=== PATIENT | female | born 1965 | race Caucasian/White ===

== ENCOUNTER → 2017-01-18 | Outpatient (CLI) | payer MEDICARE, OTHER ==
[~2017-01-18] MED LIST: BNZT2T PO; BUPR150T6; CALCIUM; CLON0.5T3 PO; D50KC PO; DIVA500T PO; DIVA500T15; DULO60CA6 PO; EFFEXOR; EST.625T PO; LITH300C PO; LORA0.5T; LORA0.5T PO; LRT10T PO; MMT17NA NS; MNTL10T PO; MTC5T; NEBI5TAB8 PO; OMEP-10 PO; PRM25T PO; TEMA30CA; VIT D; ZLP10T PO
--- NOTE | 2017-01-18 10:59 | Diagnostic Imaging Report ---
PROCEDURE: CT abdomen and pelvis without contrast. TECHNIQUE: Multiple contiguous axial images were obtained through the abdomen and pelvis without the use of intravenous contrast. INDICATION: Pain, hematuria, bladder pressure. Exam compared with study 08/20/2009. FINDINGS: Image 77 reveals an elongated calculus likely passing through the ureterovesical junction. The majority of the stone within the lumen of the urinary bladder measuring 3.3 mm in length x 1.6 mm transverse. This does not result in any substantial upstream hydroureteronephrosis; however, right renal parenchymal densities suggest mild cortical edema. No urinoma or fluid collection. No additional opaque urinary tract stone burden. The urinary bladder was nondistended. Right pelvic phleboliths stable from prior. The appendix nondilated and normal. The gallbladder surgically absent. No pathological biliary ductal dilatation. The pancreas normal. There is no adrenal mass. Chronic benign calcifications, the right adrenal, medial limb, unchanged. Aorta is nonaneurysmal. There is no bowel obstruction. No ascites, abscess, hematoma, or other fluid collection. IMPRESSION: Small elongated stone in the right hemipelvis likely passing through the UVJ nearly entirely within the lumen of the urinary bladder. Dimensions above. No resultant hydroureteronephrosis, however, likely mild right renal cortical edema present. No fluid collection. No additional stone burden. Negative appendix. No other potential acute or subacute pathology. Dictated by: Dictated on workstation # [id number]
== END ==
LOC: RAD 10:30
DX: N20.1 Calculus of ureter (principal)
CPT/HCPCS: 74176

== ENCOUNTER → 2017-07-28 | Outpatient (CLI) | payer MEDICARE, OTHER ==
--- NOTE | 2017-07-29 13:46 | Diagnostic Imaging Report ---
Bilateral screening mammogram 2D views with tomosynthesis. The current study was also evaluated with a Computer Aided Detection (CAD) system. INDICATION: Screening. No current complaints stated on the questionnaire. COMPARISON: 03/03/2015. FINDINGS: The breasts are composed of heterogeneously dense parenchyma which may decrease mammographic sensitivity. No mass, architectural distortion, or suspicious cluster of calcifications seen. Allowing for technique and positional differences, no suspicious change is seen. IMPRESSION: No significant change. ACR BI-RADS Category 2: Benign findings. Result letter will be mailed to the patient. Note: At least 10% of breast cancer is not imaged by mammography. Dictated on workstation # [id number]
== END ==
LOC: RAD 10:32
DX: Z12.31 Encounter for screening mammogram for malignant neoplasm of breast (principal)
CPT/HCPCS: 77067

== ENCOUNTER 2017-11-28 05:36 | Outpatient (CLI) | payer MEDICARE, OTHER ==
[~2017-11-28] VITALS: Ht 167.6 cm; Wt 90.7 kg
[2017-11-28] MEDS ORDERED: VENL150C98 PO (15:03)
[2017-11-28] MEDS ORDERED: TOPI100T PO (15:03)
[2017-11-28] MEDS ORDERED: LEVO50TA6 PO (15:03)
[2017-11-28] MEDS ORDERED: METO-461 PO (15:03)
[2017-11-28] MEDS ORDERED: OXCA600T3 PO ×2 (15:03)
[2017-11-28] MEDS ORDERED: ATOR20TA66 PO (15:03)
[2017-11-28] MEDS ORDERED: MONT10TA24 PO (15:03)
[2017-11-28] MEDS ORDERED: MULT-974 PO (15:03)
[2017-11-28] MEDS ORDERED: LORA10TA7 PO (15:03)
[2017-11-28] MEDS ORDERED: GABA300C PO (15:03)
[2017-11-28] MEDS ORDERED: HYDR12.56 PO (15:03)
[2017-11-28] MEDS ORDERED: ARIP5TAB12 PO (15:03)
[2017-11-28] MEDS ORDERED: OMEP40CA36 PO (15:03)
== END 2017-11-28 15:07 ==
LOC: PREOP 05:36
PROVIDERS: ATTEND Surgery
DX: Z01.818 Encounter for other preprocedural examination (principal); Z12.11 Encounter for screening for malignant neoplasm of colon

== ENCOUNTER 2017-12-05 08:49 | Day surgery (SDC) | payer MEDICARE, OTHER ==
[~2017-12-05] VITALS: Ht 167.6 cm; Wt 90.7 kg
[~2017-12-05 08:49] MED LIST changes: +ARIP5TAB12 PO; +ATOR20TA66 PO; +GABA300C PO; +HYDR12.56 PO; +LEVO50TA6 PO; +LORA10TA7 PO; +METO-461 PO; +MONT10TA24 PO; +MULT-974 PO; +OMEP40CA36 PO; +OXCA600T3 PO; +TOPI100T PO; +VENL150C98 PO
--- OUTSIDE RECORDS SUMMARY | 2017-12-05 08:53 | XMS REPORT ---
Author Author ARIANNA MOSQUEDA Organization [facility] [place] Address [address] [place] [address] Care Team Providers Care Director Marketing Name Role Phone ARIANNA MOSQUEDA Unavailable PROBLEMS Type Condition ICD9-CM Code [id number] Code Onset Dates Condition Status SNOMED Code Problem Moderate mixed bipolar I disorder F31.62 Active 54122070 Problem Anxiety state F41.1 Active 346552485 Problem Bipolar 1 disorder, depressed, moderate F31.32 Active 99154717 Assessment Moderate mixed bipolar I disorder F31.62 Sep, Active 44181847 ALLERGIES Unknown Allergies SOCIAL HISTORY No smoking Hx information available PLAN OF CARE VITAL SIGNS MEDICATIONS Unknown Medications RESULTS No Results PROCEDURES Procedure Date Ordered Related Diagnosis Body Site [facility] VISIT MENTAL HEALTH ESTAB PT Sep 20, 2016 Psychotherapy, patient &/family, 45 minutes, established patient Sep 20, 2016 IMMUNIZATIONS No Known Immunizations
--- OUTSIDE RECORDS SUMMARY | 2017-12-05 08:53 | XMS REPORT ---
Author Author ARIANNA MOSQUEDA [facility] Address [address] [place] [address] Care Team Providers Care Ssrs Developer Name Role Phone ARIANNA MOSQUEDA Unavailable PROBLEMS Type Condition ICD9-CM Code [id number] Code Onset Dates Condition Status SNOMED Code Problem Moderate mixed bipolar I disorder F31.62 Active 42728404 Problem Anxiety state F41.1 Active 089757298 ALLERGIES No Information SOCIAL HISTORY Never Assessed PLAN OF CARE Activity Details Follow Up 4 Weeks Reason:BH Follow-up VITAL SIGNS MEDICATIONS Unknown Medications RESULTS No Results PROCEDURES Procedure Date Ordered Result Body Site [facility] M[facility] HEALTH ESTAB PT February 28, 2017 Psychotherapy, patient &/family, 45 minutes, established patient February 28, 2017 IMMUNIZATIONS No Known Immunizations
--- OUTSIDE RECORDS SUMMARY | 2017-12-05 08:53 | XMS REPORT ---
Author Author ERIKA MOSQUEDA [facility] e[employer] Address Unknown Phone Unavailable Care Team Providers Care Branch Mechanic Name Role Phone ERIKA MOSQUEDA Unavailable Allergies No Known Allergies Problems Problem Type Condition Code Onset Dates Condition Status Problem Anxiety state F41.1 Active Problem Bipolar 1 disorder, depressed, moderate F31.32 Active Problem Moderate mixed bipolar I disorder F31.62 Active Assessment Moderate mixed bipolar I disorder F31.62 Active Assessment Anxiety state F41.1 Active Medications No Known Medications Procedures Procedure Coding System Code Date Psychotherapy, patient &/family, 45 minutes, established patient CPT-4 87655 Aug 18, 2016 [facility] VISIT MENTAL HEALTH ESTAB PT CPT-4 G0470 Aug 18, 2016 Results No Known Results Summary Purpose eClinicalWorks Submission
--- OUTSIDE RECORDS SUMMARY | 2017-12-05 08:53 | XMS REPORT ---
Author ARIANNA Judd Organization [employer] Address Unknown Phone Unavailable Care Team Providers Care Organ Tuner Electronic Name Role Phone ARIANNA MOSQUEDA Unavailable Allergies No Known Allergies Problems Problem Type Condition Code Onset Dates Condition Status Assessment Bipolar I disorder, mild, current or most recent episode depressed , with anxious distress F31.31 Active Problem Bipolar I disorder, mild, current or most recent episode depressed, with anxious distress F31.31 Active Medications No Known Medications Procedures Procedure Coding System Code Date Psychotherapy, patient &/family, 45 minutes, established patient CPT-4 60143 Sep 25, 2015 [facility] VISIT MENTAL HEALTH ESTAB PT CPT-4 G0470 Sep 25, 2015 Results No Known Results Summary Purpose eClinicalWorks Submission
--- OUTSIDE RECORDS SUMMARY | 2017-12-05 08:53 | XMS REPORT ---
Author Author ARIANNA MOSQUEDA [employer] Address Unknown Phone Unavailable Care Team Providers Care Phys Ther Name Role Phone ARIANNA MOSQUEDA CP Unavailable Allergies No Known Allergies Problems Problem Type Condition ICD-9 Code Onset Dates Condition Status Assessment Bipolar I disorder, most recent episode depressed 296.50 Active Problem Bipolar I disorder, most recent episode mixed, moderate 296.62 Active Problem Bipolar disorder, current episode depressed, moderate 296.52 Active Problem Bipolar I disorder, most recent episode depressed 296.50 Active Problem Bipolar I disorder, most recent episode (or current) mixed, severe, without mention of psychotic behavior 296.63 Active Problem Bipolar I disorder, most recent episode (or current) manic, mild 296.41 Active Problem Other and unspecified bipolar disorders 296.89 Active Problem Bipolar I disorder, most recent episode (or current) depressed, severe , without mention of psychotic behavior 296.53 Active Medications No Known Medications Procedures Procedure Coding System Code Date Psychotherapy, patient &/family, 30 minutes, established patient CPT-4 99723 Jul 03, 2015 [facility] VISIT MENTAL HEALTH ESTAB PT CPT-4 G0470 Jul 03, 2015 Results No Known Results Summary Purpose eClinicalWorks Submission
--- OUTSIDE RECORDS SUMMARY | 2017-12-05 08:53 | XMS REPORT ---
Author ARIANNA Judd Organization [employer] Address Unknown Phone Unavailable Care Team Providers Care Finger Buffs Assembler Name Role Phone ARIANNA MOSQUEDA CP Unavailable Allergies No Known Allergies Problems Problem Type Condition Code Onset Dates Condition Status Problem Bipolar I disorder, mild, current or most recent episode depressed, with anxious distress F31.31 Active Assessment Bipolar I disorder, mild, current or most recent episode depressed , with anxious distress F31.31 Active Problem Bipolar 1 disorder, depressed, moderate F31.32 Active Medications No Known Medications Procedures Procedure Coding System Code Date Psychotherapy, patient &/family, 30 minutes, established patient CPT-4 11893 January 28, 2016 [facility] VISIT MENTAL HEALTH ESTAB PT CPT-4 G0470 January 28, 2016 Results No Known Results Summary Purpose eClinicalWorks Submission
--- OUTSIDE RECORDS SUMMARY | 2017-12-05 08:53 | XMS REPORT ---
Author ARIANNA Judd Organization [employer] Address Unknown Phone Unavailable Care Team Providers Care Rail Grinder Name Role Phone ARIANNA MOSQUEDA Unavailable Allergies [...] patient &/family, 45 minutes, established patient CPT-4 55101 Jul 31, 2015 [facility] VISIT MENTAL HEALTH ESTAB PT CPT-4 G0470 Jul 31, 2015 Results No Known Results Summary Purpose eClinicalWorks Submission
--- OUTSIDE RECORDS SUMMARY | 2017-12-05 08:53 | XMS REPORT ---
Author Author ERIKA MOSQUEDA [facility] e[employer] Address Unknown Phone Unavailable Care Team Providers Care Display Artist Name Role Phone ERIKA MOSQUEDA Unavailable Allergies [...] patient &/family, 45 minutes, established patient CPT-4 88938 May 24, 2016 [facility] HEALTH ESTAB PT CPT-4 G0470 May 24, 2016 Results No Known Results Summary Purpose eClinicalWorks Submission
--- OUTSIDE RECORDS SUMMARY | 2017-12-05 08:53 | XMS REPORT ---
Author ARIANNA Judd Organization [employer] Address Unknown Phone Unavailable Care Team Providers Care Business Line Controller Name Role Phone ARIANNA MOSQUEDA Unavailable Allergies [...] patient &/family, 45 minutes, established patient CPT-4 75872 Oct 23, 2015 [facility] VISIT MENTAL HEALTH ESTAB PT CPT-4 G0470 Oct 23, 2015 Results No Known Results Summary Purpose eClinicalWorks Submission
--- OUTSIDE RECORDS SUMMARY | 2017-12-05 08:53 | XMS REPORT ---
Author Author ARIANNA MOSQUEDA Organization [employer] Address Unknown Phone Unavailable Care Team Providers Care Certified Hand Therapist Name Role Phone ARIANNA MOSQUEDA CP Unavailable [...] patient &/family, 45 minutes, established patient CPT-4 37563 Jul 23, 2015 [facility] VISIT MENTAL HEALTH ESTAB PT CPT-4 G0470 Jul 23, 2015 Results No Known Results Summary Purpose eClinicalWorks Submission
--- OUTSIDE RECORDS SUMMARY | 2017-12-05 08:53 | XMS REPORT ---
Author Author ERIKA MOSQUEDA [facility] eClinicalWorks Address Unknown Phone Unavailable Care Team Providers Care Brine Purifier Name Role Phone ERIKA MOSQUEDA Unavailable Allergies [...] patient &/family, 30 minutes, established patient CPT-4 18987 Sep 02, 2016 [facility] VISIT MENTAL HEALTH ESTAB PT CPT-4 G0470 Sep 02, 2016 Results No Known Results Summary Purpose eClinicalWorks Submission
--- OUTSIDE RECORDS SUMMARY | 2017-12-05 08:53 | XMS REPORT ---
Author Author ERIKA MOSQUEDA Organization [facility] Address [address] [place] [address] Care Team Providers Care Radio Television Technical Director Name Role Phone ERIKA MOSQUEDA Unavailable PROBLEMS Type Condition ICD9-CM Code [id number] Code Onset Dates Condition Status SNOMED Code Problem Moderate mixed bipolar I disorder F31.62 Active 68986433 Problem Anxiety state F41.1 Active 230995668 ALLERGIES No Information SOCIAL HISTORY Never Assessed PLAN OF CARE Activity Details Follow Up 2 Weeks Reason:BH Follow-up VITAL SIGNS MEDICATIONS Medication Instructions Dosage Frequency Start Date End Date Duration Status Aripiprazole 5 MG Orally Once a day 1 tablet 24h Active Topiramate 100 MG Orally Twice a day 1 tablet 12h Active Effexor Active Metoprolol Succinate ER 100 MG Orally Once a day 1 tablet 24h Active Levoxyl 50 MCG Orally Once a day 1 tablet on an empty stomach in the morning 24h Active Atorvastatin Calcium 20 MG Orally Once a day 1 tablet 24h Active Oxcarbazepine 600 MG Active Prilosec 20 MG Orally Once a day 1 capsule 24h Active Loratadine 10 MG Orally Once a day 1 tablet 24h Active Singulair 10 mg 1 Tablet by Oral route 1 time per day Dec, Active Acamprosate Calcium 333 MG Orally Three times a day 1 tablet 8h Active Hydrochlorothiazide 12.5 MG Orally Once a day 1 tablet in the morning 24h Active Diazepam 2 MG Orally Once a day 1 tablet as needed 24h Active RESULTS No Results PROCEDURES Procedure Date Ordered Result Body Site [facility] VISIT MENTAL HEALTH ESTAB PT December 28, 2016 Psychotherapy, patient &/family, 30 minutes, established patient December 28, 2016 IMMUNIZATIONS No Known Immunizations
--- OUTSIDE RECORDS SUMMARY | 2017-12-05 08:53 | XMS REPORT ---
Author Author ARIANNA MOSQUEDA [facility] Address [address] [place] [address] Care Team Providers Care Regulatory Compliance Coordinator Name Role Phone ARIANNA MOSQUEDA Unavailable PROBLEMS Type Condition ICD9-CM Code [id number] Code Onset Dates Condition Status SNOMED Code Problem Moderate mixed bipolar I disorder F31.62 Active 43062924 Problem Anxiety state F41.1 Active 325397099 ALLERGIES No Information SOCIAL HISTORY Never Assessed PLAN OF CARE Activity Details Follow Up 2 Weeks Reason:BH Follow-up VITAL SIGNS MEDICATIONS Unknown Medications RESULTS No Results PROCEDURES Procedure Date Ordered Result Body Site [facility] VISIT MENTAL HEALTH ESTAB PT Nov 30, 2016 Psychotherapy, patient &/family, 30 minutes, established patient Nov 30, 2016 IMMUNIZATIONS No Known Immunizations
--- OUTSIDE RECORDS SUMMARY | 2017-12-05 08:53 | XMS REPORT ---
Author ARIANNA Judd Organization [employer] Address Unknown Phone Unavailable Care Team Providers Care Drafter Electronic Name Role Phone ARIANNA MOSQUEDA CP Unavailable [...] patient &/family, 45 minutes, established patient CPT-4 19792 February 03, 2016 [facility] VISIT MENTAL HEALTH ESTAB PT CPT-4 G0470 February 03, 2016 Results No Known Results Summary Purpose eClinicalWorks Submission
--- OUTSIDE RECORDS SUMMARY | 2017-12-05 08:54 | XMS REPORT ---
Author Author ARIANNA MOSQUEDA [facility] Address [address] [place] [address] Care Team Providers Care Site Supervisor Name Role Phone ARIANNA MOSQUEDA Unavailable PROBLEMS Type Condition ICD9-CM Code [id number] Code Onset Dates Condition Status SNOMED Code Problem Moderate mixed bipolar I disorder F31.62 Active 22848480 Problem Anxiety state F41.1 Active 519578884 ALLERGIES No Information SOCIAL HISTORY Never Assessed PLAN OF CARE Activity Details Follow Up Next available Reason:BH Follow-up VITAL SIGNS MEDICATIONS Unknown Medications RESULTS No Results PROCEDURES Procedure Date Ordered Result Body Site [facility] VISIT MENTAL HEALTH ESTAB PT March 08, 2017 Psychotherapy, patient &/family, 45 minutes, established patient March 08, 2017 IMMUNIZATIONS No Known Immunizations
--- OUTSIDE RECORDS SUMMARY | 2017-12-05 08:54 | XMS REPORT ---
Author Author ARIANNA MOSQUEDA [facility] Address [address] [place] [address] Care Team Providers Care Snow Blower Name Role Phone ARIANNA MOSQUEDA Unavailable PROBLEMS Type Condition ICD9-CM Code [id number] Code Onset Dates Condition Status SNOMED Code Problem Moderate mixed bipolar I disorder F31.62 Active 29627874 Problem Anxiety state F41.1 Active 897359404 ALLERGIES No Information SOCIAL HISTORY Never Assessed PLAN OF CARE Activity Details Follow Up Next available Reason:BH Follow-up VITAL SIGNS MEDICATIONS Unknown Medications RESULTS No Results PROCEDURES Procedure Date Ordered Result Body Site [facility] ESTAB PT Dec 13, 2016 Psychotherapy, patient &/family, 30 minutes, established patient Dec 13, 2016 IMMUNIZATIONS No Known Immunizations
--- OUTSIDE RECORDS SUMMARY | 2017-12-05 08:54 | XMS REPORT ---
Author ARIANNA Judd Organization [employer] Address Unknown Phone Unavailable Care Team Providers Care Jar Capper Name Role Phone ARIANNA MOSQUEDA Unavailable Allergies [...] patient &/family, 45 minutes, established patient CPT-4 29125 Nov 27, 2015 [facility] VISIT MENTAL HEALTH ESTAB PT CPT-4 G0470 Nov 27, 2015 Results No Known Results Summary Purpose eClinicalWorks Submission
--- OUTSIDE RECORDS SUMMARY | 2017-12-05 08:54 | XMS REPORT ---
Author ARIANNA Judd Organization [employer] Address Unknown Phone Unavailable Care Team Providers Care Store Custodian Name Role Phone ARIANNA MOSQUEDA Unavailable Allergies [...] patient &/family, 45 minutes, established patient CPT-4 85217 Sep 01, 2015 [facility] EST[facility] PT CPT-4 G0470 Sep 01, 2015 Results No Known Results Summary Purpose eClinicalWorks Submission
--- OUTSIDE RECORDS SUMMARY | 2017-12-05 08:54 | XMS REPORT ---
Author Author ARIANNA MOSQUEDA [facility] Address [address] [place] [address] Care Team Providers Care Food Adviser Name Role Phone ARIANNA MOSQUEDA Unavailable PROBLEMS Type Condition ICD9-CM Code [id number] Code Onset Dates Condition Status SNOMED Code Problem Moderate mixed bipolar I disorder F31.62 Active 73841885 Problem Anxiety state F41.1 Active 960375489 ALLERGIES Unknown Allergies SOCIAL HISTORY No smoking Hx information available PLAN OF CARE Activity Details Follow Up 4 Weeks Reason: Follow-up VITAL SIGNS MEDICATIONS Unknown Medications RESULTS No Results PROCEDURES Procedure Date Ordered Related Diagnosis Body Site [facility] VISIT MENTAL HEALTH ESTAB PT Nov 01, 2016 Psychotherapy, patient &/family, 30 minutes, established patient Nov 01, 2016 IMMUNIZATIONS No Known Immunizations
--- OUTSIDE RECORDS SUMMARY | 2017-12-05 08:54 | XMS REPORT ---
Author ERIKA Judd Organization [employer] Address Unknown Phone Unavailable Care Team Providers Care Consulting Analyst Name Role Phone ERIKA MOSQUEDA CP Unavailable Allergies No Known Allergies Problems Problem Type Condition Code Onset Dates Condition Status Problem Bipolar 1 disorder, depressed, moderate F31.32 Active Assessment Bipolar 1 disorder, depressed, moderate F31.32 Active Problem Anxiety state F41.1 Active Assessment Anxiety state F41.1 Active Medications No Known Medications Procedures Procedure Coding System Code Date Psychotherapy, patient &/family, 45 minutes, established patient CPT-4 12915 May 03, 2016 [facility] VISIT MENTAL HEALTH ESTAB PT CPT-4 G0470 May 03, 2016 Results No Known Results Summary Purpose eClinicalWorks Submission
--- OUTSIDE RECORDS SUMMARY | 2017-12-05 08:54 | XMS REPORT ---
Author ARIANNA Judd Organization [employer] Address Unknown Phone Unavailable Care Team Providers Care Dean Of Graduate Studies Name Role Phone ARIANNA MOSQUEDA Unavailable Allergies [...] patient &/family, 45 minutes, established patient CPT-4 03281 Nov 06, 2015 [facility] VISIT MENTAL HEALTH ESTAB PT CPT-4 G0470 Nov 06, 2015 Results No Known Results Summary Purpose eClinicalWorks Submission
--- OUTSIDE RECORDS SUMMARY | 2017-12-05 08:54 | XMS REPORT ---
Author Author ERIKA MOSQUEDA [facility] eClinicalWorks Address Unknown Phone Unavailable Care Team Providers Care Botanical Technical Officer Name Role Phone ERIKA MOSQUEDA Unavailable Allergies [...] patient &/family, 30 minutes, established patient CPT-4 65752 Aug 04, 2016 [facility] VISIT MENTAL HEALTH ESTAB PT CPT-4 G0470 Aug 04, 2016 Results No Known Results Summary Purpose eClinicalWorks Submission
--- OUTSIDE RECORDS SUMMARY | 2017-12-05 08:56 | XMS REPORT | Continuity of Care Document ---
Author Author [facility] Address Unknown Phone Unavailable Allergies Active Description Code Type Severity Reaction Onset Reported/Identified Relationship to Patient Clinical Status Yes ciprofloxacin [id number] Drug Allergy Unknown N/A 08/18/2010 Yes Cipro Drug Allergy 04/06/2011 Yes Cipro Drug Allergy N/A N/A 04/06/2011 Medications There is no data. Problems Date Dx Coded Attending Type Code Diagnosis Diagnosed By 09/05/2009 296.80 MO BIPOLAR NOS 09/05/2009 300.00 MN MEN DIS NOS 09/05/2009 307.47 SI DYSSOMNIA NOS 09/05/2009 296.80 MO BIPOLAR NOS 09/05/2009 300.00 MN MEN DIS NOS 09/05/2009 307.47 SI DYSSOMNIA NOS 09/05/2009 [facility] 296.80 MO BIPOLAR NOS 09/05/2009 [facility] 300.00 MN MEN DIS NOS 09/05/2009 J[facility]LIN [facility] STRONG 307.47 SI DYSSOMNIA NOS 09/05/2009 296.80 MO BIPOLAR NOS 09/05/2009 300.00 MN MEN DIS NOS 09/05/2009 307.47 SI DYSSOMNIA NOS 09/05/2009 296.80 MO BIPOLAR NOS 09/05/2009 300.00 MN MEN DIS NOS 09/05/2009 307.47 SI DYSSOMNIA NOS 09/05/2009 296.80 MO BIPOLAR NOS 09/05/2009 300.00 MN MEN DIS NOS 09/05/2009 307.47 SI DYSSOMNIA NOS 09/05/2009 296.80 MO BIPOLAR NOS 09/05/2009 300.00 MN MEN DIS NOS 09/05/2009 307.47 SI DYSSOMNIA NOS 09/05/2009 296.80 MO BIPOLAR NOS 09/05/2009 300.00 MN MEN DIS NOS 09/05/2009 307.47 SI DYSSOMNIA NOS 09/05/2009 [facility] 296.80 MO BIPOLAR NOS 09/05/2009 [facility], ARIANNA R 300.00 MN MEN DIS NOS 09/05/2009 [facility], ARIANNA R 307.47 SI DYSSOMNIA NOS 09/05/2009 [facility], ARIANNA R 296.80 MO BIPOLAR NOS 09/05/2009 [facility], ARIANNA R 300.00 MN MEN DIS NOS 09/05/2009 [facility], ARIANNA R 307.47 SI DYSSOMNIA NOS 09/05/2009 [facility], ARIANNA R 296.80 MO BIPOLAR NOS 09/05/2009 [facility], ARIANNA R 300.00 MN MEN DIS NOS 09/05/2009 [facility], ARIANNA R 307.47 SI DYSSOMNIA NOS 09/05/2009 [facility], ARIANNA R 296.80 MO BIPOLAR NOS 09/05/2009 [facility], ARIANNA R 300.00 MN MEN DIS NOS 09/05/2009 [facility], ARIANNA R 307.47 SI DYSSOMNIA NOS 09/05/2009 [facility], ARIANNA R 296.80 MO BIPOLAR NOS 09/05/2009 [facility], ARIANNA R 300.00 MN MEN DIS NOS 09/05/2009 [facility], ARIANNA R 307.47 SI DYSSOMNIA NOS 09/05/2009 [facility], ARIANNA R 296.80 MO BIPOLAR NOS 09/05/2009 [facility], ARIANNA R 300.00 MN MEN DIS NOS 09/05/2009 [facility], ARIANNA R 307.47 SI DYSSOMNIA NOS 09/05/2009 [facility], ARIANNA R 296.80 MO BIPOLAR NOS 09/05/2009 [facility], ARIANNA R 300.00 MN MEN DIS NOS 09/05/2009 [facility], ARIANNA R 307.47 SI DYSSOMNIA NOS 09/05/2009 [facility], ARIANNA R 296.80 MO BIPOLAR NOS 09/05/2009 [facility], ARIANNA R 300.00 MN MEN DIS NOS 09/05/2009 [facility], ARIANNA R 307.47 SI DYSSOMNIA NOS 09/05/2009 [facility], ARIANNA R 296.80 MO BIPOLAR NOS 09/05/2009 [facility], ARIANNA R 300.00 MN MEN DIS NOS 09/05/2009 [facility], ARIANNA R 307.47 SI DYSSOMNIA NOS 09/05/2009 [facility], ARIANNA R 296.80 MO BIPOLAR NOS 09/05/2009 [facility], ARIANNA R 300.00 MN MEN DIS NOS 09/05/2009 [facility], ARIANNA R 307.47 SI DYSSOMNIA NOS 09/05/2009 [facility], ARIANNA R 296.80 MO BIPOLAR NOS 09/05/2009 [facility], ARIANNA R 300.00 MN MEN DIS NOS 09/05/2009 [facility], ARIANNA R 307.47 SI DYSSOMNIA NOS 09/05/2009 [facility], ARIANNA R 296.80 MO BIPOLAR NOS 09/05/2009 [facility], ARIANNA R 300.00 MN MEN DIS NOS 09/05/2009 [facility], ARIANNA R 307.47 SI DYSSOMNIA NOS 09/05/2009 [facility], ARIANNA R 296.80 MO BIPOLAR NOS 09/05/2009 [facility], ARIANNA R 300.00 MN MEN DIS NOS 09/05/2009 [facility] 307.47 SI DYSSOMNIA NOS 09/05/2009 [facility], ARIANNA R 296.80 MO BIPOLAR NOS 09/05/2009 [facility], ARIANNA R 300.00 MN MEN DIS NOS 09/05/2009 [facility], ARIANNA R 307.47 SI DYSSOMNIA NOS 09/05/2009 [facility], ARIANNA R 296.80 MO BIPOLAR NOS 09/05/2009 [facility], ARIANNA R 300.00 MN MEN DIS NOS 09/05/2009 [facility], ARIANNA R 307.47 SI DYSSOMNIA NOS 09/05/2009 [facility], ARIANNA R 296.80 MO BIPOLAR NOS 09/05/2009 [facility], ARIANNA R 300.00 MN MEN DIS NOS 09/05/2009 [facility], ARIANNA R 307.47 SI DYSSOMNIA NOS 09/05/2009 [facility], ARIANNA R 296.80 MO BIPOLAR NOS 09/05/2009 [facility], ARIANNA R 300.00 MN MEN DIS NOS 09/05/2009 [facility], ARIANNA R 307.47 SI DYSSOMNIA NOS 09/05/2009 [facility], ARIANNA R 296.80 MO BIPOLAR NOS 09/05/2009 [facility], ARIANNA R 300.00 MN MEN DIS NOS 09/05/2009 [facility], [place] R 307.47 SI DYSSOMNIA NOS 09/05/2009 [facility], [facility] R 296.80 MO BIPOLAR NOS 09/05/2009 [facility], [place] R 300.00 MN MEN DIS NOS 09/05/2009 [facility], [place] R 307.47 SI DYSSOMNIA NOS 09/05/2009 [facility], [facility] R 296.80 MO BIPOLAR NOS 09/05/2009 [facility], [place] R 300.00 MN MEN DIS NOS 09/05/2009 [facility], [place] R 307.47 SI DYSSOMNIA NOS 09/05/2009 [facility], [facility] R 296.80 MO BIPOLAR NOS 09/05/2009 [facility], [place] R 300.00 MN MEN DIS NOS 09/05/2009 [facility], [place] R 307.47 SI DYSSOMNIA NOS 09/05/2009 [facility], [facility] R 296.80 MO BIPOLAR NOS 09/05/2009 [facility], [place] R 300.00 MN MEN DIS NOS 09/05/2009 [facility], [place] R 307.47 SI DYSSOMNIA NOS 09/05/2009 [facility], [place]NA R 296.80 MO BIPOLAR NOS 09/05/2009 [facility], [place] R 300.00 MN MEN DIS NOS 09/05/2009 [facility], [place] R 307.47 SI DYSSOMNIA NOS 11/04/2009 296.40 MO BIPOLAR MANIC UNSPECIFIED 11/04/2009 296.40 MO BIPOLAR MANIC UNSPECIFIED 11/04/2009 [facility], [place] R 296.40 MO BIPOLAR MANIC UNSPECIFIED 11/04/2009 296.40 MO BIPOLAR MANIC UNSPECIFIED 11/04/2009 296.40 MO BIPOLAR MANIC UNSPECIFIED 11/04/2009 296.40 MO BIPOLAR MANIC UNSPECIFIED 11/04/2009 296.40 MO BIPOLAR MANIC UNSPECIFIED 11/04/2009 296.40 MO BIPOLAR MANIC UNSPECIFIED 11/04/2009 [facility], [place] R 296.40 MO BIPOLAR MANIC UNSPECIFIED 11/04/2009 [facility], [place] R 296.40 MO BIPOLAR MANIC UNSPECIFIED 11/04/2009 [facility], [place] R 296.40 MO BIPOLAR MANIC UNSPECIFIED 11/04/2009 [facility], [place] R 296.40 MO BIPOLAR MANIC UNSPECIFIED 11/04/2009 [facility], [place] R 296.40 MO BIPOLAR MANIC UNSPECIFIED 11/04/2009 [facility], [place] R 296.40 MO BIPOLAR MANIC UNSPECIFIED 11/04/2009 [facility] R 296.40 MO BIPOLAR MANIC UNSPECIFIED 11/04/2009 [facility] R 296.40 MO BIPOLAR MANIC UNSPECIFIED 11/04/2009 [facility] R 296.40 MO BIPOLAR MANIC UNSPECIFIED 11/04/2009 [facility], [place] R 296.40 MO BIPOLAR MANIC UNSPECIFIED 11/04/2009 [facility], [place] R 296.40 MO BIPOLAR MANIC UNSPECIFIED 11/04/2009 [facility], [place] R 296.40 MO BIPOLAR MANIC UNSPECIFIED 11/04/2009 [facility], [place] R 296.40 MO BIPOLAR MANIC UNSPECIFIED 11/04/2009 [facility], [place] R 296.40 MO BIPOLAR MANIC UNSPECIFIED 11/04/2009 [facility], [place] R 296.40 MO BIPOLAR MANIC UNSPECIFIED 11/04/2009 [facility], [place] R 296.40 MO BIPOLAR MANIC UNSPECIFIED 11/04/2009 [facility], [place] R 296.40 MO BIPOLAR MANIC UNSPECIFIED 11/04/2009 [facility], [place] R 296.40 MO BIPOLAR MANIC UNSPECIFIED 11/04/2009 [facility], [place] R 296.40 MO BIPOLAR MANIC UNSPECIFIED 11/04/2009 [facility], [place]NA R 296.40 MO BIPOLAR MANIC UNSPECIFIED 11/04/2009 [facility], [place] R 296.40 MO BIPOLAR MANIC UNSPECIFIED 11/04/2009 [facility], [place] R 296.40 MO BIPOLAR MANIC UNSPECIFIED 11/04/2009 [facility], [place] R 296.40 MO BIPOLAR MANIC UNSPECIFIED 11/19/2009 296.60 MO BIPOLAR I MIXED UNSPECIFIED 11/19/2009 296.60 MO BIPOLAR I MIXED UNSPECIFIED 11/19/2009 [facility], [place] R 296.60 MO BIPOLAR I MIXED UNSPECIFIED 11/19/2009 296.60 MO BIPOLAR I MIXED UNSPECIFIED 11/19/2009 296.60 MO BIPOLAR I MIXED UNSPECIFIED 11/19/2009 296.60 MO BIPOLAR I MIXED UNSPECIFIED 11/19/2009 296.60 MO BIPOLAR I MIXED UNSPECIFIED 11/19/2009 296.60 MO BIPOLAR I MIXED UNSPECIFIED 11/19/2009 [facility], [place] R 296.60 MO BIPOLAR I MIXED UNSPECIFIED 11/19/2009 [facility], [place] R 296.60 MO BIPOLAR I MIXED UNSPECIFIED 11/19/2009 [facility], [place] R 296.60 MO BIPOLAR I MIXED UNSPECIFIED 11/19/2009 [facility], [place] R 296.60 MO BIPOLAR I MIXED UNSPECIFIED 11/19/2009 [facility], [place] R 296.60 MO BIPOLAR I MIXED UNSPECIFIED 11/19/2009 [facility], [place] R 296.60 MO BIPOLAR I MIXED UNSPECIFIED 11/19/2009 [facility], [place] R 296.60 MO BIPOLAR I MIXED UNSPECIFIED 11/19/2009 [facility], [place] R 296.60 MO BIPOLAR I MIXED UNSPECIFIED 11/19/2009 [facility], [place] R 296.60 MO BIPOLAR I MIXED UNSPECIFIED 11/19/2009 [facility], [place] R 296.60 MO BIPOLAR I MIXED UNSPECIFIED 11/19/2009 [facility], [place] R 296.60 MO BIPOLAR I MIXED UNSPECIFIED 11/19/2009 [facility], [place] R 296.60 MO BIPOLAR I MIXED UNSPECIFIED 11/19/2009 [facility], [place] R 296.60 MO BIPOLAR I MIXED UNSPECIFIED 11/19/2009 [facility], [place] R 296.60 MO BIPOLAR I MIXED UNSPECIFIED 11/19/2009 [facility], [place] R 296.60 MO BIPOLAR I MIXED UNSPECIFIED 11/19/2009 [facility], [place] R 296.60 MO BIPOLAR I MIXED UNSPECIFIED 11/19/2009 [facility], [place] R 296.60 MO BIPOLAR I MIXED UNSPECIFIED 11/19/2009 [facility], [place] R 296.60 MO BIPOLAR I MIXED UNSPECIFIED 11/19/2009 [facility], [place] R 296.60 MO BIPOLAR I MIXED UNSPECIFIED 11/19/2009 [facility], [place] R 296.60 MO BIPOLAR I MIXED UNSPECIFIED 11/19/2009 [facility], [place] R 296.60 MO BIPOLAR I MIXED UNSPECIFIED 11/19/2009 [facility], [place] R 296.60 MO BIPOLAR I MIXED UNSPECIFIED 11/19/2009 [facility], ARIANNA R 296.60 MO BIPOLAR I MIXED UNSPECIFIED 12/04/2009 296.62 MO BIPOLAR I MIXED MODERATE 12/04/2009 296.62 MO BIPOLAR I MIXED MODERATE 12/04/2009 [facility], ARIANNA R 296.62 MO BIPOLAR I MIXED MODERATE 12/04/2009 296.62 MO BIPOLAR I MIXED MODERATE 12/04/2009 296.62 MO BIPOLAR I MIXED MODERATE 12/04/2009 296.62 MO BIPOLAR I MIXED MODERATE 12/04/2009 296.62 MO BIPOLAR I MIXED MODERATE 12/04/2009 296.62 MO BIPOLAR I MIXED MODERATE 12/04/2009 [facility], ARIANNA R 296.62 MO BIPOLAR I MIXED MODERATE 12/04/2009 [facility], ARIANNA R 296.62 MO BIPOLAR I MIXED MODERATE 12/04/2009 [facility], ARIANNA R 296.62 MO BIPOLAR I MIXED MODERATE 12/04/2009 [facility], ARIANNA R 296.62 MO BIPOLAR I MIXED MODERATE 12/04/2009 [facility], ARIANNA R 296.62 MO BIPOLAR I MIXED MODERATE 12/04/2009 [facility], ARIANNA R 296.62 MO BIPOLAR I MIXED MODERATE 12/04/2009 [facility], ARIANNA R 296.62 MO BIPOLAR I MIXED MODERATE 12/04/2009 [facility], ARIANNA R 296.62 MO BIPOLAR I MIXED MODERATE 12/04/2009 [facility], ARIANNA R 296.62 MO BIPOLAR I MIXED MODERATE 12/04/2009 [facility], ARIANNA R 296.62 MO BIPOLAR I MIXED MODERATE 12/04/2009 [facility], ARIANNA R 296.62 MO BIPOLAR I MIXED MODERATE 12/04/2009 [facility], ARIANNA R 296.62 MO BIPOLAR I MIXED MODERATE 12/04/2009 [facility], ARIANNA R 296.62 MO BIPOLAR I MIXED MODERATE 12/04/2009 [facility], ARIANNA R 296.62 MO BIPOLAR I MIXED MODERATE 12/04/2009 [facility], ARIANNA R 296.62 MO BIPOLAR I MIXED MODERATE 12/04/2009 [facility], ARIANNA R 296.62 MO BIPOLAR I MIXED MODERATE 12/04/2009 [facility], ARIANNA R 296.62 MO BIPOLAR I MIXED MODERATE 12/04/2009 [facility], ARIANNA R 296.62 MO BIPOLAR I MIXED MODERATE 12/04/2009 [facility], ARIANNA R 296.62 MO BIPOLAR I MIXED MODERATE 12/04/2009 [facility], ARIANNA R 296.62 MO BIPOLAR I MIXED MODERATE 12/04/2009 [facility], ARIANNA R 296.62 MO BIPOLAR I MIXED MODERATE 12/04/2009 [facility], ARIANNA R 296.62 MO BIPOLAR I MIXED MODERATE 12/04/2009 [facility], ARIANNA R 296.62 MO BIPOLAR I MIXED MODERATE 12/11/2009 309.81 AN PTSD 12/11/2009 309.81 AN PTSD 12/11/2009 [facility], ARIANNA R 309.81 AN PTSD 12/11/2009 309.81 AN PTSD 12/11/2009 309.81 AN PTSD 12/11/2009 309.81 AN PTSD 12/11/2009 309.81 AN PTSD 12/11/2009 309.81 AN PTSD 12/11/2009 [facility], ARIANNA R 309.81 AN PTSD 12/11/2009 [facility], ARIANNA R 309.81 AN PTSD 12/11/2009 [facility], ARIANNA R 309.81 AN PTSD 12/11/2009 [facility], ARIANNA R 309.81 AN PTSD 12/11/2009 [facility], ARIANNA R 309.81 AN PTSD 12/11/2009 [facility], ARIANNA R 309.81 AN PTSD 12/11/2009 [facility], [place]NA R 309.81 AN PTSD 12/11/2009 [facility], [place]NA R 309.81 AN PTSD 12/11/2009 [facility], [place]NA R 309.81 AN PTSD 12/11/2009 [facility], [place]NA R 309.81 AN PTSD 12/11/2009 [facility], ARIANNA R 309.81 AN PTSD 12/11/2009 [facility], ARIANNA R 309.81 AN PTSD 12/11/2009 [facility], ARIANNA R 309.81 AN PTSD 12/11/2009 [facility], AIR[facility]NA R 309.81 AN PTSD 12/11/2009 [facility], ARIANNA R 309.81 AN PTSD 12/11/2009 [facility], ARIANNA R 309.81 AN PTSD 12/11/2009 [facility], ARIANNA R 309.81 AN PTSD 12/11/2009 [facility], ARIANNA R 309.81 AN PTSD 12/11/2009 [facility], ARIANNA R 309.81 AN PTSD 12/11/2009 [facility], ARIANNA R 309.81 AN PTSD 12/11/2009 [facility], ARIANNA R 309.81 AN PTSD 12/11/2009 [facility], ARIANNA R 309.81 AN PTSD 12/11/2009 [facility], ARIANNA R 309.81 AN PTSD 03/04/2010 296.61 MO BIPOLAR I MIXED MILD 03/04/2010 296.61 MO BIPOLAR I MIXED MILD 03/04/2010 [facility], ARIANNA R 296.61 MO BIPOLAR I MIXED MILD 03/04/2010 296.61 MO BIPOLAR I MIXED MILD 03/04/2010 296.61 MO BIPOLAR I MIXED MILD 03/04/2010 296.61 MO BIPOLAR I MIXED MILD 03/04/2010 296.61 MO BIPOLAR I MIXED MILD 03/04/2010 296.61 MO BIPOLAR I MIXED MILD 03/04/2010 [facility], ARIANNA R 296.61 MO BIPOLAR I MIXED MILD 03/04/2010 [facility], ARIANNA R 296.61 MO BIPOLAR I MIXED MILD 03/04/2010 [facility] 296.61 MO BIPOLAR I MIXED MILD 03/04/2010 [facility] R 296.61 MO BIPOLAR I MIXED MILD 03/04/2010 [facility], ARIANNA R 296.61 MO BIPOLAR I MIXED MILD 03/04/2010 [facility], ARIANNA R 296.61 MO BIPOLAR I MIXED MILD 03/04/2010 [facility], ARIANNA R 296.61 MO BIPOLAR I MIXED MILD 03/04/2010 [facility], ARIANNA R 296.61 MO BIPOLAR I MIXED MILD 03/04/2010 [facility], ARIANNA R 296.61 MO BIPOLAR I MIXED MILD 03/04/2010 [facility], ARIANNA R 296.61 MO BIPOLAR I MIXED MILD 03/04/2010 [facility], ARIANNA R 296.61 MO BIPOLAR I MIXED MILD 03/04/2010 [facility], ARIANNA R 296.61 MO BIPOLAR I MIXED MILD 03/04/2010 [facility], ARIANNA R 296.61 MO BIPOLAR I MIXED MILD 03/04/2010 [facility], ARIANNA R 296.61 MO BIPOLAR I MIXED MILD 03/04/2010 [facility], ARIANNA R 296.61 MO BIPOLAR I MIXED MILD 03/04/2010 [facility] R 296.61 MO BIPOLAR I MIXED MILD 03/04/2010 [facility], [place]NA R 296.61 MO BIPOLAR I MIXED MILD 03/04/2010 [facility] R 296.61 MO BIPOLAR I MIXED MILD 03/04/2010 [facility], ARIANNA R 296.61 MO BIPOLAR I MIXED MILD 03/04/2010 [facility] R 296.61 MO BIPOLAR I MIXED MILD 03/04/2010 [facility] R 296.61 MO BIPOLAR I MIXED MILD 03/04/2010 [facility] R 296.61 MO BIPOLAR I MIXED MILD 03/04/2010 [facility] R 296.61 MO BIPOLAR I MIXED MILD 04/06/2011 V58.69 MEDICATION HIGH RISK 04/06/2011 V58.69 MEDICATION HIGH RISK 04/06/2011 [facility], [place] R V58.69 MEDICATION HIGH RISK 04/06/2011 V58.69 MEDICATION HIGH RISK 04/06/2011 V58.69 MEDICATION HIGH RISK 04/06/2011 V58.69 MEDICATION HIGH RISK 04/06/2011 V58.69 MEDICATION HIGH RISK 04/06/2011 V58.69 MEDICATION HIGH RISK 04/06/2011 [facility], [place]NA R V58.69 MEDICATION HIGH RISK 04/06/2011 [facility], [place] R V58.69 MEDICATION HIGH RISK 04/06/2011 [facility], [place] R V58.69 MEDICATION HIGH RISK 04/06/2011 [facility], [place] R V58.69 MEDICATION HIGH RISK 04/06/2011 [facility], [place] R V58.69 MEDICATION HIGH RISK 04/06/2011 [facility], [place] R V58.69 MEDICATION HIGH RISK 04/06/2011 [facility], [place] R V58.69 MEDICATION HIGH RISK 04/06/2011 [facility], [place] R V58.69 MEDICATION HIGH RISK 04/06/2011 [facility], [place] R V58.69 MEDICATION HIGH RISK 04/06/2011 [facility], [place] R V58.69 MEDICATION HIGH RISK 04/06/2011 [facility], [place]NA R V58.69 MEDICATION HIGH RISK 04/06/2011 [facility], ARI[place]NA R V58.69 MEDICATION HIGH RISK 04/06/2011 [facility], ARIANNA R V58.69 MEDICATION HIGH RISK 04/06/2011 [facility], ARI[place]NA R V58.69 MEDICATION HIGH RISK 04/06/2011 [facility], [place]NA R V58.69 MEDICATION HIGH RISK 04/06/2011 [facility], ARI[place]NA R V58.69 MEDICATION HIGH RISK 04/06/2011 [facility], [place] R V58.69 MEDICATION HIGH RISK 04/06/2011 [facility], ARIANNA R V58.69 MEDICATION HIGH RISK 04/06/2011 [facility], [place] R V58.69 MEDICATION HIGH RISK 04/06/2011 [facility], [place] R V58.69 MEDICATION HIGH RISK 04/06/2011 [facility], [facility] R V58.69 MEDICATION HIGH RISK 04/06/2011 [facility], [facility] R V58.69 MEDICATION HIGH RISK 04/06/2011 [facility], [facility] R V58.69 MEDICATION HIGH RISK 05/06/2011 296.65 MO BIPOLAR I MIXED PART OR UNSPECIFIED REMISSION 05/06/2011 296.65 MO BIPOLAR I MIXED PART OR UNSPECIFIED REMISSION 05/06/2011 [facility], [place] R 296.65 MO BIPOLAR I MIXED PART OR UNSPECIFIED REMISSION 05/06/2011 296.65 MO BIPOLAR I MIXED PART OR UNSPECIFIED REMISSION 05/06/2011 296.65 MO BIPOLAR I MIXED PART OR UNSPECIFIED REMISSION 05/06/2011 296.65 MO BIPOLAR I MIXED PART OR UNSPECIFIED REMISSION 05/06/2011 296.65 MO BIPOLAR I MIXED PART OR UNSPECIFIED REMISSION 05/06/2011 296.65 MO BIPOLAR I MIXED PART OR UNSPECIFIED REMISSION 05/06/2011 [facility], [place] R 296.65 MO BIPOLAR I MIXED PART OR UNSPECIFIED REMISSION 05/06/2011 [facility], [place] R 296.65 MO BIPOLAR I MIXED PART OR UNSPECIFIED REMISSION 05/06/2011 [facility], [place] R 296.65 MO BIPOLAR I MIXED PART OR UNSPECIFIED REMISSION 05/06/2011 [facility], [place] R 296.65 MO BIPOLAR I MIXED PART OR UNSPECIFIED REMISSION 05/06/2011 [facility], [place] R 296.65 MO BIPOLAR I MIXED PART OR UNSPECIFIED REMISSION 05/06/2011 [facility], [place] R 296.65 MO BIPOLAR I MIXED PART OR UNSPECIFIED REMISSION 05/06/2011 [facility], [place] R 296.65 MO BIPOLAR I MIXED PART OR UNSPECIFIED REMISSION 05/06/2011 [facility], [place] R 296.65 MO BIPOLAR I MIXED PART OR UNSPECIFIED REMISSION 05/06/2011 [facility], [place] R 296.65 MO BIPOLAR I MIXED PART OR UNSPECIFIED REMISSION 05/06/2011 [facility], [place] R 296.65 MO BIPOLAR I MIXED PART OR UNSPECIFIED REMISSION 05/06/2011 [facility], [place] R 296.65 MO BIPOLAR I MIXED PART OR UNSPECIFIED REMISSION 05/06/2011 [facility], [place] R 296.65 MO BIPOLAR I MIXED PART OR UNSPECIFIED REMISSION 05/06/2011 [facility], [place] R 296.65 MO BIPOLAR I MIXED PART OR UNSPECIFIED REMISSION 05/06/2011 [facility], [place] R 296.65 MO BIPOLAR I MIXED PART OR UNSPECIFIED REMISSION 05/06/2011 [facility], [place] R 296.65 MO BIPOLAR I MIXED PART OR UNSPECIFIED REMISSION 05/06/2011 [facility], [place] R 296.65 MO BIPOLAR I MIXED PART OR UNSPECIFIED REMISSION 05/06/2011 [facility], [place] R 296.65 MO BIPOLAR I MIXED PART OR UNSPECIFIED REMISSION 05/06/2011 [facility], [place] R 296.65 MO BIPOLAR I MIXED PART OR UNSPECIFIED REMISSION 05/06/2011 [facility], [place] R 296.65 MO BIPOLAR I MIXED PART OR UNSPECIFIED REMISSION 05/06/2011 [facility], [place] R 296.65 MO BIPOLAR I MIXED PART OR UNSPECIFIED REMISSION 05/06/2011 [facility], [place] R 296.65 MO BIPOLAR I MIXED PART OR UNSPECIFIED REMISSION 05/06/2011 [facility], [place] R 296.65 MO BIPOLAR I MIXED PART OR UNSPECIFIED REMISSION 05/06/2011 [facility], [place] R 296.65 MO BIPOLAR I MIXED PART OR UNSPECIFIED REMISSION 05/24/2011 296.64 MO BIPOLAR I MIXED W PSYCHOTIC BEHAVIOR 05/24/2011 296.64 MO BIPOLAR I MIXED W PSYCHOTIC BEHAVIOR 05/24/2011 [facility], [place] R 296.64 MO BIPOLAR I MIXED W PSYCHOTIC BEHAVIOR 05/24/2011 296.64 MO BIPOLAR I MIXED W PSYCHOTIC BEHAVIOR 05/24/2011 296.64 MO BIPOLAR I MIXED W PSYCHOTIC BEHAVIOR 05/24/2011 296.64 MO BIPOLAR I MIXED W PSYCHOTIC BEHAVIOR 05/24/2011 296.64 MO BIPOLAR I MIXED W PSYCHOTIC BEHAVIOR 05/24/2011 296.64 MO BIPOLAR I MIXED W PSYCHOTIC BEHAVIOR 05/24/2011 [facility], [place] R 296.64 MO BIPOLAR I MIXED W PSYCHOTIC BEHAVIOR 05/24/2011 [facility], [place] R 296.64 MO BIPOLAR I MIXED W PSYCHOTIC BEHAVIOR 05/24/2011 [facility], [place] R 296.64 MO BIPOLAR I MIXED W PSYCHOTIC BEHAVIOR 05/24/2011 [facility], [place] R 296.64 MO BIPOLAR I MIXED W PSYCHOTIC BEHAVIOR 05/24/2011 [facility], [place] R 296.64 MO BIPOLAR I MIXED W PSYCHOTIC BEHAVIOR 05/24/2011 [facility] [facility] 296.64 MO BIPOLAR I MIXED W PSYCHOTIC BEHAVIOR 05/24/2011 [facility], [place] R 296.64 MO BIPOLAR I MIXED W PSYCHOTIC BEHAVIOR 05/24/2011 [facility] [place] R 296.64 MO BIPOLAR I MIXED W PSYCHOTIC BEHAVIOR 05/24/2011 [facility] [place] R 296.64 MO BIPOLAR I MIXED W PSYCHOTIC BEHAVIOR 05/24/2011 [facility] [place] R 296.64 MO BIPOLAR I MIXED W PSYCHOTIC BEHAVIOR 05/24/2011 [facility] [place] R 296.64 MO BIPOLAR I MIXED W PSYCHOTIC BEHAVIOR 05/24/2011 [facility] [place] R 296.64 MO BIPOLAR I MIXED W PSYCHOTIC BEHAVIOR 05/24/2011 [facility] [place] R 296.64 MO BIPOLAR I MIXED W PSYCHOTIC BEHAVIOR 05/24/2011 [facility], [place] R 296.64 MO BIPOLAR I MIXED W PSYCHOTIC BEHAVIOR 05/24/2011 [facility] [place] R 296.64 MO BIPOLAR I MIXED W PSYCHOTIC BEHAVIOR 05/24/2011 [facility] [place] R 296.64 MO BIPOLAR I MIXED W PSYCHOTIC BEHAVIOR 05/24/2011 [facility] [place] R 296.64 MO BIPOLAR I MIXED W PSYCHOTIC BEHAVIOR 05/24/2011 [facility] [place] R 296.64 MO BIPOLAR I MIXED W PSYCHOTIC BEHAVIOR 05/24/2011 [facility] [place] R 296.64 MO BIPOLAR I MIXED W PSYCHOTIC BEHAVIOR 05/24/2011 [facility] [place] R 296.64 MO BIPOLAR I MIXED W PSYCHOTIC BEHAVIOR 05/24/2011 [facility] [place] R 296.64 MO BIPOLAR I MIXED W PSYCHOTIC BEHAVIOR 05/24/2011 [facility] [place] R 296.64 MO BIPOLAR I MIXED W PSYCHOTIC BEHAVIOR 05/24/2011 [facility] [place] [facility] 296.64 MO BIPOLAR I MIXED W PSYCHOTIC BEHAVIOR 09/22/2011 300.02 AN GEN ANXIETY 09/22/2011 300.02 AN GEN ANXIETY 09/22/2011 JAYLIN LSCS, ARIANNA R 300.02 AN GEN ANXIETY 09/22/2011 300.02 AN GEN ANXIETY 09/22/2011 300.02 AN GEN ANXIETY 09/22/2011 300.02 AN GEN ANXIETY 09/22/2011 300.02 AN GEN ANXIETY 09/22/2011 300.02 AN GEN ANXIETY 09/22/2011 JAYLIN LSCS, ARIANNA R 300.02 AN GEN ANXIETY 09/22/2011 JAYLIN LSCS, ARIANNA R 300.02 AN GEN ANXIETY 09/22/2011 JAYLIN LSCS, ARIANNA R 300.02 AN GEN ANXIETY 09/22/2011 JAYLIN LSCS, ARIANNA R 300.02 AN GEN ANXIETY 09/22/2011 JAYLIN LSCS, ARIANNA R 300.02 AN GEN ANXIETY 09/22/2011 JAYLIN LSCS, ARIANNA R 300.02 AN GEN ANXIETY 09/22/2011 JAYLIN LSCS, ARIANNA R 300.02 AN GEN ANXIETY 09/22/2011 JAYLIN LSCS, ARIANNA R 300.02 AN GEN ANXIETY 09/22/2011 JAYLNI LSCS, ARIANNA R 300.02 AN GEN ANXIETY 09/22/2011 JAYLIN LSCS, ARIANNA R 300.02 AN GEN ANXIETY 09/22/2011 JAYLIN LSCS, ARIANNA R 300.02 AN GEN ANXIETY 09/22/2011 JAYLIN LSCS, ARIANNA R 300.02 AN GEN ANXIETY 09/22/2011 JAYLIN LSCS, ARIANNA R 300.02 AN GEN ANXIETY 09/22/2011 JAYLIN LSCS, ARIANNA R 300.02 AN GEN ANXIETY 09/22/2011 JAYLIN LSCS, ARIANNA R 300.02 AN GEN ANXIETY 09/22/2011 JAYLIN LSCS, ARIANNA R 300.02 AN GEN ANXIETY 09/22/2011 JAYLIN LSCS, ARIANNA R 300.02 AN GEN ANXIETY 09/22/2011 JAYLIN LSCS, ARIANNA R 300.02 AN GEN ANXIETY 09/22/2011 JAYLIN LSCS, ARIANNA R 300.02 AN GEN ANXIETY 09/22/2011 JAYLIN LSCS, ARIANNA R 300.02 AN GEN ANXIETY 09/22/2011 JAYLIN LSCS, ARIANNA R 300.02 AN GEN ANXIETY 09/22/2011 JAYLIN LSCS, ARIANNA R 300.02 AN GEN ANXIETY 09/22/2011 JAYLIN LSCS, ARIANNA R 300.02 AN GEN ANXIETY 10/27/2011 296.89 MO BIPOLAR II 10/27/2011 296.89 MO BIPOLAR II 10/27/2011 JAYLIN LSCS, ARIANNA R 296.89 MO BIPOLAR II 10/27/2011 296.89 MO BIPOLAR II 10/27/2011 296.89 MO BIPOLAR II 10/27/2011 296.89 MO BIPOLAR II 10/27/2011 296.89 MO BIPOLAR II 10/27/2011 296.89 MO BIPOLAR II 10/27/2011 JAYLIN LSCS, ARIANNA R 296.89 MO BIPOLAR II 10/27/2011 JAYLIN LSCS, ARIANNA R 296.89 MO BIPOLAR II 10/27/2011 JAYLIN LSCS, ARIANNA R 296.89 MO BIPOLAR II 10/27/2011 JAYLIN LSCS, ARIANNA R 296.89 MO BIPOLAR II 10/27/2011 JAYLIN LSCS, ARIANNA R 296.89 MO BIPOLAR II 10/27/2011 JAYLIN LSCS, ARIANNA R 296.89 MO BIPOLAR II 10/27/2011 JAYLIN LSCS, ARIANNA R 296.89 MO BIPOLAR II 10/27/2011 JAYLIN LSCS, ARIANNA R 296.89 MO BIPOLAR II 10/27/2011 AJYLIN LSCS, ARIANNA R 296.89 MO BIPOLAR II 10/27/2011 JAYLIN LSCS, ARIANNA R 296.89 MO BIPOLAR II 10/27/2011 JAYLIN LSCS, ARIANNA R 296.89 MO BIPOLAR II 10/27/2011 JAYLIN LSCS, ARIANNA R 296.89 MO BIPOLAR II 10/27/2011 JAYLIN LSCS, ARIANNA R 296.89 MO BIPOLAR II 10/27/2011 JAYLIN LSCS, ARIANNA R 296.89 MO BIPOLAR II 10/27/2011 JAYLIN LSCS, ARIANNA R 296.89 MO BIPOLAR II 10/27/2011 [facility]NA R 296.89 MO BIPOLAR II 10/27/2011 JAYLIN LSCS, ARIANNA R 296.89 MO BIPOLAR II 10/27/2011 JAYLIN LSCS, ARIANNA R 296.89 MO BIPOLAR II 10/27/2011 JAYLIN LSCS, ARIANNA R 296.89 MO BIPOLAR II 10/27/2011 JAYLIN LSCS, ARIANNA R 296.89 MO BIPOLAR II 10/27/2011 JAYLIN LSCS, ARIANNA R 296.89 MO BIPOLAR II 10/27/2011 JAYLIN LSCS, ARIANNA R 296.89 MO BIPOLAR II 10/27/2011 [facility], ARIANNA R 296.89 MO BIPOLAR II 01/19/2012 Ot 574.20 CHOLELITHIASIS NOS 04/03/2012 296.63 MO BIPOLAR I MIXED SEVERE W/O PSYCHOTIC BEHAVIOR 04/03/2012 296.63 MO BIPOLAR I MIXED SEVERE W/O PSYCHOTIC BEHAVIOR 04/03/2012 [facility], ARAINNA R 296.63 MO BIPOLAR I MIXED SEVERE W/O PSYCHOTIC BEHAVIOR 04/03/2012 296.63 MO BIPOLAR I MIXED SEVERE W/O PSYCHOTIC BEHAVIOR 04/03/2012 296.63 MO BIPOLAR I MIXED SEVERE W/O PSYCHOTIC BEHAVIOR 04/03/2012 296.63 MO BIPOLAR I MIXED SEVERE W/O PSYCHOTIC BEHAVIOR 04/03/2012 296.63 MO BIPOLAR I MIXED SEVERE W/O PSYCHOTIC BEHAVIOR 04/03/2012 296.63 MO BIPOLAR I MIXED SEVERE W/O PSYCHOTIC BEHAVIOR 04/03/2012 [facility], ARIANNA R 296.63 MO BIPOLAR I MIXED SEVERE W/O PSYCHOTIC BEHAVIOR 04/03/2012 [facility], ARIANNA R 296.63 MO BIPOLAR I MIXED SEVERE W/O PSYCHOTIC BEHAVIOR 04/03/2012 [facility], ARIANNA R 296.63 MO BIPOLAR I MIXED SEVERE W/O PSYCHOTIC BEHAVIOR 04/03/2012 [facility], ARIANNA R 296.63 MO BIPOLAR I MIXED SEVERE W/O PSYCHOTIC BEHAVIOR 04/03/2012 [facility], ARIANNA R 296.63 MO BIPOLAR I MIXED SEVERE W/O PSYCHOTIC BEHAVIOR 04/03/2012 [facility], ARIANNA R 296.63 MO BIPOLAR I MIXED SEVERE W/O PSYCHOTIC BEHAVIOR 04/03/2012 [facility], ARIANNA R 296.63 MO BIPOLAR I MIXED SEVERE W/O PSYCHOTIC BEHAVIOR 04/03/2012 [facility], ARIANNA R 296.63 MO BIPOLAR I MIXED SEVERE W/O PSYCHOTIC BEHAVIOR 04/03/2012 [facility], ARIANNA R 296.63 MO BIPOLAR I MIXED SEVERE W/O PSYCHOTIC BEHAVIOR 04/03/2012 [facility], ARIANNA R 296.63 MO BIPOLAR I MIXED SEVERE W/O PSYCHOTIC BEHAVIOR 04/03/2012 [facility], ARIANNA R 296.63 MO BIPOLAR I MIXED SEVERE W/O PSYCHOTIC BEHAVIOR 04/03/2012 [facility], ARIANNA R 296.63 MO BIPOLAR I MIXED SEVERE W/O PSYCHOTIC BEHAVIOR 04/03/2012 [facility], ARIANNA R 296.63 MO BIPOLAR I MIXED SEVERE W/O PSYCHOTIC BEHAVIOR 04/03/2012 [facility], ARIANNA R 296.63 MO BIPOLAR I MIXED SEVERE W/O PSYCHOTIC BEHAVIOR 04/03/2012 [facility], ARIANNA R 296.63 MO BIPOLAR I MIXED SEVERE W/O PSYCHOTIC BEHAVIOR 04/03/2012 [facility], ARIANNA R 296.63 MO BIPOLAR I MIXED SEVERE W/O PSYCHOTIC BEHAVIOR 04/03/2012 [facility], ARIANNA R 296.63 MO BIPOLAR I MIXED SEVERE W/O PSYCHOTIC BEHAVIOR 04/03/2012 [facility], ARIANNA R 296.63 MO BIPOLAR I MIXED SEVERE W/O PSYCHOTIC BEHAVIOR 04/03/2012 [facility], ARIANNA R 296.63 MO BIPOLAR I MIXED SEVERE W/O PSYCHOTIC BEHAVIOR 04/03/2012 [facility], ARIANNA R 296.63 MO BIPOLAR I MIXED SEVERE W/O PSYCHOTIC BEHAVIOR 04/03/2012 [facility], ARIANNA R 296.63 MO BIPOLAR I MIXED SEVERE W/O PSYCHOTIC BEHAVIOR 04/03/2012 [facility], ARIANNA R 296.63 MO BIPOLAR I MIXED SEVERE W/O PSYCHOTIC BEHAVIOR 04/03/2012 [facility], ARIANNA R 296.63 MO BIPOLAR I MIXED SEVERE W/O PSYCHOTIC BEHAVIOR 05/03/2012 296.53 MO BIPOLAR I SEVERE W/O PSYCHOTIC BEHAVIOR 05/03/2012 296.53 MO BIPOLAR I SEVERE W/O PSYCHOTIC BEHAVIOR 05/03/2012 [facility], ARIANNA R 296.53 MO BIPOLAR I SEVERE W/O PSYCHOTIC BEHAVIOR 05/03/2012 296.53 MO BIPOLAR I SEVERE W/O PSYCHOTIC BEHAVIOR 05/03/2012 296.53 MO BIPOLAR I SEVERE W/O PSYCHOTIC BEHAVIOR 05/03/2012 296.53 MO BIPOLAR I SEVERE W/O PSYCHOTIC BEHAVIOR 05/03/2012 296.53 MO BIPOLAR I SEVERE W/O PSYCHOTIC BEHAVIOR 05/03/2012 296.53 MO BIPOLAR I SEVERE W/O PSYCHOTIC BEHAVIOR 05/03/2012 [facility], ARIANNA R 296.53 MO BIPOLAR I SEVERE W/O PSYCHOTIC BEHAVIOR 05/03/2012 [facility], ARIANNA R 296.53 MO BIPOLAR I SEVERE W/O PSYCHOTIC BEHAVIOR 05/03/2012 [facility], ARIANNA R 296.53 MO BIPOLAR I SEVERE W/O PSYCHOTIC BEHAVIOR 05/03/2012 [facility], ARIANNA R 296.53 MO BIPOLAR I SEVERE W/O PSYCHOTIC BEHAVIOR 05/03/2012 [facility], ARIANNA R 296.53 MO BIPOLAR I SEVERE W/O PSYCHOTIC BEHAVIOR 05/03/2012 [facility], ARIANNA R 296.53 MO BIPOLAR I SEVERE W/O PSYCHOTIC BEHAVIOR 05/03/2012 [facility], ARIANNA R 296.53 MO BIPOLAR I SEVERE W/O PSYCHOTIC BEHAVIOR 05/03/2012 [facility], ARIANNA R 296.53 MO BIPOLAR I SEVERE W/O PSYCHOTIC BEHAVIOR 05/03/2012 [facility], ARIANNA R 296.53 MO BIPOLAR I SEVERE W/O PSYCHOTIC BEHAVIOR 05/03/2012 [facility], ARIANNA R 296.53 MO BIPOLAR I SEVERE W/O PSYCHOTIC BEHAVIOR 05/03/2012 [facility], ARIANNA R 296.53 MO BIPOLAR I SEVERE W/O PSYCHOTIC BEHAVIOR 05/03/2012 [facility], ARIANNA R 296.53 MO BIPOLAR I SEVERE W/O PSYCHOTIC BEHAVIOR 05/03/2012 [facility], ARIANNA R 296.53 MO BIPOLAR I SEVERE W/O PSYCHOTIC BEHAVIOR 05/03/2012 [facility], ARIANNA R 296.53 MO BIPOLAR I SEVERE W/O PSYCHOTIC BEHAVIOR 05/03/2012 [facility], ARIANNA R 296.53 MO BIPOLAR I SEVERE W/O PSYCHOTIC BEHAVIOR 05/03/2012 [facility], ARIANNA R 296.53 MO BIPOLAR I SEVERE W/O PSYCHOTIC BEHAVIOR 05/03/2012 [facility], ARIANNA R 296.53 MO BIPOLAR I SEVERE W/O PSYCHOTIC BEHAVIOR 05/03/2012 [facility], ARIANNA R 296.53 MO BIPOLAR I SEVERE W/O PSYCHOTIC BEHAVIOR 05/03/2012 [facility], ARIANNA R 296.53 MO BIPOLAR I SEVERE W/O PSYCHOTIC BEHAVIOR 05/03/2012 [facility], ARIANNA R 296.53 MO BIPOLAR I SEVERE W/O PSYCHOTIC BEHAVIOR 05/03/2012 [facility], ARIANNA R 296.53 MO BIPOLAR I SEVERE W/O PSYCHOTIC BEHAVIOR 05/03/2012 [facility], ARIANNA R 296.53 MO BIPOLAR I SEVERE W/O PSYCHOTIC BEHAVIOR 05/03/2012 [facility], ARIANNA R 296.53 MO BIPOLAR I SEVERE W/O PSYCHOTIC BEHAVIOR 07/05/2013 [facility], ARIANNA R 296.41 MO BIPOLAR I MANIC MILD 07/05/2013 [facility], ARIANNA R 296.41 MO BIPOLAR I MANIC MILD 07/05/2013 [facility], ARIANNA R 296.41 MO BIPOLAR I MANIC MILD 07/05/2013 [facility], ARIANNA R 296.41 MO BIPOLAR I MANIC MILD 07/05/2013 [facility], ARIANNA R 296.41 MO BIPOLAR I MANIC MILD 07/05/2013 [facility], ARIANNA R 296.41 MO BIPOLAR I MANIC MILD 07/05/2013 [facility], ARIANNA R 296.41 MO BIPOLAR I MANIC MILD 07/05/2013 [facility], ARIANNA R 296.41 MO BIPOLAR I MANIC MILD 07/05/2013 [facility], ARIANNA R 296.41 MO BIPOLAR I MANIC MILD 07/05/2013 [facility], ARIANNA R 296.41 MO BIPOLAR I MANIC MILD 07/05/2013 [facility], ARIANNA R 296.41 MO BIPOLAR I MANIC MILD 07/05/2013 [facility], ARIANNA R 296.41 MO BIPOLAR I MANIC MILD 07/05/2013 [facility], ARIANNA R 296.41 MO BIPOLAR I MANIC MILD 07/05/2013 [facility], ARI[facility]NA R 296.41 MO BIPOLAR I MANIC MILD 07/05/2013 [facility], ARIANNA R 296.41 MO BIPOLAR I MANIC MILD 07/05/2013 [facility], ARIANNA R 296.41 MO BIPOLAR I MANIC MILD 07/05/2013 [facility], ARIANNA R 296.41 MO BIPOLAR I MANIC MILD 07/05/2013 [facility], ARIANNA R 296.41 MO BIPOLAR I MANIC MILD 07/05/2013 [facility], ARIANNA R 296.41 MO BIPOLAR I MANIC MILD 07/05/2013 [facility], ARIANNA R 296.41 MO BIPOLAR I MANIC MILD 07/05/2013 [facility], ARIANNA R 296.41 MO BIPOLAR I MANIC MILD 07/05/2013 [facility], ARIANNA R 296.41 MO BIPOLAR I MANIC MILD 03/13/2015 ANGELINA PICKARD MD Ot 793.80 04/08/2015 ANGELINA PICKARD MD Ot 793.80 04/11/2015 Ot V76.12 04/11/2015 Ot 574.20 04/11/2015 Ot 790.6 04/11/2015 Ot 574.20 04/11/2015 Ot V72.63 04/11/2015 Ot V74.8 04/11/2015 Ot V76.12 04/11/2015 Ot V82.81 04/11/2015 Ot 786.50 04/11/2015 MELLY GOODMAN, ANGELINA D Ot V76.12 04/11/2015 MELLY GOODMAN, ANGELINA D Ot 611.89 04/11/2015 MELLY GOODMAN, ANGELINA D Ot 793.80 04/11/2015 MELLY GOODMAN, AGNELINA D Ot 793.80 04/11/2015 MELLY GOODMAN, ANGELINA D Ot 793.80 05/27/2015 Ot V76.12 05/27/2015 Ot 574.20 05/27/2015 Ot 790.6 05/27/2015 Ot 574.20 05/27/2015 Ot V72.63 05/27/2015 Ot V74.8 05/27/2015 Ot V76.12 05/27/2015 Ot V82.81 05/27/2015 Ot 786.50 05/27/2015 MELLY GOODMAN, ANGELINA D Ot V76.12 05/27/2015 MELLY GOODMAN, ANGELINA D Ot 611.89 05/27/2015 MELLY GOODMAN, ANGELINA D Ot 793.80 05/27/2015 MELLY GOODMAN, ANGELINA D Ot 793.80 06/09/2015 MELLY GOODMAN, ANGELINA D Ot 786.2 06/18/2015 MELLY GOODMAN, ANGELINA D Ot 786.2 07/07/2015 MELLY GOODMAN, ANGELINA D Ot 786.2 12/10/2015 Ot M72.2 01/12/2016 Ot M72.2 01/18/2017 Ot 574.20 CHOLELITHIASIS NOS 01/18/2017 Ot 790.6 ABN BLOOD CHEMISTRY NEC 01/18/2017 Ot 574.20 CHOLELITHIASIS NOS 01/18/2017 Ot V72.63 PRE- PROCEDURAL LABORATORY EXAMINATION 01/18/2017 Ot V74.8 SCREEN- BACTERIAL DIS NEC 01/18/2017 Ot V76.12 OTH SCREEN MAMMO-MALIGN NEOPLASM OF ALONZO 01/18/2017 Ot V82.81 SCREENING FOR OSTEOPOROSIS 01/18/2017 Ot 786.50 CHEST PAIN NOS 01/18/2017 MELLY GOOMDAN, ANGELINA D Ot V76.12 OTH SCREEN MAMMO-MALIGN NEOPLASM OF ALONZO 01/18/2017 ANGELINA PICKARD MD Ot 611.89 OTHER SPECIFIED DISORDERS OF BREAST 01/18/2017 ANGELINA PICKARD MD Ot 793.80 UNSPEC ABNORMAL MAMMOGRAM 01/18/2017 ANGELINA PICKARD MD Ot 793.80 UNSPEC ABNORMAL MAMMOGRAM 01/18/2017 ANGELINA PICKARD MD Ot 786.2 COUGH 01/18/2017 Ot M72.2 PLANTAR FASCIAL FIBROMATOSIS 01/18/2017 Ot 574.20 CHOLELITHIASIS NOS 01/18/2017 Ot 790.6 ABN BLOOD CHEMISTRY NEC 01/18/2017 Ot 574.20 CHOLELITHIASIS NOS 01/18/2017 Ot V72.63 PRE- PROCEDURAL LABORATORY EXAMINATION 01/18/2017 Ot V74.8 SCREEN- BACTERIAL DIS NEC 01/18/2017 Ot V76.12 OTH SCREEN MAMMO-MALIGN NEOPLASM OF ALONZO 01/18/2017 Ot V82.81 SCREENING FOR OSTEOPOROSIS 01/18/2017 Ot 786.50 CHEST PAIN NOS 01/18/2017 ANGELINA PICKARD MD Ot V76.12 OTH SCREEN MAMMO-MALIGN NEOPLASM OF ALONZO 01/18/2017 ANGELINA PICKARD MD Ot 611.89 OTHER SPECIFIED DISORDERS OF BREAST 01/18/2017 ANGELINA PICKARD MD Ot 793.80 UNSPEC ABNORMAL MAMMOGRAM 01/18/2017 ANGELINA PICKARD MD Ot 793.80 UNSPEC ABNORMAL MAMMOGRAM 01/18/2017 ANGELINA PICKARD MD Ot 786.2 COUGH 01/18/2017 Ot M72.2 PLANTAR FASCIAL FIBROMATOSIS 01/19/2017 ANGELINA PICKARD MD Ot N20.1 CALCULUS OF URETER 01/24/2017 ANGELINA PICKARD MD Ot N20.1 CALCULUS OF URETER 02/28/2017 ANGELINA PICKARD MD Ot N20.1 CALCULUS OF URETER 03/10/2017 ANGELINA PICKARD MD Ot N20.1 CALCULUS OF URETER 07/25/2017 ANGELINA PICKARD MD Ot Z12.31 ENCNTR SCREEN MAMMOGRAM FOR MALIGNANT NE 08/03/2017 ANGELINA PICKARD MD Ot Z12.31 ENCNTR SCREEN MAMMOGRAM FOR MALIGNANT NE 08/18/2017 ANGELINA PICKARD MD Ot Z12.31 ENCNTR SCREEN MAMMOGRAM FOR MALIGNANT NE Procedures Code [place] [address] INDIV PSYTX 45/50 MIN 08/24/2012 52330 INDIV PSYTX 45/50 MIN 09/14/2012 62103 PSYTX PT&/FAMILY 45 MINUTES 11/15/2012 72899 PSYTX PT&/FAMILY 45 MINUTES 12/06/2012 17871 PSYTX PT&/FAMILY 45 MINUTES 12/19/2012 94697 PSYTX PT&/FAMILY 45 MINUTES 02/09/2013 48933 PSYTX PT&/FAMILY 45 MINUTES 04/04/2013 06705 PSYTX PT&/FAMILY 60 MINUTES 04/12/2013 69911 PSYTX PT&/FAMILY 45 MINUTES 06/06/2013 85341 PSYTX PT&/FAMILY 45 MINUTES 06/21/2013 25616 PSYTX PT&/FAMILY 45 MINUTES 07/05/2013 16041 PSYTX PT&/FAMILY 45 MINUTES 07/25/2013 70536 PSYTX PT&/FAMILY 45 MINUTES 08/08/2013 82714 PSYTX PT&/FAMILY 45 MINUTES 08/22/2013 66143 PSYTX PT&/FAMILY 45 MINUTES 09/05/2013 08022 PSYTX PT&/FAMILY 45 MINUTES 09/26/2013 32091 PSYTX PT&/FAMILY 45 MINUTES 11/09/2013 43560 PSYTX PT&/FAMILY 45 MINUTES 11/29/2013 19271 PSYTX PT&/FAMILY 45 MINUTES 12/21/2013 36920 PSYTX PT&/FAMILY 45 MINUTES 01/16/2014 12951 PSYTX PT&/FAMILY 45 MINUTES 01/29/2014 08305 PSYTX PT&/FAMILY 45 MINUTES 02/15/2014 92770 PSYTX PT&/FAMILY 45 MINUTES 02/26/2014 75266 PSYTX PT&/FAMILY 45 MINUTES 04/16/2014 40824 PSYTX PT&/FAMILY 45 MINUTES 05/28/2014 92758 PSYTX PT&/FAMILY 45 MINUTES 07/11/2014 13103 PSYTX PT&/FAMILY 45 MINUTES 08/29/2014 62664 PSYTX PT&/FAMILY 45 MINUTES 10/29/2014 15191 PSYTX PT&/FAMILY 45 MINUTES 01/08/2015 12263 PSYTX PT&/FAMILY 45 MINUTES 01/13/2015 17040 PSYTX PT&/FAMILY 45 MINUTES 01/29/2015 Results There is no data. Encounters ACCT No. Visit Date/Time Discharge Status Pt. Type Provider Facility Loc./Unit Complaint [id number] 01/29/2015 10:59:00 01/29/2015 23:59:59 CLS Outpatient JAYLIN LSCS, ARIANNA R [id number] 01/13/2015 11:49:00 01/13/2015 23:59:59 CLS Outpatient JAYLIN LSCS, ARIANNA R [id number] 01/08/2015 09:56:00 01/08/2015 23:59:59 CLS Outpatient JAYLIN LSCS, ARIANNA Franks [id number] 11/12/2014 16:59:00 11/12/2014 23:59:59 CLS Outpatient JAYLIN LSCS, ARIANNA R [id number] 10/29/2014 12:50:00 10/29/2014 23:59:59 CLS Outpatient JAYLIN [facility], ARIANNA Franks [id number] 08/29/2014 12:59:00 08/29/2014 23:59:59 CLS Outpatient J[facility], ARIANNA Franks [id number] 07/11/2014 13:57:00 07/11/2014 23:59:59 CLS Outpatient [facility], ARIANNA R [id number] 05/28/2014 10:56:00 05/28/2014 23:59:59 CLS Outpatient [facility], ARIANNA R [id number] 04/16/2014 09:53:00 04/16/2014 23:59:59 CLS Outpatient J[facility]LIN [facility], ARIANNA Franks [id number] 02/26/2014 15:56:00 02/26/2014 23:59:59 CLS Outpatient JYALIN LSCS, ARIANNA Franks [id number] 02/14/2014 13:49:00 02/14/2014 23:59:59 CLS Outpatient JAYLIN [facility]SC[facility], ARIANNA Franks [id number] 01/29/2014 15:37:00 01/29/2014 23:59:59 CLS Outpatient JAYLIN [facility]SC[facility], ARIANNA Franks [id number] 01/15/2014 16:03:00 01/15/2014 23:59:59 CLS Outpatient JAYLIN [facility], ARIANNA Franks [id number] 12/21/2013 07:55:00 12/21/2013 23:59:59 CLS Outpatient JAYLIN LSCS, ARIANNA Tiny [id number] 11/29/2013 15:51:00 11/29/2013 23:59:59 CLS Outpatient JAYLIN LSCS, ARIANNA Tiny [id number] 11/09/2013 15:42:00 11/09/2013 23:59:59 CLS Outpatient JAYLIN [facility]SC[facility], ARIANNA Tiny [id number] 09/25/2013 16:00:00 09/25/2013 23:59:59 CLS Outpatient JAYLIN [facility]SC[facility], ARIANNA Tiny [id number] 09/04/2013 17:56:00 09/04/2013 23:59:59 CLS Outpatient JAYLIN [facility]SC[facility], ARIANNA Tiny [id number] 08/21/2013 13:47:00 08/21/2013 23:59:59 CLS Outpatient JAYLIN LSCS, ARIANNA Tiny [id number] 08/07/2013 15:54:00 08/07/2013 23:59:59 CLS Outpatient JAYLIN LSCS, ARIANNA Tiny [id number] 07/25/2013 09:26:00 07/25/2013 23:59:59 CLS Outpatient JAYLIN LSCS, ARIANNA Tiny [id number] 07/05/2013 10:51:00 07/05/2013 23:59:59 CLS Outpatient JAYLIN LSCS, ARIANNA Tiny [id number] 12/19/2012 09:56:00 12/19/2012 23:59:59 CLS Outpatient JAYLIN LSCS, ARIANNA Tiny [id number] 12/06/2012 07:58:00 12/06/2012 23:59:59 CLS Outpatient [id number] 11/09/2012 10:53:00 11/09/2012 23:59:59 CLS Outpatient [id number] 07/27/2012 10:00:00 07/27/2012 23:59:59 CLS Outpatient JAYLIN LSCS, ARIANNA R [id number] 06/21/2013 07:58:00 Document Registration [id number] 06/05/2013 16:51:00 Document Registration [id number] 04/10/2013 09:57:00 Document Registration [id number] 03/29/2013 07:58:00 Document Registration [id number] 02/09/2013 09:49:00 Document Registration [id number] 07/28/2017 10:32:00 07/28/2017 23:59:59 CLS Outpatient MELLY GOODMAN, ANGELINA Bear [facility] RAD SCREENING [id number] 01/18/2017 10:30:00 01/18/2017 23:59:59 CLS Outpatient ANGELINA PICKARD MD [facility] RAD ABD PAIN [id number] 05/27/2015 11:57:00 05/27/2015 23:59:59 CLS Outpatient ANGELINA PICKARD MD [facility] RAD CHRONIC COUGH [id number] 03/03/2015 09:14:00 03/03/2015 23:59:59 CLS Outpatient ANGELINA PICKARD MD [facility] RAD FOLLOW UP [id number] 01/23/2014 08:00:00 01/23/2014 23:59:59 CLS Outpatient ANGELINA PICKARD MD [facility] RAD ABNORMAL MAMMO [id number] 01/09/2014 09:50:00 01/09/2014 23:59:59 CLS Outpatient ANGELINA PICKARD MD [facility] RAD SCREENING [id number] 12/05/2017 10:15:00 NAYANA PreadFREYA Miles MD [facility] ENDO SCREENING [id number] 11/06/2015 10:06:00 Document Registration [id number] 02/05/2013 11:19:00 Document Registration [id number] 01/12/2013 10:13:00 Document Registration [id number] 01/19/2012 05:34:00 Document Registration [id number] 01/13/2012 13:06:00 Document Registration [id number] 01/05/2012 07:57:00 Document Registration [id number] 06/18/2010 08:33:00 Document Registration
[2017-12-05] MEDS ORDERED: NS IV 500 ML 500 ML IV ONE (09:00)
[2017-12-05 09:20] VITALS: BP 119/78
--- NOTE | 2017-12-05 10:09 | History & Physicial ---
History of Present Illness History of Present Illness Reason for visit/HPI to undergo screening colonoscopy. No family history of colon cancer Date of Admission 12/05/17 Date Seen by Provider: Dec 05, 2017 Time Seen by Provider: 10:08 I consulted on this patient on 12/05/17 10:07 Attending Physician Freya Rogers MD Admitting Physician Ad Ibrahim MD Consult Allergies and Home Medications Allergies Coded Allergies: Ciprofloxacin (Unverified Allergy, Unknown, 08/18/10) Home Medications Aripiprazole 5 Mg Tablet, 5 MG PO HS, (Reported) Atorvastatin Calcium 20 Mg Tablet, 20 MG PO HS, (Reported) Gabapentin 300 Mg Capsule, 300 MG PO BID, (Reported) Hydrochlorothiazide 12.5 Mg Tablet, 12.5 MG PO DAILY, (Reported) Levothyroxine Sodium 50 Mcg Tablet, 50 MCG PO DAILY, (Reported) Loratadine 10 Mg Tablet, 10 MG PO DAILY, (Reported) Metoprolol Tartrate 100 Mg Tablet, 100 MG PO HS, (Reported) Montelukast Sodium 10 Mg Tablet, 10 MG PO HS, (Reported) Multivitamin 1 Each Tablet, 1 EACH PO DAILY, (Reported) Omeprazole 40 Mg Capsule.dr, 40 MG PO DAILY, (Reported) Oxcarbazepine 600 Mg Tablet, 600 MG PO BID, (Reported) Oxcarbazepine 600 Mg Tablet, 300 MG PO DAILY@1400, (Reported) take 1/2 of 600mg tab Topiramate 100 Mg Tablet, 100 MG PO DAILY, (Reported) Venlafaxine HCl 150 Mg Cap.er.24h, 150 MG PO BID, (Reported) Past Kksbakf-Zrqjno-Vpaput Hx Patient Social History Marrital Status: Employed/Student: unemployed Alcohol Use: Denies Use Recreational Drug Use: No Smoking Status: Never a Smoker Recent Foreign Travel: No Contact w/other who traveled: No Recent Hopitalizations: No Recent Infectious Disease Expo: No Immunizations Up To Date Date of Influenza Vaccine: Aug 13, 2017 Seasonal Allergies Seasonal Allergies: No Surgeries Yes Section, Gallbladder, Hysterectomy Respiratory No Cardiovascular Yes Hypertension Reproductive System Hx Reproductive Disorders: No Sexually Transmitted Disease: No Musculoskeletal Yes Arthritis Psychosocial Behavioral Health Disorders: Bipolar Constitutional: no symptoms reported EENTM: no symptoms reported Respiratory: no symptoms reported Cardiovascular: no symptoms reported Gastrointestinal: no symptoms reported Genitourinary: no symptoms reported Musculoskeletal: joint pain Skin: no symptoms reported Psychiatric/Neurological: Anxiety Physical Exam Vital Signs Vital Signs - First Documented 12/05/17 09:20 Temp 97.9 Pulse 74 Resp 18 B/P (MAP) 119/78 (92) Pulse Ox 97 O2 Delivery Room Air Capillary Refill : General Appearance: No Apparent Distress HEENT: Normal ENT Inspection Neck: Normal Inspection Respiratory: Lungs Clear Cardiovascular: Regular Rate, Rhythm Gastrointestinal: Non Tender, Soft Rectal: Deferred Back: Normal Inspection Extremity: Normal Inspection 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: Alert, Oriented x3 Skin: Warm/Dry Assessment/Plan Assessment and Plan lady here to undergo screening colonoscopy. Discussed thoroughly. Problems: FREYA ROGERS MD Dec 05, 2017 10:09 am
--- NOTE | 2017-12-05 10:10 | Conscious Sedation/ASA ---
Conscious Sedation Pre-Proced Time Reviewed: 10:09 ASA Class: 2 Airway Mallampati Classification: ([place] appropriate class) I. II. III, IV Lungs Heart ASA score ASA 1: a normal healthy patient ASA 2: a patient with a mild systemic disease (mid diabetes, controlled hypertension, obesity ASA 3: a patient with a severe systemic disease that limits activity (angina , COPD, prior Myocardial infarction) ASA 4: a patient with an incapacitating disease that is a constant threat to life (CHF, renal failure) ASA 5: a moribund patient not expected to survive 24 hrs. (ruptured aneurysm) ASA 6: a declared brain patient whose organs are being harvested. For emergent operations, add the letter E after the classification Grade 1 Sedation Plan: Discussed options with patient/fam Note The patient is an appropriate candidate to undergo the planned procedure, sedation, and anesthesia. The patient immediately re-assessed prior to indication. FREYA ECKERT MD Dec 05, 2017 10:09 am
--- NOTE | 2017-12-05 10:10 | Conscious Sedation/ASA ---
Conscious Sedation Pre-Proced Time Reviewed: 10:10 ASA Class: 2 Airway Mallampati Classification: ([place] appropriate class) I. II. III, IV Lungs Heart ASA score ASA 1: a normal healthy patient ASA 2: a patient with a mild systemic disease (mid diabetes, controlled hypertension, obesity ASA 3: a patient with a severe systemic disease that limits activity (angina , COPD, prior Myocardial infarction) ASA 4: a patient with an incapacitating disease that is a constant threat to life (CHF, renal failure) ASA 5: a moribund patient not expected to survive 24 hrs. (ruptured aneurysm) ASA 6: a declared brain patient whose organs are being harvested. For emergent operations, add the letter E after the classification Grade 1 Sedation Plan: Discussed options with patient/fam Note The patient is an appropriate candidate to undergo the planned procedure, sedation, and anesthesia. The patient immediately re-assessed prior to indication. FREYA ECKERT MD Dec 05, 2017 10:10 am
[2017-12-05] MEDS ORDERED: MIDAZOLAM 2 MG/2 ML (VERSED) VIAL ONE ×4 (10:17→10:44)
[2017-12-05] MEDS ORDERED: fentaNYL INJECTION 100 MCG/2 ML AMP ONE (10:18)
[2017-12-05] MEDS: fentaNYL INJECTION 100 MCG/2 ML AMP IVP PRN ×2 (10:37→10:45)
[2017-12-05] MEDS: MIDAZOLAM 2 MG/2 ML (VERSED) VIAL IVP PRN ×4 (10:39→10:50)
--- NOTE | 2017-12-05 10:56 | Endo Procedure Record ---
Endo Procedure Report Date of Procedure Last Colonoscopy: No Dec 05, 2017 Surgeon (s) FREYA ECKERT MD Post Procedure/Op Diagnosis Normal colonoscopy Procedure Performed Colonoscopy to cecum Description of Procedure Anesthesia Type: Conscious Sedation Specimen(s) collected/removed none Description of the Procedure Indication for the procedure: This lady came in for a screening colonoscopy. She denied any family history of colon cancer. Informed consent was obtained after reviewing the procedure in detail. Description of the procedure: She was placed in left lateral decubitus position and her vital signs were monitored. Conscious sedation was achieved using Versed and fentanyl. Digital rectal examination was unremarkable. The colonoscope was then introduced in the rectum and advanced all the way up to the cecum The scope was then withdrawn slowly and the mucosa examined in a systematic fashion. There was no abnormality She tolerated the procedure well and was taken to the recovery room in a stable condition. Impression: Normal screening colonoscopy. No family history. Recommend repeating in 10 years. Copies To: AGNELINA PICKARD MD, XAVIER M MD Dec 05, 2017 10:56 am
--- NOTE | 2017-12-05 10:57 | Discharge Inst-Simple/Standard ---
Discharge Inst-Standard Discharge Medications New, Converted or Re-Newed RX: Other Patient Instructions/Follow Up Plan of Care/Instructions/FU: Repeat colonoscopy in 10 years Activity as Tolerated: Yes Discharge Diet: No Restrictions FREYA ECKERT MD Dec 05, 2017 10:57 am
[2017-12-05 11:15] VITALS: BP 114/67
[2017-12-05 11:45] VITALS: BP 109/59
[2017-12-05 12:15] VITALS: BP 109/59
== END 2017-12-05 12:15 | disposition home or self-care (01) ==
LOC: ENDO 08:49
PROVIDERS: ATTEND Surgery
DX: Z12.11 Encounter for screening for malignant neoplasm of colon (principal); I10 Essential (primary) hypertension

== ENCOUNTER 2018-02-10 12:46 | Emergency (ER) | payer MEDICARE, OTHER ==
[~2018-02-10] VITALS: Ht 167.6 cm; Wt 88.9 kg
--- OUTSIDE RECORDS SUMMARY | 2018-02-10 12:55 | XMS REPORT ---
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 Name Role Phone ARIANNA MOSQUEDA Unavailable PROBLEMS Type Condition ICD9-CM Code [id number] Code Onset Dates Condition Status SNOMED Code Problem Moderate mixed bipolar I disorder F31.62 Active 96840663 Problem Anxiety state F41.1 Active [id number] ALLERGIES No Information ENCOUNTERS Encounter Location Date Diagnosis [place] [id number] [place] [address] 64797- 6560 Jan, [place] [id number] [place] [address] 24938- 9799 Jan, [place] [id number] [place] [address] 17103- 2604 Dec, Moderate mixed bipolar I disorder F31.62 and Anxiety state F41.1 [place] [id number] [place] [address] 81749- 1510 Nov, Moderate mixed bipolar I disorder F31.62 and Anxiety state F41.1 [place] [id number] [place] [address] 01262- 0038 Nov, Moderate mixed bipolar I disorder F31.62 and Anxiety state F41.1 [place] [id number] [place] [address] 71353- 9568 Oct, Moderate mixed bipolar I disorder F31.62 and Anxiety state F41.1 [place] [id number] [place] [address] 95362- 6187 Oct, Moderate mixed bipolar I disorder F31.62 and Anxiety state F41.1 [place] [id number] [place] [address] 72731- 0424 Sep, Moderate mixed bipolar I disorder F31.62 and Anxiety state F41.1 [facility] [id number] [place] [address] 41994- 9316 Aug, Moderate mixed bipolar I disorder F31.62 and Anxiety state F41.1 [facility] [id number] 4516 Jul, Moderate mixed bipolar I disorder F31.62 and Anxiety state F41.1 [facility] [address] [facility] [place] [id number] [place] [address] 96784- 5218 Jul, [facility] [id number] [place] [address] 93545- 3059 Jul, Moderate mixed bipolar I disorder F31.62 and Anxiety state F41.1 [facility] [id number] [place] [address] 30119- 2761 May, Moderate mixed bipolar I disorder F31.62 and Anxiety state F41.1 [facility] [id number] [place] [address] 41747- 3259 May, Moderate mixed bipolar I disorder F31.62 and Anxiety state F41.1 [facility] [id number] [address]- 6430 May, Moderate mixed bipolar I disorder F31.62 and Anxiety state F41.1 [facility] [address] [address]- 6548 May, [facility] [id number] [place] [address] 05250- 1639 Apr, Moderate mixed bipolar I disorder F31.62 and Anxiety state F41.1 [facility] [id number] [address]- 8383 Apr, Moderate mixed bipolar I disorder F31.62 and Anxiety state F41.1 [facility] [address] [address]- 6897 Mar, Moderate mixed bipolar I disorder F31.62 and Anxiety state F41.1 [facility] [id number] [place] [address] 04922- 8310 February, Moderate mixed bipolar I disorder F31.62 and Anxiety state F41.1 [facility] [address] [address]- 8662 February, Moderate mixed bipolar I disorder F31.62 and Anxiety state F41.1 [facility] [id number] [place] [address] 96474- 6300 Jan, Moderate mixed bipolar I disorder F31.62 and Anxiety state F41.1 [facility] [id number] [place] [address] 89189- 9965 Jan, Moderate mixed bipolar I disorder F31.62 and Anxiety state F41.1 [facility] [id number] [place] [address] 54799- 8166 Jan, [facility] [id number] [place] [address] 68243- 0026 Dec, Moderate mixed bipolar I disorder F31.62 and Anxiety state F41.1 [facility] [address] [address]- 3693 Dec, Moderate mixed bipolar I disorder F31.62 and Anxiety state F41.1 [facility] [id number] [place] [address] 50325- 6814 Nov, Moderate mixed bipolar I disorder F31.62 and Anxiety state F41.1 [facility] [address] [address]- 4901 Nov, Moderate mixed bipolar I disorder F31.62 and Anxiety state F41.1 [facility] [address] [address]- 2835 Oct, Moderate mixed bipolar I disorder F31.62 and Anxiety state F41.1 [facility] [id number] [address]- 7992 Sep, Moderate mixed bipolar I disorder F31.62 and Anxiety state F41.1 [facility] [id number] [place] [address] 13135- 8709 Aug, Moderate mixed bipolar I disorder F31.62 and Anxiety state F41.1 [place] [id number] [place] [address] 28398- 9301 Aug, Moderate mixed bipolar I disorder F31.62 and Anxiety state F41.1 [place] [id number] [place] [address] 81566- 0985 Jul, Moderate mixed bipolar I disorder F31.62 and Anxiety state F41.1 [place] [id number] [place] [address] 28196- 8747 Jun, Moderate mixed bipolar I disorder F31.62 and Anxiety state F41.1 [place] [id number] [place] [address] 32780- 5004 May, Moderate mixed bipolar I disorder F31.62 and Anxiety state F41.1 [place] [id number] [place] [address] 37062- 1808 May, Moderate mixed bipolar I disorder F31.62 and Anxiety state F41.1 [place] [id number] [place] [address] 67306- 0523 Apr, Bipolar 1 disorder, depressed, moderate F31.32 and Anxiety state F41.1 [place] [id number] [place] [address] 72956- 2031 Apr, Bipolar 1 disorder, depressed, moderate F31.32 and Bipolar I disorder, mild, current or most recent episode depressed, with anxious distress F31.31 [place] [id number] [place] [address] 08025- 2065 Mar, Bipolar 1 disorder, depressed, moderate F31.32 [place] [id number] [place] [address] 86105- 8165 February, Bipolar 1 disorder, depressed, moderate F31.32 [facility] [address] [address]- 0253 Jan, Bipolar I disorder, mild, current or most recent episode depressed, with anxious distress F31.31 [facility] [address] [address]- 9424 Jan, Bipolar I disorder, mild, current or most recent episode depressed, with anxious distress F31.31 [facility] [id number] [place] [address] 76211- 6715 Jan, Bipolar 1 disorder, depressed, moderate F31.32 [facility] [id number] [place] [address] 17517- 8706 Dec, Bipolar I disorder, mild, current or most recent episode depressed, with anxious distress F31.31 [facility] [id number] [place] [address] 35247- 9265 Dec, Bipolar I disorder, mild, current or most recent episode depressed, with anxious distress F31.31 [facility] [id number] [place] [address] 40135- 1160 Nov, Bipolar I disorder, mild, current or most recent episode depressed, with anxious distress F31.31 [facility] [address] [address]- 0240 Oct, Bipolar I disorder, mild, current or most recent episode depressed, with anxious distress F31.31 [facility] [address] [address]- 5843 Oct, Bipolar I disorder, mild, current or most recent episode depressed, with anxious distress F31.31 [facility] [address] [address]- 6431 Sep, Bipolar I disorder, mild, current or most recent episode depressed, with anxious distress F31.31 [facility] [id number] [address]- 4075 Aug, Bipolar I disorder, mild, current or most recent episode depressed, with anxious distress F31.31 [facility] [address] 8297 Jul, Bipolar I disorder, mild, current or most recent episode depressed, with anxious distress F31.31 [facility] [address] [address]- 7686 Jul, Bipolar I disorder, mild, current or most recent episode depressed, with anxious distress F31.31 [facility] [id number] [place] [address] 11736- 5849 Jun, Bipolar I disorder, most recent episode depressed 296.50 [facility] [id number] [place] [address] 45789- 5289 Jun, Bipolar I disorder, most recent episode depressed 296.50 [facility] [id number] [place] [address] 84626- 1186 May, Bipolar disorder, current episode depressed, moderate 296.52 [facility] [id number] [place] [address] 25996- 2518 May, Bipolar I disorder, most recent episode mixed, moderate 296.62 [facility] [address] [address]- 6033 Apr, Bipolar I disorder, most recent episode mixed, moderate 296.62 [facility] [id number] [place] [address] 18112- 8330 Apr, [facility] [address] [address]- 1994 Apr, Bipolar I disorder, most recent episode mixed, moderate 296.62 [facility] [address] 6342 February, Bipolar disorder, current episode depressed, moderate 296.52 [facility] [id number] [place] [address] 75183- 1020 14 Jan, 2015 [facility] [place] [facility] [address] [id number] [place] [address]- 0098 Jan, [facility] [place] [facility] [address] [id number] [place] [address]- 7216 Dec, [facility] [place] [facility] [address] [id number] [place] [address]- 3671 Dec, [facility] [place] [facility] [address] [id number] [place] [address]- 8261 Dec, [facility] [place] [facility] [address] [id number] [place] [address]- 7024 Dec, [facility] [place] [facility] [address] [id number] [place] [address]- 5902 Dec, [facility] [place] [facility] [address] [facility] [facility] [place] [id number] [place] [address]- 4237 Dec, [facility] [place] [facility] [address] [id number] [place] [address]- 1409 Dec, [facility] [place] [facility] [address] [id number] [place] [address]- 3528 Dec, [facility] [place] [facility] [address] [facility] [place] [id number] [place] [address]- 6789 Nov, [facility] [place] [facility] [address] [id number] [place] [address]- 6948 Nov, [facility] [place] [facility] [address] [id number] [address]- 4219 Nov, [facility] [place] [facility] [address] [id number] [place] [address]- 8412 Nov, [facility] [place] [facility] [address] [id number] [place] [address]- 4819 Oct, [facility] [place] [facility] [address] [facility] [place] [id number] [address]- 0174 Oct, [facility] [place] [facility] [address] [id number] [place] [address]- 5802 Oct, [facility] [place] [facility] [address] [id number] [place] [address]- 5992 Oct, [facility] [place] [facility] [address] [id number] [place] [address]- 6476 Oct, [facility] [place] [facility] [address] [id number] [place] [address]- 3253 Oct, [facility] [place] [facility] [address] [id number] [place] [address]- 0308 Oct, [facility] [place] [facility] [address] [id number] [place] [address]- 8419 Oct, [facility] [place] [facility] [address] [id number] [place] [address]- 5980 Aug, [facility] [place] [facility] [address] [id number] [place] [address]- 4405 Aug, [facility] [place] [facility] [address] [id number] [place] [address]- 0572 Jun, [facility] [place] [facility] [address] [id number] [place] [address]- 6323 Jun, [facility] [place] [facility] [address] [id number] [place] [address]- 2385 May, [facility] [place] [facility] [address] [id number] [place] [address]- 4367 May, [facility] [place] [facility] [address] [id number] [place] [address]- 1194 Apr, [facility] [place] [facility] [address] [id number] [place] [address]- 2466 Apr, [facility] [place] [facility] [address] [id number] [place] [address]- 5433 Mar, [facility] [place] [facility] [address] [id number] [place] [address]- 2806 Mar, [facility] [place] [facility] [address] [id number] [place] [address]- 0088 February, [facility] [place] [facility] [address] [id number] [place] [address]- 5088 February, [facility] [place] [facility] [address] [id number] [place] [address]- 0025 February, [facility] [place] [facility] [address] [id number] [place] [address]- 5120 February, [facility] [place] [facility] [address] [id number] [place] [address]- 5463 Jan, [facility] [place] [facility] [address] [id number] [place] [address]- 8441 Jan, [facility] [place] [facility] [address] [id number] [place] [address]- 0520 Jan, [facility] [place] [facility] [address] [id number] [place] [address]- 0029 Jan, [facility] [place] [facility] [address] [id number] [place] [address]- 4681 Dec, [facility] [place] [facility] [address] [id number] [place] [address]- 5453 Dec, [facility] [place] [facility] [address] [id number] [place] [address]- 5795 Nov, [facility] [place] [facility] [address] [id number] [address]- 7814 Nov, [facility] [place] [facility] [address] [id number] [place] [address]- 8033 Oct, [facility] [place] [facility] [address] [id number] [place] [address]- 5631 Oct, [facility] [place] [facility] [address] [id number] [place] [address]- 4328 Sep, [facility] [place] [facility] [address] [id number] [place] [address]- 3082 Sep, [facility] [address] [id number] [place] [address]- 7852 Sep, [facility] [address] [id number] [place] [address]- 4652 Sep, [facility] [address] [id number] [place] [address]- 3123 Aug, [facility] [address] [id number] [place] [address]- 3050 Aug, [facility] [address] [id number] [place] [address]- 9436 Aug, [facility] [address] [id number] [place] [address]- 4804 Aug, [facility] [address] [id number] [place] [address]- 1426 Jul, [facility] [address] [id number] [place] [address]- 7331 Jul, [facility] [address] [facility] [place] [id number] [place] [address]- 9438 Jul, [facility] [address] [facility] [place] [id number] [place] [address]- 4729 Jul, [facility] [place] [facility] [address] [id number] [place] [address]- 6096 Jun, [facility] [place] [facility] [address] [id number] [place] [address]- 254 Jun, [facility] [place] [facility] [address] [id number] [place] [address]- 2228 May, [facility] [place] [facility] [address] [id number] [place] [address]- 2546 Apr, [facility] [place] [facility] [address] [id number] [place] [address]- 6506 Mar, [facility] [place] [facility] [address] [id number] [place] [address]- 2404 Mar, [facility] [place] [facility] [address] [id number] [place] [address]- 4970 February, [facility] [place] [facility] [address] [id number] [place] [address]- 1979 Jan, [facility] [place] [facility] [address] [id number] [place] [address]- 9839 Jan, [facility] [place] [facility] [address] [id number] [place] [address]- 0920 Dec, [facility] [place] [facility] [address] [id number] [place] [address]- 4933 Nov, [facility] [place] [facility] [address] [id number] [place] [address]- 8306 Oct, [facility] [place] [facility] [address] [id number] [address]- 4721 Aug, [facility] [place] [facility] [address] [id number] [address]- 4946 Aug, [facility] [place] [facility] [address] [facility] [place] [id number] [address]- 6957 Aug, [facility] [place] [facility] [address] [id number] [address]- 9612 Aug, [facility] [place] [facility] [address] [id number] [address]- 7091 Aug, [facility] [place] [facility] [address] [id number] [address]- 7529 Aug, [facility] [place] [facility] [address] [id number] [address]- 9670 Jul, [facility] [place] [facility] [address] [facility] [place] [id number] [address]- 6443 Jul, [facility] [place] [facility] [address] [id number] [address]- 5312 11 Jul, 2012 [facility] [place] [facility] [address] [id number] [place] [address]- 3001 11 Jul, 2012 [facility] [place] [facility] [address] [id number] [place] [address]- 8286 27 Jun, 2012 [facility] [place] [facility] [address] [id number] [place] [address]- 5476 14 Jun, 2012 [facility] [place] [facility] [address] [id number] [place] [address]- 3138 31 May, 2012 [facility] [place] [facility] [address] [id number] [place] [address]- 2842 May, [facility] [place] [facility] [address] [id number] [place] [address]- 5629 Apr, [facility] [place] [facility] [id number] [place] [address]- 9134 Apr, [facility] [place] [facility] [address] [id number] [place] [address]- 7232 Mar, [facility] [place] [facility] [id number] [place] [address]- 2760 Mar, [facility] [place] [facility] [id number] [place] [address]- 3624 Mar, [facility] [place] [facility] [address] [id number] [place] [address]- 0813 February, [facility] [place] [facility] [address] [id number] [address]- 4506 February, [facility] [place] [facility] [address] [id number] [place] [address]- 9286 February, [facility] [place] [facility] [address] [facility] [place] [id number] [place] [address]- 6326 Jan, [facility] [place] [facility] [address] [facility] [place] [id number] [place] [address]- 3059 Jan, [facility] [place] [facility] [address] [id number] [place] [address]- 0046 10 Jan, 2012 [facility] [place] [facility] [address] [id number] [place] [address]- 4728 29 Dec, 2011 [facility] [place] [facility] [address] [id number] [place] [address]- 1816 20 Dec, 2011 [facility] [place] [facility] [address] [id number] [place] [address]- 0206 15 Dec, 2011 [facility] [place] [facility] [address] [id number] [place] [address]- 8002 14 Dec, 2011 [facility] [place] [facility] [address] [id number] [place] [address]- 6973 13 Dec, 2011 [facility] [place] [facility] [address] [facility] [place] [id number] [place] [address] 13 Dec, 2011 [facility] [place] [facility] [address] [id number] [place] [address] 13 Dec, 2011 [facility] [place] [facility] [address] [id number] [place] [address] 05 Dec, 2011 [facility] [place] [facility] [address] [id number] [place] [address] 28 Nov, 2011 [facility] [place] [facility] [address] [facility] [place] [id number] [place] [address] 23 Nov, 2011 [facility] [place] [facility] [address] [id number] [place] [address]66 16 Nov, 2011 [facility] [place] [facility] [address] [id number] [place] [address] 16 Nov, 2011 [facility] [place] [facility] [address] [id number] [place] [address] 07 Nov, 2011 [facility] [place] [facility] [address] [id number] [place] [address] 07 Nov, 2011 [facility] [place] [facility] [address] [facility] [place] [id number] [address] Nov, [facility] [address] [id number] [place] [address] Nov, [facility] [address] [id number] [place] [address] Oct, [facility] [address] [id number] [place] [address] Oct, [facility] [address] [id number] [place] [address] Oct, [facility] [address] [id number] [place] [address] Oct, [facility] [address] [id number] [place] [address] Oct, [facility] [address] [facility] [place] [id number] [place] [address] Oct, [facility] [address] [id number] [place] [address] Oct, [facility] [address] [id number] [place] [address] Oct, [facility] [address] [facility] [place] [id number] [place] [address] Sep, [facility] [address] [id number] [place] [address] Sep, [facility] [place] [facility] [address] [id number] [address] Sep, [facility] [place] [facility] [address] [id number] [place] [address] Sep, [facility] [place] [facility] [address] [id number] [place] [address] Aug, [facility] [place] [facility] [address] [facility] [place] [id number] [place] [address] Aug, [facility] [place] [facility] [address] [facility] [place] [id number] [place] [address] Aug, [facility] [address] [facility] [place] [id number] [place] [address] Jul, [facility] [address] [id number] [address] Jul, [facility] [address] [facility] [place] [id number] [address] Jul, [facility] [address] [facility] [place] [id number] [place] [address] Aug, IMMUNIZATIONS No Known Immunizations SOCIAL HISTORY Never Assessed REASON FOR VISIT Follow-up Bipolar PLAN OF CARE Activity Details Follow Up 1 Week Reason: Follow-up VITAL SIGNS MEDICATIONS Unknown Medications RESULTS No Results PROCEDURES Procedure Date Ordered Result Body Site [facility] VISIT MENTAL HEALTH ESTAB PT May 19, 2017 Psychotherapy, patient &/family, 45 minutes, established patient May 19, 2017 INSTRUCTIONS MEDICATIONS ADMINISTERED No Known Medications
--- OUTSIDE RECORDS SUMMARY | 2018-02-10 12:56 | XMS REPORT ---
Author Author ARIANNA MOSQUEDA Organization [facility] Address [address] [place] [address] Care Team Providers Care Meeting Coordinator Name Role Phone ARIANNA MOSQUEDA Unavailable PROBLEMS Type Condition ICD9-CM Code [id number] Code Onset Dates Condition Status SNOMED Code Problem Moderate mixed bipolar I disorder F31.62 Active 18360744 Problem Anxiety state F41.1 Active [id number] ALLERGIES No Information ENCOUNTERS Encounter Location Date Diagnosis [place] [id number] [place] [id number] [place] [address] 47182- 9108 February, [place] [address] [address]- [address] Jan, Moderate mixed bipolar I disorder F31.62 and Anxiety state F41.1 [place] [address] [place] [id number] [place] [address] 51656- 0205 Dec, Moderate mixed bipolar I disorder F31.62 and Anxiety state F41.1 [place] [address] [id number] [place] [address] 27706- 6901 Nov, Moderate mixed bipolar I disorder F31.62 and Anxiety state F41.1 [place] [address] [place] [id number] [place] [address] 21997- 3156 Nov, Moderate mixed bipolar I disorder F31.62 and Anxiety state F41.1 [place] [address] [id number] [place] [address] 43703- 0294 Oct, Moderate mixed bipolar I disorder F31.62 and Anxiety state F41.1 [place] [address] [id number] [place] [address] 34306- 2309 Oct, Moderate mixed bipolar I disorder F31.62 and Anxiety state F41.1 [place] [address] [facility] [id number] [address] 96[address] Sep, Moderate mixed bipolar I disorder F31.62 and Anxiety state [address].1 [facility] [address] [facility] [id number] [address] 7946 Aug, Moderate mixed bipolar I disorder F31.62 and Anxiety state F41.1 [facility] [address] [place] [id number] [address] 3646 Jul, Moderate mixed bipolar I disorder F31.62 and Anxiety state F41.1 [facility] [address] [facility] [id number] [address] 4[address] Jul, [facility] [address] [id number] [address] 4901 Jul, Moderate mixed bipolar I disorder F31.62 and Anxiety state F41.1 [facility] [address] [id number] [address] 8320 May, Moderate mixed bipolar I disorder F31.62 and Anxiety state F41.1 [facility] [address] [facility] [id number] [place] [address]- 8295 May, Moderate mixed bipolar I disorder F31.62 and Anxiety state F41.1 [facility] [address] [place] [id number] [address] 2737 May, Moderate mixed bipolar I disorder F31.62 and Anxiety state F41.1 [facility] [address] [id number] [address] 66[address] May, [facility] [address] [facility] [id number] [place] [address]- 3473 Apr, Moderate mixed bipolar I disorder F31.62 and Anxiety state F41.1 [facility] [address] [facility] [id number] [place] [address]- 5978 Apr, Moderate mixed bipolar I disorder F31.62 and Anxiety state F41.1 [facility] [id number] [address] 8922 Mar, Moderate mixed bipolar I disorder F31.62 and Anxiety state F41.1 [facility] [id number] [place] [address] 51505- 2046 February, Moderate mixed bipolar I disorder F31.62 and Anxiety state F41.1 [facility] [address] [address] [id number] [place] [address] 93326- 3895 February, Moderate mixed bipolar I disorder F31.62 and Anxiety state F41.1 [facility] [id number] [place] [address] 06149- 4617 Jan, Moderate mixed bipolar I disorder F31.62 and Anxiety state F41.1 [facility] [id number] [place] [address] 17188- 3022 Jan, Moderate mixed bipolar I disorder F31.62 and Anxiety state F41.1 [facility] [address]65[address] [address]- 7538 Jan, [facility] [id number] [place] [address] 08984- 8103 Dec, Moderate mixed bipolar I disorder F31.62 and Anxiety state F41.1 [facility] [address]00565100[place] [address]- 1110 Dec, Moderate mixed bipolar I disorder F31.62 and Anxiety state F41.1 [facility] [address]00565100[place] [address]- 7889 Nov, Moderate mixed bipolar I disorder F31.62 and Anxiety state F41.1 [facility] [id number] [place] [address] 57296- 6708 Nov, Moderate mixed bipolar I disorder F31.62 and Anxiety state F41.1 [facility] [address]00565100[place] [address]- 9226 Oct, Moderate mixed bipolar I disorder F31.62 and Anxiety state F41.1 [facility] [address]00565[address] [address]- 6308 Sep, Moderate mixed bipolar I disorder F31.62 and Anxiety state F41.1 [facility] [id number] [place] [address] 07985- 3107 Aug, Moderate mixed bipolar I disorder F31.62 and Anxiety state F41.1 [facility] [address] [place] [address] [id number] [place] [address] 99200- 9528 Aug, Moderate mixed bipolar I disorder F31.62 and Anxiety state F41.1 [facility] [address] [place] [address] [id number] [place] [address] 88968- 8394 Jul, Moderate mixed bipolar I disorder F31.62 and Anxiety state F41.1 [facility] [address] [place] [address] [id number] [place] [address] 68344- 7096 Jun, Moderate mixed bipolar I disorder F31.62 and Anxiety state F41.1 [facility] [address] [id number] [place] [address] 30771- 9904 May, Moderate mixed bipolar I disorder F31.62 and Anxiety state F41.1 [facility] [id number] [place] [address] 22636- 2166 May, Moderate mixed bipolar I disorder F31.62 and Anxiety state F41.1 [facility] [id number] [place] [address] 80627- 1158 Apr, Bipolar 1 disorder, depressed, moderate F31.32 and Anxiety state F41.1 [facility] [address]00565[address] [address]- 3106 Apr, Bipolar 1 disorder, depressed, moderate F31.32 and Bipolar I disorder, mild, current or most recent episode depressed, with anxious distress F31.31 [facility] [address]00565100[place] [address]- 5298 Mar, Bipolar 1 disorder, depressed, moderate F31.32 [facility] [address]00565[address] [address]- 4104 February, Bipolar 1 disorder, depressed, moderate F31.32 [facility] [address] [id number] [place] [address] 93465- 8427 Jan, Bipolar I disorder, mild, current or most recent episode depressed, with anxious distress F31.31 [facility] [address] [place] [address] [id number] [place] [address] 36265- 8118 Jan, Bipolar I disorder, mild, current or most recent episode depressed, with anxious distress F31.31 [place] [address] [id number] [place] [address] 62719- 5845 Jan, Bipolar 1 disorder, depressed, moderate F31.32 [place] [address] [place] [id number] [place] [address] 19236- 1439 Dec, Bipolar I disorder, mild, current or most recent episode depressed, with anxious distress F31.31 [place] [address] [place] [address] 21803- 0857 Dec, Bipolar I disorder, mild, current or most recent episode depressed, with anxious distress F31.31 [place] [id number] [place] [address] 57323- 2249 Nov, Bipolar I disorder, mild, current or most recent episode depressed, with anxious distress F31.31 [place] [address] [place] [address] 95486- 3460 Oct, Bipolar I disorder, mild, current or most recent episode depressed, with anxious distress F31.31 [place] [address] [place] [address] 77553- 9495 Oct, Bipolar I disorder, mild, current or most recent episode depressed, with anxious distress F31.31 [facility] [address] [address]- 0168 Sep, Bipolar I disorder, mild, current or most recent episode depressed, with anxious distress F31.31 [facility] [address] [place] [address] [id number] [address]- 2523 Aug, Bipolar I disorder, mild, current or most recent episode depressed, with anxious distress F31.31 [facility] [address]- 3997 Jul, Bipolar I disorder, mild, current or most recent episode depressed, with anxious distress F31.31 [facility] [address] [address]- 0541 Jul, Bipolar I disorder, mild, current or most recent episode depressed, with anxious distress F31.31 [facility] [address] [address]- 1992 Jun, Bipolar I disorder, most recent episode depressed 296.50 [facility] [address] [address]- 1227 Jun, Bipolar I disorder, most recent episode depressed 296.50 [facility] [address] [address]- 4080 May, Bipolar disorder, current episode depressed, moderate 296.52 [facility] [address] [address]- 6509 May, Bipolar I disorder, most recent episode mixed, moderate 296.62 [facility] [address] [address]- 8981 Apr, Bipolar I disorder, most recent episode mixed, moderate 296.62 [facility] [address] [address]- 2269 Apr, [facility] [address] [place] [address] 37949- 6724 Apr, Bipolar I disorder, most recent episode mixed, moderate 296.62 [facility] [address] [address]- 2218 February, Bipolar disorder, current episode depressed, moderate 296.52 [facility] [address] [id number] [place] [address]- 0334 14 Jan, 2015 [facility] [place] [facility] [address] [id number] [place] [address]- 9931 13 Jan, 2015 [facility] [place] [facility] [address] [id number] [place] [address]- 5610 30 Dec, 2014 [facility] [place] [facility] [address] [id number] [place] [address]- 2387 30 Dec, 2014 [facility] [place] [facility] [address] [id number] [place] [address]- 3581 Dec, [facility] [place] [facility] [address] [id number] [place] [address]- 4655 Dec, [facility] [place] [facility] [address] [id number] [place] [address]- 7705 Dec, [facility] [place] [facility] [address] [id number] [place] [address]- 8663 Dec, [facility] [place] [facility] [address] [id number] [place] [address]- 0398 Dec, [facility] [place] [facility] [address] [id number] [place] [address]- 4090 Dec, [facility] [place] [facility] [address] [id number] [place] [address]- 7393 Nov, [facility] [place] [facility] [address] [id number] [place] [address]- 0374 Nov, [facility] [place] [facility] [address] [id number] [place] [address]- 1324 Nov, [facility] [place] [facility] [address] [id number] [place] [address]- 3790 Nov, [facility] [place] [facility] [address] [id number] [place] [address]- 0393 Oct, [facility] [place] [facility] [address] [id number] [place] [address]- 5194 Oct, [facility] [place] [facility] [address] [id number] [place] [address]- 6894 Oct, [facility] [place] [facility] [address] [id number] [place] [address]- 3017 Oct, [facility] [place] [facility] [address] [id number] [place] [address]- 4451 Oct, [facility] [place] [facility] [address] [id number] [place] [address]- 8088 Oct, [facility] [place] [facility] [address] [id number] [place] [address]- 0997 Oct, [facility] [place] [facility] [address] [id number] [place] [address]- 6797 Oct, [facility] [place] [facility] [address] [id number] [place] [address]- 7325 Aug, [facility] [place] [facility] [address] [id number] [place] [address]- 7051 Aug, [facility] [place] [facility] [address] [id number] [place] [address]- 6180 Jun, [facility] [place] [facility] [address] [id number] [place] [address]- 6069 Jun, [facility] [place] [facility] [address] [id number] [place] [address]- 9504 May, [facility] [place] [facility] [address] [id number] [place] [address]- 3336 May, [facility] [place] [facility] [address] [id number] [place] 4448 Apr, [facility] [place] [facility] [address] [id number] [place] 1802 Apr, [facility] [place] [facility] [address] [id number] [place] 4543 Mar, [facility] [place] [facility] [address] [id number] [place] [address]- 0011 Mar, [facility] [address] [id number] [place] [address]- 6572 February, [facility] [place] [facility] [address] [id number] [place] [address]- 0176 February, [facility] [address] [id number] [place] [address]- 2352 February, [facility] [place] [facility] [address] [id number] [place] [address]- 9418 February, [facility] [address] [id number] [place] [address]- 3185 Jan, [facility] [place] [facility] [address] [id number] [place] [address]- 8783 Jan, [facility] [place] [facility] [address] [id number] [place] [address]- 3798 Jan, [facility] [address] [id number] [place] [address]- 0660 Jan, [facility] [place] [facility] [address] [id number] [place] [address]- 0406 Dec, [facility] [place] [facility] [address] [id number] [place] [address]- 1539 Dec, [facility] [place] [facility] [address] [id number] [place] [address]- 0408 Nov, [facility] [place] [facility] [address] [id number] [place] [address]- 9682 Nov, [facility] [place] [facility] [address] [id number] [place] [address]- 3309 Oct, [facility] [place] [facility] [address] [id number] [place] [address]- 9596 Oct, [facility] [place] [facility] [address] [id number] [place] [address]- 0262 Sep, [facility] [place] [facility] [address] [id number] [place] [address]- 6580 Sep, [facility] [place] [facility] [address] [id number] [place] [address]- 7981 Sep, [facility] [place] [facility] [address] [id number] [place] [address]- 5773 Sep, [facility] [place] [facility] [address] [id number] [place] [address]- 5395 Aug, [facility] [place] [facility] [address] [id number] [place] [address]- 5475 Aug, [facility] [place] [facility] [address] [id number] [place] [address]- 2644 Aug, [facility] [place] [facility] [address] [id number] [place] [address]- 6680 Aug, [facility] [place] [facility] [address] [id number] [place] [address]- 6368 Jul, [facility] [place] [facility] [address] [id number] [place] [address]- 0868 Jul, [facility] [place] [facility] [address] [id number] [place] [address]- 5065 Jul, [facility] [place] [facility] [address] [id number] [place] [address]- 3177 Jul, [facility] [place] [facility] [address] [id number] [place] [address]- 5184 Jun, [facility] [place] [facility] [address] [id number] [place] [address]- 9808 Jun, [facility] [place] [facility] [address] [id number] [place] [address]- 8508 May, [facility] [place] [facility] [address] [id number] [place] [address]- 1885 Apr, [facility] [place] [facility] [address] [id number] [place] [address]- 2181 Mar, [facility] [address] [id number] [place] [address]- 5306 Mar, [facility] [place] [facility] [address] [id number] [place] [address]- 5771 February, [facility] [place] [facility] [address] [id number] [place] [address]- 4809 Jan, [facility] [place] [facility] [address] [id number] [place] [address]- 6342 Jan, [facility] [place] [facility] [address] [id number] [place] 7287 Dec, [facility] [place] [facility] [address] [id number] [place] [address]- 1663 Nov, [facility] [place] [facility] [address] [id number] [place] [address]- 3133 Oct, [facility] [place] [facility] [address] [id number] [place] [address]- 1539 Aug, [facility] [place] [facility] [address] [id number] [place] [address]- 6259 Aug, [facility] [place] [facility] [address] [facility] [id number] [place] [address]- 2331 Aug, [facility] [place] [facility] [address] [id number] [place] [address]- 0180 Aug, [facility] [place] [facility] [address] [id number] [place] [address]- 2696 Aug, [facility] [place] [facility] [address] [id number] [place] [address]- 3985 Aug, [facility] [place] [facility] [address] [facility] [id number] [place] [address]- 5715 Jul, [facility] [place] [facility] [address] [id number] [place] [address]- 7074 Jul, [facility] [place] [facility] [address] [id number] [place] [address]- 7977 Jul, [facility] [place] [facility] [address] [id number] [place] [address]- 1308 Jul, [facility] [place] [facility] [address] [id number] [place] [address]- 7486 Jun, [facility] [place] [facility] [address] [id number] [place] [address]- 4433 14 Jun, 2012 [facility] [address] [id number] [place] [address]- 5779 May, [facility] [place] [facility] [address] [id number] [place] [address]- 0798 May, [facility] [place] [facility] [address] [id number] [place] [address]- 3700 Apr, [facility] [place] [facility] [address] [id number] [place] [address]- 8642 Apr, [facility] [place] [facility] [address] [id number] [place] [address]- 6260 Mar, [facility] [place] [facility] [address] [id number] [place] [address]- 2916 Mar, [facility] [place] [facility] [address] [id number] [place] [address]- 6770 Mar, [facility] [place] [facility] [address] [id number] [place] [address]- 1036 February, [facility] [place] [facility] [address] [id number] [place] [address]- 0264 February, [facility] [place] [facility] [address] [id number] [place] [address]- 2546 February, [facility] [place] [facility] [address] [id number] [place] [address]- 4526 Jan, [facility] [place] [facility] [address] [id number] [place] [address]- 5899 18 Jan, 2012 [facility] [place] [facility] [address] [id number] [place] [address]- 2334 10 Jan, 2012 [facility] [place] [facility] [address] [id number] [place] [address]- 5586 29 Dec, 2011 [facility] [place] [facility] [address] [id number] [place] [address]- 7856 20 Dec, 2011 [facility] [place] [facility] [address] [id number] [place] [address]- 3936 15 Dec, 2011 [facility] [place] [facility] [address] [id number] [place] [address]- 2964 14 Dec, 2011 [facility] [place] [facility] [address] [facility] [id number] [place] [address]- 8723 13 Dec, 2011 [facility] [place] [facility] [address] [facility] [id number] [place] [address]- 1570 13 Dec, 2011 [facility] [place] [facility] [address] [id number] [place] [address]- 8314 13 Dec, 2011 [facility] [place] [facility] [address] [id number] [place] [address]- 6279 05 Dec, 2011 [facility] [place] [facility] [address] [facility] [id number] [place] [address]- 1233 28 Nov, 2011 [facility] [place] [facility] [address] [id number] [place] [address]- 5844 23 Nov, 2011 [facility] [place] [facility] [address] [id number] [place] [address]- 0285 16 Nov, 2011 [facility] [place] [facility] [address] [id number] [place] [address]- 1935 16 Nov, 2011 [facility] [place] [facility] [address] [id number] [place] 3729 07 Nov, 2011 [facility] [place] [facility] [address] [facility] [id number] [place] [address] 07 Nov, 2011 [facility] [place] [facility] [address] [id number] [place] [address] Nov, [facility] [address] [id number] [place] [address] Nov, [facility] [address] [id number] [place] [address] Oct, [facility] [address] [id number] [place] [address] Oct, [facility] [address] [id number] [place] [address] Oct, [facility] [address] [id number] [place] [address] Oct, [facility] [address] [id number] [place] [address] Oct, [facility] [address] [id number] [place] [address] Oct, [facility] [address] [id number] [place] [address] Oct, [facility] [address] [id number] [place] [address] Oct, [facility] [address] [id number] [place] [address] Sep, [facility] [address] [id number] [place] [address] Sep, [facility] [place] [facility] [address] [id number] [place] [address] Sep, [facility] [place] [facility] [address] [id number] [place] [address] Sep, [facility] [place] [facility] [address] [id number] [place] [address] Aug, [facility] [address] [id number] [address] Aug, [facility] [address] [facility] [id number] [address] Aug, [facility] [address] [id number] [address] Jul, [facility] [address] [id number] [address] Jul, [facility] [id number] [address] Jul, [facility] [address] [facility] [id number] [place] [address] Aug, IMMUNIZATIONS No Known Immunizations SOCIAL HISTORY Never Assessed REASON FOR VISIT Follow-up Bipolar PLAN OF CARE Activity Details Follow Up Next available Reason: Follow-up VITAL SIGNS MEDICATIONS Unknown Medications RESULTS No Results PROCEDURES Procedure Date Ordered Result Body Site PENDING SALE TO [facility] VISIT MENTAL HEALTH ESTAB PT Jun 13, 2017 Psychotherapy, patient &/family, 45 minutes, established patient Jun 13, 2017 INSTRUCTIONS MEDICATIONS ADMINISTERED No Known Medications
--- OUTSIDE RECORDS SUMMARY | 2018-02-10 12:58 | XMS REPORT | Continuity of Care Document ---
Author Author [facility] Address Unknown Phone Unavailable Allergies Active Description Code Type Severity Reaction Onset Reported/Identified Relationship to Patient Clinical Status Yes ciprofloxacin [id number] Drug Allergy Unknown N/A 08/18/2010 Yes Cipro [...] 09/05/2009 307.47 SI DYSSOMNIA NOS 09/05/2009 [facility] 296.80 MO BIPOLAR NOS 09/05/2009 [facility] 300.00 MN MEN DIS NOS 09/05/2009 JAYLIN [...] 09/05/2009 307.47 SI DYSSOMNIA NOS 09/05/2009 [facility] 296.80 MO BIPOLAR NOS 09/05/2009 J[facility], [...] ARIANNA R 307.47 SI DYSSOMNIA NOS 09/05/2009 [facility], ARIANNA R 296.80 MO BIPOLAR NOS [...] MN MEN DIS NOS 09/05/2009 [facility], ARINANA R 307.47 SI DYSSOMNIA NOS 09/05/2009 JAYLIN [...] R 300.00 MN MEN DIS NOS [facility] 307.47 SI DYSSOMNIA NOS 09/05/2009 [...] R 300.00 MN MEN DIS NOS 09/05/2009 [facility], ARIANNA R 307.47 SI DYSSOMNIA NOS 09/05/2009 [facility], ARIANNA R 296.80 MO BIPOLAR NOS 09/05/2009 [facility], ARIANNA R 300.00 MN MEN DIS NOS 09/05/2009 [facility], ARIANNA R 307.47 SI DYSSOMNIA NOS 09/05/2009 [facility], ARIANNA R 296.80 MO BIPOLAR NOS 09/05/2009 [facility], ARIANNA R 300.00 MN MEN DIS NOS 09/05/2009 [facility], ARIANNA R 307.47 SI DYSSOMNIA NOS 09/05/2009 [facility], ARIANNA R 296.80 MO BIPOLAR NOS 09/05/2009 [facility], ARIANNA R 300.00 MN MEN DIS NOS 09/05/2009 [facility], ARIANNA R 307.47 SI DYSSOMNIA NOS 09/05/2009 [facility], ARIANNA R 296.80 MO BIPOLAR NOS 09/05/2009 [facility], ARIANNA R 300.00 MN MEN DIS NOS 09/05/2009 [facility], ARIANNA R 307.47 SI DYSSOMNIA NOS 09/05/2009 [facility], ARIANNA R 296.80 MO BIPOLAR NOS 09/05/2009 [facility], ARIANNA R 300.00 MN MEN DIS NOS 09/05/2009 [facility], ARIANNA R 307.47 SI DYSSOMNIA NOS 11/04/2009 296.40 MO BIPOLAR MANIC UNSPECIFIED 11/04/2009 296.40 MO BIPOLAR MANIC UNSPECIFIED 11/04/2009 [facility], ARIANNA R 296.40 MO BIPOLAR MANIC UNSPECIFIED 11/04/2009 296.40 MO BIPOLAR MANIC UNSPECIFIED 11/04/2009 296.40 MO BIPOLAR MANIC UNSPECIFIED 11/04/2009 296.40 MO BIPOLAR MANIC UNSPECIFIED 11/04/2009 296.40 MO BIPOLAR MANIC UNSPECIFIED 11/04/2009 296.40 MO BIPOLAR MANIC UNSPECIFIED 11/04/2009 [facility], ARIANNA R 296.40 MO BIPOLAR MANIC UNSPECIFIED 11/04/2009 [facility], ARIANNA R 296.40 MO BIPOLAR MANIC UNSPECIFIED 11/04/2009 [facility], ARIANNA R 296.40 MO BIPOLAR MANIC UNSPECIFIED 11/04/2009 [facility], ARIANNA R 296.40 MO BIPOLAR MANIC UNSPECIFIED 11/04/2009 [facility], ARIANNA R 296.40 MO BIPOLAR MANIC UNSPECIFIED 11/04/2009 [facility], ARIANNA R 296.40 MO BIPOLAR MANIC UNSPECIFIED 11/04/2009 [facility] R 296.40 MO BIPOLAR MANIC UNSPECIFIED 11/04/2009 [facility]NA R 296.40 MO BIPOLAR MANIC UNSPECIFIED 11/04/2009 [facility], [facility]NA R 296.40 MO BIPOLAR MANIC UNSPECIFIED 11/04/2009 [facility], ARIANNA R 296.40 MO BIPOLAR MANIC UNSPECIFIED 11/04/2009 [facility], ARIANNA R 296.40 MO BIPOLAR MANIC UNSPECIFIED 11/04/2009 [facility], ARIANNA R 296.40 MO BIPOLAR MANIC UNSPECIFIED 11/04/2009 [facility], ARIANNA R 296.40 MO BIPOLAR MANIC UNSPECIFIED 11/04/2009 [facility], ARIANNA R 296.40 MO BIPOLAR MANIC UNSPECIFIED 11/04/2009 [facility], ARIANNA R 296.40 MO BIPOLAR MANIC UNSPECIFIED 11/04/2009 [facility], ARIANNA R 296.40 MO BIPOLAR MANIC UNSPECIFIED 11/04/2009 [facility], ARIANNA R 296.40 MO BIPOLAR MANIC UNSPECIFIED 11/04/2009 [facility], ARIANNA R 296.40 MO BIPOLAR MANIC UNSPECIFIED 11/04/2009 [facility], ARIANNA R 296.40 MO BIPOLAR MANIC UNSPECIFIED 11/04/2009 [facility], ARIANNA R 296.40 MO BIPOLAR MANIC UNSPECIFIED 11/04/2009 [facility], ARIANNA R 296.40 MO BIPOLAR MANIC UNSPECIFIED 11/04/2009 [facility], ARIANNA R 296.40 MO BIPOLAR MANIC UNSPECIFIED 11/04/2009 [facility], ARIANNA R 296.40 MO BIPOLAR MANIC UNSPECIFIED 11/19/2009 296.60 MO BIPOLAR I MIXED UNSPECIFIED 11/19/2009 296.60 MO BIPOLAR I MIXED UNSPECIFIED 11/19/2009 [facility], ARIANNA R 296.60 MO BIPOLAR I MIXED UNSPECIFIED 11/19/2009 296.60 MO BIPOLAR I MIXED UNSPECIFIED 11/19/2009 296.60 MO BIPOLAR I MIXED UNSPECIFIED 11/19/2009 296.60 MO BIPOLAR I MIXED UNSPECIFIED 11/19/2009 296.60 MO BIPOLAR I MIXED UNSPECIFIED 11/19/2009 296.60 MO BIPOLAR I MIXED UNSPECIFIED 11/19/2009 [facility], ARIANNA R 296.60 MO BIPOLAR I MIXED UNSPECIFIED 11/19/2009 [facility], ARIANNA R 296.60 MO BIPOLAR I MIXED UNSPECIFIED 11/19/2009 [facility], ARIANNA R 296.60 MO BIPOLAR I MIXED UNSPECIFIED 11/19/2009 [facility], ARIANNA R 296.60 MO BIPOLAR I MIXED UNSPECIFIED 11/19/2009 [facility], ARIANNA R 296.60 MO BIPOLAR I MIXED UNSPECIFIED 11/19/2009 [facility], ARIANNA R 296.60 MO BIPOLAR I MIXED UNSPECIFIED 11/19/2009 [facility], ARIANNA R 296.60 MO BIPOLAR I MIXED UNSPECIFIED 11/19/2009 [facility], ARIANNA R 296.60 MO BIPOLAR I MIXED UNSPECIFIED 11/19/2009 [facility], ARIANNA R 296.60 MO BIPOLAR I MIXED UNSPECIFIED 11/19/2009 [facility], ARIANNA R 296.60 MO BIPOLAR I MIXED UNSPECIFIED 11/19/2009 [facility], ARIANNA R 296.60 MO BIPOLAR I MIXED UNSPECIFIED 11/19/2009 [facility], ARIANNA R 296.60 MO BIPOLAR I MIXED UNSPECIFIED 11/19/2009 [facility], ARIANNA R 296.60 MO BIPOLAR I MIXED UNSPECIFIED 11/19/2009 [facility], ARIANNA R 296.60 MO BIPOLAR I MIXED UNSPECIFIED 11/19/2009 [facility], ARIANNA R 296.60 MO BIPOLAR I MIXED UNSPECIFIED 11/19/2009 [facility], ARIANNA R 296.60 MO BIPOLAR I MIXED UNSPECIFIED 11/19/2009 [facility], ARIANNA R 296.60 MO BIPOLAR I MIXED UNSPECIFIED 11/19/2009 [facility], ARIANNA R 296.60 MO BIPOLAR I MIXED UNSPECIFIED 11/19/2009 [facility], ARIANNA R 296.60 MO BIPOLAR I MIXED UNSPECIFIED 11/19/2009 [facility], ARIANNA R 296.60 MO BIPOLAR I MIXED UNSPECIFIED 11/19/2009 [facility], ARIANNA R 296.60 MO BIPOLAR I MIXED UNSPECIFIED 11/19/2009 [facility], ARIANNA R 296.60 MO BIPOLAR I MIXED UNSPECIFIED 11/19/2009 [facility], ARIANNA R 296.60 MO BIPOLAR I [...] ARIANNA R 309.81 AN PTSD 12/11/2009 JAYLIN [facility], ARIANNA R 309.81 AN PTSD 12/11/2009 JAYLIN [facility], ARIANNA R 309.81 AN PTSD 12/11/2009 [facility]LIN [facility], ARIANNA R 309.81 AN PTSD 12/11/2009 JAYLIN [facility], ARIANNA R 309.81 AN PTSD 12/11/2009 [facility], ARIANNA R 309.81 AN PTSD 12/11/2009 [facility], ARIANNA R 309.81 AN PTSD 12/11/2009 [facility], ARIANNA R 309.81 AN PTSD 12/11/2009 [facility], ARIANNA R 309.81 AN PTSD 12/11/2009 [facility], ARIANNA R 309.81 AN PTSD 12/11/2009 [facility], ARIANNA R 309.81 AN PTSD 12/11/2009 [facility], ARIANNA R 309.81 AN PTSD 12/11/2009 [facility], ARIANNA R 309.81 AN PTSD 12/11/2009 [facility]AYLIN [facility], ARIANNA R 309.81 AN PTSD 12/11/2009 [facility], ARIANNA R 309.81 AN PTSD 12/11/2009 [facility], ARIANNA R 309.81 AN PTSD 12/11/2009 [facility], ARIANNA R 309.81 AN PTSD 12/11/2009 JAYLIN [facility], ARIANNA R 309.81 AN PTSD 12/11/2009 JAYLIN [...] BIPOLAR I MIXED MILD 03/04/2010 [facility], RAIANNA R 296.61 MO BIPOLAR I MIXED MILD 03/04/2010 [facility]NA R 296.61 MO BIPOLAR I MIXED MILD 03/04/2010 [facility], ARIANNA R 296.61 MO BIPOLAR I MIXED [...] 296.61 MO BIPOLAR I MIXED MILD 03/04/2010 [facility] ARIANNA R 296.61 MO BIPOLAR I MIXED MILD 03/04/2010 [facility], ARIANNA R 296.61 MO BIPOLAR I MIXED MILD 03/04/2010 [facility], ARIANNA R 296.61 MO BIPOLAR I MIXED MILD 03/04/2010 [facility], ARIANNA R 296.61 MO BIPOLAR I MIXED MILD 03/04/2010 [facility], ARIANNA R 296.61 MO BIPOLAR I MIXED MILD 03/04/2010 [facility], ARIANNA R 296.61 MO BIPOLAR I MIXED MILD 03/04/2010 [facility], ARIANNA R 296.61 MO BIPOLAR I MIXED MILD 03/04/2010 [facility], ARIANNA R 296.61 MO BIPOLAR I MIXED MILD 04/06/2011 V58.69 MEDICATION HIGH RISK 04/06/2011 V58.69 MEDICATION HIGH RISK 04/06/2011 [facility], ARIANNA R V58.69 MEDICATION HIGH RISK 04/06/2011 V58.69 MEDICATION HIGH RISK 04/06/2011 V58.69 MEDICATION HIGH RISK 04/06/2011 V58.69 MEDICATION HIGH RISK 04/06/2011 V58.69 MEDICATION HIGH RISK 04/06/2011 V58.69 MEDICATION HIGH RISK 04/06/2011 [facility], ARIANNA R V58.69 MEDICATION HIGH RISK 04/06/2011 [facility], ARIANNA R V58.69 MEDICATION HIGH RISK 04/06/2011 [facility], ARIANNA R V58.69 MEDICATION HIGH RISK 04/06/2011 [facility], ARIANNA R V58.69 MEDICATION HIGH RISK 04/06/2011 [facility], ARIANNA R V58.69 MEDICATION HIGH RISK 04/06/2011 [facility], ARIANNA R V58.69 MEDICATION HIGH RISK 04/06/2011 [facility], ARIANNA R V58.69 MEDICATION HIGH RISK 04/06/2011 [facility], ARIANNA R V58.69 MEDICATION HIGH RISK 04/06/2011 [facility], ARIANNA R V58.69 MEDICATION HIGH RISK 04/06/2011 [facility], ARIANNA R V58.69 MEDICATION HIGH RISK 04/06/2011 [facility], ARIANNA R V58.69 MEDICATION HIGH RISK 04/06/2011 [facility], ARIANNA R V58.69 MEDICATION HIGH RISK 04/06/2011 [facility], ARIANNA R V58.69 MEDICATION HIGH RISK 04/06/2011 [facility], ARIANNA R V58.69 MEDICATION HIGH RISK 04/06/2011 [facility], ARIANNA R V58.69 MEDICATION HIGH RISK 04/06/2011 [facility], ARIANNA R V58.69 MEDICATION HIGH RISK 04/06/2011 [facility], ARIANNA R V58.69 MEDICATION HIGH RISK 04/06/2011 [facility], ARIANNA R V58.69 MEDICATION HIGH RISK 04/06/2011 [facility], ARIANNA R V58.69 MEDICATION HIGH RISK 04/06/2011 [facility], ARIANNA R V58.69 MEDICATION HIGH RISK 04/06/2011 [facility], ARIANNA R V58.69 MEDICATION HIGH RISK 04/06/2011 [facility], ARIANNA R V58.69 MEDICATION HIGH RISK 04/06/2011 [facility], ARIANNA R V58.69 MEDICATION HIGH RISK 05/06/2011 296.65 MO BIPOLAR I MIXED PART OR UNSPECIFIED REMISSION 05/06/2011 296.65 MO BIPOLAR I MIXED PART OR UNSPECIFIED REMISSION 05/06/2011 [facility], ARIANNA R 296.65 MO BIPOLAR I MIXED PART OR UNSPECIFIED REMISSION 05/06/2011 296.65 MO BIPOLAR I MIXED PART OR UNSPECIFIED REMISSION 05/06/2011 296.65 MO BIPOLAR I MIXED PART OR UNSPECIFIED REMISSION 05/06/2011 296.65 MO BIPOLAR I MIXED PART OR UNSPECIFIED REMISSION 05/06/2011 296.65 MO BIPOLAR I MIXED PART OR UNSPECIFIED REMISSION 05/06/2011 296.65 MO BIPOLAR I MIXED PART OR UNSPECIFIED REMISSION 05/06/2011 [facility], ARIANNA R 296.65 MO BIPOLAR I MIXED PART OR UNSPECIFIED REMISSION 05/06/2011 [facility], ARIANNA R 296.65 MO BIPOLAR I MIXED PART OR UNSPECIFIED REMISSION 05/06/2011 [facility], ARIANNA R 296.65 MO BIPOLAR I MIXED PART OR UNSPECIFIED REMISSION 05/06/2011 [facility], ARIANNA R 296.65 MO BIPOLAR I MIXED PART OR UNSPECIFIED REMISSION 05/06/2011 [facility], ARIANNA R 296.65 MO BIPOLAR I MIXED PART OR UNSPECIFIED REMISSION 05/06/2011 [facility], ARIANNA R 296.65 MO BIPOLAR I MIXED PART OR UNSPECIFIED REMISSION 05/06/2011 [facility], ARIANNA R 296.65 MO BIPOLAR I MIXED PART OR UNSPECIFIED REMISSION 05/06/2011 [facility], ARIANNA R 296.65 MO BIPOLAR I MIXED PART OR UNSPECIFIED REMISSION 05/06/2011 [facility], ARIANNA R 296.65 MO BIPOLAR I MIXED PART OR UNSPECIFIED REMISSION 05/06/2011 [facility], ARIANNA R 296.65 MO BIPOLAR I MIXED PART OR UNSPECIFIED REMISSION 05/06/2011 [facility], ARIANNA R 296.65 MO BIPOLAR I MIXED PART OR UNSPECIFIED REMISSION 05/06/2011 [facility], ARIANNA R 296.65 MO BIPOLAR I MIXED PART OR UNSPECIFIED REMISSION 05/06/2011 [facility], ARIANNA R 296.65 MO BIPOLAR I MIXED PART OR UNSPECIFIED REMISSION 05/06/2011 [facility], ARIANNA R 296.65 MO BIPOLAR I MIXED PART OR UNSPECIFIED REMISSION 05/06/2011 [facility], ARIANNA R 296.65 MO BIPOLAR I MIXED PART OR UNSPECIFIED REMISSION 05/06/2011 [facility], ARIANNA R 296.65 MO BIPOLAR I MIXED PART OR UNSPECIFIED REMISSION 05/06/2011 [facility], ARIANNA R 296.65 MO BIPOLAR I MIXED PART OR UNSPECIFIED REMISSION 05/06/2011 [facility], ARIANNA R 296.65 MO BIPOLAR I MIXED PART OR UNSPECIFIED REMISSION 05/06/2011 [facility], ARIANNA R 296.65 MO BIPOLAR I MIXED PART OR UNSPECIFIED REMISSION 05/06/2011 [facility], ARIANNA R 296.65 MO BIPOLAR I MIXED PART OR UNSPECIFIED REMISSION 05/06/2011 [facility], ARIANNA R 296.65 MO BIPOLAR I MIXED PART OR UNSPECIFIED REMISSION 05/06/2011 [facility], ARIANNA R 296.65 MO BIPOLAR I MIXED PART OR UNSPECIFIED REMISSION 05/06/2011 [facility], ARIANNA R 296.65 MO BIPOLAR I MIXED PART OR UNSPECIFIED REMISSION 05/24/2011 296.64 MO BIPOLAR I MIXED W PSYCHOTIC BEHAVIOR 05/24/2011 296.64 MO BIPOLAR I MIXED W PSYCHOTIC BEHAVIOR 05/24/2011 [facility], ARIANNA R 296.64 MO BIPOLAR I [...] BIPOLAR I MIXED W PSYCHOTIC BEHAVIOR 05/24/2011 [facility] ARI[facility]NA R 296.64 MO BIPOLAR I MIXED W PSYCHOTIC BEHAVIOR 05/24/2011 [facility], ARIANNA R 296.64 MO BIPOLAR I MIXED W PSYCHOTIC BEHAVIOR 05/24/2011 [facility], [facility]NA R 296.64 MO BIPOLAR I MIXED W PSYCHOTIC BEHAVIOR 05/24/2011 [facility], ARIANNA R 296.64 MO BIPOLAR I MIXED W PSYCHOTIC BEHAVIOR 05/24/2011 [facility], ARIANNA R 296.64 MO BIPOLAR I MIXED W PSYCHOTIC BEHAVIOR 05/24/2011 [facility], ARINANA R 296.64 MO BIPOLAR I MIXED W PSYCHOTIC BEHAVIOR 05/24/2011 [facility], ARIANNA R 296.64 MO BIPOLAR I MIXED W PSYCHOTIC BEHAVIOR 05/24/2011 [facility], ARIANNA R 296.64 MO BIPOLAR I MIXED W PSYCHOTIC BEHAVIOR 05/24/2011 [facility], ARIANNA R 296.64 MO BIPOLAR I MIXED W PSYCHOTIC BEHAVIOR 05/24/2011 [facility], ARIANNA R 296.64 MO BIPOLAR I MIXED W PSYCHOTIC BEHAVIOR 05/24/2011 [facility], ARIANNA R 296.64 MO BIPOLAR I MIXED W PSYCHOTIC BEHAVIOR 05/24/2011 [facility], ARIANNA R 296.64 MO BIPOLAR I MIXED W PSYCHOTIC BEHAVIOR 05/24/2011 [facility], ARIANNA R 296.64 MO BIPOLAR I MIXED W PSYCHOTIC BEHAVIOR 05/24/2011 [facility], ARIANNA R 296.64 MO BIPOLAR I MIXED W PSYCHOTIC BEHAVIOR 05/24/2011 [facility], ARIANNA R 296.64 MO BIPOLAR I MIXED W PSYCHOTIC BEHAVIOR 05/24/2011 [facility], ARIANNA R 296.64 MO BIPOLAR I MIXED W PSYCHOTIC BEHAVIOR 05/24/2011 [facility], ARIANNA R 296.64 MO BIPOLAR I MIXED W PSYCHOTIC BEHAVIOR 05/24/2011 [facility], ARIANNA R 296.64 MO BIPOLAR I MIXED [...] ARIANNA R 296.89 MO BIPOLAR II 10/27/2011 [facility], [facility]NA R 296.89 MO BIPOLAR II 10/27/2011 [facility], ARIANNA R 296.89 MO BIPOLAR II 10/27/2011 [facility], ARIANNA R 296.89 MO BIPOLAR II 10/27/2011 [facility], ARIANNA R 296.89 MO BIPOLAR II 10/27/2011 [facility], ARIANNA R 296.89 MO BIPOLAR II 10/27/2011 [facility], ARIANNA R 296.89 MO BIPOLAR II 10/27/2011 [facility], ARIANNA R 296.89 MO BIPOLAR II 10/27/2011 [facility], ARIANNA R 296.89 MO BIPOLAR II 01/19/2012 Ot 574.20 CHOLELITHIASIS NOS 04/03/2012 296.63 MO BIPOLAR I MIXED SEVERE W/O PSYCHOTIC BEHAVIOR 04/03/2012 296.63 MO BIPOLAR I MIXED SEVERE W/O PSYCHOTIC BEHAVIOR 04/03/2012 [facility], ARIANNA R 296.63 MO BIPOLAR I MIXED SEVERE W/O PSYCHOTIC BEHAVIOR 04/03/2012 296.63 MO BIPOLAR I MIXED SEVERE W/O PSYCHOTIC BEHAVIOR 04/03/2012 296.63 MO BIPOLAR I MIXED SEVERE W/O PSYCHOTIC BEHAVIOR 04/03/2012 296.63 MO BIPOLAR I MIXED SEVERE W/O PSYCHOTIC BEHAVIOR 04/03/2012 296.63 MO BIPOLAR I MIXED SEVERE W/O PSYCHOTIC BEHAVIOR 04/03/2012 296.63 MO BIPOLAR I MIXED SEVERE W/O PSYCHOTIC BEHAVIOR 04/03/2012 [facility], ARIANNA R 296.63 MO BIPOLAR I MIXED SEVERE W/O PSYCHOTIC BEHAVIOR 04/03/2012 [facility], ARIANNA R 296.63 MO BIPOLAR I MIXED SEVERE W/O PSYCHOTIC BEHAVIOR 04/03/2012 [facility], ARIANNA R 296.63 MO BIPOLAR I MIXED SEVERE W/O PSYCHOTIC BEHAVIOR 04/03/2012 [facility], ARIANNA R 296.63 MO BIPOLAR I MIXED SEVERE W/O PSYCHOTIC BEHAVIOR 04/03/2012 [facility], ARIANNA R 296.63 MO BIPOLAR I MIXED SEVERE W/O PSYCHOTIC BEHAVIOR 04/03/2012 [facility], ARIANNA R 296.63 MO BIPOLAR I MIXED SEVERE W/O PSYCHOTIC BEHAVIOR 04/03/2012 [facility], ARIANNA R 296.63 MO BIPOLAR I MIXED SEVERE W/O PSYCHOTIC BEHAVIOR 04/03/2012 [facility], ARIANNA R 296.63 MO BIPOLAR I MIXED SEVERE W/O PSYCHOTIC BEHAVIOR 04/03/2012 [facility], ARIANNA R 296.63 MO BIPOLAR I MIXED SEVERE W/O PSYCHOTIC BEHAVIOR 04/03/2012 [facility], ARIANNA R 296.63 MO BIPOLAR I MIXED SEVERE W/O PSYCHOTIC BEHAVIOR 04/03/2012 [facility], ARIANNA R 296.63 MO BIPOLAR I MIXED SEVERE W/O PSYCHOTIC BEHAVIOR 04/03/2012 [facility], ARIANNA R 296.63 MO BIPOLAR I MIXED SEVERE W/O PSYCHOTIC BEHAVIOR 04/03/2012 [facility], ARIANNA R 296.63 MO BIPOLAR I MIXED SEVERE W/O PSYCHOTIC BEHAVIOR 04/03/2012 [facility], ARIANNA R 296.63 MO BIPOLAR I MIXED SEVERE W/O PSYCHOTIC BEHAVIOR 04/03/2012 [facility], ARIANNA R 296.63 MO BIPOLAR I MIXED SEVERE W/O PSYCHOTIC BEHAVIOR 04/03/2012 [facility], ARIANNA R 296.63 MO BIPOLAR I MIXED SEVERE W/O PSYCHOTIC BEHAVIOR 04/03/2012 [facility], ARIANNA R 296.63 MO BIPOLAR I MIXED SEVERE W/O PSYCHOTIC BEHAVIOR 04/03/2012 [facility], ARIANNA R 296.63 MO BIPOLAR I MIXED SEVERE W/O PSYCHOTIC BEHAVIOR 04/03/2012 [facility], ARIANNA R 296.63 MO BIPOLAR I MIXED SEVERE W/O PSYCHOTIC BEHAVIOR 04/03/2012 [facility], ARIANNA R 296.63 MO BIPOLAR I MIXED SEVERE W/O PSYCHOTIC BEHAVIOR 04/03/2012 [facility], ARIANNA R 296.63 MO BIPOLAR I MIXED SEVERE W/O PSYCHOTIC BEHAVIOR 04/03/2012 [facility], ARIANNA R 296.63 MO BIPOLAR I MIXED SEVERE W/O PSYCHOTIC BEHAVIOR 04/03/2012 [facility], ARIANNA R 296.63 MO BIPOLAR I MIXED SEVERE W/O PSYCHOTIC BEHAVIOR 05/03/2012 296.53 MO BIPOLAR I SEVERE W/O PSYCHOTIC BEHAVIOR 05/03/2012 296.53 MO BIPOLAR I SEVERE W/O PSYCHOTIC BEHAVIOR 05/03/2012 [facility], ARIANNA R 296.53 MO BIPOLAR I SEVERE W/O PSYCHOTIC BEHAVIOR 05/03/2012 296.53 MO BIPOLAR I SEVERE W/O PSYCHOTIC BEHAVIOR 05/03/2012 296.53 MO BIPOLAR I SEVERE W/O PSYCHOTIC BEHAVIOR 05/03/2012 296.53 MO BIPOLAR I SEVERE W/O PSYCHOTIC BEHAVIOR 05/03/2012 296.53 MO BIPOLAR I SEVERE W/O PSYCHOTIC BEHAVIOR 05/03/2012 296.53 MO BIPOLAR I SEVERE W/O PSYCHOTIC BEHAVIOR 05/03/2012 [facility], ARIANNA R 296.53 MO BIPOLAR I SEVERE W/O PSYCHOTIC BEHAVIOR 05/03/2012 [facility], ARIANNA R 296.53 MO BIPOLAR I SEVERE W/O PSYCHOTIC BEHAVIOR 05/03/2012 [facility], ARIANNA R 296.53 MO BIPOLAR I SEVERE W/O PSYCHOTIC BEHAVIOR 05/03/2012 [facility], [facility] R 296.53 MO BIPOLAR I SEVERE W/O PSYCHOTIC BEHAVIOR 05/03/2012 [facility], [facility] R 296.53 MO BIPOLAR I SEVERE W/O PSYCHOTIC BEHAVIOR 05/03/2012 [facility], [facility] R 296.53 MO BIPOLAR I SEVERE W/O PSYCHOTIC BEHAVIOR 05/03/2012 [facility] 296.53 MO BIPOLAR I SEVERE W/O PSYCHOTIC BEHAVIOR 05/03/2012 [facility], [facility] R 296.53 MO BIPOLAR I SEVERE W/O PSYCHOTIC BEHAVIOR 05/03/2012 [facility], [facility] R 296.53 MO BIPOLAR I SEVERE W/O PSYCHOTIC BEHAVIOR 05/03/2012 [facility], [facility] R 296.53 MO BIPOLAR I SEVERE W/O PSYCHOTIC BEHAVIOR 05/03/2012 [facility], [facility] R 296.53 MO BIPOLAR I SEVERE W/O PSYCHOTIC BEHAVIOR 05/03/2012 [facility], [facility]NA R 296.53 MO BIPOLAR I SEVERE W/O PSYCHOTIC BEHAVIOR 05/03/2012 [facility], [facility] R 296.53 MO BIPOLAR I SEVERE W/O PSYCHOTIC BEHAVIOR 05/03/2012 [facility], [facility] R 296.53 MO BIPOLAR I SEVERE W/O PSYCHOTIC BEHAVIOR 05/03/2012 [facility], [facility] R 296.53 MO BIPOLAR I SEVERE W/O PSYCHOTIC BEHAVIOR 05/03/2012 [facility], [facility] R 296.53 MO BIPOLAR I SEVERE W/O PSYCHOTIC BEHAVIOR 05/03/2012 [facility], [facility] R 296.53 MO BIPOLAR I SEVERE W/O PSYCHOTIC BEHAVIOR 05/03/2012 [facility], [facility] R 296.53 MO BIPOLAR I SEVERE W/O PSYCHOTIC BEHAVIOR 05/03/2012 [facility], [facility] R 296.53 MO BIPOLAR I SEVERE W/O PSYCHOTIC BEHAVIOR 05/03/2012 [facility], [facility] R 296.53 MO BIPOLAR I SEVERE W/O PSYCHOTIC BEHAVIOR 05/03/2012 [facility], [facility] R 296.53 MO BIPOLAR I SEVERE W/O PSYCHOTIC BEHAVIOR 05/03/2012 [facility], [facility] R 296.53 MO BIPOLAR I SEVERE W/O PSYCHOTIC BEHAVIOR 05/03/2012 [facility], [facility] R 296.53 MO BIPOLAR I SEVERE W/O PSYCHOTIC BEHAVIOR 07/05/2013 [facility], [facility] R 296.41 MO BIPOLAR I MANIC MILD 07/05/2013 [facility], [facility] R 296.41 MO BIPOLAR I [...] 296.41 MO BIPOLAR I MANIC MILD 07/05/2013 [facility] 296.41 MO BIPOLAR I MANIC MILD 07/05/2013 [facility], [facility]ANNA R 296.41 MO BIPOLAR I MANIC MILD 07/05/2013 [facility], ARIANNA R 296.41 MO BIPOLAR I MANIC MILD 07/05/2013 [facility], ARIANNA R 296.41 MO BIPOLAR I MANIC MILD 07/05/2013 [facility], ARIANNA R 296.41 MO BIPOLAR I MANIC MILD 07/05/2013 [facility] 296.41 MO BIPOLAR I MANIC MILD 07/05/2013 [facility] 296.41 MO BIPOLAR I MANIC MILD 07/05/2013 [facility] R 296.41 MO BIPOLAR I MANIC MILD 07/05/2013 [facility] 296.41 MO BIPOLAR I MANIC [...] ANGELINA D Ot 793.80 04/11/2015 MELLY GOODMAN, ANGELINA D Ot 793.80 04/11/2015 MELLY GOODMAN, ANGELINA [...] Ot 786.50 CHEST PAIN NOS 01/18/2017 MELLY GOODMAN, ANGELINA D Ot V76.12 OTH SCREEN MAMMO-MALIGN [...] Z12.31 ENCNTR SCREEN MAMMOGRAM FOR MALIGNANT NE 11/28/2017 TOMEKA GOODMAN, FREYA Evangelista Ot Z01.818 ENCOUNTER FOR OTHER PREPROCEDURAL EXAMIN 11/28/2017 FREYA ECKERT MD Ot Z12.11 ENCOUNTER FOR SCREENING FOR MALIGNANT NE 11/30/2017 TOMEKA GOODMAN, FREYA Evangelista Ot Z01.818 ENCOUNTER FOR OTHER PREPROCEDURAL EXAMIN 11/30/2017 FREYA ECKERT MD Ot Z12.11 ENCOUNTER FOR SCREENING FOR MALIGNANT NE 11/30/2017 TOMEKA GOODMAN, FREYA Evangelista Ot Z01.818 ENCOUNTER FOR OTHER PREPROCEDURAL EXAMIN 11/30/2017 FREYA ECKERT MD Ot Z12.11 ENCOUNTER FOR SCREENING FOR MALIGNANT NE 12/05/2017 Ot V76.12 OTH SCREEN MAMMO-MALIGN NEOPLASM OF ALONZO 12/05/2017 Ot V82.81 SCREENING FOR OSTEOPOROSIS 12/05/2017 Ot 786.50 CHEST PAIN NOS 12/05/2017 ANGELINA PICKARD MD Ot V76.12 OTH SCREEN MAMMO-MALIGN NEOPLASM OF ALONZO 12/05/2017 MELLY GOODMAN, ANGELINA Bear Ot 611.89 OTHER SPECIFIED DISORDERS OF BREAST 12/05/2017 MELLY GOODMAN, ANGELINA Bear Ot 793.80 UNSPEC ABNORMAL MAMMOGRAM 12/05/2017 ANGELINA PICKARD MD Ot 793.80 UNSPEC ABNORMAL MAMMOGRAM 12/05/2017 MELLY GOODMAN, ANGELINA Bear Ot 786.2 COUGH 12/05/2017 Ot M72.2 PLANTAR FASCIAL FIBROMATOSIS 12/05/2017 ANGELINA PICKARD MD Ot N20.1 CALCULUS OF URETER 12/05/2017 ANGELINA PICKARD MD Ot Z12.31 ENCNTR SCREEN MAMMOGRAM FOR MALIGNANT NE 12/05/2017 TOMEKA GOODMAN, FREYA Evangelista Ot I10 ESSENTIAL (PRIMARY) HYPERTENSION 12/05/2017 FREYA ECKERT MD Ot Z12.11 ENCOUNTER FOR SCREENING FOR MALIGNANT NE 12/06/2017 FREYA ECKERT MD Ot I10 ESSENTIAL (PRIMARY) HYPERTENSION 12/06/2017 FREYA ECKERT MD Ot Z12.11 ENCOUNTER FOR SCREENING FOR MALIGNANT NE Procedures Code [place] [address] INDIV PSYTX 45/50 MIN 08/24/2012 69114 INDIV PSYTX 45/50 MIN 09/14/2012 76990 PSYTX PT&/FAMILY 45 MINUTES 11/15/2012 77204 PSYTX PT&/FAMILY 45 MINUTES 12/06/2012 57067 PSYTX PT&/FAMILY 45 MINUTES 12/19/2012 22866 PSYTX PT&/FAMILY 45 MINUTES 02/09/2013 21264 PSYTX PT&/FAMILY 45 MINUTES 04/04/2013 45183 PSYTX PT&/FAMILY 60 MINUTES 04/12/2013 71195 PSYTX PT&/FAMILY 45 MINUTES 06/06/2013 04751 PSYTX PT&/FAMILY 45 MINUTES 06/21/2013 96119 PSYTX PT&/FAMILY 45 MINUTES 07/05/2013 71035 PSYTX PT&/FAMILY 45 MINUTES 07/25/2013 46688 PSYTX PT&/FAMILY 45 MINUTES 08/08/2013 48974 PSYTX PT&/FAMILY 45 MINUTES 08/22/2013 42422 PSYTX PT&/FAMILY 45 MINUTES 09/05/2013 81168 PSYTX PT&/FAMILY 45 MINUTES 09/26/2013 44429 PSYTX PT&/FAMILY 45 MINUTES 11/09/2013 51117 PSYTX PT&/FAMILY 45 MINUTES 11/29/2013 [id number] PSYTX PT&/FAMILY 45 MINUTES 12/21/2013 71202 PSYTX PT&/FAMILY 45 MINUTES 01/16/2014 11181 PSYTX PT&/FAMILY 45 MINUTES 01/29/2014 88070 PSYTX PT&/FAMILY 45 MINUTES 02/15/2014 59080 PSYTX PT&/FAMILY 45 MINUTES 02/26/2014 57608 PSYTX PT&/FAMILY 45 MINUTES 04/16/2014 76533 PSYTX PT&/FAMILY 45 MINUTES 05/28/2014 39861 PSYTX PT&/FAMILY 45 MINUTES 07/11/2014 50794 PSYTX PT&/FAMILY 45 MINUTES 08/29/2014 38950 PSYTX PT&/FAMILY 45 MINUTES 10/29/2014 80108 PSYTX PT&/FAMILY 45 MINUTES 01/08/2015 80236 PSYTX PT&/FAMILY 45 MINUTES 01/13/2015 37598 PSYTX PT&/FAMILY 45 MINUTES 01/29/2015 Results There is no data. Encounters ACCT No. Visit Date/Time Discharge Status Pt. Type Provider Facility Loc./Unit Complaint [id number] 01/29/2015 10:59:00 01/29/2015 23:59:59 CLS Outpatient JAYLIN LSCS, ARIANNA Tiny [id number] 01/13/2015 11:49:00 01/13/2015 23:59:59 CLS Outpatient JAYLIN LSCS, ARIANNA Franks [id number] 01/08/2015 09:56:00 01/08/2015 23:59:59 CLS Outpatient JAYLIN LSCS, ARIANNA Franks [id number] 11/12/2014 16:59:00 11/12/2014 23:59:59 CLS Outpatient JAYLIN LSCS, ARIANNA Franks [id number] 10/29/2014 12:50:00 10/29/2014 23:59:59 CLS Outpatient JAYLIN LSCS, ARIANNA Franks [id number] 08/29/2014 12:59:00 08/29/2014 23:59:59 CLS Outpatient JAYLIN LSCS, ARIANNA Franks [id number] 07/11/2014 13:57:00 07/11/2014 23:59:59 CLS Outpatient JAYLIN LSCS, ARIANNA Franks [id number] 05/28/2014 10:56:00 05/28/2014 23:59:59 CLS Outpatient JAYLIN LSCS, ARIANNA Franks [id number] 04/16/2014 09:53:00 04/16/2014 23:59:59 CLS Outpatient JAYLIN LSCS, ARIANNA Franks [id number] 02/26/2014 15:56:00 02/26/2014 23:59:59 CLS Outpatient JAYLIN LSCS, ARIANNA Franks [id number] 02/14/2014 13:49:00 02/14/2014 23:59:59 CLS Outpatient JAYLIN LSCS, ARIANNA R [id number] 01/29/2014 15:37:00 01/29/2014 23:59:59 CLS Outpatient JAYLIN LSCS, ARIANNA R [id number] 01/15/2014 16:03:00 01/15/2014 23:59:59 CLS Outpatient JAYLIN LSCS, ARIANNA R [id number] 12/21/2013 07:55:00 12/21/2013 23:59:59 CLS Outpatient JAYLIN LSCS, ARIANNA Franks [id number] 11/29/2013 15:51:00 11/29/2013 23:59:59 CLS Outpatient JAYLIN LSCS, ARIANNA Franks [id number] 11/09/2013 15:42:00 11/09/2013 23:59:59 CLS Outpatient JAYLIN LSCS, ARIANNA Tiny [id number] 09/25/2013 16:00:00 09/25/2013 23:59:59 CLS Outpatient JAYLIN LSCS, ARIANNA Tiny [id number] 09/04/2013 17:56:00 09/04/2013 23:59:59 CLS Outpatient JAYLIN LSCS, ARIANNA Tiny [id number] 08/21/2013 13:47:00 08/21/2013 23:59:59 CLS Outpatient JAYLIN LSCS, ARIANNA Tiny [id number] 08/07/2013 15:54:00 08/07/2013 23:59:59 CLS Outpatient JAYLIN LSCS, ARIANNA Tiny [id number] 07/25/2013 09:26:00 07/25/2013 23:59:59 CLS Outpatient JAYLIN LSCS, ARIANNA Tiny [id number] 07/05/2013 10:51:00 07/05/2013 23:59:59 CLS Outpatient JAYLIN LSCS, ARIANNA Tiny [id number] 12/19/2012 09:56:00 12/19/2012 23:59:59 CLS Outpatient JAYLIN LSCS, ARIANNA Tiny [id number] 12/06/2012 07:58:00 12/06/2012 23:59:59 CLS Outpatient [id number] 11/09/2012 10:53:00 11/09/2012 23:59:59 CLS Outpatient [id number] 07/27/2012 10:00:00 07/27/2012 23:59:59 CLS Outpatient JAYLIN LSCS, ARIANNA Tiny [id number] 06/21/2013 07:58:00 Document Registration [id number] 06/05/2013 16:51:00 Document Registration [id number] 04/10/2013 09:57:00 Document Registration [id number] 03/29/2013 07:58:00 Document Registration [id number] 02/09/2013 09:49:00 Document Registration [id number] 12/05/2017 08:49:00 12/05/2017 12:15:00 DIS Outpatient FREYA ECKERT MD [facility] ENDO SCREENING [id number] 11/28/2017 05:36:00 11/28/2017 15:07:00 DIS Outpatient FREYA ECKERT MD [facility] PREOP COLONOSCOPY [id number] 07/28/2017 10:32:00 07/28/2017 23:59:59 CLS Outpatient ANGELINA PICKARD MD [facility] RAD SCREENING [id number] 01/18/2017 10:30:00 01/18/2017 23:59:59 CLS Outpatient ANGELINA PICKARD MD [facility] RAD ABD PAIN [id number] 05/27/2015 11:57:00 05/27/2015 23:59:59 CLS Outpatient ANGELINA PICKARD MD [facility] RAD CHRONIC COUGH [id number] 03/03/2015 09:14:00 03/03/2015 23:59:59 CLS Outpatient ANGELINA PICKARD MD [facility] RAD FOLLOW UP [id number] 01/23/2014 08:00:00 01/23/2014 23:59:59 CLS Outpatient ANGELINA PICKARD MD [facility] RAD ABNORMAL MAMMO [id number] 01/09/2014 09:50:00 01/09/2014 23:59:59 CLS Outpatient ANGELINA PICKARD MD [facility] RAD SCREENING [id number] 11/06/2015 10:06:00 Document Registration [id number] 02/05/2013 11:19:00 Document Registration [id number] 01/12/2013 10:13:00 Document Registration [id number] 01/19/2012 05:34:00 Document Registration [id number] 01/13/2012 13:06:00 Document Registration [id number] 01/05/2012 07:57:00 Document Registration [id number] 06/18/2010 08:33:00 Document Registration [id number] 01/25/2018 13:00:00 01/25/2018 23:59:59 CLS Outpatient EMILEE RYDER [facility]
[2018-02-10 14:16] LABS: BILIRUBIN,URINE NEGATIVE (NEGATIVE); CLARITY,URINE SLIGHTLY CLOUDY; COLOR,URINE YELLOW; GLUCOSE, URINE (UA) NEGATIVE (NEGATIVE); KETONES,URINE NEGATIVE (NEGATIVE); LEUKOCYTE ESTERASE ,URINE 3+ (NEGATIVE); NITRITE,URINE NEGATIVE (NEGATIVE); PH,URINE 6 (5-9); PROTEIN,URINE 2+ (NEGATIVE); UROBILINOGEN,URINE NORMAL (NORMAL)
[2018-02-10 14:24] LABS: BACTERIA,URINE MODERATE /HPF; RBC,URINE 50-100 /HPF; WBC,URINE 50-100 /HPF
[2018-02-10] MEDS ORDERED: SULF1TAB35 PO (14:42)
--- NOTE | 2018-02-10 14:42 | ED GU-Female ---
General Chief Complaint: Abdominal/GI Problems Stated Complaint: UTI SYMTOMS Nursing Triage Note: PATIENT PRESENTS WITH BURNING PAIN WITH URINATION. ALSO ITCHING AND BLOOD IN URINE AND WHEN SHE WIPES. STARTED TUESDAY. Nursing Sepsis Screen: No Definite Risk Source: patient Exam Limitations: no limitations History of Present Illness Date Seen by Provider: Feb 10, 2018 Time Seen by Provider: 14:40 Initial Comments To ER with a 2 day history of burning upon urination, blood on the toilet paper upon wiping, bilateral flank pain. No nausea or vomiting. No fevers or chills. Timing/Duration: constant, getting worse Severity/Quality: moderate Radiation: none Activities at Onset: none Prior Genitourinary Problems: none Associated Symptoms: dysuria; No fever/chills; urinary frequency Allergies and Home Medications Allergies Coded Allergies: Ciprofloxacin (Unverified Allergy, Unknown, 08/18/10) Home Medications Aripiprazole 5 Mg Tablet, 5 MG PO HS, (Reported) Atorvastatin Calcium 20 Mg Tablet, 20 MG PO HS, (Reported) Gabapentin 300 Mg Capsule, 300 MG PO BID, (Reported) Hydrochlorothiazide 12.5 Mg Tablet, 12.5 MG PO DAILY, (Reported) Levothyroxine Sodium 50 Mcg Tablet, 50 MCG PO DAILY, (Reported) Loratadine 10 Mg Tablet, 10 MG PO DAILY, (Reported) Metoprolol Tartrate 100 Mg Tablet, 100 MG PO HS, (Reported) Montelukast Sodium 10 Mg Tablet, 10 MG PO HS, (Reported) Multivitamin 1 Each Tablet, 1 EACH PO DAILY, (Reported) Omeprazole 40 Mg Capsule.dr, 40 MG PO DAILY, (Reported) Oxcarbazepine 600 Mg Tablet, 600 MG PO BID, (Reported) Oxcarbazepine 600 Mg Tablet, 300 MG PO DAILY@1400, (Reported) take 1/2 of 600mg tab Potassium Chloride 20 Meq Tablet.er, 20 MEQ PO DAILY Prescribed by: LUCIE BREEN on 02/10/18 1631 Sulfamethoxazole/Trimethoprim 1 Each Tablet, 1 EACH PO BID Prescribed by: LUCIE BREEN on 02/10/18 1442 Topiramate 100 Mg Tablet, 100 MG PO DAILY, (Reported) Venlafaxine HCl 150 Mg Cap.er.24h, 150 MG PO BID, (Reported) Patient Home Medication List Home Medication List Reviewed: Yes Review of Systems Constitutional: see HPI EENTM: see HPI Respiratory: no symptoms reported Cardiovascular: no symptoms reported Genitourinary: no symptoms reported Musculoskeletal: no symptoms reported Skin: no symptoms reported Psychiatric/Neurological: No Symptoms Reported Endocrine: No Symptoms Reported Past Wjhozwl-Vptedz-Kmyldk Hx Patient Social History Alcohol Use: Rarely Uses Recreational Drug Use: No Smoking Status: Never a Smoker 2nd Hand Smoke Exposure: No Recent Foreign Travel: No Contact w/Someone Who Travel: No Recent Infectious Disease Expo: No Recent Hopitalizations: No Physical Abuse: No Sexual Abuse: No Immunizations Up To Date Date of Influenza Vaccine: Aug 13, 2017 Seasonal Allergies Seasonal Allergies: No Past Medical History Surgeries: Yes Section, Gallbladder, Hysterectomy Respiratory: No Asthma Cardiac: Yes High Cholesterol, Hypertension Neurological: No Reproductive Disorders: No Sexually Transmitted Disease: No Genitourinary: No Gastrointestinal: No Musculoskeletal: Yes Arthritis Endocrine: No HEENT: No Cancer: No Psychosocial: Yes Bipolar Nursing Suicide Risk Score: 0 Integumentary: No Blood Disorders: No Physical Exam Vital Signs Vital Signs - First Documented 02/10/18 14:00 Temp 98.9 Pulse 67 Resp 18 B/P (MAP) 127/79 (95) Pulse Ox 98 O2 Delivery Room Air Capillary Refill : Less Than 3 Seconds General Appearance: WD/WN, no apparent distress HEENT: PERRL/EOMI, normal ENT inspection Neck: non-tender, full range of motion Cardiovascular: regular rate, rhythm, no murmur Respiratory: normal breath sounds, no respiratory distress, no accessory muscle use Gastrointestinal: normal bowel sounds, non tender, soft Extremities: normal range of motion, non-tender 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: alert, normal mood/affect, oriented x 3 Skin: normal color, warm/dry Progress/Results/Core Measures Suspected Sepsis Recent Fever Within 48 Hours: No Infection Criteria Present: None New/Unexplained Altered Menta: No Sepsis Screen: No Definite Risk SIRS Temperature:98.9 Pulse: 67 Respiratory Rate: 18 Laboratory Tests 02/10/18 14:20: White Blood Count 14.8H Blood Pressure 127 /79 Mean: 95 Laboratory Tests 02/10/18 14:20: Creatinine 0.85, Platelet Count 305 Results/Orders Lab Results Laboratory Tests Test 02/10/18 14:10 02/10/18 14:20 Range/Units Urine Color YELLOW Urine Clarity SLIGHTLY CLOUDY Urine pH 6 5-9 Urine Specific [place] 1.015 L 1.016-1.022 Urine Protein 2+ H NEGATIVE Urine Glucose (UA) NEGATIVE NEGATIVE Urine Ketones NEGATIVE NEGATIVE Urine Nitrite NEGATIVE NEGATIVE Urine Bilirubin NEGATIVE NEGATIVE Urine Urobilinogen NORMAL NORMAL MG/DL Urine Leukocyte Esterase 3+ H NEGATIVE Urine RBC (Auto) 5+ H NEGATIVE Urine RBC 50-100 H /HPF Urine WBC 50-100 H /HPF Urine Crystals NONE /LPF Urine Bacteria MODERATE H /HPF Urine Casts NONE /LPF Urine Mucus NEGATIVE /LPF Urine Culture Indicated YES White Blood Count 14.8 H 4.3-11.0 10^3/uL Red Blood Count 4.78 4.35-5.85 10^6/uL Hemoglobin 14.9 11.5-16.0 G/DL Hematocrit 43 35-52 % Mean Corpuscular Volume 89 80-99 FL Mean Corpuscular Hemoglobin 31 25-34 PG Mean Corpuscular Hemoglobin Concent 35 32-36 G/DL Red Cell Distribution Width 14.0 10.0-14.5 % Platelet Count 305 130-400 10^3/uL Mean Platelet Volume 10.3 7.4-10.4 FL Neutrophils (%) (Auto) 68 42-75 % Lymphocytes (%) (Auto) 22 12-44 % Monocytes (%) (Auto) 10 0-12 % Eosinophils (%) (Auto) 0 0-10 % Basophils (%) (Auto) 0 0-10 % Neutrophils # (Auto) 10.0 H 1.8-7.8 X 10^3 Lymphocytes # (Auto) 3.3 1.0-4.0 X 10^3 Monocytes # (Auto) 1.4 H 0.0-1.0 X 10^3 Eosinophils # (Auto) 0.1 0.0-0.3 10^3/uL Basophils # (Auto) 0.0 0.0-0.1 10^3/uL Neutrophils % (Manual) 67 % Lymphocytes % (Manual) 22 % Monocytes % (Manual) 9 % Eosinophils % (Manual) 0 % Basophils % (Manual) 0 % Band Neutrophils 2 % Blood Morphology Comment NORMAL Sodium Level 141 135-145 MMOL/L Potassium Level 2.8 L 3.6-5.0 MMOL/L Chloride Level 102 98-107 MMOL/L Carbon Dioxide Level 26 21-32 MMOL/L Anion Gap 13 5-14 MMOL/L Blood Urea Nitrogen 16 7-18 MG/DL Creatinine 0.85 0.60-1.30 MG/DL Estimat Glomerular Filtration Rate > 60 BUN/Creatinine Ratio 19 Glucose Level 66 L 70-105 MG/DL Calcium Level 10.4 H 8.5-10.1 MG/DL My Orders Orders - LUCIE BREEN APRN Ua Culture If Indicated (02/10/18 14:10) Urine Culture (02/10/18 14:10) Cbc With Automated Diff (02/10/18 14:44) Basic Metabolic Panel (02/10/18 14:44) Ceftriaxone Injection (Rocephin Injectio (02/10/18 14:45) Ketorolac Injection (Toradol Injection) (02/10/18 14:45) Manual Differential (02/10/18 14:20) Potassium Chloride (Tablet) (K Dur Table (02/10/18 16:00) Potassium Cl 10meq/50ml Ivpb (Kcl 10 Meq (02/10/18 16:00) Ns Iv 500 Ml (Sodium Chloride 0.9%) (02/10/18 16:00) General/Regular (02/10/18 Dinner) Medications Given in ED Current Medications Medications Dose Ordered Sig/Nancy Route Start Time Stop Time Status Last Admin Dose Admin Ceftriaxone Sodium 1000 mg/ Sodium Chloride 100 ml @ 200 mls/hr ONCE ONCE IV 02/10/18 14:45 02/10/18 15:14 DC 02/10/18 14:53 200 MLS/HR Ketorolac Tromethamine 15 mg ONCE ONCE IVP 02/10/18 14:45 02/10/18 14:46 DC 02/10/18 14:53 15 MG Potassium Chloride 50 ml @ 50 mls/hr ONCE ONCE IV 02/10/18 16:00 02/10/18 16:59 02/10/18 16:02 50 MLS/HR Vital Signs/I&O 02/10/18 14:00 Temp 98.9 Pulse 67 Resp 18 B/P (MAP) 127/79 (95) Pulse Ox 98 O2 Delivery Room Air Capillary Refill : Less Than 3 Seconds Blood Pressure Mean: 95 Departure Communication (Admissions) Discussed the hypokalemia with Dr. Vizcaino. He agrees that 10 mEq IV here and 40 mg by mouth here is sufficient for discharge to home Impression Primary Impression: Urinary tract infection Additional Impression: Hypokalemia Disposition: 01 HOME, SELF-CARE Condition: Stable Departure-Patient Inst. Decision time for Depature: 14:41 Referrals: ANGELINA PICKARD MD (PCP/Family) Primary Care Physician Patient Instructions: Urinary Tract Infection, Adult (DC) Add. Discharge Instructions: 1. Antibiotic as directed 2. Return to ER for any concerns 3. See her doctor next week 4. All discharge instructions reviewed with patient and/or family. Voiced understanding. Scripts Potassium Chloride (Potassium Chloride) 20 Meq Tablet.er 20 MEQ PO DAILY, #4 TAB Prov: LUCIE BREEN APRN 02/10/18 Sulfamethoxazole/Trimethoprim (Bactrim Ds Tablet) 1 Each Tablet 1 EACH PO BID, #14 TAB Prov: LUCIE BREEN APRN 02/10/18 Copy Copies To 1: ANGELINA PICKARD MD, PETER J APRN Feb 10, 2018 14:42
[2018-02-10] MEDS ORDERED: cefTRIAXone INJECTION 1,000 MG in NS (IVPB) 100 ML IV ONE (14:45)
[2018-02-10] MEDS ORDERED: KETOROLAC 30 MG/ML VIAL IVP ONE (14:45)
[2018-02-10 14:59] LABS: BASOPHILS % (AUTO) 0 % (0-10); EOSINOPHILS # (AUTO) 0.1 10^3/uL (0.0-0.3); EOSINOPHILS % (AUTO) 0 % (0-10); HEMATOCRIT 43 % (35-52); HEMOGLOBIN 14.9 G/DL (11.5-16.0); LYMPHOCYTES # (AUTO) 3.3 X 10^3 (1.0-4.0); LYMPHOCYTES % (AUTO) 22 % (12-44); MEAN CORPUSCULAR HEMOGLOBIN 31 PG (25-34); MEAN CORPUSCULAR HGB CONC 35 G/DL (32-36); MEAN CORPUSCULAR VOLUME 89 FL (80-99); MEAN PLATELET VOLUME 10.3 FL (7.4-10.4); MONOCYTES # (AUTO) 1.4 X 10^3 (0.0-1.0); MONOCYTES % (AUTO) 10 % (0-12); NEUTROPHILS % (AUTO) 68 % (42-75); PLATELET COUNT 305 10^3/uL (130-400); RED BLOOD COUNT 4.78 10^6/uL (4.35-5.85); WHITE BLOOD COUNT 14.8 10^3/uL (4.3-11.0)
[2018-02-10 15:09] LABS: BUN/CREATININE RATIO 19; CALCIUM 10.4 MG/DL (8.5-10.1); CARBON DIOXIDE 26 MMOL/L (21-32); CHLORIDE 102 MMOL/L (98-107); CREATININE SERUM 0.85 MG/DL (0.60-1.30); GFR ESTIMATED > 60; GLUCOSE 66 MG/DL (70-105); POTASSIUM 2.8 MMOL/L (3.6-5.0); SODIUM 141 MMOL/L (135-145)
[2018-02-10 15:21] LABS: BAND NEUTROPHILS 2 %; BASOPHILS % (MANUAL) 0 %; EOSINOPHILS % (MANUAL) 0 %; LYMPHOCYTES % (MANUAL) 22 %; MONOCYTES % (MANUAL) 9 %; NEUTROPHILS % (MANUAL) 67 %
[2018-02-10 15:22] LABS: RBC MORPH NORMAL
[2018-02-10] MEDS ORDERED: POTASSIUM CL 10MEQ/50ML IVPB 50 ML IV ONE (16:00)
[2018-02-10] MEDS ORDERED: NS IV 500 ML 500 ML IV SCH (16:00)
[2018-02-10] MEDS ORDERED: KCL 20 MEQ TAB (K-DUR) PO ONE (16:00)
[2018-02-10] MEDS ORDERED: POTA-51 PO (16:31)
[2018-02-10 17:33] VITALS: BP 127/79
== END 2018-02-10 17:38 | disposition home or self-care (01) ==
LOC: EDUNIT# 12:46 → ER 12:51
DX: N39.0 Urinary tract infection, site not specified (principal); E87.6 Hypokalemia; J45.909 Unspecified asthma, uncomplicated; E78.00 Pure hypercholesterolemia, unspecified; I10 Essential (primary) hypertension; F31.9 Bipolar disorder, unspecified; Z88.1 Allergy status to other antibiotic agents; Z87.59 Personal history of other complications of pregnancy, childbirth and the puerperium; Z90.710 Acquired absence of both cervix and uterus
CPT/HCPCS: 36415; 80048; 81000; 85007; 85027; 87088; 87186; 96361; 96365; 96367; 96375

== ENCOUNTER → 2018-08-16 | Outpatient (CLI) | payer MEDICARE, OTHER ==
[~2018-08-16] MED LIST changes: +POTA-51 PO; +SULF1TAB35 PO
--- NOTE | 2018-08-16 12:00 | Diagnostic Imaging Report ---
INDICATION: Routine screening. Comparison is made with prior mammogram from 07/28/2017 and 03/03/2015. 2-D and 3-D bilateral screening mammography was performed with CAD. The current study was also evaluated with a Computer Aided Detection (CAD) system. FINDINGS: Both breasts are heterogeneously dense, limiting the sensitivity of mammography. The parenchymal pattern is stable. No mass or malignant-appearing microcalcifications are seen. The axillae are unremarkable. IMPRESSION: No mammographic features suspicious for malignancy are identified. ACR BI-RADS Category 1: Negative. Result letter will be mailed to the patient. Note: At least 10% of breast cancer is not imaged by mammography. Dictated by: Dictated on workstation # [id number]
== END ==
LOC: RAD 10:29
DX: Z12.31 Encounter for screening mammogram for malignant neoplasm of breast (principal)
CPT/HCPCS: 77067

== ENCOUNTER 2018-12-16 07:13 | Emergency (ER) | payer MEDICARE, OTHER ==
[~2018-12-16] VITALS: Ht 167.6 cm; Wt 95.3 kg
--- NOTE | 2018-12-16 07:33 | ED GU-Female ---
General Stated Complaint: POSSIBLE UTI Source: patient Exam Limitations: no limitations History of Present Illness Date Seen by Provider: Dec 16, 2018 Time Seen by Provider: 07:30 Initial Comments This 53-year-old white female presents with complaint of dysuria that began last evening and hematuria that was noted this morning. Patient denies associated flank pain, fever, chills, history of kidney stones, associated nausea vomiting or diarrhea. Allergies and Home Medications Allergies Coded Allergies: Ciprofloxacin (Unverified Allergy, Unknown, 08/18/10) Home Medications Aripiprazole 5 Mg Tablet, 5 MG PO HS, (Reported) Atorvastatin Calcium 20 Mg Tablet, 20 MG PO HS, (Reported) Gabapentin 300 Mg Capsule, 300 MG PO BID, (Reported) Hydrochlorothiazide 12.5 Mg Tablet, 12.5 MG PO DAILY, (Reported) Levothyroxine Sodium 50 Mcg Tablet, 50 MCG PO DAILY, (Reported) Loratadine 10 Mg Tablet, 10 MG PO DAILY, (Reported) Metoprolol Tartrate 100 Mg Tablet, 100 MG PO HS, (Reported) Montelukast Sodium 10 Mg Tablet, 10 MG PO HS, (Reported) Multivitamin 1 Each Tablet, 1 EACH PO DAILY, (Reported) Omeprazole 40 Mg Capsule.dr, 40 MG PO DAILY, (Reported) Oxcarbazepine 600 Mg Tablet, 600 MG PO BID, (Reported) Oxcarbazepine 600 Mg Tablet, 300 MG PO DAILY@1400, (Reported) take 1/2 of 600mg tab Potassium Chloride 20 Meq Tablet.er, 20 MEQ PO DAILY Prescribed by: LUCIE BREEN on 02/10/18 1631 Sulfamethoxazole/Trimethoprim 1 Each Tablet, 1 EACH PO BID Prescribed by: LUCIE BREEN on 02/10/18 1442 Topiramate 100 Mg Tablet, 100 MG PO DAILY, (Reported) Venlafaxine HCl 150 Mg Cap.er.24h, 150 MG PO BID, (Reported) Patient Home Medication List Home Medication List Reviewed: Yes Review of Systems Review of Systems Constitutional: No chills, No fever EENTM: no symptoms reported Respiratory: No cough Cardiovascular: No chest pain Gastrointestinal: No diarrhea, No nausea, No vomiting Genitourinary: burning, dysuria, frequency : No Musculoskeletal: No joint pain Skin: No change in color Psychiatric/Neurological: No Symptoms Reported Endocrine: No Symptoms Reported Hematologic/Lymphatic: No Symptoms Reported Past Zstyhax-Jgjrao-Tebraw Hx Past Med/Social Hx: Reviewed Nursing Past Med/Soc Hx Patient Social History 2nd Hand Smoke Exposure: No Recent Foreign Travel: No Contact w/Someone Who Travel: No Recent Hopitalizations: No Immunizations Up To Date Date of Influenza Vaccine: Aug 13, 2017 Seasonal Allergies Seasonal Allergies: No Past Medical History Surgeries: Yes Section, Gallbladder, Hysterectomy Respiratory: No Asthma Cardiac: Yes High Cholesterol, Hypertension Neurological: No Reproductive Disorders: No Sexually Transmitted Disease: No Genitourinary: No Gastrointestinal: No Musculoskeletal: Yes Arthritis Endocrine: No HEENT: No Cancer: No Psychosocial: Yes Bipolar Integumentary: No Blood Disorders: No Physical Exam Vital Signs Vital Signs - First Documented 12/16/18 07:30 Temp 100.0 Pulse 72 Resp 18 B/P (MAP) 137/82 (100) Pulse Ox 99 Capillary Refill : Height, Weight, BMI Height: 5'6.00" Weight: 196lbs. 0oz. 88.314235ob; 32.3 BMI Method:Stated General Appearance: WD/WN, no apparent distress HEENT: normal ENT inspection Neck: normal inspection Cardiovascular: regular rate, rhythm Respiratory: lungs clear Gastrointestinal: normal bowel sounds, soft, tenderness (over the suprapubic area and flanks.) Back: normal inspection Extremities: normal range of motion, non-tender, normal inspection 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: no motor/sensory deficits, alert Skin: normal color, warm/dry; No rash Progress/Results/Core Measures Suspected Sepsis SIRS Temperature: Pulse: Respiratory Rate: Blood Pressure / Mean: Results/Orders Lab Results Laboratory Tests Test 12/16/18 07:45 Range/Units Urine Color YELLOW Urine Clarity VERY CLOUDY H Urine pH 7 5-9 Urine Specific [place] 1.010 L 1.016-1.022 Urine Protein 3+ H NEGATIVE Urine Glucose (UA) NEGATIVE NEGATIVE Urine Ketones NEGATIVE NEGATIVE Urine Nitrite NEGATIVE NEGATIVE Urine Bilirubin NEGATIVE NEGATIVE Urine Urobilinogen 1 NORMAL MG/DL Urine Leukocyte Esterase 3+ H NEGATIVE Urine RBC (Auto) 5+ H NEGATIVE Urine RBC TNTC H /HPF Urine WBC TNTC H /HPF Urine Crystals NONE /LPF Urine Bacteria TRACE /HPF Urine Casts NONE /LPF Urine Mucus NEGATIVE /LPF Urine Culture Indicated YES My Orders Orders - CHRISTIANA BARAJAS MD Ua Culture If Indicated (12/16/18 07:28) Phenazopyridine Tablet (Pyridium Tablet) (3/2/19 08:00) Urine Culture (12/16/18 07:45) Medications Given in ED Current Medications Medications Dose Ordered Sig/Nancy Route Start Time Stop Time Status Last Admin Dose Admin Phenazopyridine HCl 200 mg ONCE ONCE PO 12/16/18 08:00 12/16/18 08:01 DC 12/16/18 08:08 200 MG Vital Signs/I&O 12/16/18 07:30 Temp 100.0 Pulse 72 Resp 18 B/P (MAP) 137/82 (100) Pulse Ox 99 Capillary Refill : Progress Note : Time: 08:20 Progress Note Patient's urinalysis was consistent with UTI. Patient received 200 mg of high radium for her discomfort. I have ordered Bactrim for the patient and initiated her first dose in the emergency department. I she'll follow up closely with her doctor on Tuesday. I invited her to return to the emergency department she had any further problems or questions. Departure Impression Primary Impression: UTI (urinary tract infection) Qualified Codes: N30.01 - Acute cystitis with hematuria Disposition: HOME, SELF-CARE Condition: Improved Departure-Patient Inst. Decision time for Depature: 08:22 Referrals: ANGELINA PICKARD MD (PCP/Family) Primary Care Physician Patient Instructions: Acute Cystitis (DC) Add. Discharge Instructions: Bactrim and high radium as prescribed. Close follow-up with Dr. Pickard on Tuesday. Return if any problems or questions. CHRISTIANA BARAJAS MD Dec 16, 2018 07:33
[2018-12-16 07:52] LABS: BILIRUBIN,URINE NEGATIVE (NEGATIVE); CLARITY,URINE VERY CLOUDY; COLOR,URINE YELLOW; GLUCOSE, URINE (UA) NEGATIVE (NEGATIVE); KETONES,URINE NEGATIVE (NEGATIVE); LEUKOCYTE ESTERASE ,URINE 3+ (NEGATIVE); NITRITE,URINE NEGATIVE (NEGATIVE); PH,URINE 7 (5-9); PROTEIN,URINE 3+ (NEGATIVE); UROBILINOGEN,URINE 1 MG/DL (NORMAL)
[2018-12-16] MEDS ORDERED: PHENAZOPYRIDINE 100 MG (PYRIDIUM) TABLET PO ONE (08:00)
[2018-12-16 08:07] LABS: BACTERIA,URINE TRACE /HPF; RBC,URINE TNTC /HPF; WBC,URINE TNTC /HPF
[2018-12-16] MEDS ORDERED: TRIM/SULFAMETH 160/800 (SEPTRA DS) TAB PO ONE (08:30)
[2018-12-16 08:50] VITALS: BP 137/82
--- OUTSIDE RECORDS SUMMARY | 2018-12-17 10:48 | XMS REPORT ---
Author Author ARIANNA MOSQUEDA Organization [facility] Address [address] [place] [address] Care Team Providers Care Suspender Maker Name Role Phone ARIANNA MOSQUEDA Unavailable PROBLEMS Type Condition ICD9-CM Code [id number] Code Onset Dates Condition Status SNOMED Code Problem Moderate mixed bipolar I disorder F31.62 Active 28432926 Problem Anxiety state F41.1 Active [id number] ALLERGIES No Information ENCOUNTERS Encounter Location Date Diagnosis [place] [id number] [place] [address] 40008- 8620 Sep, [place] [id number] [place] [address] 02627- 1306 Sep, [facility] [id number] [place] [address] 29554- 3915 Aug, Moderate mixed bipolar I disorder F31.62 and Anxiety state F41.1 [place] [id number] [place] [address] 71232- 2226 Jul, Moderate mixed bipolar I disorder F31.62 and Anxiety state F41.1 [place] [id number] [place] [address] 12500- 2687 Jul, Moderate mixed bipolar I disorder F31.62 and Anxiety state F41.1 [facility] [id number] [place] [address] 80644- 7362 Jul, [place] [id number] [place] [address] 76663- 5825 Jun, Moderate mixed bipolar I disorder F31.62 and Anxiety state F41.1 [facility] [id number] [place] [address] 76159- 9631 May, Moderate mixed bipolar I disorder F31.62 and Anxiety state F41.1 [facility] [address] [facility] [id number] [address]- 6849 Apr, Moderate mixed bipolar I disorder F31.62 and Anxiety state F41.1 [facility] [address] [facility] [id number] [address]- 6196 Apr, Moderate mixed bipolar I disorder F31.62 and Anxiety state F41.1 [facility] [address] [facility] [id number] [place] [address] 69568- 4910 Mar, Moderate mixed bipolar I disorder F31.62 and Anxiety state F41.1 [facility] [id number] [place] [address] 71865- 4178 February, Moderate mixed bipolar I disorder F31.62 and Anxiety state F41.1 [facility] [id number] [place] [address] 37043- 3539 Jan, Moderate mixed bipolar I disorder F31.62 and Anxiety state F41.1 [facility] [address] [facility] [id number] [address]- 7848 Dec, Moderate mixed bipolar I disorder F31.62 and Anxiety state F41.1 [facility] [id number] [address]- 7654 Nov, Moderate mixed bipolar I disorder F31.62 and Anxiety state F41.1 [facility] [id number] [address]- 6343 Nov, Moderate mixed bipolar I disorder F31.62 and Anxiety state F41.1 [facility] [address] [facility] [id number] [address]- 0896 Oct, Moderate mixed bipolar I disorder F31.62 and Anxiety state F41.1 [facility] [address] [facility] [id number] [address]- 3246 Oct, Moderate mixed bipolar I disorder F31.62 and Anxiety state F41.1 [facility] [address] [address]- 2571 Sep, Moderate mixed bipolar I disorder F31.62 and Anxiety state F41.1 [facility] [id number] [address]- 3206 Aug, Moderate mixed bipolar I disorder F31.62 and Anxiety state F41.1 [facility] [address] [place] [address] 89719- 0502 Jul, Moderate mixed bipolar I disorder F31.62 and Anxiety state F41.1 [facility] [address] [address]- 8706 Jul, [facility] [id number] [place] [address] 41171- 7209 Jul, Moderate mixed bipolar I disorder F31.62 and Anxiety state F41.1 [facility] [address] [place] [address] 66516- 6494 May, Moderate mixed bipolar I disorder F31.62 and Anxiety state F41.1 [facility] [id number] [address]- 1526 May, Moderate mixed bipolar I disorder F31.62 and Anxiety state F41.1 [facility] [address] [address]- 4256 May, Moderate mixed bipolar I disorder F31.62 and Anxiety state F41.1 [facility] [address] [address]- 2384 May, [facility] [id number] [address]- 9844 Apr, Moderate mixed bipolar I disorder F31.62 and Anxiety state F41.1 [facility] [id number] [address]- 9993 Apr, Moderate mixed bipolar I disorder F31.62 and Anxiety state F41.1 [facility] [id number] [address]- 4556 Mar, Moderate mixed bipolar I disorder F31.62 and Anxiety state F41.1 [facility] [address] [place] [address] 06009- 1571 February, Moderate mixed bipolar I disorder F31.62 and Anxiety state F41.1 [facility] [address] [place] [address] 89313- 7841 February, Moderate mixed bipolar I disorder F31.62 and Anxiety state F41.1 [facility] [address] [place] [address] 75015- 7899 Jan, Moderate mixed bipolar I disorder F31.62 and Anxiety state F41.1 [facility] [address] [place] [address] 95359- 7921 Jan, Moderate mixed bipolar I disorder F31.62 and Anxiety state F41.1 [facility] [address] [place] [address] 76980- 6083 Jan, [facility] [address] [place] [address] 54677- 3338 Dec, Moderate mixed bipolar I disorder F31.62 and Anxiety state F41.1 [facility] [address] [address]- 5807 Dec, Moderate mixed bipolar I disorder F31.62 and Anxiety state F41.1 [facility] [address] [address]- 7509 Nov, Moderate mixed bipolar I disorder F31.62 and Anxiety state F41.1 [facility] [address] [place] [address] 39560- 2681 Nov, Moderate mixed bipolar I disorder F31.62 and Anxiety state F41.1 [facility] [address] [address]- 3404 Oct, Moderate mixed bipolar I disorder F31.62 and Anxiety state F41.1 [facility] [address], [place] [address]- 0463 05 Sep, 2016 Moderate mixed bipolar I disorder F31.62 and Anxiety state F41.1 [facility] [address] [address]- 1755 Aug, Moderate mixed bipolar I disorder F31.62 and Anxiety state F41.1 [facility] [id number] [place] [address] 60678- 0276 Aug, Moderate mixed bipolar I disorder F31.62 and Anxiety state F41.1 [facility] [id number] [place] [address] 21452- 5024 Jul, Moderate mixed bipolar I disorder F31.62 and Anxiety state F41.1 [place] [address] [place] [address] 24149- 0497 Jun, Moderate mixed bipolar I disorder F31.62 and Anxiety state F41.1 [facility] [address] [place] [address] 04137- 6543 May, Moderate mixed bipolar I disorder F31.62 and Anxiety state F41.1 [place] [address] [place] [address] 37035- 4776 May, Moderate mixed bipolar I disorder F31.62 and Anxiety state F41.1 [place] [address] [place] [address] 35533- 8295 Apr, Bipolar 1 disorder, depressed, moderate F31.32 and Anxiety state F41.1 [facility] [address], [place] [address]- 6643 Apr, Bipolar 1 disorder, depressed, moderate F31.32 and Bipolar I disorder, mild, current or most recent episode depressed, with anxious distress F31.31 [facility] [address] [address]- 9764 Mar, Bipolar 1 disorder, depressed, moderate F31.32 [facility] [address] [address]- 8682 February, Bipolar 1 disorder, depressed, moderate F31.32 [facility] [id number] [place] [address] 34284- 4370 Jan, Bipolar I disorder, mild, current or most recent episode depressed, with anxious distress F31.31 [facility] [address] [place] [address] 55849- 5737 Jan, Bipolar I disorder, mild, current or most recent episode depressed, with anxious distress F31.31 [facility] [address] [place] [address] 62119- 2279 Jan, Bipolar 1 disorder, depressed, moderate F31.32 [facility] [address] [place] [address] 06024- 8927 Dec, Bipolar I disorder, mild, current or most recent episode depressed, with anxious distress F31.31 [place] [address] [place] [address] 59429- 4654 Dec, Bipolar I disorder, mild, current or most recent episode depressed, with anxious distress F31.31 [place] [address] [place] [address] 60352- 3150 Nov, Bipolar I disorder, mild, current or most recent episode depressed, with anxious distress F31.31 [facility] [address] [place] [address] 88866- 5335 Oct, Bipolar I disorder, mild, current or most recent episode depressed, with anxious distress F31.31 [facility] [address], [place] [address]- 1479 Oct, Bipolar I disorder, mild, current or most recent episode depressed, with anxious distress F31.31 [facility] [address] [address]- 3863 Sep, Bipolar I disorder, mild, current or most recent episode depressed, with anxious distress F31.31 [place] [address] [address]- 2593 Aug, Bipolar I disorder, mild, current or most recent episode depressed, with anxious distress F31.31 [facility] [address]- 4505 Jul, Bipolar I disorder, mild, current or most recent episode depressed, with anxious distress F31.31 [facility] [address] [address]- 0638 Jul, Bipolar I disorder, mild, current or most recent episode depressed, with anxious distress F31.31 [facility] [address] [address]- 8567 Jun, Bipolar I disorder, most recent episode depressed 296.50 [facility] [address], [place] [address]- 4287 Jun, Bipolar I disorder, most recent episode depressed 296.50 [facility] [address] [address]- 1163 May, Bipolar disorder, current episode depressed, moderate 296.52 [facility] [address], [place] [address]- 1895 May, Bipolar I disorder, most recent episode mixed, moderate 296.62 [facility] [address] [address]- 9034 Apr, Bipolar I disorder, most recent episode mixed, moderate 296.62 [facility] [address] [address]- 6134 Apr, [facility] [address] [place] [address] 87170- 4895 Apr, Bipolar I disorder, most recent episode mixed, moderate 296.62 [facility] [address] [address]- 4837 February, Bipolar disorder, current episode depressed, moderate 296.52 [facility] [id number] [address]- 8844 14 Jan, 2015 [facility] [place] [facility] [address] [id number] [place] [address]- 1270 13 Jan, 2015 [facility] [place] [facility] [address] [id number] [place] [address]- 0322 30 Dec, 2014 [facility] [place] [facility] [address] [id number] [place] [address]- 3302 30 Dec, 2014 [facility] [place] [facility] [address] [id number] [place] [address]- 0622 Dec, [facility] [place] [facility] [address] [id number] [place] [address]- 2943 Dec, [facility] [place] [facility] [address] [id number] [place] [address]- 9190 Dec, [facility] [place] [facility] [address] [id number] [place] [address]- 8545 Dec, [facility] [place] [facility] [address] [id number] [place] [address]- 7493 Dec, [facility] [place] [facility] [address] [id number] [place] [address]- 1372 Dec, [facility] [place] [facility] [address] [id number] [place] [address]- 8308 Nov, [facility] [place] [facility] [address] [id number] [place] [address]- 7547 18 Nov, 2014 [facility] [place] [facility] [address] [id number] [place] [address]- 9782 Nov, [facility] [place] [facility] [address] [id number] [place] [address]- 7741 Nov, [facility] [place] [facility] [address] [id number] [place] [address]- 3752 Oct, [facility] [place] [facility] [address] [id number] [place] [address]- 3513 Oct, [facility] [place] [facility] [address] [id number] [place] [address]- 5066 Oct, [facility] [place] [facility] [address] [id number] [place] [address]- 0223 Oct, [facility] [place] [facility] [address] [id number] [place] [address]- 9764 Oct, [facility] [place] [facility] [address] [id number] [place] [address]- 3102 Oct, [facility] [place] [facility] [address] [id number] [place] [address]- 9947 Oct, [facility] [place] [facility] [address] [id number] [place] [address]- 3362 Oct, [facility] [place] [facility] [address] [id number] [place] [address]- 1941 Aug, [facility] [place] [facility] [address] [id number] [place] [address]- 0636 Aug, [facility] [place] [facility] [address] [id number] [place] [address]- 2300 Jun, [facility] [place] [facility] [address] [id number] [place] [address]- 0398 Jun, [facility] [place] [facility] [address] [id number], [place] [address]- 1065 May, [facility] [place] [facility] [address] [id number], [place] [address]- 6195 May, [facility] [place] [facility] [address] [id number] [place] [address]- 1766 Apr, [facility] [place] [facility] [address] [id number] [place] [address]- 6269 Apr, [facility] [place] [facility] [address] [id number] [place] [address]- 7033 Mar, [facility] [place] [facility] [address] [id number] [place] [address]- 8018 Mar, [facility] [place] [facility] [address] [id number] [place] [address]- 5918 February, [facility] [place] [facility] [address] [id number] [place] [address]- 6660 February, [facility] [place] [facility] [address] [id number] [place] [address]- 8930 February, [facility] [place] [facility] [address] [id number] [place] [address]- 8172 February, [facility] [place] [facility] [address] [id number] [place] [address]- 8862 Jan, [facility] [place] [facility] [address] [id number] [place] [address]- 5453 Jan, [facility] [place] [facility] [address] [id number] [place] [address]- 7283 Jan, [facility] [place] [facility] [address] [id number] [place] [address]- 2642 Jan, [facility] [place] [facility] [address] [id number] [place] [address]- 7468 Dec, [facility] [place] [facility] [address] [id number] [place] [address]- 6962 Dec, [facility] [place] [facility] [address] [id number] [place] [address]- 4133 Nov, [facility] [place] [facility] [address] [id number] [place] [address]- 3121 Nov, [facility] [place] [facility] [address] [id number] [place] 6763 Oct, [facility] [place] [facility] [address] [id number] [place] [address]- 7004 Oct, [facility] [place] [facility] [address] [id number] [place] [address]- 1190 Sep, [facility] [place] [facility] [address] [id number] [place] [address]- 9789 Sep, [facility] [place] [facility] [address] [id number] [place] [address]- 1640 Sep, [facility] [place] [facility] [address] [id number] [place] [address]- 2786 Sep, [facility] [place] [facility] [address] [id number] [place] [address]- 9132 Aug, [facility] [place] [facility] [address] [id number] [place] 6838 Aug, [facility] [place] [facility] [address] [id number] [place] [address]- 4393 Aug, [facility] [place] [facility] [address] [id number] [place] [address]- 2800 Aug, [facility] [place] [facility] [address] [id number], [place] [address]- 6984 Jul, [facility] [place] [facility] [address] [id number] [place] [address]- 6826 Jul, [facility] [place] [facility] [address] [id number], [place] [address]- 6625 Jul, [facility] [place] [facility] [address] [id number], [place] [address]- 0388 Jul, [facility] [place] [facility] [address] [id number], [place] [address]- 5148 Jun, [facility] [place] [facility] [address] [id number], [place] [address]- 8859 Jun, [facility] [place] [facility] [address] [id number], [place] [address]- 7766 May, [facility] [place] [facility] [address] [id number], [place] [address]- 3876 Apr, [facility] [place] [facility] [address] [id number], [place] [address]- 8570 Mar, [facility] [address] [id number] [place] [address]- 9893 Mar, [facility] [place] [facility] [address] [id number] [place] [address]- 5441 February, [facility] [address] [facility] [id number] [place] [address]- 4069 Jan, [facility] [place] [facility] [address] [id number] [place] [address]- 5120 Jan, [facility] [address] [id number] [place] [address]- 1666 Dec, [facility] [place] [facility] [address] [facility] [id number] [place] [address]- 0500 Nov, [facility] [id number] [address]- 6953 Oct, [facility] [address] [facility] [id number] [place] [address]- 9442 Aug, [facility] [address] [facility] [id number] [place] [address]- 6661 Aug, [facility] [place] [facility] [address] [facility] [id number] [place] [address]- 7393 Aug, [facility] [address] [facility] [id number], [place] [address]- 2935 Aug, [facility] [place] [facility] [address] [facility] [id number], [place] [address]- 2621 Aug, [facility] [place] [facility] [address] [facility] [id number], [place] [address]- 5551 Aug, [facility] [place] [facility] [address] [facility] [id number], [place] [address]- 8712 Jul, [facility] [place] [facility] [address] [facility] [id number], [place] [address]- 2087 Jul, [facility] [place] [facility] [address] [id number] [place] [address] 2546 11 Jul, 2012 [facility] [place] [facility] [address] [id number] [place] [address]- 8716 11 Jul, 2012 [facility] [place] [facility] [address] [id number] [place] [address]- 2546 27 Jun, 2012 [facility] [place] [facility] [address] [id number] [place] [address] 2546 14 Jun, 2012 [facility] [place] [facility] [address] [id number] [place] [address]- 9516 31 May, 2012 [facility] [place] [facility] [address] [id number] [place] [address]- 0546 May, [facility] [place] [facility] [address] [id number] [place] [address]- 5025 18 Apr, 2012 [facility] [place] [facility] [address] [id number] [place] [address]- 4078 Apr, [facility] [place] [facility] [address] [id number] [place] [address]- 1020 Mar, [facility] [place] [facility] [address] [id number] [place] [address]- 0616 Mar, [facility] [place] [facility] [address] [id number] [place] [address]- 4556 Mar, [facility] [place] [facility] [address] [id number] [place] [address]- 2546 February, [facility] [place] [facility] [address] [id number] [place] [address]- 2546 February, [facility] [place] [facility] [address] [id number] [place] [address]- 2546 February, [facility] [place] [facility] [address] [id number] [place] [address]- 2546 Jan, [facility] [place] [facility] [address] [id number] [place] [address] 18 Jan, 2012 [facility] [place] [facility] [address] [id number] [place] [address] 10 Jan, 2012 [facility] [place] [facility] [address] [id number] [place] [address] 29 Dec, 2011 [facility] [place] [facility] [address] [id number] [place] [address] 20 Dec, 2011 [facility] [place] [facility] [address] [id number] [place] [address] 15 Dec, 2011 [facility] [place] [facility] [address] [id number] [place] [address] 14 Dec, 2011 [facility] [place] [facility] [address] [id number] [place] [address] 13 Dec, 2011 [facility] [place] [facility] [address] [id number] [place] [address] 13 Dec, 2011 [facility] [place] [facility] [address] [id number] [place] [address] 13 Dec, 2011 [facility] [place] [facility] [address] [id number] [place] [address] 05 Dec, 2011 [facility] [place] [facility] [address] [facility] [id number] [place] [address] 28 Nov, 2011 [facility] [place] [facility] [address] [id number] [place] [address] 23 Nov, 2011 [facility] [place] [facility] [address] [id number] [place] [address]- [address] 16 Nov, 2011 [facility] [place] [facility] [address] [id number] [place] [address] 16 Nov, 2011 [facility] [place] [facility] [address] [id number] [place] [address] 07 Nov, 2011 [facility] [place] [facility] [address] [id number] [place] [address] 07 Nov, 2011 [facility] [place] [facility] [address] [id number] [place] [address] 06 Nov, 2011 [facility] [address] [id number] [place] [address] Nov, [facility] [place] [facility] [address] [id number] [place] [address] Oct, [facility] [place] [facility] [address] [id number] [place] [address] Oct, [facility] [place] [facility] [address] [id number] [place] [address] Oct, [facility] [place] [facility] [address] [id number] [place] [address] Oct, [facility] [place] [facility] [address] [id number] [place] [address] Oct, [facility] [place] [facility] [address] [id number] [place] [address] Oct, [facility] [address] [id number] [place] [address] Oct, [facility] [address] [id number] [place] [address] Oct, [facility] [address] [id number] [place] [address] Sep, [facility] [place] [facility] [address] [id number] [place] [address] Sep, [facility] [place] [facility] [address] [id number] [place] [address] Sep, [facility] [place] [facility] [address] [id number] [place] [address] Sep, [facility] [place] [facility] [address] [id number] [place] [address] Aug, [facility] [place] [facility] [address] [id number] [place] [address] Aug, [facility] [address] [facility] [id number] [address] Aug, [facility] [id number] [address] Jul, [facility] [address] [id number] [address] Jul, [facility] [id number] [address] Jul, [facility] [id number], [place] [address] Aug, IMMUNIZATIONS No Known Immunizations SOCIAL HISTORY Never Assessed REASON FOR VISIT Follow-up Bipolar PLAN OF CARE Activity Details Follow Up 3 Weeks Reason: Follow-up, VITAL SIGNS MEDICATIONS Unknown Medications RESULTS No Results PROCEDURES Procedure Date Ordered Result Body Site [facility] VISIT MENTAL HEALTH ESTAB PT Aug 28, 2018 Psychotherapy, patient &/family, 30 minutes, established patient Aug 28, 2018 INSTRUCTIONS MEDICATIONS ADMINISTERED No Known Medications
--- OUTSIDE RECORDS SUMMARY | 2018-12-17 10:48 | XMS REPORT ---
Author Author ARIANNA MOSQUEDA Organization [facility] Address [address] [place] [address] Care Team Providers Care Web Mobile Designer Name Role Phone ARIANNA MOSQUEDA Unavailable PROBLEMS Type Condition ICD9-CM Code [id number] Code Onset Dates Condition Status SNOMED Code Problem Moderate mixed bipolar I disorder F31.62 Active 64772506 Problem Anxiety state F41.1 Active [id number] ALLERGIES No Information ENCOUNTERS Encounter Location Date Diagnosis [place] [id number] [place] [address] 46355- 8072 Oct, [place] [id number] [place] [address] 82531- 2567 Sep, [facility] [id number] [place] [address] 83803- 4685 Sep, Moderate mixed bipolar I disorder F31.62 and Anxiety state F41.1 [place] [id number] [place] [address] 31537- 1965 Aug, Moderate mixed bipolar I disorder F31.62 and Anxiety state F41.1 [place] [id number] [place] [address] 70094- 6406 Jul, Moderate mixed bipolar I disorder F31.62 and Anxiety state F41.1 [facility] [id number] [place] [address] 30967- 6717 Jul, Moderate mixed bipolar I disorder F31.62 and Anxiety state F41.1 [place] [id number] [place] [address] 75868- 0232 Jul, [facility] [id number] [place] [address] 31294- 8345 Jun, Moderate mixed bipolar I disorder F31.62 and Anxiety state F41.1 [facility] [address] [facility] [id number] [address]84 May, Moderate mixed bipolar I disorder F31.62 and Anxiety state F41.1 [facility] [address] [facility] [id number] [place] [address]- 4946 Apr, Moderate mixed bipolar I disorder F31.62 and Anxiety state F41.1 [facility] [address] [facility] [id number] [place] [address]- 5796 Apr, Moderate mixed bipolar I disorder F31.62 and Anxiety state F41.1 [facility] [address] [facility] [id number] [place] [address] 16948- 7983 Mar, Moderate mixed bipolar I disorder F31.62 and Anxiety state F41.1 [facility] [id number] [place] [address] 22090- 0898 February, Moderate mixed bipolar I disorder F31.62 and Anxiety state F41.1 [facility] [address] [facility] [id number] [place] [address] 1760 Jan, Moderate mixed bipolar I disorder F31.62 and Anxiety state F41.1 [facility] [address] [id number] [address]- 6638 Dec, Moderate mixed bipolar I disorder F31.62 and Anxiety state F41.1 [facility] [address] [id number] [address]- 2122 Nov, Moderate mixed bipolar I disorder F31.62 and Anxiety state F41.1 [facility] [address] [facility] [id number] [place] [address] 3230 Nov, Moderate mixed bipolar I disorder F31.62 and Anxiety state F41.1 [facility] [address] [facility] [id number] [place] [address]- 5137 Oct, Moderate mixed bipolar I disorder F31.62 and Anxiety state F41.1 [facility] [address] [address]- 6643 Oct, Moderate mixed bipolar I disorder F31.62 and Anxiety state F41.1 [facility] [id number] [place] [address] 70518- 8336 Sep, Moderate mixed bipolar I disorder F31.62 and Anxiety state F41.1 [facility] [id number] [place] [address] 11091- 2346 Aug, Moderate mixed bipolar I disorder F31.62 and Anxiety state F41.1 [facility] [id number] [place] [address] 56085- 4273 Jul, Moderate mixed bipolar I disorder F31.62 and Anxiety state F41.1 [facility] [address] [address] 1971 Jul, [facility] [id number] [place] [address] 44797- 0643 Jul, Moderate mixed bipolar I disorder F31.62 and Anxiety state F41.1 [facility] [address] [address]- 5014 May, Moderate mixed bipolar I disorder F31.62 and Anxiety state F41.1 [facility] [address] [address]- 6321 May, Moderate mixed bipolar I disorder F31.62 and Anxiety state F41.1 [facility] [address] [address]- 7998 May, Moderate mixed bipolar I disorder F31.62 and Anxiety state F41.1 [facility] [address] [address]- 6861 May, [facility] [id number] [address]- 9243 Apr, Moderate mixed bipolar I disorder F31.62 and Anxiety state F41.1 [facility] [address] [address]- 5037 Apr, Moderate mixed bipolar I disorder F31.62 and Anxiety state F41.1 [facility] [id number] [place] [address] 03388- 8467 Mar, Moderate mixed bipolar I disorder F31.62 and Anxiety state F41.1 [facility] [id number] [place] [address] 14717- 1876 February, Moderate mixed bipolar I disorder F31.62 and Anxiety state F41.1 [facility] [id number] [place] [address] 50766- 4958 February, Moderate mixed bipolar I disorder F31.62 and Anxiety state F41.1 [facility] [id number] [place] [address] 58675- 2732 Jan, Moderate mixed bipolar I disorder F31.62 and Anxiety state F41.1 [facility] [id number] [place] [address] 73117- 7330 Jan, Moderate mixed bipolar I disorder F31.62 and Anxiety state F41.1 [facility] [id number] [place] [address] 21126- 9432 Jan, [facility] [id number] [place] [address] 81815- 0777 Dec, Moderate mixed bipolar I disorder F31.62 and Anxiety state F41.1 [facility] [address] [address]- 6486 Dec, Moderate mixed bipolar I disorder F31.62 and Anxiety state F41.1 [facility] [id number] [place] [address] 19258- 5089 Nov, Moderate mixed bipolar I disorder F31.62 and Anxiety state F41.1 [facility] [address] [address]- 5289 Nov, Moderate mixed bipolar I disorder F31.62 and Anxiety state F41.1 [facility] [id number] [address]- 8120 16 Oct, 2016 Moderate mixed bipolar I disorder F31.62 and Anxiety state F41.1 [facility] [id number] [address]- 0523 Sep, Moderate mixed bipolar I disorder F31.62 and Anxiety state F41.1 [facility] [id number] [place] [address] 23148- 1105 Aug, Moderate mixed bipolar I disorder F31.62 and Anxiety state F41.1 [facility] [id number] [place] [address] 21136- 9254 Aug, Moderate mixed bipolar I disorder F31.62 and Anxiety state F41.1 [facility] [address] [address]- 9499 Jul, Moderate mixed bipolar I disorder F31.62 and Anxiety state F41.1 [facility] [address] [address]- 0983 Jun, Moderate mixed bipolar I disorder F31.62 and Anxiety state F41.1 [facility] [address] [address]- 7842 May, Moderate mixed bipolar I disorder F31.62 and Anxiety state F41.1 [facility] [address] [address]- 7239 May, Moderate mixed bipolar I disorder F31.62 and Anxiety state F41.1 [facility] [address] [address]- 2949 Apr, Bipolar 1 disorder, depressed, moderate F31.32 and Anxiety state F41.1 [facility] [id number] [address]- 8514 Apr, Bipolar 1 disorder, depressed, moderate F31.32 and Bipolar I disorder, mild, current or most recent episode depressed, with anxious distress F31.31 [facility] [address] [address]- 9209 Mar, Bipolar 1 disorder, depressed, moderate F31.32 [facility] [address] [address]- 0361 February, Bipolar 1 disorder, depressed, moderate F31.32 [facility] [id number] [place] [address] 28810- 5284 Jan, Bipolar I disorder, mild, current or most recent episode depressed, with anxious distress F31.31 [facility] [address] [address]- 9633 Jan, Bipolar I disorder, mild, current or most recent episode depressed, with anxious distress F31.31 [facility] [address] [address]- 9768 Jan, Bipolar 1 disorder, depressed, moderate F31.32 [facility] [id number] [place] [address] 21318- 0432 Dec, Bipolar I disorder, mild, current or most recent episode depressed, with anxious distress F31.31 [facility] [id number] [place] [address] 68266- 6332 Dec, Bipolar I disorder, mild, current or most recent episode depressed, with anxious distress F31.31 [facility] [address] [address]- 2649 Nov, Bipolar I disorder, mild, current or most recent episode depressed, with anxious distress F31.31 [facility] [address] [address]- 5011 Oct, Bipolar I disorder, mild, current or most recent episode depressed, with anxious distress F31.31 [facility] [address] [address]- 4279 Oct, Bipolar I disorder, mild, current or most recent episode depressed, with anxious distress F31.31 [facility] [address] [address]- 1809 Sep, Bipolar I disorder, mild, current or most recent episode depressed, with anxious distress F31.31 [facility] [address] [address]- 8611 Aug, Bipolar I disorder, mild, current or most recent episode depressed, with anxious distress F31.31 [facility] [id number] [place] [address] 57195- 1399 Jul, Bipolar I disorder, mild, current or most recent episode depressed, with anxious distress F31.31 [facility] [id number] [place] [address] 62624- 3643 Jul, Bipolar I disorder, mild, current or most recent episode depressed, with anxious distress F31.31 [facility] [address] [address]- 5409 Jun, Bipolar I disorder, most recent episode depressed 296.50 [facility] [id number] [place] [address] 92378- 8288 Jun, Bipolar I disorder, most recent episode depressed 296.50 [facility] [id number] [place] [address] 87246- 3619 May, Bipolar disorder, current episode depressed, moderate 296.52 [facility] [address] [address]- 3042 May, Bipolar I disorder, most recent episode mixed, moderate 296.62 [facility] [address] [address]- 0661 Apr, Bipolar I disorder, most recent episode mixed, moderate 296.62 [facility] [id number] [place] [address] 47997- 4781 Apr, [facility] [address] [address]- 4372 Apr, Bipolar I disorder, most recent episode mixed, moderate 296.62 [place] [address] [id number] [place] [address]- 4967 February, Bipolar disorder, current episode depressed, moderate 296.52 [facility] [place] [facility] [address] [facility] [id number] [place] [address]- 3953 14 Jan, 2015 [facility] [place] [facility] [address] [place] [address]- 5689 Jan, [facility] [place] [facility] [address] [facility] [id number] [place] [address]- 8426 Dec, [facility] [place] [facility] [address] [facility] [id number] [place] [address]- 2296 Dec, [facility] [place] [facility] [address] [place] [address]- 6144 Dec, [facility] [place] [facility] [address] [place] [address]- 3514 Dec, [facility] [place] [facility] [id number] [place] [address]- 2056 Dec, [facility] [place] [facility] [id number] [place] [address]- 4183 Dec, [facility] [place] [facility] [address] [place] [address]- 5395 Dec, [facility] [place] [facility] [address] [address]- 5736 Dec, [facility] [place] [facility] [address] [facility] [id number] [address]- 0915 Nov, [facility] [place] [facility] [address] [facility] [id number] [place] [address]- 5936 Nov, [facility] [place] [facility] [id number] [address]- 5973 Nov, [facility] [place] [facility] [id number] [place] [address]- 6296 Nov, [facility] [place] [facility] [address] [id number] [place] [address]- 7727 Oct, [facility] [address] [id number] [place] [address]- 7884 Oct, [facility] [place] [facility] [address] [id number] [place] [address]- 9674 Oct, [facility] [address] [id number] [place] [address]- 1982 Oct, [facility] [place] [facility] [address] [id number] [place] [address]- 5764 Oct, [facility] [address] [id number] [place] [address]- 9157 Oct, [facility] [address] [id number] [place] [address]- 8332 Oct, [facility] [address] [id number] [place] [address]- 0239 Oct, [facility] [address] [id number] [place] [address]- 2086 Aug, [facility] [place] [facility] [address] [id number] [place] [address]- 2659 Aug, [facility] [address] [id number] [place] [address]- 4182 Jun, [facility] [place] [facility] [address] [id number] [place] [address]- 6628 Jun, [facility] [place] [facility] [address] [id number] [place] [address]- 7173 May, [facility] [place] [facility] [address] [id number] [place] [address]- 1809 May, [facility] [place] [facility] [address] [id number] [place] [address]- 4099 Apr, [facility] [place] [facility] [address] [id number] [place] [address]- 3185 Apr, [facility] [place] [facility] [address] [id number] [place] [address]- 4939 Mar, [facility] [place] [facility] [address] [id number] [place] [address]- 4509 Mar, [facility] [place] [facility] [address] [id number] [place] [address]- 1922 February, [facility] [place] [facility] [address] [id number] [place] [address]- 4806 February, [facility] [place] [facility] [address] [id number] [place] 0904 February, [facility] [place] [facility] [address] [id number] [place] [address]- 4730 February, [facility] [place] [facility] [address] [id number] [place] [address]- 1186 Jan, [facility] [place] [facility] [address] [id number] [place] [address]- 1513 Jan, [facility] [place] [facility] [address] [id number] [place] [address]- 8125 Jan, [facility] [place] [facility] [address] [id number] [place] [address]- 5399 Jan, [facility] [place] [facility] [address] [id number] [place] [address]- 9688 Dec, [facility] [place] [facility] [address] [id number] [place] [address]- 7693 Dec, [facility] [place] [facility] [address] [id number] [place] [address]- 9994 Nov, [facility] [place] [facility] [address] [id number] [place] [address]- 9438 Nov, [facility] [place] [facility] [address] [id number] [place] [address]- 7654 Oct, [facility] [place] [facility] [address] [id number] [place] [address]- 1107 Oct, [facility] [address] [id number] [place] [address]- 3073 Sep, [facility] [place] [facility] [address] [id number] [place] [address]- 9951 Sep, [facility] [address] [id number] [place] [address]- 9844 Sep, [facility] [place] [facility] [address] [id number] [place] [address]- 4857 Sep, [facility] [place] [facility] [address] [id number] [place] [address]- 0577 Aug, [facility] [place] [facility] [address] [id number] [place] [address]- 7239 Aug, [facility] [place] [facility] [address] [id number] [place] [address]- 2973 Aug, [facility] [place] [facility] [address] [id number] [place] [address]- 9441 Aug, [facility] [place] [facility] [address] [id number] [place] [address]- 7937 Jul, [facility] [place] [facility] [address] [id number] [place] [address]- 3516 Jul, [facility] [place] [facility] [address] [id number] [place] [address]- 8567 Jul, [facility] [place] [facility] [address] [id number] [place] [address]- 5487 Jul, [facility] [place] [facility] [address] [id number] [place] [address]- 0121 Jun, [facility] [place] [facility] [address] [id number] [place] [address]- 3438 Jun, [facility] [place] [facility] [address] [id number] [address]- 8909 May, [facility] [place] [facility] [address] [id number] [place] [address]- 5384 Apr, [facility] [address] [id number] [place] [address]- 5741 Mar, [facility] [place] [facility] [address] [id number] [place] [address]- 6036 Mar, [facility] [place] [facility] [address] [id number] [place] [address]- 0528 February, [facility] [address] [id number] [place] [address]- 2764 Jan, [facility] [place] [facility] [address] [id number] [place] [address]- 4866 Jan, [facility] [address] [id number] [place] [address]- 4482 Dec, [facility] [address] [id number] [place] [address]- 8889 Nov, [facility] [address] [id number] [place] [address]- 6042 Oct, [facility] [address] [id number] [place] [address]- 5280 Aug, [facility] [address] [id number] [place] [address]- 1688 Aug, [facility] [place] [facility] [address] [id number] [place] [address]- 4654 Aug, [facility] [place] [facility] [address] [id number] [place] [address]- 6301 Aug, [facility] [place] [facility] [address] [id number] [place] [address]- 0639 Aug, [facility] [place] [facility] [address] [id number] [place] [address]- 7219 Aug, [facility] [place] [facility] [address] [id number] [place] [address]- 2546 Jul, [facility] [place] [facility] [address] [id number] [place] [address]- 7551 Jul, [facility] [place] [facility] [address] [id number] [place] [address]- 1416 Jul, [facility] [place] [facility] [address] [id number] [place] [address]- 5506 Jul, [facility] [place] [facility] [address] [id number] [place] [address]- 3999 27 Jun, 2012 [facility] [place] [facility] [address] [id number] [place] [address]- 8588 14 Jun, 2012 [facility] [place] [facility] [address] [id number] [place] [address]- 7094 31 May, 2012 [facility] [place] [facility] [address] [id number] [place] [address]- 0453 May, [facility] [place] [facility] [address] [id number] [place] [address]- 7276 Apr, [facility] [place] [facility] [address] [id number] [place] [address]- 8077 Apr, [facility] [place] [facility] [address] [id number] [place] [address]- 5983 Mar, [facility] [place] [facility] [address] [id number] [place] [address]- 5553 Mar, [facility] [place] [facility] [address] [id number] [place] [address]- 3053 Mar, [facility] [place] [facility] [address] [id number] [place] [address]- 6743 February, [facility] [place] [facility] [address] [id number] [place] [address] February, [facility] [place] [facility] [address] [id number] [place] [address] February, [facility] [place] [facility] [address] [id number] [place] [address] 18 Jan, 2012 [facility] [address] [id number] [place] [address] 18 Jan, 2012 [facility] [place] [facility] [address] [id number] [place] [address] 10 Jan, 2012 [facility] [address] [id number] [place] [address] 29 Dec, 2011 [facility] [place] [facility] [address] [id number] [place] [address] 20 Dec, 2011 [facility] [address] [id number] [place] [address] 15 Dec, 2011 [facility] [address] [id number] [place] [address] 14 Dec, 2011 [facility] [address] [id number] [place] [address] 13 Dec, 2011 [facility] [address] [id number] [place] [address] 13 Dec, 2011 [facility] [place] [facility] [address] [id number] [place] [address] 13 Dec, 2011 [facility] [address] [id number] [place] [address] 05 Dec, 2011 [facility] [place] [facility] [address] [id number] [place] [address] 28 Nov, 2011 [facility] [place] [facility] [address] [id number] [place] [address] 23 Nov, 2011 [facility] [place] [facility] [address] [id number] [place] [address] 16 Nov, 2011 [facility] [place] [facility] [address] [id number] [place] [address] 16 Nov, 2011 [facility] [place] [facility] [address] [id number] [place] [address]- [address] 07 Nov, 2011 [facility] [place] [facility] [address] [id number] [place] [address] 07 Nov, 2011 [facility] [place] [facility] [address] [id number] [place] [address]- [address] Nov, [facility] [place] [facility] [address] [id number] [place] [address] Nov, [facility] [place] [facility] [address] [id number] [place] [address] Oct, [facility] [place] [facility] [address] [id number] [place] [address] Oct, [facility] [place] [facility] [address] [id number] [place] [address] Oct, [facility] [place] [facility] [address] [id number] [place] [address] Oct, [facility] [place] [facility] [address] [id number] [place] [address] Oct, [facility] [place] [facility] [address] [id number] [place] [address] Oct, [facility] [place] [facility] [address] [id number] [place] [address] Oct, [facility] [place] [facility] [address] [id number] [address] Oct, [facility] [place] [facility] [address] [id number] [address] Sep, [facility] [place] [facility] [address] [id number] [place] [address] Sep, [facility] [place] [facility] [address] [id number] [place] [address] Sep, [facility] [facility] [facility] [address] [id number] [place] [address] Sep, [facility] [place] [facility] [address] [id number] [address] Aug, [facility] [address] [id number] [address] Aug, [facility] [id number] [address] Aug, [facility] [id number] [address] Jul, [facility] [id number] [address] Jul, [facility] [id number] [address] Jul, [facility] [address] [id number] [address] Aug, IMMUNIZATIONS No Known Immunizations SOCIAL HISTORY Never Assessed REASON FOR VISIT Follow-up Bipolar PLAN OF CARE Activity Details Follow Up 2 Weeks Reason: Follow-up VITAL SIGNS MEDICATIONS Unknown Medications RESULTS No Results PROCEDURES Procedure Date Ordered Result Body Site [facility] VISIT MENTAL HEALTH ESTAB PT Sep 20, 2018 Psychotherapy, patient &/family, 30 minutes, established patient Sep 20, 2018 INSTRUCTIONS MEDICATIONS ADMINISTERED No Known Medications
--- OUTSIDE RECORDS SUMMARY | 2018-12-17 10:49 | XMS REPORT ---
Author Author ARIANNA MOSQUEDA Organization [facility] Address [address] [place] [address] Care Team Providers Care Supervisor [employer] Duplicating [employer] Name Role Phone ARIANNA MOSQUEDA Unavailable PROBLEMS Type Condition ICD9-CM Code [id number] Code Onset Dates Condition Status SNOMED Code Problem Moderate mixed bipolar I disorder F31.62 Active 62950306 Problem Anxiety state F41.1 Active [id number] ALLERGIES No Information ENCOUNTERS Encounter Location Date Diagnosis [place] [id number] [place] [address] 17315- 3945 Aug, [place] [address] 48639- 9731 Jul, [place] [address] 27431- 4830 Jul, Moderate mixed bipolar I disorder F31.62 and Anxiety state F41.1 [place] [id number] [place] [address] 14627- 5598 Jul, [place] [id number] [place] [address] 24318- 1839 Jun, Moderate mixed bipolar I disorder F31.62 and Anxiety state F41.1 [place] [id number] [place] [address] 21208- 0050 May, Moderate mixed bipolar I disorder F31.62 and Anxiety state F41.1 [place] [id number] [place] [address] 86210- 8053 Apr, Moderate mixed bipolar I disorder F31.62 and Anxiety state F41.1 [place] [id number] [place] [address] 82701- 1651 Apr, Moderate mixed bipolar I disorder F31.62 and Anxiety state F41.1 [facility] [address] [facility] [id number], [place] [address] 5757 Mar, Moderate mixed bipolar I disorder F31.62 and Anxiety state F41.1 [facility] [address] [facility] [id number], [place] [address] 8246 February, Moderate mixed bipolar I disorder F31.62 and Anxiety state F41.1 [facility] [address] [facility] [id number] [place] [address] 99421- 8864 Jan, Moderate mixed bipolar I disorder F31.62 and Anxiety state F41.1 [facility] [id number] [place] [address] 81204- 6170 Dec, Moderate mixed bipolar I disorder F31.62 and Anxiety state F41.1 [facility] [id number] [place] [address] 57569- 3407 Nov, Moderate mixed bipolar I disorder F31.62 and Anxiety state F41.1 [facility] [address] [id number], [place] [address] 5077 Nov, Moderate mixed bipolar I disorder F31.62 and Anxiety state F41.1 [facility] [address] [id number], [place] [address]- 0293 Oct, Moderate mixed bipolar I disorder F31.62 and Anxiety state F41.1 [facility] [id number], [place] [address]- 0950 Oct, Moderate mixed bipolar I disorder F31.62 and Anxiety state F41.1 [facility] [address] [facility] [id number], [place] [address] 0776 Sep, Moderate mixed bipolar I disorder F31.62 and Anxiety state F41.1 [facility] [address] [facility] [id number], [place] [address]- 8393 Aug, Moderate mixed bipolar I disorder F31.62 and Anxiety state F41.1 [facility] [address], [place] [address] 4952 Jul, Moderate mixed bipolar I disorder F31.62 and Anxiety state F41.1 [facility] [address] [facility] [id number], [place] [address] 03[address] Jul, [facility] [id number] [place] [address] 09982- 5220 Jul, Moderate mixed bipolar I disorder F31.62 and Anxiety state F41.1 [facility] [id number] [address]- 1537 May, Moderate mixed bipolar I disorder F31.62 and Anxiety state F41.1 [facility] [id number] [place] [address] 96338- 0196 May, Moderate mixed bipolar I disorder F31.62 and Anxiety state F41.1 [facility] [address], [place] [address]- 1191 May, Moderate mixed bipolar I disorder F31.62 and Anxiety state F41.1 [facility] [address], [place] [address]- 2687 May, [facility] [id number] [place] [address] 13075- 8137 Apr, Moderate mixed bipolar I disorder F31.62 and Anxiety state F41.1 [facility] [address], [place] [address]- 6661 Apr, Moderate mixed bipolar I disorder F31.62 and Anxiety state F41.1 [facility] [id number], [place] [address]- 7367 Mar, Moderate mixed bipolar I disorder F31.62 and Anxiety state F41.1 [facility] [id number], [place] [address]- 1537 February, Moderate mixed bipolar I disorder F31.62 and Anxiety state F41.1 [facility] [address], [place] [address]- 9536 February, Moderate mixed bipolar I disorder F31.62 and Anxiety state F41.1 [facility] [id number] [place] [address] 82928- 5623 24 Jan, 2017 Moderate mixed bipolar I disorder F31.62 and Anxiety state F41.1 [facility] [id number] [place] [address] 75035- 0395 Jan, Moderate mixed bipolar I disorder F31.62 and Anxiety state F41.1 [facility] [address] [place] [address] 78785- 6347 Jan, [facility] [id number] [place] [address] 12961- 6824 30 Dec, 2016 Moderate mixed bipolar I disorder F31.62 and Anxiety state F41.1 [facility] [id number] [place] [address] 17146- 3575 Dec, Moderate mixed bipolar I disorder F31.62 and Anxiety state F41.1 [facility] [address] [place] [address] 11264- 2456 Nov, Moderate mixed bipolar I disorder F31.62 and Anxiety state F41.1 [facility] [id number] [place] [address] 24599- 3087 14 Nov, 2016 Moderate mixed bipolar I disorder F31.62 and Anxiety state F41.1 [facility] [address] [place] [address] 29766- 3765 Oct, Moderate mixed bipolar I disorder F31.62 and Anxiety state F41.1 [facility] [address] [place] [address] 27648- 4435 05 Sep, 2016 Moderate mixed bipolar I disorder F31.62 and Anxiety state F41.1 [facility] [address], [place] [address]- 9905 Aug, Moderate mixed bipolar I disorder F31.62 and Anxiety state F41.1 [facility] [address], [place] [address]- 7476 Aug, Moderate mixed bipolar I disorder F31.62 and Anxiety state F41.1 [facility] [address], [place] [address]- 5237 Jul, Moderate mixed bipolar I disorder F31.62 and Anxiety state F41.1 [facility] [id number] [place] [address] 06854- 1107 Jun, Moderate mixed bipolar I disorder F31.62 and Anxiety state F41.1 [facility] [id number] [place] [address] 38070- 6236 May, Moderate mixed bipolar I disorder F31.62 and Anxiety state F41.1 [place] [id number] [place] [address] 19058- 9269 May, Moderate mixed bipolar I disorder F31.62 and Anxiety state F41.1 [facility] [id number] [place] [address] 05875- 8439 Apr, Bipolar 1 disorder, depressed, moderate F31.32 and Anxiety state F41.1 [place] [id number] [place] [address] 65293- 2550 Apr, Bipolar 1 disorder, depressed, moderate F31.32 and Bipolar I disorder, mild, current or most recent episode depressed, with anxious distress F31.31 [facility] [address], [place] [address]- 2591 Mar, Bipolar 1 disorder, depressed, moderate F31.32 [facility] [id number] [place] [address] 82300- 2372 February, Bipolar 1 disorder, depressed, moderate F31.32 [facility] [address], [place] [address]- 8420 Jan, Bipolar I disorder, mild, current or most recent episode depressed, with anxious distress F31.31 [facility] [address], [place] [address]- 3538 Jan, Bipolar I disorder, mild, current or most recent episode depressed, with anxious distress F31.31 [facility] [address], [place] [address]- 2056 05 Jan, 2016 Bipolar 1 disorder, depressed, moderate F31.32 [facility] [address], [place] [address]- 8042 Dec, Bipolar I disorder, mild, current or most recent episode depressed, with anxious distress F31.31 [place] [address], [place] [address]- 2985 Dec, Bipolar I disorder, mild, current or most recent episode depressed, with anxious distress F31.31 [place] [address], [place] [address]- 2624 Nov, Bipolar I disorder, mild, current or most recent episode depressed, with anxious distress F31.31 [place] [address] [place] [address] 83713- 6727 Oct, Bipolar I disorder, mild, current or most recent episode depressed, with anxious distress F31.31 [place] [address], [place] [address]- 0960 Oct, Bipolar I disorder, mild, current or most recent episode depressed, with anxious distress F31.31 [place] [address], [place] [address]- 5129 Sep, Bipolar I disorder, mild, current or most recent episode depressed, with anxious distress F31.31 [place] [address], [place] [address]- 5642 Aug, Bipolar I disorder, mild, current or most recent episode depressed, with anxious distress F31.31 [facility] [address], [place] [address]- 0194 Jul, Bipolar I disorder, mild, current or most recent episode depressed, with anxious distress F31.31 [facility] [address], [place] [address]- 4946 07 Jul, 2015 Bipolar I disorder, mild, current or most recent episode depressed, with anxious distress F31.31 [facility] [address] 5776 17 Jun, 2015 Bipolar I disorder, most recent episode depressed 296.50 [facility] [address] [place] [address] 81314- 4494 Jun, Bipolar I disorder, most recent episode depressed 296.50 [facility] [id number] [place] [address] 40987- 5987 May, Bipolar disorder, current episode depressed, moderate 296.52 [facility] [address], [place] [address]- 8589 May, Bipolar I disorder, most recent episode mixed, moderate 296.62 [facility] [address], [place] [address]- 2587 Apr, Bipolar I disorder, most recent episode mixed, moderate 296.62 [facility] [address], [place] [address]- 1727 Apr, [facility] [address], [place] [address]- 1910 Apr, Bipolar I disorder, most recent episode mixed, moderate 296.62 [facility] [address], [place] [address]- 9878 February, Bipolar disorder, current episode depressed, moderate 296.52 [facility] [address], [place] [address]- 3856 Jan, [facility] [address], [place] [address]- 8365 Jan, [facility] [address], [place] [address]- 6441 Dec, [facility] [id number] [place] [address]- 8736 Dec, [facility] [place] [facility] [address] [id number] [place] [address]- 6272 Dec, [facility] [place] [facility] [address] [id number] [place] [address]- 3536 Dec, [facility] [place] [facility] [address] [id number] [place] [address]- 1894 Dec, [facility] [place] [facility] [address] [id number] [place] [address]- 4932 Dec, [facility] [place] [facility] [address] [id number] [place] [address]- 1300 Dec, [facility] [place] [facility] [address] [id number] [place] [address]- 9341 Dec, [facility] [place] [facility] [address] [id number] [place] [address]- 4892 Nov, [facility] [place] [facility] [address] [id number] [place] [address]- 6165 Nov, [facility] [place] [facility] [address] [id number] [place] [address]- 2973 Nov, [facility] [place] [facility] [address] [id number] [place] [address]- 0448 Nov, [facility] [place] [facility] [address] [id number] [place] [address]- 8652 Oct, [facility] [place] [facility] [address] [id number] [place] [address]- 2503 Oct, [facility] [place] [facility] [address] [id number] [place] [address]- 2288 Oct, [facility] [place] [facility] [address] [id number] [place] [address]- 6206 Oct, [facility] [place] [facility] [address] [id number] [place] [address]- 7456 Oct, [facility] [place] [facility] [address] [id number] [place] [address]- 5484 Oct, [facility] [place] [facility] [address] [id number] [place] [address]- 1408 Oct, [facility] [place] [facility] [address] [id number] [place] [address]- 2594 Oct, [facility] [place] [facility] [address] [id number] [place] [address]- 1985 Aug, [facility] [place] [facility] [address] [id number] [place] [address]- 0085 Aug, [facility] [place] [facility] [address] [id number] [place] [address]- 3802 Jun, [facility] [place] [facility] [address] [id number] [place] [address]- 5537 Jun, [facility] [place] [facility] [address] [id number] [place] [address]- 2129 May, [facility] [place] [facility] [address] [id number] [place] [address]- 2764 May, [facility] [place] [facility] [address] [id number] [place] [address]- 7430 Apr, [facility] [place] [facility] [address] [id number] [place] [address]- 7098 Apr, [facility] [place] [facility] [address] [id number], [place] [address]- 1947 Mar, [facility] [place] [facility] [address] [id number] [place] [address]- 0123 Mar, [facility] [place] [facility] [address] [id number] [place] [address]- 3266 February, [facility] [place] [facility] [address] [id number] [place] [address]- 1532 February, [facility] [place] [facility] [address] [id number] [place] [address]- 2180 February, [facility] [address] [id number] [place] [address]- 7868 February, [facility] [place] [facility] [address] [id number] [place] [address]- 9626 Jan, [facility] [place] [facility] [address] [id number] [place] [address]- 1791 Jan, [facility] [place] [facility] [address] [id number] [place] [address]- 4622 Jan, [facility] [place] [facility] [address] [id number] [place] [address]- 8581 Jan, [facility] [place] [facility] [address] [id number] [place] [address]- 2213 Dec, [facility] [place] [facility] [address] [id number] [place] [address]- 9345 Dec, [facility] [place] [facility] [address] [id number] [place] [address]- 2147 Nov, [facility] [place] [facility] [address] [id number] [place] [address]- 0570 Nov, [facility] [address] [id number] [place] [address]- 4789 Oct, [facility] [place] [facility] [address] [id number] [place] [address]- 2713 Oct, [facility] [place] [facility] [address] [id number] [place] [address]- 8402 Sep, [facility] [place] [facility] [address] [id number] [place] 8288 Sep, [facility] [place] [facility] [address] [id number] [place] [address]- 3906 Sep, [facility] [place] [facility] [address] [id number] [place] [address]- 5257 Sep, [facility] [address] [id number] [place] [address]- 0586 Aug, [facility] [place] [facility] [address] [id number] [place] [address]- 4296 Aug, [facility] [place] [facility] [address] [id number] [place] [address]- 7886 Aug, [facility] [place] [facility] [address] [id number] [place] [address]- 6366 Aug, [facility] [place] [facility] [address] [id number] [place] [address]- 8906 Jul, [facility] [place] [facility] [address] [id number] [place] [address]- 9596 Jul, [facility] [place] [facility] [address] [facility] [id number] [place] [address]- 9146 Jul, [facility] [place] [facility] [address] [id number], [place] [address]- 8826 Jul, [facility] [place] [facility] [address] [id number] [place] [address]- 8766 Jun, [facility] [place] [facility] [address] [facility] [id number], [place] [address]- 6136 Jun, [facility] [place] [facility] [address] [facility] [id number], [place] [address]- 9016 May, [facility] [place] [facility] [address] [id number], [place] [address]- 3676 Apr, [facility] [place] [facility] [address] [id number], [place] [address]- 8946 Mar, [facility] [place] [facility] [address] [id number], [place] [address]- 0016 Mar, [facility] [place] [facility] [address] [facility] [id number], [place] [address]- 6056 February, [facility] [place] [facility] [address] [id number], [place] [address]- 8737 Jan, [facility] [place] [facility] [address] [id number] [place] [address]- 8161 Jan, [facility] [place] [facility] [address] [id number] [place] [address]- 2559 Dec, [facility] [place] [facility] [address] [facility] [id number] [place] [address]- 6249 Nov, [facility] [place] [facility] [address] [id number] [place] [address]- 3407 Oct, [facility] [place] [facility] [address] [id number] [place] [address]- 3357 Aug, [facility] [place] [facility] [address] [id number] [place] [address]- 6935 Aug, [facility] [address] [facility] [id number], [place] [address]- 3470 Aug, [facility] [place] [facility] [address] [facility] [id number] [place] [address]- 1235 Aug, [facility] [place] [facility] [address] [facility] [id number] [place] [address]- 8978 Aug, [facility] [place] [facility] [address] [facility] [id number] [place] [address]- 1526 Aug, [facility] [place] [facility] [address] [facility] [id number], [place] [address]- 9116 Jul, [facility] [place] [facility] [address] [facility] [id number], [place] [address]- 9394 Jul, [facility] [place] [facility] [address] [facility] [id number], [place] [address]- 5225 Jul, [facility] [place] [facility] [address] [facility] [id number], [place] [address]- 1570 Jul, [facility] [place] [facility] [address] [facility] [id number], [place] [address]- 9225 Jun, [facility] [place] [facility] [address] [id number] [place] [address]- 3836 14 Jun, 2012 [facility] [place] [facility] [address] [id number] [place] [address]- 2636 31 May, 2012 [facility] [place] [facility] [address] [id number] [place] [address]- 2546 May, [facility] [place] [facility] [address] [id number] [place] [address]- 9316 18 Apr, 2012 [facility] [place] [facility] [address] [id number] [place] [address]- 5643 Apr, [facility] [place] [facility] [address] [id number] [place] [address]- 6597 Mar, [facility] [place] [facility] [address] [id number] [place] [address]- 8586 Mar, [facility] [place] [facility] [address] [id number] [place] [address]- 6919 Mar, [facility] [place] [facility] [address] [id number] [place] [address]- 0836 February, [facility] [place] [facility] [address] [id number] [place] [address]- 5216 February, [facility] [place] [facility] [address] [id number] [place] [address]- 6546 February, [facility] [place] [facility] [address] [id number] [place] [address]- 0626 Jan, [facility] [place] [facility] [address] [id number] [place] [address]- 7429 Jan, [facility] [place] [facility] [address] [id number] [place] [address] Jan, [facility] [place] [facility] [address] [id number] [place] [address] 29 Dec, 2011 [facility] [place] [facility] [address] [id number] [place] [address] 20 Dec, 2011 [facility] [place] [facility] [address] [id number] [place] [address] 15 Dec, 2011 [facility] [place] [facility] [address] [id number] [place] [address] 14 Dec, 2011 [facility] [place] [facility] [address] [facility] [id number] [place] [address] 13 Dec, 2011 [facility] [place] [facility] [address] [id number] [place] [address] 13 Dec, 2011 [facility] [place] [facility] [address] [id number] [place] [address] 13 Dec, 2011 [facility] [place] [facility] [address] [facility] [id number] [place] [address] 05 Dec, 2011 [facility] [place] [facility] [address] [facility] [id number] [place] [address] 28 Nov, 2011 [facility] [place] [facility] [address] [facility] [id number] [place] [address] 23 Nov, 2011 [facility] [place] [facility] [address] [id number] [place] [address] 16 Nov, 2011 [facility] [place] [facility] [address] [facility] [id number] [place] [address] 16 Nov, 2011 [facility] [place] [facility] [id number] [place] [address] 07 Nov, 2011 [facility] [place] [facility] [address] [facility] [id number] [place] [address]- [address] 07 Nov, 2011 [facility] [place] [facility] [address] [facility] [id number] [place] [address] 06 Nov, 2011 [facility] [place] [facility] [address] [facility] [id number] [place] [address] Nov, [facility] [place] [facility] [address] [id number] [place] [address] Oct, [facility] [place] [facility] [address] [id number] [place] [address] 20 Oct, 2011 [facility] [place] [facility] [address] [id number] [place] [address] 18 Oct, 2011 [facility] [place] [facility] [address] [id number] [place] [address] 16 Oct, 2011 [facility] [place] [facility] [address] [id number] [place] [address] 13 Oct, 2011 [facility] [place] [facility] [address] [id number] [place] [address] Oct, [facility] [place] [facility] [address] [id number] [place] [address] Oct, [facility] [place] [facility] [address] [id number] [place] [address] Oct, [facility] [place] [facility] [address] [id number] [place] [address] Sep, [facility] [place] [facility] [address] [id number] [place] [address] Sep, [facility] [place] [facility] [address] [id number] [place] [address] Sep, [facility] [place] [facility] [address] [id number] [place] [address] Sep, [facility] [place] [facility] [address] [id number] [place] [address] Aug, [facility] [place] [facility] [address] [id number] [place] [address] Aug, [facility] [place] [facility] [address] [id number] [place] [address] Aug, [facility] [place] [facility] [address] [id number] [place] [address] 24 Jul, 2011 [facility] [place] [facility] [address] [id number] [place] [address] Jul, [facility] [address] [facility] [id number] [place] [address] Jul, [facility] [address] [facility] [id number] [place] [address] Aug, IMMUNIZATIONS No Known Immunizations SOCIAL HISTORY Never Assessed REASON FOR VISIT Follow-up Bipolar PLAN OF CARE Activity Details Follow Up 2 Weeks Reason: Follow-up VITAL SIGNS MEDICATIONS Unknown Medications RESULTS No Results PROCEDURES Procedure Date Ordered Result Body Site [facility] VISIT MENTAL HEALTH ESTAB PT Jul 25, 2018 Psychotherapy, patient &/family, 45 minutes, established patient Jul 25, 2018 INSTRUCTIONS MEDICATIONS ADMINISTERED No Known Medications
--- OUTSIDE RECORDS SUMMARY | 2018-12-17 10:49 | XMS REPORT ---
Author Author ARIANNA MOSQUEDA Organization [facility] Address [address] [place] [address] Care Team Providers Care Plant And Maintenance Technician Name Role Phone ARIANNA MOSQUEDA Unavailable PROBLEMS Type Condition ICD9-CM Code BMT14-BX Code Onset Dates Condition Status SNOMED Code Problem Moderate mixed bipolar I disorder F31.62 Active 13555807 Problem Anxiety state F41.1 Active [id number] ALLERGIES No Information ENCOUNTERS Encounter Location Date Diagnosis [facility] [id number] [place] [address] 62302- 1254 Sep, [facility] [address] 29[address]- 0531 Sep, [facility] [id number] [place] [address] 65551- 4353 Aug, [facility] [address] 06751- 3405 Jul, Moderate mixed bipolar I disorder F31.62 and Anxiety state F41.1 [facility] [id number] [place] [address] 80182- 3762 Jul, Moderate mixed bipolar I disorder F31.62 and Anxiety state F41.1 [facility] [id number] [place] [address] 85436- 6557 Jul, [facility] [id number] [place] [address] 98721- 8162 Jun, Moderate mixed bipolar I disorder F31.62 and Anxiety state F41.1 [facility] [id number] [place] [address] 57945- 3018 May, Moderate mixed bipolar I disorder F31.62 and Anxiety state F41.1 [facility] [address], [place] [address] 5560 Apr, Moderate mixed bipolar I disorder F31.62 and Anxiety state F41.1 [facility] [id number] [place] [address] 02078- 7056 Apr, Moderate mixed bipolar I disorder F31.62 and Anxiety state F41.1 [facility] [id number] [place] [address] 02804- 9803 Mar, Moderate mixed bipolar I disorder F31.62 and Anxiety state F41.1 [facility] [id number] [place] [address] 38578- 7999 February, Moderate mixed bipolar I disorder F31.62 and Anxiety state F41.1 [facility] [id number] [place] [address] 72850- 7136 Jan, Moderate mixed bipolar I disorder F31.62 and Anxiety state F41.1 [facility] [id number] [place] [address] 34149- 1466 Dec, Moderate mixed bipolar I disorder F31.62 and Anxiety state F41.1 [facility] [address], [place] [address] 5355 Nov, Moderate mixed bipolar I disorder F31.62 and Anxiety state F41.1 [facility] [address] [address]- 4086 Nov, Moderate mixed bipolar I disorder F31.62 and Anxiety state F41.1 [facility] [address], [place] [address]- 3703 Oct, Moderate mixed bipolar I disorder F31.62 and Anxiety state F41.1 [facility] [address] [address]- 9594 Oct, Moderate mixed bipolar I disorder F31.62 and Anxiety state F41.1 [facility] [address], [place] [address]- 6538 Sep, Moderate mixed bipolar I disorder F31.62 and Anxiety state F41.1 [facility] [id number] [place] [address] 95897- 5090 Aug, Moderate mixed bipolar I disorder F31.62 and Anxiety state F41.1 [facility] [id number] [place] [address] 638516- 2296 Jul, Moderate mixed bipolar I disorder F31.62 and Anxiety state F41.1 [facility] [id number] [place] [address] 35194- 5646 Jul, [facility] [id number] [place] [address] 13799- 7931 Jul, Moderate mixed bipolar I disorder F31.62 and Anxiety state F41.1 [facility] [id number] [place] [address] 55503- 0600 May, Moderate mixed bipolar I disorder F31.62 and Anxiety state F41.1 [facility] [id number] [place] [address] 82394- 4130 May, Moderate mixed bipolar I disorder F31.62 and Anxiety state F41.1 [facility] [id number] [place] [address] 37598- 9816 May, Moderate mixed bipolar I disorder F31.62 and Anxiety state F41.1 [facility] [id number] [place] [address] 57540- 4515 May, [facility] [id number] [place] [address] 17061- 5580 Apr, Moderate mixed bipolar I disorder F31.62 and Anxiety state F41.1 [facility] [id number] [place] [address] 71015- 3186 Apr, Moderate mixed bipolar I disorder F31.62 and Anxiety state F41.1 [facility] [id number] [place] [address] 46368- 8570 Mar, Moderate mixed bipolar I disorder F31.62 and Anxiety state F41.1 [facility] [address], [place] [address]- 5469 February, Moderate mixed bipolar I disorder F31.62 and Anxiety state F41.1 [facility] [address], [place] [address]- 2927 February, Moderate mixed bipolar I disorder F31.62 and Anxiety state F41.1 [facility] [id number] [place] [address] 90823- 2058 Jan, Moderate mixed bipolar I disorder F31.62 and Anxiety state F41.1 [facility] [id number] [place] [address] 39572- 3134 Jan, Moderate mixed bipolar I disorder F31.62 and Anxiety state F41.1 [facility] [id number] [place] [address] 16470- 1793 Jan, [facility] [id number] [place] [address] 15539- 3854 Dec, Moderate mixed bipolar I disorder F31.62 and Anxiety state F41.1 [facility] [id number] [place] [address] 89708- 5341 Dec, Moderate mixed bipolar I disorder F31.62 and Anxiety state F41.1 [facility] [address], [place] [address]- 7645 Nov, Moderate mixed bipolar I disorder F31.62 and Anxiety state F41.1 [facility] [address] [place] [address]- 4852 Nov, Moderate mixed bipolar I disorder F31.62 and Anxiety state F41.1 [facility] [address] [place] [address]- 8905 Oct, Moderate mixed bipolar I disorder F31.62 and Anxiety state F41.1 [facility] [id number] [place] [address] 52448- 1081 05 Sep, 2016 Moderate mixed bipolar I disorder F31.62 and Anxiety state F41.1 [facility] [id number] [place] [address] 62613- 9123 Aug, Moderate mixed bipolar I disorder F31.62 and Anxiety state F41.1 [facility] [id number] [place] [address] 34002- 8330 Aug, Moderate mixed bipolar I disorder F31.62 and Anxiety state F41.1 [facility] [id number] [place] [address] 65147- 5482 Jul, Moderate mixed bipolar I disorder F31.62 and Anxiety state F41.1 [facility] [id number] [place] [address] 34884- 7170 Jun, Moderate mixed bipolar I disorder F31.62 and Anxiety state F41.1 [facility] [id number] [place] [address] 35810- 9762 May, Moderate mixed bipolar I disorder F31.62 and Anxiety state F41.1 [facility] [id number] [place] [address] 41608- 2147 May, Moderate mixed bipolar I disorder F31.62 and Anxiety state F41.1 [facility] [id number] [place] [address] 67153- 4035 Apr, Bipolar 1 disorder, depressed, moderate F31.32 and Anxiety state F41.1 [facility] [id number] [place] [address] 18143- 4978 Apr, Bipolar 1 disorder, depressed, moderate F31.32 and Bipolar I disorder, mild, current or most recent episode depressed, with anxious distress F31.31 [facility] [id number] [place] [address] 23017- 7133 Mar, Bipolar 1 disorder, depressed, moderate F31.32 [facility] [id number] [place] [address] 12905- 8781 February, Bipolar 1 disorder, depressed, moderate F31.32 [facility] [id number] [place] [address] 29548- 3092 Jan, Bipolar I disorder, mild, current or most recent episode depressed, with anxious distress F31.31 [facility] [id number] [place] [address] 25055- 1923 Jan, Bipolar I disorder, mild, current or most recent episode depressed, with anxious distress F31.31 [facility] [id number] [place] [address] 83370- 2392 Jan, Bipolar 1 disorder, depressed, moderate F31.32 [facility] [id number] [place] [address] 77746- 9047 Dec, Bipolar I disorder, mild, current or most recent episode depressed, with anxious distress F31.31 [facility] [id number] [place] [address] 63856- 6512 Dec, Bipolar I disorder, mild, current or most recent episode depressed, with anxious distress F31.31 [facility] [id number] [place] [address] 32110- 7580 Nov, Bipolar I disorder, mild, current or most recent episode depressed, with anxious distress F31.31 [facility] [id number] [place] [address] 95856- 5765 Oct, Bipolar I disorder, mild, current or most recent episode depressed, with anxious distress F31.31 [facility] [id number] [place] [address] 31298- 8438 Oct, Bipolar I disorder, mild, current or most recent episode depressed, with anxious distress F31.31 [facility] [id number] [place] [address] 80377- 4545 Sep, Bipolar I disorder, mild, current or most recent episode depressed, with anxious distress F31.31 [facility] [id number] [place] [address] 32925- 6365 Aug, Bipolar I disorder, mild, current or most recent episode depressed, with anxious distress F31.31 [facility] [address] 7136 Jul, Bipolar I disorder, mild, current or most recent episode depressed, with anxious distress F31.31 [facility] [address] [place] [address]- 9359 Jul, Bipolar I disorder, mild, current or most recent episode depressed, with anxious distress F31.31 [facility] [address] [place] [address]- 2723 Jun, Bipolar I disorder, most recent episode depressed 296.50 [facility] [address] [address]- 5008 Jun, Bipolar I disorder, most recent episode depressed 296.50 [facility] [id number] [place] [address] 34682- 0900 May, Bipolar disorder, current episode depressed, moderate 296.52 [facility] [address] [place] [address] 96592- 1473 May, Bipolar I disorder, most recent episode mixed, moderate 296.62 [facility] [address], [place] [address]- 4123 Apr, Bipolar I disorder, most recent episode mixed, moderate 296.62 [facility] [address], [place] [address]- 8645 Apr, [facility] [address] [place] [address]- 6529 Apr, Bipolar I disorder, most recent episode mixed, moderate 296.62 [facility] [address] [place] [address]- 1042 February, Bipolar disorder, current episode depressed, moderate 296.52 [facility] [address] [place] [address] 31033- 6225 14 Jan, 2015 [facility] [place] [facility] [address] [id number] [place] [address]- 7280 13 Jan, 2015 [facility] [place] [facility] [address] [id number] [place] [address]- 3989 30 Dec, 2014 [facility] [place] [facility] [address] [id number] [place] [address]- 4326 Dec, [facility] [place] [facility] [address] [id number] [place] [address]- 8189 Dec, [facility] [place] [facility] [address] [id number] [place] [address]- 2503 Dec, [facility] [place] [facility] [address] [id number] [place] [address]- 7115 Dec, [facility] [place] [facility] [address] [id number] [place] [address]- 4478 Dec, [facility] [place] [facility] [address] [id number] [place] [address]- 0159 Dec, [facility] [place] [facility] [address] [id number] [place] [address]- 9058 Dec, [facility] [place] [facility] [address] [id number] [place] [address]- 5590 Nov, [facility] [place] [facility] [address] [id number] [place] [address]- 4929 18 Nov, 2014 [facility] [place] [facility] [address] [id number], [place] [address]- 6051 Nov, [facility] [place] [facility] [address] [id number] [place] [address]- 2624 Nov, [facility] [place] [facility] [address] [id number] [place] [address]- 9355 Oct, [facility] [place] [facility] [address] [id number] [place] [address]- 5096 Oct, [facility] [place] [facility] [address] [id number] [place] [address]- 8611 Oct, [facility] [address] [id number] [place] [address]- 2835 Oct, [facility] [place] [facility] [address] [id number] [place] [address]- 5028 Oct, [facility] [address] [id number] [place] [address]- 6685 Oct, [facility] [place] [facility] [address] [id number] [place] [address]- 5132 Oct, [facility] [address] [id number] [place] [address]- 3651 Oct, [facility] [address] [id number] [place] [address]- 2248 Aug, [facility] [place] [facility] [address] [id number] [place] [address]- 9534 Aug, [facility] [address] [id number] [place] [address]- 2141 Jun, [facility] [place] [facility] [address] [id number] [place] [address]- 5107 Jun, [facility] [address] [id number] [place] [address]- 0017 May, [facility] [place] [facility] [address] [id number] [place] [address]- 8859 May, [facility] [place] [facility] [address] [id number] [place] [address]- 5387 Apr, [facility] [place] [facility] [address] [id number] [place] [address]- 1411 Apr, [facility] [place] [facility] [address] [id number] [place] [address]- 0356 Mar, [facility] [place] [facility] [address] [id number] [place] [address]- 6904 Mar, [facility] [place] [facility] [address] [id number] [place] [address]- 8546 February, [facility] [place] [facility] [address] [id number] [place] [address]- 5720 February, [facility] [place] [facility] [address] [id number] [place] [address]- 4438 February, [facility] [place] [facility] [address] [id number] [place] [address]- 6859 February, [facility] [place] [facility] [address] [id number] [place] [address]- 5844 Jan, [facility] [place] [facility] [address] [id number] [place] [address]- 8348 Jan, [facility] [place] [facility] [address] [id number] [place] [address]- 7783 Jan, [facility] [place] [facility] [address] [id number] [place] [address]- 4956 Jan, [facility] [place] [facility] [address] [id number] [place] [address]- 0756 Dec, [facility] [place] [facility] [address] [id number] [place] [address]- 0117 Dec, [facility] [place] [facility] [address] [id number] [place] [address]- 8040 Nov, [facility] [place] [facility] [address] [id number] [place] [address]- 1930 Nov, [facility] [place] [facility] [address] [id number] [place] [address]- 6882 Oct, [facility] [place] [facility] [address] [id number] [place] [address]- 6847 Oct, [facility] [place] [facility] [address] [id number] [place] [address]- 5999 Sep, [facility] [place] [facility] [address] [id number] [place] [address]- 9373 Sep, [facility] [address] [id number] [place] [address]- 2111 Sep, [facility] [place] [facility] [address] [id number] [place] 4004 Sep, [facility] [place] [facility] [address] [id number] [place] [address]- 2818 Aug, [facility] [place] [facility] [address] [id number] [place] [address]- 0843 Aug, [facility] [place] [facility] [address] [id number] [place] [address]- 0993 Aug, [facility] [place] [facility] [address] [id number] [place] [address]- 1703 Aug, [facility] [place] [facility] [address] [id number] [place] [address]- 0395 Jul, [facility] [place] [facility] [address] [id number] [place] [address]- 3346 Jul, [facility] [place] [facility] [address] [id number] [place] [address]- 9946 Jul, [facility] [place] [facility] [address] [facility] [id number] [place] [address]- 8835 Jul, [facility] [place] [facility] [address] [id number] [place] [address]- 1551 Jun, [facility] [place] [facility] [address] [id number] [place] [address]- 7991 Jun, [facility] [place] [facility] [address] [id number] [place] [address]- 8135 May, [facility] [place] [facility] [address] [id number] [place] [address]- 2397 Apr, [facility] [place] [facility] [address] [id number], [place] [address]- 1775 Mar, [facility] [place] [facility] [address] [id number] [place] [address]- 1350 Mar, [facility] [place] [facility] [address] [id number] [place] [address]- 3066 February, [facility] [place] [facility] [address] [id number] [place] [address]- 9824 Jan, [facility] [place] [facility] [address] [id number] [place] [address]- 0410 Jan, [facility] [place] [facility] [address] [id number] [place] [address]- 6145 Dec, [facility] [place] [facility] [address] [id number] [place] [address]- 3780 Nov, [facility] [place] [facility] [address] [id number] [place] [address]- 5705 Oct, [facility] [address] [id number] [place] [address]- 4150 Aug, [facility] [place] [facility] [address] [id number] [place] [address]- 6348 Aug, [facility] [place] [facility] [address] [id number] [place] [address]- 3742 Aug, [facility] [place] [facility] [address] [id number] [place] [address]- 9191 Aug, [facility] [place] [facility] [address] [id number] [place] [address]- 8342 Aug, [facility] [place] [facility] [address] [id number] [place] [address]- 9655 Aug, [facility] [place] [facility] [address] [id number] [place] [address]- 8929 Jul, [facility] [place] [facility] [address] [id number] [place] [address]- 5779 Jul, [facility] [place] [facility] [address] [id number] [place] [address]- 2546 Jul, [facility] [place] [facility] [address] [id number] [place] [address]- 8959 11 Jul, 2012 [facility] [place] [facility] [address] [id number] [place] [address]- 5216 27 Jun, 2012 [facility] [place] [facility] [address] [id number] [place] [address] 14 Jun, 2012 [facility] [place] [facility] [address] [id number] [place] [address] 31 May, 2012 [facility] [place] [facility] [address] [id number] [place] [address] May, [facility] [place] [facility] [address] [id number] [place] [address] Apr, [facility] [place] [facility] [address] [id number] [place] [address] Apr, [facility] [place] [facility] [address] [id number] [place] [address] Mar, [facility] [place] [facility] [address] [id number] [place] [address] Mar, [facility] [place] [facility] [address] [id number] [place] [address] Mar, [facility] [place] [facility] [address] [id number] [place] [address] February, [facility] [place] [facility] [address] [id number] [place] [address] February, [facility] [place] [facility] [address] [id number] [place] [address] February, [facility] [place] [facility] [address] [id number] [place] [address] Jan, [facility] [place] [facility] [address] [id number] [place] [address] Jan, [facility] [place] [facility] [address] [id number] [place] [address] 10 Jan, 2012 [facility] [address] [id number] [place] [address] 29 Dec, 2011 [facility] [place] [facility] [address] [id number] [place] [address] 20 Dec, 2011 [facility] [address] [id number] [place] [address] 15 Dec, 2011 [facility] [place] [facility] [address] [id number] [place] [address] 14 Dec, 2011 [facility] [address] [id number] [place] [address] 13 Dec, 2011 [facility] [place] [facility] [address] [id number] [place] [address] 13 Dec, 2011 [facility] [place] [facility] [address] [id number] [place] [address] 13 Dec, 2011 [facility] [address] [id number] [place] [address] 05 Dec, 2011 [facility] [place] [facility] [address] [id number] [place] [address] 28 Nov, 2011 [facility] [address] [facility] [id number] [place] [address] 23 Nov, 2011 [facility] [place] [facility] [address] [id number] [place] [address] 16 Nov, 2011 [facility] [place] [facility] [address] [id number] [place] [address] 16 Nov, 2011 [facility] [place] [facility] [address] [id number] [place] [address] 07 Nov, 2011 [facility] [place] [facility] [address] [id number] [place] [address] 07 Nov, 2011 [facility] [place] [facility] [address] [id number] [place] [address] Nov, [facility] [place] [facility] [address] [id number] [place] [address] Nov, [facility] [place] [facility] [address] [id number] [place] [address] Oct, [facility] [place] [facility] [address] [id number] [place] [address] Oct, [facility] [place] [facility] [address] [id number] [place] [address] Oct, [facility] [place] [facility] [address] [address] [id number] [place] [address] Oct, [facility] [place] [facility] [address] [id number] [place] [address] Oct, [facility] [place] [facility] [address] [id number] [place] [address] Oct, [facility] [place] [facility] [address] [id number] [place] [address] Oct, [facility] [place] [facility] [address] [id number] [place] [address] Oct, [facility] [place] [facility] [address] [id number] [place] [address] Sep, [facility] [place] [facility] [address] [id number] [place] [address] Sep, [facility] [place] [facility] [address] [id number] [place] [address] Sep, [facility] [place] [facility] [address] [id number] [place] [address] Sep, [facility] [place] [facility] [address] [id number] [place] [address] Aug, [facility] [place] [facility] [address] [id number] [place] [address] Aug, [facility] [place] [facility] [address] [facility] [id number] [place] [address] Aug, [facility] [address] [facility] [id number], [place] [address] Jul, [facility] [address] [id number], [place] [address] Jul, [facility] [address] [id number], [place] [address] Jul, [facility] [address] [id number], [place] [address] Aug, IMMUNIZATIONS No Known Immunizations SOCIAL HISTORY Never Assessed REASON FOR VISIT Follow-up Bipolar PLAN OF CARE Activity Details Follow Up 4 Weeks Reason: Follow-up VITAL SIGNS MEDICATIONS Unknown Medications RESULTS No Results PROCEDURES Procedure Date Ordered Result Body Site [facility] VISIT MENTAL HEALTH ESTAB PT Aug 08, 2018 Psychotherapy, patient &/family, 30 minutes, established patient Aug 08, 2018 INSTRUCTIONS MEDICATIONS ADMINISTERED No Known Medications
--- OUTSIDE RECORDS SUMMARY | 2018-12-17 10:50 | XMS REPORT ---
Author Author ARIANNA MOSQUEDA Organization [facility] Address [address] [place] [address] Care Team Providers Care Osha Inspector Name Role Phone ARIANNA MOSQUEDA Unavailable PROBLEMS Type Condition ICD9-CM Code [id number] Code Onset Dates Condition Status SNOMED Code Problem Moderate mixed bipolar I disorder F31.62 Active 81073621 Problem Anxiety state F41.1 Active [id number] ALLERGIES No Information ENCOUNTERS Encounter Location Date Diagnosis [place] [id number] [place] [address] 84414- 9319 Aug, [place] [id number] [place] [address] 37116- 0336 Jul, [facility] [id number] [place] [address] 38746- 2001 Jun, Moderate mixed bipolar I disorder F31.62 and Anxiety state F41.1 [place] [id number] [place] [address] 89629- 2207 May, Moderate mixed bipolar I disorder F31.62 and Anxiety state F41.1 [place] [id number] [place] [address] 56750- 3301 Apr, Moderate mixed bipolar I disorder F31.62 and Anxiety state F41.1 [place] [id number] [place] [address] 21737- 4511 Apr, Moderate mixed bipolar I disorder F31.62 and Anxiety state F41.1 [place] [id number] [place] [address] 33566- 7417 Mar, Moderate mixed bipolar I disorder F31.62 and Anxiety state F41.1 [place] [id number] [place] [address] 75705- 9965 February, Moderate mixed bipolar I disorder F31.62 and Anxiety state F41.1 [facility] [id number] [place] [address] 76779- 3143 Jan, Moderate mixed bipolar I disorder F31.62 and Anxiety state F41.1 [facility] [id number] [place] [address] 71514- 4011 Dec, Moderate mixed bipolar I disorder F31.62 and Anxiety state F41.1 [facility] [id number] [place] [address] 29316- 2328 Nov, Moderate mixed bipolar I disorder F31.62 and Anxiety state F41.1 [facility] [id number] [place] [address] 65603- 3842 Nov, Moderate mixed bipolar I disorder F31.62 and Anxiety state F41.1 [facility] [id number] [place] [address] 04882- 6825 Oct, Moderate mixed bipolar I disorder F31.62 and Anxiety state F41.1 [facility] [id number] [place] [address] 76464- 2459 Oct, Moderate mixed bipolar I disorder F31.62 and Anxiety state F41.1 [facility] [id number] [place] [address] 74923- 0709 Sep, Moderate mixed bipolar I disorder F31.62 and Anxiety state F41.1 [facility] [address] [address]- 0400 Aug, Moderate mixed bipolar I disorder F31.62 and Anxiety state F41.1 [facility] [id number] [place] [address] 15240- 8065 Jul, Moderate mixed bipolar I disorder F31.62 and Anxiety state F41.1 [facility] [address] [address]- 9245 Jul, [facility] [address] [address]- 4955 Jul, Moderate mixed bipolar I disorder F31.62 and Anxiety state F41.1 [facility] [id number] [place] [address] 73040- 2196 May, Moderate mixed bipolar I disorder F31.62 and Anxiety state F41.1 [facility] [id number] [place] [address] 40323- 9619 May, Moderate mixed bipolar I disorder F31.62 and Anxiety state F41.1 [facility] [id number] [place] [address] 38432- 8229 May, Moderate mixed bipolar I disorder F31.62 and Anxiety state F41.1 [facility] [address] [address]- 5785 May, [facility] [id number] [place] [address] 28813- 9281 Apr, Moderate mixed bipolar I disorder F31.62 and Anxiety state F41.1 [facility] [id number] [place] [address] 14990- 8045 Apr, Moderate mixed bipolar I disorder F31.62 and Anxiety state F41.1 [facility] [address] [address]- 4662 Mar, Moderate mixed bipolar I disorder F31.62 and Anxiety state F41.1 [facility] [address] [address]- 1500 February, Moderate mixed bipolar I disorder F31.62 and Anxiety state F41.1 [facility] [id number] [place] [address] 86897- 7047 February, Moderate mixed bipolar I disorder F31.62 and Anxiety state F41.1 [facility] [address] [address]- 5599 Jan, Moderate mixed bipolar I disorder F31.62 and Anxiety state F41.1 [facility] [address], [place] [address]- 3603 10 Jan, 2017 Moderate mixed bipolar I disorder F31.62 and Anxiety state F41.1 [facility] [address], [place] [address]- 9650 06 Jan, 2017 [facility] [id number] [place] [address] 60130- 0249 30 Dec, 2016 Moderate mixed bipolar I disorder F31.62 and Anxiety state F41.1 [facility] [id number] [place] [address] 77353- 9229 Dec, Moderate mixed bipolar I disorder F31.62 and Anxiety state F41.1 [facility] [id number] [place] [address] 65806- 8097 Nov, Moderate mixed bipolar I disorder F31.62 and Anxiety state F41.1 [facility] [id number] [place] [address] 32312- 8286 Nov, Moderate mixed bipolar I disorder F31.62 and Anxiety state F41.1 [facility] [id number] [place] [address] 03899- 8620 Oct, Moderate mixed bipolar I disorder F31.62 and Anxiety state F41.1 [facility] [address], [place] [address]- 0500 05 Sep, 2016 Moderate mixed bipolar I disorder F31.62 and Anxiety state F41.1 [facility] [address], [place] [address]- 2363 Aug, Moderate mixed bipolar I disorder F31.62 and Anxiety state F41.1 [facility] [id number] [place] [address] 23953- 6893 Aug, Moderate mixed bipolar I disorder F31.62 and Anxiety state F41.1 [facility] [id number] [place] [address] 76287- 5435 Jul, Moderate mixed bipolar I disorder F31.62 and Anxiety state F41.1 [facility] [id number] [place] [address] 75459- 9860 Jun, Moderate mixed bipolar I disorder F31.62 and Anxiety state F41.1 [place] [id number] [place] [address] 43734- 6173 May, Moderate mixed bipolar I disorder F31.62 and Anxiety state F41.1 [place] [id number] [place] [address] 91919- 7975 May, Moderate mixed bipolar I disorder F31.62 and Anxiety state F41.1 [place] [id number] [place] [address] 04495- 1124 Apr, Bipolar 1 disorder, depressed, moderate F31.32 and Anxiety state F41.1 [place] [id number] [place] [address] 77466- 8376 Apr, Bipolar 1 disorder, depressed, moderate F31.32 and Bipolar I disorder, mild, current or most recent episode depressed, with anxious distress F31.31 [place] [id number] [place] [address] 79910- 7383 Mar, Bipolar 1 disorder, depressed, moderate F31.32 [place] [id number] [place] [address] 45423- 4374 February, Bipolar 1 disorder, depressed, moderate F31.32 [place] [id number] [place] [address] 91403- 1313 Jan, Bipolar I disorder, mild, current or most recent episode depressed, with anxious distress F31.31 [place] [id number] [place] [address] 54320- 3995 Jan, Bipolar I disorder, mild, current or most recent episode depressed, with anxious distress F31.31 [place] [id number] [place] [address] 18819- 7247 Jan, Bipolar 1 disorder, depressed, moderate F31.32 [facility] [id number] [place] [address] 23200- 1112 Dec, Bipolar I disorder, mild, current or most recent episode depressed, with anxious distress F31.31 [facility] [address] [place] [address] 50249- 4303 Dec, Bipolar I disorder, mild, current or most recent episode depressed, with anxious distress F31.31 [facility] [id number] [place] [address] 67381- 9387 Nov, Bipolar I disorder, mild, current or most recent episode depressed, with anxious distress F31.31 [facility] [id number] [place] [address] 58338- 1770 Oct, Bipolar I disorder, mild, current or most recent episode depressed, with anxious distress F31.31 [place] [id number] [place] [address] 87577- 2933 Oct, Bipolar I disorder, mild, current or most recent episode depressed, with anxious distress F31.31 [facility] [id number] [place] [address] 44924- 9475 Sep, Bipolar I disorder, mild, current or most recent episode depressed, with anxious distress F31.31 [facility] [address] [address]- 0591 Aug, Bipolar I disorder, mild, current or most recent episode depressed, with anxious distress F31.31 [facility] [id number] [place] [address] 37271- 6014 Jul, Bipolar I disorder, mild, current or most recent episode depressed, with anxious distress F31.31 [facility] [address] [place] [address] 80836- 0743 Jul, Bipolar I disorder, mild, current or most recent episode depressed, with anxious distress F31.31 [facility] [id number] [place] [address] 72308- 1607 Jun, Bipolar I disorder, most recent episode depressed 296.50 [facility] [address], [place] [address]- 6129 Jun, Bipolar I disorder, most recent episode depressed 296.50 [facility] [address], [place] [address]- 6596 May, Bipolar disorder, current episode depressed, moderate 296.52 [facility] [id number] [place] [address] 750026- 6269 May, Bipolar I disorder, most recent episode mixed, moderate 296.62 [facility] [id number] [place] [address] 76992- 3777 Apr, Bipolar I disorder, most recent episode mixed, moderate 296.62 [facility] [address], [place] [address]- 7139 Apr, [facility] [id number] [place] [address] 22129- 6542 Apr, Bipolar I disorder, most recent episode mixed, moderate 296.62 [facility] [id number] [place] [address] 153183- 0494 February, Bipolar disorder, current episode depressed, moderate 296.52 [facility] [address] [address] 7641 Jan, [facility] [address], [place] [address]- 6514 Jan, [facility] [address] 5825 Dec, [facility] [id number] 6793 Dec, [facility] [address] 7822 Dec, [facility] [id number] [place] [address] [id number]- 1886 Dec, [facility] [place] [facility] [address] [id number] [place] [address]- 3945 Dec, [facility] [place] [facility] [address] [id number] [place] [address]- 9689 Dec, [facility] [place] [facility] [address] [id number] [place] 3466 Dec, [facility] [place] [facility] [address] [id number] [place] [address]- 6312 Dec, [facility] [place] [facility] [address] [id number] [place] [address]- 2226 Nov, [facility] [place] [facility] [address] [id number] [place] [address]- 8467 Nov, [facility] [place] [facility] [address] [id number] [place] [address]- 8004 Nov, [facility] [place] [facility] [address] [id number] [place] [address]- 4038 Nov, [facility] [place] [facility] [address] [id number] [place] [address]- 3983 Oct, [facility] [place] [facility] [address] [id number] [place] [address]- 2499 Oct, [facility] [place] [facility] [address] [id number] [place] [address]- 5249 Oct, [facility] [place] [facility] [address] [id number] [place] [address]- 5574 Oct, [facility] [place] [facility] [address] [id number] [place] [address]- 0792 Oct, [facility] [place] [facility] [address] [id number] [place] [address]- 4360 Oct, [facility] [place] [facility] [address] [id number] [place] [address]- 1522 Oct, [facility] [place] [facility] [address] [id number] [place] [address]- 7185 Oct, [facility] [address] [id number] [place] [address]- 0555 Aug, [facility] [place] [facility] [address] [id number] [place] [address]- 1723 Aug, [facility] [address] [id number] [place] [address]- 1839 Jun, [facility] [place] [facility] [address] [id number] [place] [address]- 1016 Jun, [facility] [place] [facility] [address] [id number] [place] [address]- 5569 May, [facility] [place] [facility] [address] [id number] [place] [address]- 1226 May, [facility] [place] [facility] [address] [id number] [place] [address]- 7094 Apr, [facility] [address] [id number] [place] [address]- 2255 Apr, [facility] [place] [facility] [address] [id number] [place] [address]- 2928 Mar, [facility] [address] [id number] [place] [address]- 2194 Mar, [facility] [place] [facility] [address] [id number] [place] [address]- 5559 February, [facility] [place] [facility] [address] [id number] [place] [address]- 2752 February, [facility] [place] [facility] [address] [id number] [place] [address]- 7023 February, [facility] [place] [facility] [address] [id number] [place] [address]- 4846 February, [facility] [place] [facility] [address] [id number] [place] [address]- 1969 Jan, [facility] [place] [facility] [address] [id number] [place] [address]- 8965 Jan, [facility] [place] [facility] [address] [id number] [place] [address]- 3097 Jan, [facility] [place] [facility] [address] [id number] [place] [address]- 6117 Jan, [facility] [place] [facility] [address] [id number] [place] [address]- 9093 Dec, [facility] [place] [facility] [address] [id number] [place] [address]- 7138 Dec, [facility] [place] [facility] [address] [id number] [place] [address]- 2562 Nov, [facility] [place] [facility] [address] [id number] [place] [address]- 1225 Nov, [facility] [place] [facility] [address] [id number] [place] [address]- 1124 Oct, [facility] [place] [facility] [address] [id number] [place] [address]- 0086 Oct, [facility] [place] [facility] [address] [id number] [place] [address]- 2600 Sep, [facility] [place] [facility] [address] [id number] [place] [address]- 1840 Sep, [facility] [place] [facility] [address] [id number] [place] [address]- 4305 Sep, [facility] [place] [facility] [address] [id number] [place] [address]- 8629 Sep, [facility] [place] [facility] [address] [id number] [place] [address]- 7111 Aug, [facility] [place] [facility] [address] [id number] [place] [address]- 5054 Aug, [facility] [place] [facility] [address] [id number] [place] [address] 2542 05 Aug, 2013 [facility] [address] [id number] [place] [address]- 7247 Aug, [facility] [place] [facility] [address] [id number] [place] [address]- 8691 Jul, [facility] [address] [id number] [place] [address]- 6443 Jul, [facility] [place] [facility] [address] [id number] [place] [address] 2542 Jul, [facility] [address] [id number] [place] [address]- 0353 Jul, [facility] [place] [facility] [address] [id number] [place] [address]- 5192 Jun, [facility] [address] [id number] [place] [address]- 6290 Jun, [facility] [place] [facility] [address] [id number] [place] [address]- 9493 May, [facility] [place] [facility] [address] [id number] [place] [address]- 2766 Apr, [facility] [place] [facility] [address] [id number] [place] [address]- 2203 Mar, [facility] [place] [facility] [address] [id number] [place] [address]- 2203 Mar, [facility] [place] [facility] [address] [id number] [place] [address]- 2544 February, [facility] [place] [facility] [address] [id number] [place] [address]- 1937 Jan, [facility] [place] [facility] [address] [id number] [place] [address] 2546 Jan, [facility] [place] [facility] [address] [id number], [place] [address]- 3623 Dec, [facility] [place] [facility] [address] [id number] [place] [address]- 0439 Nov, [facility] [place] [facility] [address] [id number] [place] [address]- 6509 Oct, [facility] [place] [facility] [address] [id number] [place] [address]- 5641 Aug, [facility] [place] [facility] [address] [id number] [place] [address], [place] [address]- 0221 Aug, [facility] [place] [facility] [address] [id number] [place] [address]- 5785 Aug, [facility] [place] [facility] [address] [id number] [place] [address]- 2320 Aug, [facility] [place] [facility] [address] [id number] [place] [address]- 9756 Aug, [facility] [place] [facility] [address] [id number] [place] [address]- 9573 Aug, [facility] [place] [facility] [address] [id number] [place] [address]- 8048 Jul, [facility] [place] [facility] [address] [id number] [place] [address]- 6789 Jul, [facility] [place] [facility] [address] [id number] [place] [address]- 5300 Jul, [facility] [place] [facility] [address] [id number] [place] [address]- 4629 Jul, [facility] [place] [facility] [address] [id number] [place] [address]- 7839 27 Jun, 2012 [facility] [place] [facility] [address] [id number] [place] [address]- 4808 14 Jun, 2012 [facility] [place] [facility] [address] [id number] [place] [address]- 7332 31 May, 2012 [facility] [place] [facility] [address] [id number] [place] [address]- 2546 May, [facility] [place] [facility] [address] [id number] [place] [address]- 4502 Apr, [facility] [place] [facility] [address] [id number] [place] [address]- 0286 Apr, [facility] [place] [facility] [address] [id number] [place] [address]- 7146 Mar, [facility] [place] [facility] [address] [id number] [place] [address]- 9531 Mar, [facility] [place] [facility] [address] [id number] [place] [address]- 5911 Mar, [facility] [place] [facility] [address] [id number] [place] [address]- 7176 February, [facility] [place] [facility] [address] [id number] [place] [address]- 1896 February, [facility] [place] [facility] [address] [id number] [place] [address]- 1134 February, [facility] [place] [facility] [address] [id number] [place] [address] Jan, [facility] [place] [facility] [address] [id number] [place] [address] Jan, [facility] [place] [facility] [address] [id number] [place] [address] Jan, [facility] [place] [facility] [address] [id number] [place] [address] 29 Dec, 2011 [facility] [place] [facility] [address] [id number] [place] [address] 20 Dec, 2011 [facility] [place] [facility] [address] [id number] [place] [address] 15 Dec, 2011 [facility] [place] [facility] [address] [id number] [place] [address] 14 Dec, 2011 [facility] [place] [facility] [address] [id number] [place] [address] 13 Dec, 2011 [facility] [address] [id number] [place] [address] 13 Dec, 2011 [facility] [place] [facility] [address] [id number] [place] [address] 13 Dec, 2011 [facility] [address] [id number] [place] [address] 05 Dec, 2011 [facility] [place] [facility] [address] [id number] [place] [address] 28 Nov, 2011 [facility] [place] [facility] [address] [id number] [place] [address] 23 Nov, 2011 [facility] [place] [facility] [address] [id number] [place] [address] 16 Nov, 2011 [facility] [place] [facility] [address] [id number] [place] [address] 16 Nov, 2011 [facility] [address] [id number] [place] [address] 07 Nov, 2011 [facility] [place] [facility] [address] [id number] [place] [address] 07 Nov, 2011 [facility] [place] [facility] [address] [id number] [place] [address] 06 Nov, 2011 [facility] [place] [facility] [address] [id number] [place] [address] Nov, [facility] [place] [facility] [address] [id number] [place] [address] Oct, [facility] [place] [facility] [address] [id number] [place] [address] Oct, [facility] [place] [facility] [address] [id number] [place] [address] Oct, [facility] [place] [facility] [address] [id number], [place] [address] 16 Oct, 2011 [facility] [address] [facility] [id number], [place] [address] Oct, [facility] [address] [facility] [id number], [place] [address] Oct, [facility] [address] [facility] [id number], [place] [address] Oct, [facility] [address] [facility] [id number], [place] [address] Oct, [facility] [address] [facility] [id number] [place] Sep, [facility] [address] [facility] [id number], [place] [address] Sep, [facility] [address] [facility] [id number], [place] [address] Sep, [facility] [address] [facility] [id number], [place] [address] Sep, [facility] [address] [facility] [id number], [place] [address] Aug, [facility] [address] [facility] [id number], [place] [address] Aug, [facility] [address] [facility] [id number], [place] [address] Aug, [facility] [address] [facility] [id number], [place] [address] Jul, [facility] [address] [facility] [id number][place] [address] Jul, [facility] [address] [facility] [id number], [place] [address] Jul, [facility] [address] [facility] [facility] [id number] [id number] Aug, IMMUNIZATIONS No Known Immunizations SOCIAL HISTORY Never Assessed REASON FOR VISIT Follow-up Bipolar PLAN OF CARE Activity Details Follow Up 4 Weeks Reason: Follow-up VITAL SIGNS MEDICATIONS Unknown Medications RESULTS No Results PROCEDURES Procedure Date Ordered Result Body Site [facility] VISIT MENTAL HEALTH ESTAB PT Jul 03, 2018 Psychotherapy, patient &/family, 30 minutes, established patient Jul 03, 2018 INSTRUCTIONS MEDICATIONS ADMINISTERED No Known Medications
--- OUTSIDE RECORDS SUMMARY | 2018-12-17 10:50 | XMS REPORT ---
Author Author ARIANNA MOSQUEDA Organization [facility] Address [address] [place] [address] Care Team Providers Care Crab Butcher Name Role Phone ARIANNA MOSQUEDA Unavailable PROBLEMS Type Condition ICD9-CM Code LSP20-KN Code Onset Dates Condition Status SNOMED Code Problem Moderate mixed bipolar I disorder F31.62 Active 42366647 Problem Anxiety state F41.1 Active [id number] ALLERGIES No Information ENCOUNTERS Encounter Location Date Diagnosis [place] [address] [id number] [place] [address] 90750- 0801 Aug, [place] [address] 8[address]- [address]99 Jul, [place] [address] 28294- 4567 Jul, Moderate mixed bipolar I disorder F31.62 and Anxiety state F41.1 [place] [id number] [place] [address] 13381- 4965 Jul, [place] [id number] [place] [address] 39312- 1221 Jun, Moderate mixed bipolar I disorder F31.62 and Anxiety state F41.1 [place] [id number] [place] [address] [id number] [place] [address] 90894- 7619 May, Moderate mixed bipolar I disorder F31.62 and Anxiety state F41.1 [place] [id number] [place] [address] 39912- 6534 Apr, Moderate mixed bipolar I disorder F31.62 and Anxiety state F41.1 [place] [id number] [place] [address] 28074- 4073 Apr, Moderate mixed bipolar I disorder F31.62 and Anxiety state F41.1 [facility] [address] [facility] [id number] [address] 2427 Mar, Moderate mixed bipolar I disorder F31.62 and Anxiety state F41.1 [facility] [address] [facility] [id number] [address] 6406 February, Moderate mixed bipolar I disorder F31.62 and Anxiety state F41.1 [facility] [address] [facility] [id number] [place] [address] 75146- 9583 Jan, Moderate mixed bipolar I disorder F31.62 and Anxiety state F41.1 [facility] [address] [id number] [place] [address] 58177- 3394 Dec, Moderate mixed bipolar I disorder F31.62 and Anxiety state F41.1 [facility] [id number] [place] [address] 00124- 3730 Nov, Moderate mixed bipolar I disorder F31.62 and Anxiety state F41.1 [facility] [address] [id number] [address]- 9043 Nov, Moderate mixed bipolar I disorder F31.62 and Anxiety state F41.1 [facility] [address] [id number] [address] 0040 Oct, Moderate mixed bipolar I disorder F31.62 and Anxiety state F41.1 [facility] [address] [id number] [address]- 9369 Oct, Moderate mixed bipolar I disorder F31.62 and Anxiety state F41.1 [facility] [address] [facility] [id number] [address] 3498 Sep, Moderate mixed bipolar I disorder F31.62 and Anxiety state F41.1 [facility] [address] [facility] [id number] [place] [address]- 5622 Aug, Moderate mixed bipolar I disorder F31.62 and Anxiety state F41.1 [facility] [address]00565[address] [address] 0607 Jul, Moderate mixed bipolar I disorder F31.62 and Anxiety state F41.1 [facility] [address] [facility] [id number] [place] [address]- 1835 Jul, [facility] [id number] [place] [address] 57724- 1887 Jul, Moderate mixed bipolar I disorder F31.62 and Anxiety state F41.1 [facility] [address] [place] [address] [id number] [address]- 5597 May, Moderate mixed bipolar I disorder F31.62 and Anxiety state F41.1 [facility] [id number] [place] [address] 92868- 5515 May, Moderate mixed bipolar I disorder F31.62 and Anxiety state F41.1 [facility] [address]00565[address] [address]- 8995 May, Moderate mixed bipolar I disorder F31.62 and Anxiety state F41.1 [facility] [address]005[address] [address]- 7477 May, [facility] [id number] [place] [address] 74969- 0242 Apr, Moderate mixed bipolar I disorder F31.62 and Anxiety state F41.1 [facility] [address] [address]- 3781 Apr, Moderate mixed bipolar I disorder F31.62 and Anxiety state F41.1 [facility] [address] [place] [address] [id number] [address]- 2832 Mar, Moderate mixed bipolar I disorder F31.62 and Anxiety state F41.1 [facility] [address] [id number] [address]- 4685 February, Moderate mixed bipolar I disorder F31.62 and Anxiety state F41.1 [facility] [address] [address]- 4249 February, Moderate mixed bipolar I disorder F31.62 and Anxiety state F41.1 [facility] [id number] [place] [address] 58224- 8843 24 Jan, 2017 Moderate mixed bipolar I disorder F31.62 and Anxiety state F41.1 [facility] [id number] [place] [address] 67287- 6246 Jan, Moderate mixed bipolar I disorder F31.62 and Anxiety state F41.1 [facility] [id number] [place] [address] 87561- 4323 Jan, [facility] [id number] [place] [address] 08862- 0737 30 Dec, 2016 Moderate mixed bipolar I disorder F31.62 and Anxiety state F41.1 [facility] [id number] [place] [address] 50014- 5002 Dec, Moderate mixed bipolar I disorder F31.62 and Anxiety state F41.1 [facility] [id number] [place] [address] 78135- 5398 Nov, Moderate mixed bipolar I disorder F31.62 and Anxiety state F41.1 [facility] [id number] [place] [address] 31068- 1321 14 Nov, 2016 Moderate mixed bipolar I disorder F31.62 and Anxiety state F41.1 [facility] [id number] [place] [address] 76480- 5330 Oct, Moderate mixed bipolar I disorder F31.62 and Anxiety state F41.1 [facility] [id number] [place] [address] 92240- 5336 05 Sep, 2016 Moderate mixed bipolar I disorder F31.62 and Anxiety state F41.1 [facility] [address] [address]- 2727 Aug, Moderate mixed bipolar I disorder F31.62 and Anxiety state F41.1 [facility] [address] [address]- 7296 Aug, Moderate mixed bipolar I disorder F31.62 and Anxiety state F41.1 [facility] [address] [address]- 8262 Jul, Moderate mixed bipolar I disorder F31.62 and Anxiety state F41.1 [facility] [address] [place] [address] [id number] [place] [address] 02629- 5473 Jun, Moderate mixed bipolar I disorder F31.62 and Anxiety state F41.1 [facility] [address] [place] [address] [id number] [place] [address] 71188- 4181 May, Moderate mixed bipolar I disorder F31.62 and Anxiety state F41.1 [place] [id number] [place] [address] 23381- 8572 May, Moderate mixed bipolar I disorder F31.62 and Anxiety state F41.1 [facility] [id number] [place] [address] 20831- 9155 Apr, Bipolar 1 disorder, depressed, moderate F31.32 and Anxiety state F41.1 [place] [id number] [place] [address] 61552- 0500 Apr, Bipolar 1 disorder, depressed, moderate F31.32 and Bipolar I disorder, mild, current or most recent episode depressed, with anxious distress F31.31 [facility] [address] [address]- 7246 Mar, Bipolar 1 disorder, depressed, moderate F31.32 [facility] [id number] [place] [address] 11082- 1429 February, Bipolar 1 disorder, depressed, moderate F31.32 [facility] [address] [address]- 1321 Jan, Bipolar I disorder, mild, current or most recent episode depressed, with anxious distress F31.31 [facility] [address] [address]- 5195 Jan, Bipolar I disorder, mild, current or most recent episode depressed, with anxious distress F31.31 [facility] [address] [address]- 8609 05 Jan, 2016 Bipolar 1 disorder, depressed, moderate F31.32 [facility] [address] [address]- 5918 Dec, Bipolar I disorder, mild, current or most recent episode depressed, with anxious distress F31.31 [place] [address] [address]- 7030 Dec, Bipolar I disorder, mild, current or most recent episode depressed, with anxious distress F31.31 [place] [address] [address]- 9602 Nov, Bipolar I disorder, mild, current or most recent episode depressed, with anxious distress F31.31 [place] [id number] [place] [address] 40111- 8461 Oct, Bipolar I disorder, mild, current or most recent episode depressed, with anxious distress F31.31 [place] [address] [address]- 9696 Oct, Bipolar I disorder, mild, current or most recent episode depressed, with anxious distress F31.31 [place] [address] [address]- 0826 Sep, Bipolar I disorder, mild, current or most recent episode depressed, with anxious distress F31.31 [place] [address] [address]- 9528 Aug, Bipolar I disorder, mild, current or most recent episode depressed, with anxious distress F31.31 [facility] [address] [address]- 8471 Jul, Bipolar I disorder, mild, current or most recent episode depressed, with anxious distress F31.31 [facility] [address] [address]- 2102 07 Jul, 2015 Bipolar I disorder, mild, current or most recent episode depressed, with anxious distress F31.31 [facility] [address] 1046 17 Jun, 2015 Bipolar I disorder, most recent episode depressed 296.50 [facility] [id number] [place] [address] 05197- 4966 Jun, Bipolar I disorder, most recent episode depressed 296.50 [facility] [id number] [place] [address] 60199- 4452 May, Bipolar disorder, current episode depressed, moderate 296.52 [facility] [address] [address]- 2162 May, Bipolar I disorder, most recent episode mixed, moderate 296.62 [facility] [address] [address]- 6080 Apr, Bipolar I disorder, most recent episode mixed, moderate 296.62 [facility] [address] [address]- 0738 Apr, [facility] [address] [address]- 1496 Apr, Bipolar I disorder, most recent episode mixed, moderate 296.62 [facility] [address] [address]- 3438 February, Bipolar disorder, current episode depressed, moderate 296.52 [facility] [address] [address]- 3719 Jan, [facility] [address] [address]- 5743 Jan, [facility] [address] [address]- 8974 Dec, [facility] [address] [id number] [address]- 4852 Dec, [facility] [place] [facility] [address] [id number] [place] [address]- 3729 Dec, [facility] [place] [facility] [address] [id number] [place] [address]- 4468 Dec, [facility] [place] [facility] [address] [id number] [place] [address]- 7478 Dec, [facility] [place] [facility] [address] [id number] [place] [address]- 6505 Dec, [facility] [place] [facility] [address] [id number] [place] [address]- 3413 Dec, [facility] [place] [facility] [address] [id number] [place] [address]- 5895 Dec, [facility] [place] [facility] [address] [id number] [place] [address]- 8690 Nov, [facility] [place] [facility] [address] [id number] [place] [address]- 2246 Nov, [facility] [place] [facility] [address] [id number] [place] [address]- 9195 Nov, [facility] [place] [facility] [address] [id number] [place] [address]- 7812 Nov, [facility] [place] [facility] [address] [id number] [place] [address]- 1779 Oct, [facility] [place] [facility] [address] [id number] [place] [address]- 6114 Oct, [facility] [place] [facility] [address] [id number] [place] [address]- 5744 Oct, [facility] [place] [facility] [address] [id number] [place] [address]- 4704 Oct, [facility] [place] [facility] [address] [id number] [place] [address]- 4083 Oct, [facility] [place] [facility] [address] [id number] [place] [address]- 2140 Oct, [facility] [place] [facility] [address] [id number] [place] [address]- 2977 Oct, [facility] [place] [facility] [address] [id number] [place] [address]- 9103 Oct, [facility] [place] [facility] [address] [id number] [place] [address]- 7136 Aug, [facility] [place] [facility] [address] [id number] [place] [address]- 0259 Aug, [facility] [place] [facility] [address] [id number] [place] [address]- 1609 Jun, [facility] [place] [facility] [address] [id number] [place] [address]- 2282 Jun, [facility] [place] [facility] [address] [id number] [place] [address]- 0602 May, [facility] [place] [facility] [address] [id number] [place] [address]- 4024 May, [facility] [place] [facility] [address] [id number] [place] [address]- 9548 Apr, [facility] [place] [facility] [address] [id number] [place] [address]- 7554 Apr, [facility] [place] [facility] [address] [id number] [address]- 2203 Mar, [facility] [place] [facility] [address] [id number] [place] [address]- 6815 Mar, [facility] [place] [facility] [address] [id number] [place] [address]- 3602 February, [facility] [place] [facility] [address] [id number] [place] [address]- 5308 February, [facility] [place] [facility] [address] [id number] [place] [address]- 6020 February, [facility] [address] [id number] [place] [address]- 5282 February, [facility] [place] [facility] [address] [id number] [place] [address]- 5316 Jan, [facility] [place] [facility] [address] [id number] [place] [address]- 4879 Jan, [facility] [place] [facility] [address] [id number] [place] [address]- 6637 Jan, [facility] [place] [facility] [address] [id number] [place] [address]- 7477 Jan, [facility] [place] [facility] [address] [id number] [place] [address]- 7504 Dec, [facility] [place] [facility] [address] [id number] [place] [address]- 4978 Dec, [facility] [place] [facility] [address] [id number] [place] [address]- 6446 Nov, [facility] [place] [facility] [address] [id number] [place] [address]- 9171 Nov, [facility] [address] [id number] [place] [address]- 8441 Oct, [facility] [place] [facility] [address] [id number] [place] [address]- 7135 Oct, [facility] [place] [facility] [address] [id number] [place] [address]- 7945 Sep, [facility] [place] [facility] [address] [id number] [place] [address]84 Sep, [facility] [place] [facility] [address] [id number] [place] [address]- 3156 Sep, [facility] [place] [facility] [address] [id number] [place] [address]- 8906 Sep, [facility] [address] [id number] [place] [address]- 8436 Aug, [facility] [place] [facility] [address] [id number] [place] [address]- 7836 Aug, [facility] [place] [facility] [address] [id number] [place] [address]- 4936 Aug, [facility] [place] [facility] [address] [id number] [place] [address]- 0036 Aug, [facility] [place] [facility] [address] [id number] [place] [address]- 5813 Jul, [facility] [place] [facility] [address] [id number] [place] [address]- 9326 Jul, [facility] [place] [facility] [address] [facility] [id number] [place] [address]- 9586 Jul, [facility] [place] [facility] [address] [id number] [address]- 1826 Jul, [facility] [place] [facility] [address] [id number] [place] [address]- 6306 Jun, [facility] [place] [facility] [address] [facility] [id number] [address]- 8986 Jun, [facility] [place] [facility] [address] [facility] [id number] [address]- 9146 May, [facility] [place] [facility] [address] [id number] [address]- 8076 Apr, [facility] [place] [facility] [address] [id number] [address]- 2726 Mar, [facility] [place] [facility] [address] [id number] [address]- 7886 Mar, [facility] [place] [facility] [address] [facility] [id number] [place] [address]- 3176 February, [facility] [place] [facility] [address] [id number] [address]- 7855 Jan, [facility] [place] [facility] [address] [id number] [place] [address]- 4953 Jan, [facility] [place] [facility] [address] [id number] [place] [address]- 3569 Dec, [facility] [place] [facility] [address] [facility] [id number] [place] [address] Nov, [facility] [place] [facility] [address] [id number] [place] [address] Oct, [facility] [place] [facility] [address] [id number] [place] [address] Aug, [facility] [place] [facility] [address] [id number] [place] [address] Aug, [facility] [address] [facility] [id number] [place] [address] Aug, [facility] [place] [facility] [address] [facility] [id number] [place] [address] Aug, [facility] [place] [facility] [address] [facility] [id number] [place] [address] Aug, [facility] [place] [facility] [address] [facility] [id number] [place] [address] Aug, [facility] [place] [facility] [address] [facility] [id number] [place] [address] Jul, [facility] [place] [facility] [address] [facility] [id number] [place] [address] Jul, [facility] [place] [facility] [address] [facility] [id number] [place] [address] Jul, [facility] [place] [facility] [address] [facility] [id number] [place] [address] Jul, [facility] [place] [facility] [address] [facility] [id number] [place] [address] Jun, [facility] [place] [facility] [address] [id number] [place] [address] 14 Jun, 2012 [facility] [place] [facility] [address] [id number] [place] [address] 31 May, 2012 [facility] [place] [facility] [address] [id number] [place] [address] May, [facility] [place] [facility] [address] [id number] [place] [address] 18 Apr, 2012 [facility] [place] [facility] [address] [id number] [place] [address] Apr, [facility] [place] [facility] [address] [id number] [place] [address] Mar, [facility] [place] [facility] [address] [id number] [place] [address] Mar, [facility] [place] [facility] [address] [id number] [place] [address] Mar, [facility] [place] [facility] [address] [id number] [place] [address] February, [facility] [place] [facility] [address] [id number] [place] [address] February, [facility] [place] [facility] [address] [id number] [place] [address] February, [facility] [place] [facility] [address] [id number] [place] [address] Jan, [facility] [place] [facility] [address] [id number] [place] [address] Jan, [facility] [place] [facility] [address] [id number] [place] [address] Jan, [facility] [place] [facility] [address] [id number] [place] [address] 29 Dec, 2011 [facility] [place] [facility] [address] [id number] [place] [address] 20 Dec, 2011 [facility] [place] [facility] [address] [id number] [place] [address]- [address] 15 Dec, 2011 [facility] [place] [facility] [address] [id number] [place] [address] 14 Dec, 2011 [facility] [place] [facility] [address] [facility] [id number] [place] [address] 13 Dec, 2011 [facility] [place] [facility] [address] [id number] [place] [address] 13 Dec, 2011 [facility] [place] [facility] [address] [id number] [place] [address] 13 Dec, 2011 [facility] [place] [facility] [address] [facility] [id number] [place] [address] 05 Dec, 2011 [facility] [place] [facility] [address] [facility] [id number] [place] [address] 28 Nov, 2011 [facility] [place] [facility] [address] [facility] [id number] [place] [address]- [address] 23 Nov, 2011 [facility] [place] [facility] [address] [id number] [place] [address] 16 Nov, 2011 [facility] [place] [facility] [address] [facility] [id number] [place] [address] 16 Nov, 2011 [facility] [place] [facility] [id number] [place] [address] 07 Nov, 2011 [facility] [place] [facility] [address] [facility] [id number] [place] [address]- [address] 07 Nov, 2011 [facility] [place] [facility] [address] [facility] [id number] [place] [address] 06 Nov, 2011 [facility] [place] [facility] [address] [facility] [id number] [place] [address] Nov, [facility] [place] [facility] [address] [id number] [place] [address] Oct, [facility] [place] [facility] [address] [address] [id number] [place] [address] 20 Oct, 2011 [facility] [place] [facility] [address] [id number] [place] [address] 18 Oct, 2011 [facility] [place] [facility] [address] [id number] [place] [address] 16 Oct, 2011 [facility] [place] [facility] [address] [id number] [place] [address] 13 Oct, 2011 [facility] [place] [facility] [address] [id number] [place] [address] Oct, [facility] [place] [facility] [address] [id number] [place] [address] Oct, [facility] [place] [facility] [address] [id number] [place] [address] Oct, [facility] [place] [facility] [address] [id number] [place] [address] Sep, [facility] [place] [facility] [address] [id number] [place] [address] Sep, [facility] [place] [facility] [address] [id number] [place] [address] Sep, [facility] [place] [facility] [address] [id number] [place] [address] Sep, [facility] [place] [facility] [address] [id number] [place] [address] Aug, [facility] [place] [facility] [address] [id number] [place] [address] Aug, [facility] [place] [facility] [address] [id number] [place] [address] Aug, [facility] [place] [facility] [address] [id number] [place] [address] 24 Jul, 2011 [facility] [place] [facility] [address] [id number] [place] [id number] Jul, [facility] [address] [facility] [id number] [place] [address] Jul, [facility] [address] [facility] [id number] [place] [id number] Aug, IMMUNIZATIONS No Known Immunizations SOCIAL HISTORY Never Assessed REASON FOR VISIT Requests return call PLAN OF CARE VITAL SIGNS MEDICATIONS Unknown Medications RESULTS No Results PROCEDURES No Known procedures INSTRUCTIONS MEDICATIONS ADMINISTERED No Known Medications
--- OUTSIDE RECORDS SUMMARY | 2018-12-17 10:50 | XMS REPORT ---
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 Phone ARIANNA MOSQUEDA Unavailable PROBLEMS Type Condition ICD9-CM Code VTY40-ZU Code Onset Dates Condition Status SNOMED Code Problem Moderate mixed bipolar I disorder F31.62 Active 09197943 Problem Anxiety state F41.1 Active [id number] ALLERGIES No Information ENCOUNTERS Encounter Location Date Diagnosis [place] [id number] [place] [address] 39481- 7885 Aug, [place] [id number] [place] [address] 04415- 9607 Jul, [facility] [id number] [place] [address] 93533- 0691 Jun, Moderate mixed bipolar I disorder F31.62 and Anxiety state F41.1 [place] [id number] [place] [address] 00760- 3451 May, Moderate mixed bipolar I disorder F31.62 and Anxiety state F41.1 [place] [id number] [place] [address] 85620- 6380 Apr, Moderate mixed bipolar I disorder F31.62 and Anxiety state F41.1 [place] [id number] [place] [address] 65342- 2097 Apr, Moderate mixed bipolar I disorder F31.62 and Anxiety state F41.1 [place] [id number] [place] [address] 89631- 9010 Mar, Moderate mixed bipolar I disorder F31.62 and Anxiety state F41.1 [place] [id number] [place] [address] 10434- 6142 February, Moderate mixed bipolar I disorder F31.62 and Anxiety state F41.1 [facility] [id number] [place] [address] 33223- 9993 Jan, Moderate mixed bipolar I disorder F31.62 and Anxiety state F41.1 [facility] [id number] [place] [address] 75518- 0826 Dec, Moderate mixed bipolar I disorder F31.62 and Anxiety state F41.1 [facility] [id number] [place] [address] 17939- 2101 Nov, Moderate mixed bipolar I disorder F31.62 and Anxiety state F41.1 [facility] [id number] [place] [address] 84154- 6287 Nov, Moderate mixed bipolar I disorder F31.62 and Anxiety state F41.1 [facility] [id number] [place] [address] 92582- 1581 Oct, Moderate mixed bipolar I disorder F31.62 and Anxiety state F41.1 [facility] [id number] [place] [address] 93515- 0909 Oct, Moderate mixed bipolar I disorder F31.62 and Anxiety state F41.1 [facility] [id number] [place] [address] 78093- 4698 Sep, Moderate mixed bipolar I disorder F31.62 and Anxiety state F41.1 [facility] [address] [address]- 8238 Aug, Moderate mixed bipolar I disorder F31.62 and Anxiety state F41.1 [facility] [id number] [place] [address] 09057- 0865 Jul, Moderate mixed bipolar I disorder F31.62 and Anxiety state F41.1 [facility] [address] [address]- 5695 Jul, [facility] [address] [address]- 0031 Jul, Moderate mixed bipolar I disorder F31.62 and Anxiety state F41.1 [facility] [id number] [place] [address] 82674- 7706 May, Moderate mixed bipolar I disorder F31.62 and Anxiety state F41.1 [facility] [id number] [place] [address] 56739- 7285 May, Moderate mixed bipolar I disorder F31.62 and Anxiety state F41.1 [facility] [id number] [place] [address] 50089- 0037 May, Moderate mixed bipolar I disorder F31.62 and Anxiety state F41.1 [facility] [address] [address]- 4356 May, [facility] [id number] [place] [address] 02134- 2143 Apr, Moderate mixed bipolar I disorder F31.62 and Anxiety state F41.1 [facility] [id number] [place] [address] 52587- 9197 Apr, Moderate mixed bipolar I disorder F31.62 and Anxiety state F41.1 [facility] [address] [address]- 6977 Mar, Moderate mixed bipolar I disorder F31.62 and Anxiety state F41.1 [facility] [address] [address]- 7201 February, Moderate mixed bipolar I disorder F31.62 and Anxiety state F41.1 [facility] [id number] [place] [address] 19054- 3406 February, Moderate mixed bipolar I disorder F31.62 and Anxiety state F41.1 [facility] [address] [address]- 8350 Jan, Moderate mixed bipolar I disorder F31.62 and Anxiety state F41.1 [facility] [address] [address]- 8098 10 Jan, 2017 Moderate mixed bipolar I disorder F31.62 and Anxiety state F41.1 [facility] [address] [address]- 2590 06 Jan, 2017 [facility] [id number] [place] [address] 42317- 9834 30 Dec, 2016 Moderate mixed bipolar I disorder F31.62 and Anxiety state F41.1 [facility] [id number] [place] [address] 99508- 2363 Dec, Moderate mixed bipolar I disorder F31.62 and Anxiety state F41.1 [facility] [id number] [place] [address] 49679- 7697 Nov, Moderate mixed bipolar I disorder F31.62 and Anxiety state F41.1 [facility] [id number] [place] [address] 56854- 3037 Nov, Moderate mixed bipolar I disorder F31.62 and Anxiety state F41.1 [facility] [id number] [place] [address] 10468- 8099 Oct, Moderate mixed bipolar I disorder F31.62 and Anxiety state F41.1 [facility] [address] [address]- 4543 05 Sep, 2016 Moderate mixed bipolar I disorder F31.62 and Anxiety state F41.1 [facility] [address] [address]- 1379 Aug, Moderate mixed bipolar I disorder F31.62 and Anxiety state F41.1 [facility] [id number] [place] [address] 02857- 5789 Aug, Moderate mixed bipolar I disorder F31.62 and Anxiety state F41.1 [facility] [id number] [place] [address] 71485- 7008 Jul, Moderate mixed bipolar I disorder F31.62 and Anxiety state F41.1 [facility] [id number] [place] [address] 81343- 6580 Jun, Moderate mixed bipolar I disorder F31.62 and Anxiety state F41.1 [place] [id number] [place] [address] 93893- 9961 May, Moderate mixed bipolar I disorder F31.62 and Anxiety state F41.1 [place] [id number] [place] [address] 97307- 6487 May, Moderate mixed bipolar I disorder F31.62 and Anxiety state F41.1 [place] [id number] [place] [address] 83660- 5185 Apr, Bipolar 1 disorder, depressed, moderate F31.32 and Anxiety state F41.1 [place] [id number] [place] [address] 54979- 9637 Apr, Bipolar 1 disorder, depressed, moderate F31.32 and Bipolar I disorder, mild, current or most recent episode depressed, with anxious distress F31.31 [place] [id number] [place] [address] 53254- 5578 Mar, Bipolar 1 disorder, depressed, moderate F31.32 [place] [id number] [place] [address] 35190- 3105 February, Bipolar 1 disorder, depressed, moderate F31.32 [place] [id number] [place] [address] 65666- 9641 Jan, Bipolar I disorder, mild, current or most recent episode depressed, with anxious distress F31.31 [place] [id number] [place] [address] 05730- 9165 Jan, Bipolar I disorder, mild, current or most recent episode depressed, with anxious distress F31.31 [place] [id number] [place] [address] 42505- 6475 Jan, Bipolar 1 disorder, depressed, moderate F31.32 [facility] [id number] [place] [address] 45187- 1356 Dec, Bipolar I disorder, mild, current or most recent episode depressed, with anxious distress F31.31 [facility] [id number] [place] [address] 24689- 7527 Dec, Bipolar I disorder, mild, current or most recent episode depressed, with anxious distress F31.31 [facility] [id number] [place] [address] 16308- 4856 Nov, Bipolar I disorder, mild, current or most recent episode depressed, with anxious distress F31.31 [facility] [id number] [place] [address] 67932- 5092 Oct, Bipolar I disorder, mild, current or most recent episode depressed, with anxious distress F31.31 [place] [id number] [place] [address] 43854- 9644 Oct, Bipolar I disorder, mild, current or most recent episode depressed, with anxious distress F31.31 [facility] [id number] [place] [address] 68994- 9124 Sep, Bipolar I disorder, mild, current or most recent episode depressed, with anxious distress F31.31 [facility] [address] [address]- 6752 Aug, Bipolar I disorder, mild, current or most recent episode depressed, with anxious distress F31.31 [facility] [id number] [place] [address] 35162- 6160 Jul, Bipolar I disorder, mild, current or most recent episode depressed, with anxious distress F31.31 [facility] [id number] [place] [address] 95166- 4905 Jul, Bipolar I disorder, mild, current or most recent episode depressed, with anxious distress F31.31 [facility] [id number] [place] [address] 83212- 4011 Jun, Bipolar I disorder, most recent episode depressed 296.50 [facility] [address], [place] [address]- 1259 Jun, Bipolar I disorder, most recent episode depressed 296.50 [facility] [address], [place] [address]- 1416 May, Bipolar disorder, current episode depressed, moderate 296.52 [facility] [id number] [place] [address] 953165- 8885 May, Bipolar I disorder, most recent episode mixed, moderate 296.62 [facility] [id number] [place] [address] 12690- 6131 Apr, Bipolar I disorder, most recent episode mixed, moderate 296.62 [facility] [address], [place] [address]- 4764 Apr, [facility] [id number] [place] [address] 94513- 0806 Apr, Bipolar I disorder, most recent episode mixed, moderate 296.62 [facility] [id number] [place] [address] 203116- 5280 February, Bipolar disorder, current episode depressed, moderate 296.52 [facility] [address] 4391 Jan, [facility] [address] [place] [address]- 1802 Jan, [facility] [address] 1418 Dec, [facility] [id number] 7094 Dec, [facility] [address] 2435 Dec, [facility] [id number] [place] [address] [id number]- 9849 Dec, [facility] [place] [facility] [address] [id number] [place] [address]- 7731 Dec, [facility] [place] [facility] [address] [id number] [place] [address]- 1911 Dec, [facility] [place] [facility] [address] [id number] [place] 9084 Dec, [facility] [place] [facility] [address] [id number] [place] [address]- 0365 Dec, [facility] [place] [facility] [address] [id number] [place] [address]- 8396 Nov, [facility] [place] [facility] [address] [id number] [place] [address]- 0276 Nov, [facility] [place] [facility] [address] [id number] [place] [address]- 6246 Nov, [facility] [place] [facility] [address] [id number] [place] [address]- 8167 Nov, [facility] [place] [facility] [address] [id number] [place] [address]- 7023 Oct, [facility] [place] [facility] [address] [id number] [place] [address]- 7650 Oct, [facility] [place] [facility] [address] [id number] [place] [address]- 0368 Oct, [facility] [place] [facility] [address] [id number] [place] [address]- 3101 Oct, [facility] [place] [facility] [address] [id number] [place] [address]- 9995 Oct, [facility] [place] [facility] [address] [id number] [place] [address]- 4276 Oct, [facility] [place] [facility] [address] [id number] [place] [address]- 9059 Oct, [facility] [place] [facility] [address] [id number] [place] [address]- 8720 Oct, [facility] [address] [id number] [place] [address]- 3541 Aug, [facility] [place] [facility] [address] [id number] [place] [address]- 4545 Aug, [facility] [address] [id number] [place] [address]- 5566 Jun, [facility] [place] [facility] [address] [id number] [place] [address]- 3479 Jun, [facility] [place] [facility] [address] [id number] [place] [address]- 8017 May, [facility] [place] [facility] [address] [id number] [place] [address]- 0357 May, [facility] [place] [facility] [address] [id number] [place] [address]- 8744 Apr, [facility] [address] [id number] [place] [address]- 8190 Apr, [facility] [place] [facility] [address] [id number] [place] [address]- 1515 Mar, [facility] [address] [id number] [place] [address]- 0681 Mar, [facility] [place] [facility] [address] [id number] [place] [address]- 9849 February, [facility] [place] [facility] [address] [id number] [place] [address]- 3971 February, [facility] [place] [facility] [address] [id number] [place] [address]- 9090 February, [facility] [place] [facility] [address] [id number] [place] [address]- 2776 February, [facility] [place] [facility] [address] [id number] [place] [address]- 0922 Jan, [facility] [place] [facility] [address] [id number] [place] [address]- 9905 Jan, [facility] [place] [facility] [address] [id number] [place] [address]- 4735 Jan, [facility] [place] [facility] [address] [id number] [place] [address]- 9279 Jan, [facility] [place] [facility] [address] [id number] [place] [address]- 0250 Dec, [facility] [place] [facility] [address] [id number] [place] [address]- 5455 Dec, [facility] [place] [facility] [address] [id number] [place] [address]- 2438 Nov, [facility] [place] [facility] [address] [id number] [place] [address]- 6615 Nov, [facility] [place] [facility] [address] [id number] [place] [address]- 1693 Oct, [facility] [place] [facility] [address] [id number] [place] [address]- 0019 Oct, [facility] [place] [facility] [address] [id number] [place] [address]- 9261 Sep, [facility] [place] [facility] [address] [id number] [place] [address]- 1301 Sep, [facility] [place] [facility] [address] [id number] [place] [address]- 1122 Sep, [facility] [place] [facility] [address] [id number] [place] [address]- 6465 Sep, [facility] [place] [facility] [address] [id number] [place] [address]- 0520 Aug, [facility] [place] [facility] [address] [id number] [place] [address]- 7069 Aug, [facility] [place] [facility] [address] [id number] [place] [address] 2541 05 Aug, 2013 [facility] [address] [id number] [place] [address]- 2806 Aug, [facility] [place] [facility] [address] [id number] [place] [address]- 5217 Jul, [facility] [address] [id number] [place] [address]- 4043 Jul, [facility] [place] [facility] [address] [id number] [place] [address] 2543 Jul, [facility] [address] [id number] [place] [address]- 9961 Jul, [facility] [place] [facility] [address] [id number] [place] [address]- 4519 Jun, [facility] [address] [id number] [place] [address]- 8568 Jun, [facility] [place] [facility] [address] [id number] [place] [address]- 2475 May, [facility] [place] [facility] [address] [id number] [place] [address]- 3666 Apr, [facility] [place] [facility] [address] [id number] [place] [address]- 0867 Mar, [facility] [place] [facility] [address] [id number] [place] [address]- 4560 Mar, [facility] [place] [facility] [address] [id number] [place] [address]- 2544 February, [facility] [place] [facility] [address] [id number] [place] [address]- 2801 Jan, [facility] [place] [facility] [address] [id number] [place] [address] 2546 Jan, [facility] [place] [facility] [address] [id number] [address]- 6033 Dec, [facility] [place] [facility] [address] [id number] [place] [address]- 8478 Nov, [facility] [place] [facility] [address] [id number] [place] [address]- 2187 Oct, [facility] [place] [facility] [address] [id number] [place] [address]- 3473 Aug, [facility] [place] [facility] [address] [id number] [place] [address], [place] [address]- 0030 Aug, [facility] [place] [facility] [address] [id number] [place] [address]- 7953 Aug, [facility] [place] [facility] [address] [id number] [place] [address]- 6302 Aug, [facility] [place] [facility] [address] [id number] [place] [address]- 6683 Aug, [facility] [place] [facility] [address] [id number] [place] [address]- 6485 Aug, [facility] [place] [facility] [address] [id number] [place] [address]- 5922 Jul, [facility] [place] [facility] [address] [id number] [place] [address]- 6764 Jul, [facility] [place] [facility] [address] [id number] [place] [address]- 1217 Jul, [facility] [place] [facility] [address] [id number] [place] [address]- 9863 Jul, [facility] [place] [facility] [address] [id number] [place] [address]- 8798 27 Jun, 2012 [facility] [place] [facility] [address] [id number] [place] [address]- 7848 14 Jun, 2012 [facility] [place] [facility] [address] [id number] [place] [address]- 9393 31 May, 2012 [facility] [place] [facility] [address] [id number] [place] [address]- 2546 May, [facility] [place] [facility] [address] [id number] [place] [address]- 2800 Apr, [facility] [place] [facility] [address] [id number] [place] [address]- 7786 Apr, [facility] [place] [facility] [address] [id number] [place] [address]- 6826 Mar, [facility] [place] [facility] [address] [id number] [place] [address]- 3457 Mar, [facility] [place] [facility] [address] [id number] [place] [address]- 7110 Mar, [facility] [place] [facility] [address] [id number] [place] [address]- 5556 February, [facility] [place] [facility] [address] [id number] [place] [address]- 2166 February, [facility] [place] [facility] [address] [id number] [place] [address]- 5857 February, [facility] [place] [facility] [address] [id number] [place] [address]- 3823 Jan, [facility] [place] [facility] [address] [id number] [place] [address]- 5298 Jan, [facility] [place] [facility] [address] [id number] [place] [address]- 1802 Jan, [facility] [place] [facility] [address] [id number] [place] [address] 29 Dec, 2011 [facility] [place] [facility] [address] [id number] [place] [address] 20 Dec, 2011 [facility] [place] [facility] [address] [id number] [place] [address] 15 Dec, 2011 [facility] [place] [facility] [address] [id number] [place] [address] 14 Dec, 2011 [facility] [place] [facility] [address] [id number] [place] [address] 13 Dec, 2011 [facility] [address] [id number] [place] [address] 13 Dec, 2011 [facility] [place] [facility] [address] [id number] [place] [address] 13 Dec, 2011 [facility] [address] [id number] [place] [address] 05 Dec, 2011 [facility] [place] [facility] [address] [id number] [place] [address] 28 Nov, 2011 [facility] [place] [facility] [address] [id number] [place] [address] 23 Nov, 2011 [facility] [place] [facility] [address] [id number] [place] [address] 16 Nov, 2011 [facility] [place] [facility] [address] [id number] [place] [address] 16 Nov, 2011 [facility] [address] [id number] [place] [address] 07 Nov, 2011 [facility] [place] [facility] [address] [id number] [place] [address] 07 Nov, 2011 [facility] [place] [facility] [address] [id number] [place] [address] 06 Nov, 2011 [facility] [place] [facility] [address] [id number] [place] [address] Nov, [facility] [place] [facility] [address] [id number] [place] [address] Oct, [facility] [place] [facility] [address] [id number] [place] [address] Oct, [facility] [place] [facility] [address] [id number] [place] [address] Oct, [facility] [place] [facility] [address] [id number], [place] [address] 16 Oct, 2011 [facility] [address] [facility] [id number], [place] [address] Oct, [facility] [address] [facility] [id number], [place] [address] Oct, [facility] [address] [facility] [id number], [place] [address] Oct, [facility] [address] [facility] [id number], [place] [address] Oct, [facility] [address] [facility] [id number] [place] [address] Sep, [facility] [address] [facility] [id number], [place] [address] Sep, [facility] [address] [facility] [id number], [place] [address] Sep, [facility] [address] [facility] [id number], [place] [address] Sep, [facility] [address] [facility] [id number], [place] [address] Aug, [facility] [address] [facility] [id number], [place] [address] Aug, [facility] [address] [facility] [id number], [place] [address] Aug, [facility] [address] [facility] [id number], [place] [address] Jul, [facility] [address] [facility] [id number][place] [address] Jul, [facility] [address] [facility] [id number][place] [address] Jul, [facility] [address] [facility] [id number] [address] Aug, IMMUNIZATIONS No Known Immunizations SOCIAL HISTORY Never Assessed REASON FOR VISIT Follow-up Bipolar PLAN OF CARE Activity Details Follow Up 3 Weeks Reason: Follow-up VITAL SIGNS MEDICATIONS Unknown Medications RESULTS No Results PROCEDURES Procedure Date Ordered Result Body Site [facility] V[facility] MENTAL HEALTH ESTAB PT May 25, 2018 Psychotherapy, patient &/family, 30 minutes, established patient May 25, 2018 INSTRUCTIONS MEDICATIONS ADMINISTERED No Known Medications
--- OUTSIDE RECORDS SUMMARY | 2018-12-17 10:51 | XMS REPORT ---
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 Name Role Phone ARIANNA MOSQUEDA Unavailable PROBLEMS Type Condition ICD9-CM Code FZM02-PL Code Onset Dates Condition Status SNOMED Code Problem Moderate mixed bipolar I disorder F31.62 Active 81387011 Problem Anxiety state F41.1 Active [id number] ALLERGIES No Information ENCOUNTERS Encounter Location Date Diagnosis [facility] [id number] [place] [address] 70907- 0679 Jun, [place] [id number] [place] [address] 88874- 1009 May, Moderate mixed bipolar I disorder F31.62 and Anxiety state F41.1 [facility] [id number] [place] [address] 84169- 7807 Apr, Moderate mixed bipolar I disorder F31.62 and Anxiety state F41.1 [facility] [id number] [place] [address] 92042- 5526 Apr, Moderate mixed bipolar I disorder F31.62 and Anxiety state F41.1 [facility] [id number] [place] [address] 18860- 0182 Mar, Moderate mixed bipolar I disorder F31.62 and Anxiety state F41.1 [facility] [id number] [place] [address] 70340- 8220 February, Moderate mixed bipolar I disorder F31.62 and Anxiety state F41.1 [facility] [id number] [place] [address] 51955- 1071 Jan, Moderate mixed bipolar I disorder F31.62 and Anxiety state F41.1 [facility] [address] [address] 2083 Dec, Moderate mixed bipolar I disorder F31.62 and Anxiety state F41.1 [facility] [id number] [place] [address] 29529- 0406 Nov, Moderate mixed bipolar I disorder F31.62 and Anxiety state F41.1 [facility] [id number] [place] [address] 29528- 3126 Nov, Moderate mixed bipolar I disorder F31.62 and Anxiety state F41.1 [facility] [address] [place] [address] 90213- 7449 Oct, Moderate mixed bipolar I disorder F31.62 and Anxiety state F41.1 [facility] [address] [place] [address] 52730- 4577 Oct, Moderate mixed bipolar I disorder F31.62 and Anxiety state F41.1 [facility] [id number] [place] [address] 84956- 1763 Sep, Moderate mixed bipolar I disorder F31.62 and Anxiety state F41.1 [facility] [address] [place] [address] 69893- 9516 Aug, Moderate mixed bipolar I disorder F31.62 and Anxiety state F41.1 [facility] [address] [address] 6011 Jul, Moderate mixed bipolar I disorder F31.62 and Anxiety state F41.1 [facility] [address] [address] Jul, [facility] [id number] [place] [address] 92416- 9751 Jul, Moderate mixed bipolar I disorder F31.62 and Anxiety state F41.1 [facility] [address] [address] May, Moderate mixed bipolar I disorder F31.62 and Anxiety state F41.1 [facility] [address] [address]- 3773 May, Moderate mixed bipolar I disorder F31.62 and Anxiety state F41.1 [facility] [address] [address] 8176 May, Moderate mixed bipolar I disorder F31.62 and Anxiety state F41.1 [facility] [id number] [place] [address] 84979- 7949 May, [facility] [address] [place] [address] 42157- 9477 Apr, Moderate mixed bipolar I disorder F31.62 and Anxiety state F41.1 [facility] [address] [place] [address] 21096- 0404 Apr, Moderate mixed bipolar I disorder F31.62 and Anxiety state F41.1 [facility] [address] [place] [address] 08552- 8735 Mar, Moderate mixed bipolar I disorder F31.62 and Anxiety state F41.1 [facility] [id number] [place] [address] 31140- 2119 February, Moderate mixed bipolar I disorder F31.62 and Anxiety state F41.1 [facility] [address] [address]- 9037 February, Moderate mixed bipolar I disorder F31.62 and Anxiety state F41.1 [facility] [address] [address]- 8200 Jan, Moderate mixed bipolar I disorder F31.62 and Anxiety state F41.1 [facility] [address] [place] [address] 73682- 3331 Jan, Moderate mixed bipolar I disorder F31.62 and Anxiety state F41.1 [facility] [address] [address]- 5552 Jan, [facility] [address] [address]- 1432 Dec, Moderate mixed bipolar I disorder F31.62 and Anxiety state F41.1 [facility] [address] [address]- 8336 Dec, Moderate mixed bipolar I disorder F31.62 and Anxiety state F41.1 [facility] [address] [place] [address] 96643- 5813 Nov, Moderate mixed bipolar I disorder F31.62 and Anxiety state F41.1 [facility] [address] [place] [address] 77421- 1165 Nov, Moderate mixed bipolar I disorder F31.62 and Anxiety state F41.1 [facility] [address] [address]- 0411 Oct, Moderate mixed bipolar I disorder F31.62 and Anxiety state F41.1 [facility] [address] [place] [address] 37895- 4301 Sep, Moderate mixed bipolar I disorder F31.62 and Anxiety state F41.1 [facility] [address] [place] [address] 75564- 1953 Aug, Moderate mixed bipolar I disorder F31.62 and Anxiety state F41.1 [facility] [address] [address]- 8668 Aug, Moderate mixed bipolar I disorder F31.62 and Anxiety state F41.1 [facility] [address] [address]- 5057 Jul, Moderate mixed bipolar I disorder F31.62 and Anxiety state F41.1 [facility] [id number] [address]- 9670 06 Jun, 2016 Moderate mixed bipolar I disorder F31.62 and Anxiety state F41.1 [facility] [id number] [place] [address] 32776- 1644 May, Moderate mixed bipolar I disorder F31.62 and Anxiety state F41.1 [facility] [id number] [place] [address] 84296- 5296 May, Moderate mixed bipolar I disorder F31.62 and Anxiety state F41.1 [facility] [id number] [place] [address] 05668- 3765 Apr, Bipolar 1 disorder, depressed, moderate F31.32 and Anxiety state F41.1 [facility] [address] [place] [address] 33070- 9266 Apr, Bipolar 1 disorder, depressed, moderate F31.32 and Bipolar I disorder, mild, current or most recent episode depressed, with anxious distress F31.31 [place] [id number] [place] [address] 22372- 3609 Mar, Bipolar 1 disorder, depressed, moderate F31.32 [facility] [id number] [place] [address] 19611- 5705 February, Bipolar 1 disorder, depressed, moderate F31.32 [facility] [id number] [place] [address] 02634- 0350 Jan, Bipolar I disorder, mild, current or most recent episode depressed, with anxious distress F31.31 [facility] [address] [place] [address] 40847- 2123 Jan, Bipolar I disorder, mild, current or most recent episode depressed, with anxious distress F31.31 [facility] [address] [place] [address] 74940- 6825 Jan, Bipolar 1 disorder, depressed, moderate F31.32 [facility] [address] [place] [address] 99614- 4504 Dec, Bipolar I disorder, mild, current or most recent episode depressed, with anxious distress F31.31 [facility] [id number] [place] [address] 56911- 2375 Dec, Bipolar I disorder, mild, current or most recent episode depressed, with anxious distress F31.31 [facility] [address] [place] [address] 47311- 2384 Nov, Bipolar I disorder, mild, current or most recent episode depressed, with anxious distress F31.31 [facility] [address] [address]- 7555 Oct, Bipolar I disorder, mild, current or most recent episode depressed, with anxious distress F31.31 [facility] [address] [address]- 6190 Oct, Bipolar I disorder, mild, current or most recent episode depressed, with anxious distress F31.31 [place] [id number] [place] [address] 26958- 0434 Sep, Bipolar I disorder, mild, current or most recent episode depressed, with anxious distress F31.31 [facility] [address] [place] [address] 86023- 1995 Aug, Bipolar I disorder, mild, current or most recent episode depressed, with anxious distress F31.31 [facility] [address] [place] [address] 18426- 0585 Jul, Bipolar I disorder, mild, current or most recent episode depressed, with anxious distress F31.31 [facility] [address] [address]- 6641 Jul, Bipolar I disorder, mild, current or most recent episode depressed, with anxious distress F31.31 [facility] [address] [place] [address] 22600- 5102 Jun, Bipolar I disorder, most recent episode depressed 296.50 [facility] [address] [address]- 5389 Jun, Bipolar I disorder, most recent episode depressed 296.50 [facility] [id number] [place] [address] 072620- 7729 May, Bipolar disorder, current episode depressed, moderate 296.52 [facility] [address] 6535 May, Bipolar I disorder, most recent episode mixed, moderate 296.62 [facility] [address] 1861 Apr, Bipolar I disorder, most recent episode mixed, moderate 296.62 [facility] [address] 1126 Apr, [facility] [address] 3080 Apr, Bipolar I disorder, most recent episode mixed, moderate 296.62 [facility] [address] 6444 February, Bipolar disorder, current episode depressed, moderate 296.52 [facility] [address] [address]- 1907 Jan, [facility] [address] 1638 Jan, [facility] [address] 2342 Dec, [facility] [address] [address]- 8662 Dec, [facility] [address] [address]- 7687 Dec, [facility] [address] 9060 Dec, [facility] [address] 1697 Dec, [facility] [address] 1252 Dec, [facility] [id number] [place] [address]- 0045 Dec, [facility] [place] [facility] [address] [id number] [place] [address]- 3930 Dec, [facility] [place] [facility] [address] [id number] [place] [address]- 7846 Nov, [facility] [place] [facility] [address] [id number] [place] [address]- 6836 Nov, [facility] [place] [facility] [address] [id number] [place] [address]- 9084 Nov, [facility] [place] [facility] [address] [id number] [place] [address]- 6546 Nov, [facility] [place] [facility] [address] [id number] [place] [address]- 9885 Oct, [facility] [place] [facility] [address] [id number] [place] [address]- 7648 Oct, [facility] [place] [facility] [address] [id number] [place] [address]- 8181 Oct, [facility] [place] [facility] [address] [id number] [place] [address]- 3258 Oct, [facility] [place] [facility] [address] [id number] [place] [address]- 5659 Oct, [facility] [place] [facility] [address] [id number] [place] [address]- 1220 Oct, [facility] [place] [facility] [address] [id number] [place] [address]- 6229 Oct, [facility] [place] [facility] [address] [id number] [place] [address]- 9104 Oct, [facility] [place] [facility] [address] [id number] [place] [address]- 1769 Aug, [facility] [place] [facility] [address] [id number] [place] [address]- 4306 Aug, [facility] [place] [facility] [address] [id number] [place] [address]- 5468 Jun, [facility] [place] [facility] [address] [id number] [place] [address]- 6915 Jun, [facility] [place] [facility] [address] [id number] [place] [address]- 2286 May, [facility] [place] [facility] [address] [id number] [place] [address]- 5131 May, [facility] [place] [facility] [address] [id number] [place] 7554 Apr, [facility] [place] [facility] [address] [id number] [place] [address]- 9950 Apr, [facility] [place] [facility] [address] [id number] [place] [address]- 3218 Mar, [facility] [place] [facility] [address] [id number] [place] [address]- 5275 Mar, [facility] [place] [facility] [address] [id number] [place] [address]- 7829 February, [facility] [place] [facility] [address] [id number] [place] [address]- 0446 February, [facility] [place] [facility] [address] [id number] [place] [address]- 1694 February, [facility] [place] [facility] [address] [id number] [address]- 5696 February, [facility] [place] [facility] [address] [id number] [place] [address]- 0742 Jan, [facility] [place] [facility] [address] [id number] [place] [address]- 8786 Jan, [facility] [place] [facility] [address] [id number] [place] 3753 Jan, [facility] [place] [facility] [address] [id number] [place] [address]- 6294 Jan, [facility] [address] [id number] [place] [address]- 8044 Dec, [facility] [place] [facility] [address] [id number] [place] [address]- 2576 Dec, [facility] [place] [facility] [address] [id number] [place] [address]- 4456 Nov, [facility] [place] [facility] [address] [id number] [place] [address]- 3263 Nov, [facility] [place] [facility] [address] [id number] [place] [address]- 7698 Oct, [facility] [place] [facility] [address] [facility] [id number] [place] [address]- 8140 Oct, [facility] [address] [facility] [id number] [place] [address]- 9080 Sep, [facility] [address] [id number] [place] [address]- 1012 Sep, [facility] [place] [facility] [address] [facility] [id number] [place] [address]- 4487 Sep, [facility] [address] [facility] [id number] [place] [address]- 2717 Sep, [facility] [place] [facility] [address] [id number] [place] [address]- 6854 Aug, [facility] [place] [facility] [address] [id number] [place] [address]- 3936 Aug, [facility] [place] [facility] [address] [id number] [place] [address]- 3980 Aug, [facility] [place] [facility] [address] [facility] [id number] [place] [address]- 2236 Aug, [facility] [place] [facility] [address] [facility] [id number] [place] [address]- 4654 Jul, [facility] [address] [id number] [place] [address]- 4056 Jul, [facility] [place] [facility] [address] [id number] [place] [address]- 7896 Jul, [facility] [place] [facility] [address] [id number] [place] [address]- 6156 Jul, [facility] [place] [facility] [address] [id number] [place] [address]- 5176 Jun, [facility] [place] [facility] [address] [id number] [place] [address]- 8293 Jun, [facility] [place] [facility] [address] [id number] [place] [address]- 6466 May, [facility] [place] [facility] [address] [id number] [place] [address]- 0215 Apr, [facility] [place] [facility] [address] [id number] [address]- 5728 Mar, [facility] [place] [facility] [address] [id number] [place] [address]- 2217 Mar, [facility] [place] [facility] [address] [facility] [id number] [place] [address]- 2486 February, [facility] [place] [facility] [address] [id number] [place] [address]- 7046 Jan, [facility] [place] [facility] [address] [id number] [place] [address]- 1606 Jan, [facility] [place] [facility] [address] [id number] [place] [address]- 0506 Dec, [facility] [place] [facility] [address] [id number] [place] [address]- 5066 Nov, [facility] [place] [facility] [address] [id number] [place] [address]- 0836 Oct, [facility] [place] [facility] [address] [id number] [address]- 8987 Aug, [facility] [place] [facility] [address] [id number] [place] [address]- 7359 Aug, [facility] [place] [facility] [address] [id number] [place] [address]- 9413 Aug, [facility] [place] [facility] [address] [facility] [id number] [place] [address]- 7153 Aug, [facility] [place] [facility] [address] [id number] [place] [address]- 2235 Aug, [facility] [place] [facility] [address] [id number] [place] [address], [place] [address]- 3881 Aug, [facility] [place] [facility] [address] [facility] [id number] [place] [address]- 6876 Jul, [facility] [place] [facility] [address] [place] [address]- 9626 Jul, [facility] [place] [facility] [address] [facility] [id number] [place] [address]- 5723 Jul, [facility] [place] [facility] [id number] [place] [address]- 5571 Jul, [facility] [place] [facility] [id number] [place] [address]- 9328 Jun, [facility] [place] [facility] [address] [id number] [place] [address]- 6169 14 Jun, 2012 [facility] [place] [facility] [address] [id number] [address]- 6909 May, [facility] [place] [facility] [address] [id number] [place] [address]- 2939 May, [facility] [place] [facility] [address] [facility] [id number] [place] 0565 18 Apr, 2012 [facility] [place] [facility] [address] [facility] [id number] [place] [address]- 3916 Apr, [facility] [place] [facility] [address] [id number] [place] [address]- 3246 28 Mar, 2012 [facility] [place] [facility] [address] [id number] [place] [address]- 5266 20 Mar, 2012 [facility] [place] [facility] [address] [id number] [place] [address] 2546 18 Mar, 2012 [facility] [place] [facility] [address] [id number] [place] [address]- 8706 30 Feb, 2012 [facility] [place] [facility] [address] [id number] [place] [address]- 2176 February, [facility] [place] [facility] [address] [id number] [place] [address]- 8136 February, [facility] [place] [facility] [address] [id number] [place] [address]- 9556 18 Jan, 2012 [facility] [place] [facility] [address] [id number] [place] [address]- 9403 18 Jan, 2012 [facility] [place] [facility] [address] [id number] [place] [address]- 5224 10 Jan, 2012 [facility] [place] [facility] [address] [id number] [place] [address]- 6686 29 Dec, 2011 [facility] [place] [facility] [address] [id number] [place] [address]- 1411 20 Dec, 2011 [facility] [place] [facility] [address] [id number] [place] [address]- 1896 15 Dec, 2011 [facility] [place] [facility] [address] [id number] [place] [address] 14 Dec, 2011 [facility] [place] [facility] [address] [id number] [place] [address] 13 Dec, 2011 [facility] [place] [facility] [address] [id number] [place] [address] 13 Dec, 2011 [facility] [place] [facility] [address] [id number] [place] [address] Dec, [facility] [address] [id number] [place] [address] 05 Dec, 2011 [facility] [place] [facility] [address] [id number] [place] [address] Nov, [facility] [place] [facility] [address] [facility] [id number] [place] [address] Nov, [facility] [place] [facility] [address] [id number] [place] [address] Nov, [facility] [place] [facility] [address] [id number] [place] [address] Nov, [facility] [place] [facility] [address] [facility] [id number] [place] [address] Nov, [facility] [address] [facility] [id number] [place] [address] Nov, [facility] [place] [facility] [address] [facility] [id number] [place] [address] Nov, [facility] [place] [facility] [address] [facility] [id number] [place] [address] Nov, [facility] [place] [facility] [address] [facility] [id number] [place] [address] Oct, [facility] [place] [facility] [address] [facility] [id number] [place] [address] Oct, [facility] [place] [facility] [address] [facility] [id number] [place] [address] 18 Oct, 2011 [facility] [place] [facility] [address] [id number] [place] [address] 16 Oct, 2011 [facility] [place] [facility] [address] [facility] [id number] [place] [address] 13 Oct, 2011 [facility] [place] [facility] [address] [facility] [id number] [place] [address] Oct, [facility] [place] [facility] [id number] [address] Oct, [facility] [id number] [address] Oct, [facility] [address] [facility] [id number] [address] Sep, [facility] [id number] [address] Sep, [facility] [address] [facility] [id number] [address] Sep, [facility] [id number] [address] Sep, [facility] [id number] [address] Aug, [facility] [id number] [address] Aug, [facility] [id number] [address] Aug, [facility] [id number] [address] Jul, [facility] [id number] [address] Jul, [facility] [id number] [address] Jul, [facility] [id number] [address] Aug, IMMUNIZATIONS No Known Immunizations SOCIAL HISTORY Never Assessed REASON FOR VISIT Follow-up Bipolar PLAN OF CARE Activity Details Follow Up 2 Weeks Reason: Follow-up VITAL SIGNS MEDICATIONS Unknown Medications RESULTS No Results PROCEDURES Procedure Date Ordered Result Body Site [facility] VISIT MENTAL HEALTH ESTAB PT April 17, 2018 Psychotherapy, patient &/family, 45 minutes, established patient April 17, 2018 INSTRUCTIONS MEDICATIONS ADMINISTERED No Known Medications
--- OUTSIDE RECORDS SUMMARY | 2018-12-17 10:51 | XMS REPORT ---
Author Author ARIANNA MOSQUEDA Organization [facility] Address [address] [place] [address] Care Team Providers Care Wrinkle Chaser Name Role Phone ARIANNA MOSQUEDA Unavailable PROBLEMS Type Condition ICD9-CM Code [id number] Code Onset Dates Condition Status SNOMED Code Problem Moderate mixed bipolar I disorder F31.62 Active 24056647 Problem Anxiety state F41.1 Active [id number] ALLERGIES No Information ENCOUNTERS Encounter Location Date Diagnosis [facility] [id number] [place] [address] 86520- 4105 Jun, [place] [id number] [place] [address] 44383- 9719 May, Moderate mixed bipolar I disorder F31.62 and Anxiety state F41.1 [facility] [id number] [place] [address] 80834- 0366 Apr, Moderate mixed bipolar I disorder F31.62 and Anxiety state F41.1 [facility] [id number] [place] [address] 94440- 8347 Apr, Moderate mixed bipolar I disorder F31.62 and Anxiety state F41.1 [facility] [id number] [place] [address] 14251- 9075 Mar, Moderate mixed bipolar I disorder F31.62 and Anxiety state F41.1 [facility] [id number] [place] [address] 03431- 8834 February, Moderate mixed bipolar I disorder F31.62 and Anxiety state F41.1 [facility] [id number] [place] [address] 35307- 2407 Jan, Moderate mixed bipolar I disorder F31.62 and Anxiety state F41.1 [facility] [address] [address]- 7520 Dec, Moderate mixed bipolar I disorder F31.62 and Anxiety state F41.1 [facility] [id number] [place] [address] 00121- 0616 Nov, Moderate mixed bipolar I disorder F31.62 and Anxiety state F41.1 [facility] [id number] [place] [address] 63160- 0144 Nov, Moderate mixed bipolar I disorder F31.62 and Anxiety state F41.1 [facility] [id number] [place] [address] 82584- 0048 Oct, Moderate mixed bipolar I disorder F31.62 and Anxiety state F41.1 [facility] [id number] [place] [address] 07427- 1188 Oct, Moderate mixed bipolar I disorder F31.62 and Anxiety state F41.1 [facility] [id number] [place] [address] 31144- 1338 Sep, Moderate mixed bipolar I disorder F31.62 and Anxiety state F41.1 [facility] [id number] [place] [address] 58074- 5046 Aug, Moderate mixed bipolar I disorder F31.62 and Anxiety state F41.1 [facility] [address] [address]- 5831 Jul, Moderate mixed bipolar I disorder F31.62 and Anxiety state F41.1 [facility] [address] [address]- 8876 Jul, [facility] [id number] [place] [address] 55787- 0845 Jul, Moderate mixed bipolar I disorder F31.62 and Anxiety state F41.1 [facility] [address] [address]- 3451 May, Moderate mixed bipolar I disorder F31.62 and Anxiety state F41.1 [facility] [address], [place] [address]- 2786 May, Moderate mixed bipolar I disorder F31.62 and Anxiety state F41.1 [facility] [address] [address]- 3786 May, Moderate mixed bipolar I disorder F31.62 and Anxiety state F41.1 [facility] [id number] [place] [address] 70922- 2530 May, [facility] [id number] [place] [address] 83727- 6079 Apr, Moderate mixed bipolar I disorder F31.62 and Anxiety state F41.1 [facility] [id number] [place] [address] 86780- 2338 Apr, Moderate mixed bipolar I disorder F31.62 and Anxiety state F41.1 [facility] [id number] [place] [address] 68562- 4029 Mar, Moderate mixed bipolar I disorder F31.62 and Anxiety state F41.1 [facility] [id number] [place] [address] 04873- 1126 February, Moderate mixed bipolar I disorder F31.62 and Anxiety state F41.1 [facility] [address] [address]- 5976 February, Moderate mixed bipolar I disorder F31.62 and Anxiety state F41.1 [facility] [address], [place] [address]- 0700 Jan, Moderate mixed bipolar I disorder F31.62 and Anxiety state F41.1 [facility] [id number] [place] [address] 75886- 0061 Jan, Moderate mixed bipolar I disorder F31.62 and Anxiety state F41.1 [facility] [address], [place] [address]- 0172 Jan, [facility] [address], [place] [address]- 3102 Dec, Moderate mixed bipolar I disorder F31.62 and Anxiety state F41.1 [facility] [address], [place] [address]- 2690 Dec, Moderate mixed bipolar I disorder F31.62 and Anxiety state F41.1 [facility] [id number] [place] [address] 45222- 2085 Nov, Moderate mixed bipolar I disorder F31.62 and Anxiety state F41.1 [facility] [id number] [place] [address] 77031- 5822 Nov, Moderate mixed bipolar I disorder F31.62 and Anxiety state F41.1 [facility] [address], [place] [address]- 4375 Oct, Moderate mixed bipolar I disorder F31.62 and Anxiety state F41.1 [facility] [id number] [place] [address] 42367- 6524 Sep, Moderate mixed bipolar I disorder F31.62 and Anxiety state F41.1 [facility] [id number] [place] [address] 18666- 6211 Aug, Moderate mixed bipolar I disorder F31.62 and Anxiety state F41.1 [facility] [address], [place] [address]- 9683 Aug, Moderate mixed bipolar I disorder F31.62 and Anxiety state F41.1 [facility] [address], [place] [address]- 5062 Jul, Moderate mixed bipolar I disorder F31.62 and Anxiety state F41.1 [facility] [id number] [address]- 2242 06 Jun, 2016 Moderate mixed bipolar I disorder F31.62 and Anxiety state F41.1 [facility] [id number] [place] [address] 53743- 6370 May, Moderate mixed bipolar I disorder F31.62 and Anxiety state F41.1 [facility] [id number] [place] [address] 04792- 7300 May, Moderate mixed bipolar I disorder F31.62 and Anxiety state F41.1 [facility] [id number] [place] [address] 67265- 8807 Apr, Bipolar 1 disorder, depressed, moderate F31.32 and Anxiety state F41.1 [facility] [id number] [place] [address] 93963- 1644 Apr, Bipolar 1 disorder, depressed, moderate F31.32 and Bipolar I disorder, mild, current or most recent episode depressed, with anxious distress F31.31 [place] [id number] [place] [address] 44294- 9708 Mar, Bipolar 1 disorder, depressed, moderate F31.32 [facility] [id number] [place] [address] 59916- 7550 February, Bipolar 1 disorder, depressed, moderate F31.32 [facility] [id number] [place] [address] 58705- 8249 Jan, Bipolar I disorder, mild, current or most recent episode depressed, with anxious distress F31.31 [facility] [id number] [place] [address] 79180- 3588 Jan, Bipolar I disorder, mild, current or most recent episode depressed, with anxious distress F31.31 [facility] [id number] [place] [address] 58957- 5309 Jan, Bipolar 1 disorder, depressed, moderate F31.32 [facility] [id number] [place] [address] 85523- 4442 Dec, Bipolar I disorder, mild, current or most recent episode depressed, with anxious distress F31.31 [facility] [id number] [place] [address] 01112- 9153 Dec, Bipolar I disorder, mild, current or most recent episode depressed, with anxious distress F31.31 [facility] [id number] [place] [address] 04033- 2555 Nov, Bipolar I disorder, mild, current or most recent episode depressed, with anxious distress F31.31 [facility] [address] [address]- 7510 Oct, Bipolar I disorder, mild, current or most recent episode depressed, with anxious distress F31.31 [facility] [address] [address]- 0816 Oct, Bipolar I disorder, mild, current or most recent episode depressed, with anxious distress F31.31 [place] [id number] [place] [address] 04987- 1655 Sep, Bipolar I disorder, mild, current or most recent episode depressed, with anxious distress F31.31 [facility] [id number] [place] [address] 79891- 0935 Aug, Bipolar I disorder, mild, current or most recent episode depressed, with anxious distress F31.31 [facility] [id number] [place] [address] 62560- 3094 Jul, Bipolar I disorder, mild, current or most recent episode depressed, with anxious distress F31.31 [facility] [address] [place] [address]- 0418 Jul, Bipolar I disorder, mild, current or most recent episode depressed, with anxious distress F31.31 [facility] [id number] [place] [address] 38014- 6748 Jun, Bipolar I disorder, most recent episode depressed 296.50 [facility] [address], [place] [address]- 6778 Jun, Bipolar I disorder, most recent episode depressed 296.50 [facility] [id number] [place] [address] 713327- 2374 May, Bipolar disorder, current episode depressed, moderate 296.52 [facility] [address] 4414 May, Bipolar I disorder, most recent episode mixed, moderate 296.62 [facility] [address]- 4906 Apr, Bipolar I disorder, most recent episode mixed, moderate 296.62 [facility] [address] 2367 Apr, [facility] [address] 5899 Apr, Bipolar I disorder, most recent episode mixed, moderate 296.62 [facility] [address] 0718 February, Bipolar disorder, current episode depressed, moderate 296.52 [facility] [address], [place] [address]- 4524 Jan, [facility] [address] 6750 Jan, [facility] [address] 6809 Dec, [facility] [address], [place] [address]- 7559 Dec, [facility] [address], [place] [address]- 8212 Dec, [facility] [address]- 9312 Dec, [facility] [address] 4404 Dec, [facility] [address] 3013 Dec, [facility] [id number] [place] [address]- 3166 Dec, [facility] [place] [facility] [address] [id number] [place] [address]- 5123 Dec, [facility] [place] [facility] [address] [id number] [place] [address]- 9967 Nov, [facility] [place] [facility] [address] [id number] [place] [address]- 4806 Nov, [facility] [place] [facility] [address] [id number] [place] [address]- 8879 Nov, [facility] [place] [facility] [address] [id number] [place] [address]- 0061 Nov, [facility] [place] [facility] [address] [id number] [place] [address]- 4870 Oct, [facility] [place] [facility] [address] [id number] [place] [address]- 5644 Oct, [facility] [place] [facility] [address] [id number] [place] [address]- 9473 Oct, [facility] [place] [facility] [address] [id number] [place] [address]- 9967 Oct, [facility] [place] [facility] [address] [id number] [place] [address]- 6967 Oct, [facility] [place] [facility] [address] [id number] [place] [address]- 2385 Oct, [facility] [place] [facility] [address] [id number] [place] [address]- 1832 Oct, [facility] [place] [facility] [address] [id number] [place] [address]- 7411 Oct, [facility] [place] [facility] [address] [id number] [place] [address]- 2535 Aug, [facility] [place] [facility] [address] [id number] [place] [address]- 8541 Aug, [facility] [place] [facility] [address] [id number] [place] [address]- 9626 Jun, [facility] [place] [facility] [address] [id number] [place] [address]- 4655 Jun, [facility] [place] [facility] [address] [id number] [place] [address]- 4105 May, [facility] [place] [facility] [address] [id number] [place] [address]- 7993 May, [facility] [place] [facility] [address] [id number] [place] 3415 Apr, [facility] [place] [facility] [address] [id number] [place] [address]- 5367 Apr, [facility] [place] [facility] [address] [id number] [place] [address]- 8719 Mar, [facility] [place] [facility] [address] [id number] [place] [address]- 5888 Mar, [facility] [place] [facility] [address] [id number] [place] [address]- 0093 February, [facility] [place] [facility] [address] [id number] [place] [address]- 0773 February, [facility] [place] [facility] [address] [id number] [place] [address]- 5934 February, [facility] [place] [facility] [address] [id number], [place] [address]- 0147 February, [facility] [place] [facility] [address] [id number] [place] [address]- 1143 Jan, [facility] [place] [facility] [address] [id number] [place] [address]- 3637 Jan, [facility] [place] [facility] [address] [id number] [place] 2363 Jan, [facility] [place] [facility] [address] [id number] [place] [address]- 7884 Jan, [facility] [address] [id number] [place] [address]- 4775 Dec, [facility] [place] [facility] [address] [id number] [place] [address]- 1146 Dec, [facility] [place] [facility] [address] [id number] [place] [address]- 2986 Nov, [facility] [place] [facility] [address] [id number] [place] [address]- 6836 Nov, [facility] [place] [facility] [address] [id number] [place] [address]- 3296 Oct, [facility] [place] [facility] [address] [facility] [id number] [place] [address]- 4791 Oct, [facility] [address] [facility] [id number] [place] [address]- 1911 Sep, [facility] [address] [id number] [place] [address]- 5835 Sep, [facility] [place] [facility] [address] [facility] [id number] [place] [address]- 3933 Sep, [facility] [address] [facility] [id number] [place] [address]- 2312 Sep, [facility] [place] [facility] [address] [id number] [place] [address]- 2911 Aug, [facility] [place] [facility] [address] [id number] [place] [address]- 1302 Aug, [facility] [place] [facility] [address] [id number] [place] [address]- 0846 Aug, [facility] [place] [facility] [address] [facility] [id number] [place] [address]- 0506 Aug, [facility] [place] [facility] [address] [facility] [id number] [place] [address]- 7956 Jul, [facility] [address] [id number] [place] [address]- 0222 Jul, [facility] [place] [facility] [address] [id number] [place] [address]- 2716 Jul, [facility] [place] [facility] [address] [id number] [place] [address]- 1656 Jul, [facility] [place] [facility] [address] [id number] [place] [address]- 2286 Jun, [facility] [place] [facility] [address] [id number] [place] [address]- 5746 Jun, [facility] [place] [facility] [address] [id number] [place] [address]- 1936 May, [facility] [place] [facility] [address] [id number] [place] [address]- 2868 Apr, [facility] [place] [facility] [address] [id number], [place] [address]- 2848 Mar, [facility] [place] [facility] [address] [id number] [place] [address]- 9559 Mar, [facility] [place] [facility] [address] [facility] [id number], [place] [address]- 7466 February, [facility] [place] [facility] [address] [id number], [place] [address]- 3166 Jan, [facility] [place] [facility] [address] [id number], [place] [address]- 4596 Jan, [facility] [place] [facility] [address] [id number], [place] [address]- 7806 Dec, [facility] [place] [facility] [address] [id number], [place] [address]- 7926 Nov, [facility] [place] [facility] [address] [id number], [place] [address]- 6456 Oct, [facility] [place] [facility] [address] [id number], [place] [address]- 9404 Aug, [facility] [place] [facility] [address] [id number] [place] [address]- 1929 Aug, [facility] [place] [facility] [address] [id number] [place] [address]- 8250 Aug, [facility] [place] [facility] [address] [facility] [id number] [place] [address]- 9199 Aug, [facility] [place] [facility] [address] [id number] [place] [address]- 5890 Aug, [facility] [place] [facility] [id number] [place] [address], [place] [address]- 6876 Aug, [facility] [place] [facility] [address] [facility] [id number] [place] [address]- 0987 Jul, [facility] [place] [facility] [id number] [place] [address]- 4477 Jul, [facility] [place] [facility] [address] [facility] [id number] [place] [address]- 7225 Jul, [facility] [place] [facility] [address] [id number] [place] [address]- 4857 Jul, [facility] [place] [facility] [address] [id number] [place] [address]- 9916 Jun, [facility] [place] [facility] [address] [id number] [place] [address]- 3280 14 Jun, 2012 [facility] [place] [facility] [address] [id number], [place] [address]- 6651 May, [facility] [place] [facility] [address] [id number] [place] [address]- 9752 May, [facility] [place] [facility] [address] [facility] [id number] [place] 2237 18 Apr, 2012 [facility] [place] [facility] [address] [facility] [id number] [place] [address]- 2863 Apr, [facility] [place] [facility] [address] [id number] [place] [address]- 2726 28 Mar, 2012 [facility] [place] [facility] [address] [id number] [place] [address]- 9856 20 Mar, 2012 [facility] [place] [facility] [address] [id number] [place] [address] 2546 18 Mar, 2012 [facility] [place] [facility] [address] [id number] [place] [address]- 6346 30 Feb, 2012 [facility] [place] [facility] [address] [id number] [place] [address]- 2416 February, [facility] [place] [facility] [address] [id number] [place] [address]- 5356 February, [facility] [place] [facility] [address] [id number] [place] [address]- 7446 18 Jan, 2012 [facility] [place] [facility] [address] [id number] [place] [address]- 0311 18 Jan, 2012 [facility] [place] [facility] [address] [id number] [place] [address] 10 Jan, 2012 [facility] [place] [facility] [address] [id number] [place] [address] 29 Dec, 2011 [facility] [place] [facility] [address] [id number] [place] [address] 20 Dec, 2011 [facility] [place] [facility] [address] [id number] [place] [address] 15 Dec, 2011 [facility] [place] [facility] [address] [id number] [place] [address] 14 Dec, 2011 [facility] [place] [facility] [address] [id number] [place] [address] 13 Dec, 2011 [facility] [place] [facility] [address] [id number] [place] [address] 13 Dec, 2011 [facility] [place] [facility] [address] [id number] [place] [address] Dec, [facility] [address] [id number] [place] [address] 05 Dec, 2011 [facility] [place] [facility] [address] [id number] [place] [address] Nov, [facility] [place] [facility] [address] [facility] [id number] [place] [address] Nov, [facility] [place] [facility] [address] [id number] [place] [address] Nov, [facility] [place] [facility] [address] [id number] [place] [address] Nov, [facility] [place] [facility] [address] [facility] [id number] [place] [address] Nov, [facility] [address] [facility] [id number] [place] [address] Nov, [facility] [place] [facility] [address] [facility] [id number] [place] [address] Nov, [facility] [place] [facility] [address] [facility] [id number] [place] [address] Nov, [facility] [place] [facility] [address] [facility] [id number] [place] [address] Oct, [facility] [place] [facility] [address] [facility] [id number] [place] [address] Oct, [facility] [place] [facility] [address] [facility] [id number] [place] [address] 18 Oct, 2011 [facility] [place] [facility] [address] [id number] [place] [address] 16 Oct, 2011 [facility] [place] [facility] [address] [facility] [id number] [place] [address] 13 Oct, 2011 [facility] [place] [facility] [address] [facility] [id number] [place] [address] Oct, [facility] [place] [facility] [id number] [address] Oct, [facility] [id number] [address] Oct, [facility] [address] [facility] [id number] [address] Sep, [facility] [id number], [place] [address] Sep, [facility] [address] [facility] [id number], [place] [address] Sep, [facility] [id number], [place] [address] Sep, [facility] [id number], [place] [address] Aug, [facility] [id number], [place] [address] Aug, [facility] [id number], [place] [address] Aug, [facility] [id number], [place] [address] Jul, [facility] [id number], [place] [address] Jul, [facility] [id number] [address] Jul, [facility] [id number], [place] [address] Aug, IMMUNIZATIONS No Known Immunizations SOCIAL HISTORY Never Assessed REASON FOR VISIT Follow-up Bipolar PLAN OF CARE Activity Details Follow Up 2 Weeks Reason: Follow-up VITAL SIGNS MEDICATIONS Unknown Medications RESULTS No Results PROCEDURES Procedure Date Ordered Result Body Site [facility] VISIT MENTAL HEALTH ESTAB PT May 01, 2018 Psychotherapy, patient &/family, 30 minutes, established patient May 01, 2018 INSTRUCTIONS MEDICATIONS ADMINISTERED No Known Medications
--- OUTSIDE RECORDS SUMMARY | 2018-12-17 10:52 | XMS REPORT ---
Author Author ARIANNA MOSQUEDA Organization [facility] Address [address] [place] [address] Care Team Providers Care Service Now Developer Name Role Phone ARIANNA MOSQUEDA Unavailable PROBLEMS Type Condition ICD9-CM Code [id number] Code Onset Dates Condition Status SNOMED Code Problem Moderate mixed bipolar I disorder F31.62 Active 54818054 Problem Anxiety state F41.1 Active [id number] ALLERGIES No Information ENCOUNTERS Encounter Location Date Diagnosis [place] [id number] [place] [address] 22469- 7113 Jun, [place] [id number] [place] [address] 63165- 4930 May, [place] [id number] [place] [address] 00359- 6031 May, Moderate mixed bipolar I disorder F31.62 and Anxiety state F41.1 [place] [id number] [place] [address] 47873- 4270 Apr, Moderate mixed bipolar I disorder F31.62 and Anxiety state F41.1 [place] [id number] [place] [address] 26023- 3645 Apr, Moderate mixed bipolar I disorder F31.62 and Anxiety state F41.1 [place] [id number] [place] [address] 45070- 4607 Mar, Moderate mixed bipolar I disorder F31.62 and Anxiety state F41.1 [place] [id number] [place] [address] 15298- 9193 February, Moderate mixed bipolar I disorder F31.62 and Anxiety state F41.1 [place] [id number] [place] [address] 09991- 8808 Jan, Moderate mixed bipolar I disorder F31.62 and Anxiety state F41.1 [facility] [id number] [place] [address] 36816- 2422 Dec, Moderate mixed bipolar I disorder F31.62 and Anxiety state F41.1 [facility] [id number] [place] [address] 97137- 5254 Nov, Moderate mixed bipolar I disorder F31.62 and Anxiety state F41.1 [facility] [id number] [place] [address] 53347- 2694 Nov, Moderate mixed bipolar I disorder F31.62 and Anxiety state F41.1 [facility] [id number] [place] [address] 93926- 6213 Oct, Moderate mixed bipolar I disorder F31.62 and Anxiety state F41.1 [facility] [id number] [place] [address] 96382- 5069 Oct, Moderate mixed bipolar I disorder F31.62 and Anxiety state F41.1 [facility] [id number] [place] [address] 37692- 3579 Sep, Moderate mixed bipolar I disorder F31.62 and Anxiety state F41.1 [facility] [id number] [place] [address] 48122- 4132 Aug, Moderate mixed bipolar I disorder F31.62 and Anxiety state F41.1 [facility] [address] [address]- 3935 Jul, Moderate mixed bipolar I disorder F31.62 and Anxiety state F41.1 [facility] [id number] [place] [address] 91808- 4150 Jul, [facility] [id number] [place] [address] 89881- 7022 Jul, Moderate mixed bipolar I disorder F31.62 and Anxiety state F41.1 [facility] [address] [address]- 4349 May, Moderate mixed bipolar I disorder F31.62 and Anxiety state F41.1 [facility] [id number] [place] [address] 27080- 2803 May, Moderate mixed bipolar I disorder F31.62 and Anxiety state F41.1 [facility] [id number] [place] [address] 03256- 5594 May, Moderate mixed bipolar I disorder F31.62 and Anxiety state F41.1 [facility] [id number] [place] [address] 75682- 2133 May, [facility] [id number] [place] [address] 06867- 9850 Apr, Moderate mixed bipolar I disorder F31.62 and Anxiety state F41.1 [facility] [id number] [place] [address] 27524- 0882 Apr, Moderate mixed bipolar I disorder F31.62 and Anxiety state F41.1 [facility] [address] [place] [address] 69033- 6294 Mar, Moderate mixed bipolar I disorder F31.62 and Anxiety state F41.1 [facility] [address] [address]- 0686 February, Moderate mixed bipolar I disorder F31.62 and Anxiety state F41.1 [facility] [address] [address]- 5750 February, Moderate mixed bipolar I disorder F31.62 and Anxiety state F41.1 [facility] [address] [place] [address] 98662- 5460 Jan, Moderate mixed bipolar I disorder F31.62 and Anxiety state F41.1 [facility] [address] [address]- 1743 Jan, Moderate mixed bipolar I disorder F31.62 and Anxiety state F41.1 [facility] [address] [address]- 4587 Jan, [facility] [id number] [place] [address] 29512- 9492 30 Dec, 2016 Moderate mixed bipolar I disorder F31.62 and Anxiety state F41.1 [facility] [address] [place] [address] 81815- 2929 14 Dec, 2016 Moderate mixed bipolar I disorder F31.62 and Anxiety state F41.1 [facility] [address] [place] [address] 42825- 7457 Nov, Moderate mixed bipolar I disorder F31.62 and Anxiety state F41.1 [facility] [address] [place] [address] 60235- 0233 14 Nov, 2016 Moderate mixed bipolar I disorder F31.62 and Anxiety state F41.1 [facility] [id number] [place] [address] 51997- 7457 Oct, Moderate mixed bipolar I disorder F31.62 and Anxiety state F41.1 [facility] [address] [place] [address] 06565- 2769 05 Sep, 2016 Moderate mixed bipolar I disorder F31.62 and Anxiety state F41.1 [facility] [address] [place] [address] 92331- 8453 Aug, Moderate mixed bipolar I disorder F31.62 and Anxiety state F41.1 [facility] [address] [place] [address] 91700- 3503 Aug, Moderate mixed bipolar I disorder F31.62 and Anxiety state F41.1 [facility] [address] [place] [address] 07828- 0246 Jul, Moderate mixed bipolar I disorder F31.62 and Anxiety state F41.1 [facility] [address] [place] [address] 43882- 2246 06 Sep, 2016 Moderate mixed bipolar I disorder F31.62 and Anxiety state F41.1 [facility] [address] [place] [address] 25781- 2063 May, Moderate mixed bipolar I disorder F31.62 and Anxiety state F41.1 [facility] [address] [place] [address] 48221- 8604 May, Moderate mixed bipolar I disorder F31.62 and Anxiety state F41.1 [facility] [id number] [place] [address] 10468- 9929 Apr, Bipolar 1 disorder, depressed, moderate F31.32 and Anxiety state F41.1 [place] [id number] [place] [address] 58632- 3353 Apr, Bipolar 1 disorder, depressed, moderate F31.32 and Bipolar I disorder, mild, current or most recent episode depressed, with anxious distress F31.31 [place] [id number] [place] [address] 45238- 1309 Mar, Bipolar 1 disorder, depressed, moderate F31.32 [place] [id number] [place] [address] 81567- 5738 February, Bipolar 1 disorder, depressed, moderate F31.32 [facility] [address] [place] [address] 83319- 6917 Jan, Bipolar I disorder, mild, current or most recent episode depressed, with anxious distress F31.31 [facility] [address] [place] [address] 56514- 1992 Jan, Bipolar I disorder, mild, current or most recent episode depressed, with anxious distress F31.31 [facility] [id number] [place] [address] 78742- 6042 Jan, Bipolar 1 disorder, depressed, moderate F31.32 [facility] [address] [place] [address] 84535- 4966 Dec, Bipolar I disorder, mild, current or most recent episode depressed, with anxious distress F31.31 [facility] [address] [address]- 3013 Dec, Bipolar I disorder, mild, current or most recent episode depressed, with anxious distress F31.31 [facility] [address] [address]- 3498 Nov, Bipolar I disorder, mild, current or most recent episode depressed, with anxious distress F31.31 [facility] [address] [place] [address] 02826- 1751 Oct, Bipolar I disorder, mild, current or most recent episode depressed, with anxious distress F31.31 [facility] [address] [place] [address] 72622- 7367 Oct, Bipolar I disorder, mild, current or most recent episode depressed, with anxious distress F31.31 [place] [id number] [place] [address] 08264- 1780 Sep, Bipolar I disorder, mild, current or most recent episode depressed, with anxious distress F31.31 [facility] [address] [place] [address] 66265- 3871 Aug, Bipolar I disorder, mild, current or most recent episode depressed, with anxious distress F31.31 [facility] [address] [address]- 0369 Jul, Bipolar I disorder, mild, current or most recent episode depressed, with anxious distress F31.31 [facility] [address] [address]- 0427 Jul, Bipolar I disorder, mild, current or most recent episode depressed, with anxious distress F31.31 [facility] [address] [address]- 9875 17 Jun, 2015 Bipolar I disorder, most recent episode depressed 296.50 [facility] [id number] [place] [address] 89762- 9277 Jun, Bipolar I disorder, most recent episode depressed 296.50 [facility] [address] [address]- 3609 May, Bipolar disorder, current episode depressed, moderate 296.52 [facility] [address] [address]- 4906 May, Bipolar I disorder, most recent episode mixed, moderate 296.62 [facility] [address] [address]- 6328 Apr, Bipolar I disorder, most recent episode mixed, moderate 296.62 [facility] [address] [address]- 3517 Apr, [facility] [address] [address]- 0506 Apr, Bipolar I disorder, most recent episode mixed, moderate 296.62 [facility] [address] [address]- 3192 February, Bipolar disorder, current episode depressed, moderate 296.52 [facility] [address] [address]- 4202 Jan, [facility] [address] [address] 4562 Jan, [facility] [address] 7517 Dec, [facility] [address] [address]- 5722 Dec, [facility] [address], [place] [address]- 3218 Dec, [facility] [address], [place] [address]- 6570 Dec, [facility] [address] [address]- 1816 Dec, [facility] [id number] [place] [address]- 7835 Dec, [facility] [place] [facility] [address] [id number] [place] [address]- 4681 Dec, [facility] [place] [facility] [address] [id number] [place] [address]- 5368 Dec, [facility] [place] [facility] [address] [id number] [place] [address]- 6315 Nov, [facility] [place] [facility] [address] [id number] [place] [address]- 5540 Nov, [facility] [place] [facility] [address] [id number] [place] [address]- 9054 Nov, [facility] [place] [facility] [address] [id number] [place] [address]- 5982 Nov, [facility] [place] [facility] [address] [id number] [place] [address]- 5339 Oct, [facility] [place] [facility] [address] [id number] [place] [address]- 9628 Oct, [facility] [place] [facility] [address] [id number] [place] [address]- 7546 Oct, [facility] [place] [facility] [address] [id number] [place] [address]- 6643 Oct, [facility] [place] [facility] [address] [id number] [place] [address]- 3211 Oct, [facility] [place] [facility] [address] [id number] [place] [address]- 4922 Oct, [facility] [place] [facility] [address] [id number] [place] [address]- 9147 Oct, [facility] [place] [facility] [address] [id number] [place] [address]- 2373 Oct, [facility] [place] [facility] [address] [id number] [place] [address]- 4778 Aug, [facility] [place] [facility] [address] [id number] [place] [address]- 2285 Aug, [facility] [place] [facility] [address] [id number] [place] [address]- 2543 Jun, [facility] [place] [facility] [address] [id number] [place] [address]- 8093 Jun, [facility] [place] [facility] [address] [id number] [place] [address]- 1406 May, [facility] [place] [facility] [address] [id number] [place] [address]- 7316 May, [facility] [place] [facility] [address] [id number] [place] [address]- 4786 Apr, [facility] [place] [facility] [address] [id number] [place] [address]- 7326 Apr, [facility] [place] [facility] [address] [id number] [place] [address]- 2238 Mar, [facility] [place] [facility] [address] [id number] [place] [address]- 2952 Mar, [facility] [place] [facility] [address] [id number] [place] [address]- 9184 February, [facility] [place] [facility] [address] [id number] [place] [address]- 6348 February, [facility] [place] [facility] [address] [id number] [address]- 7671 February, [facility] [place] [facility] [address] [id number] [place] [address]- 7316 February, [facility] [place] [facility] [address] [id number] [place] [address]- 2592 Jan, [facility] [place] [facility] [address] [id number] [place] [address]- 1700 Jan, [facility] [place] [facility] [address] [id number] [place] [address]- 5138 Jan, [facility] [address] [id number] [place] [address]- 9556 Jan, [facility] [place] [facility] [address] [id number] [place] [address]- 9096 Dec, [facility] [place] [facility] [address] [id number] [place] [address]- 5446 Dec, [facility] [place] [facility] [address] [id number] [place] [address]- 4401 Nov, [facility] [place] [facility] [address] [id number] [place] [address]- 2016 Nov, [facility] [place] [facility] [address] [id number] [place] 4825 Oct, [facility] [place] [facility] [address] [id number] [place] [address]- 6672 Oct, [facility] [address] [id number] [place] [address]- 6787 Sep, [facility] [place] [facility] [address] [id number] [place] [address]- 6383 Sep, [facility] [address] [facility] [id number] [place] [address]- 9342 Sep, [facility] [place] [facility] [address] [id number] [place] [address] 2546 Sep, [facility] [place] [facility] [address] [id number] [place] [address]- 9752 Aug, [facility] [place] [facility] [address] [id number] [place] [address]- 6543 Aug, [facility] [place] [facility] [address] [id number] [place] [address]- 2546 Aug, [facility] [place] [facility] [address] [facility] [id number] [place] [address]- 9853 Aug, [facility] [address] [id number] [place] [address]- 8773 Jul, [facility] [place] [facility] [address] [id number] [place] [address]- 1206 Jul, [facility] [place] [facility] [address] [id number] [place] [address]- 7696 Jul, [facility] [place] [facility] [address] [id number] [place] [address]- 1306 Jul, [facility] [place] [facility] [address] [id number] [place] [address]- 9108 Jun, [facility] [place] [facility] [address] [id number] [place] [address]- 5516 Jun, [facility] [place] [facility] [address] [id number] [place] [address]- 4766 May, [facility] [place] [facility] [address] [id number], [place] [address]- 5276 Apr, [facility] [place] [facility] [address] [id number] [place] [address]- 6581 Mar, [facility] [place] [facility] [address] [facility] [id number], [place] [address]- 1876 Mar, [facility] [place] [facility] [address] [facility] [id number], [place] [address]- 5946 February, [facility] [place] [facility] [address] [id number], [place] [address]- 5566 Jan, [facility] [place] [facility] [address] [id number], [place] [address]- 3516 Jan, [facility] [place] [facility] [address] [id number], [place] [address]- 2546 Dec, [facility] [place] [facility] [address] [facility] [id number], [place] [address]- 9836 Nov, [facility] [place] [facility] [address] [id number], [place] [address]- 7193 Oct, [facility] [place] [facility] [address] [id number] [place] [address]- 1965 Aug, [facility] [place] [facility] [address] [id number] [place] [address]- 8911 Aug, [facility] [place] [facility] [address] [facility] [id number] [place] [address]- 7971 Aug, [facility] [place] [facility] [address] [id number] [place] [address]- 0249 Aug, [facility] [place] [facility] [address] [facility] [id number] [place] [address], [place] [address]- 7177 Aug, [facility] [place] [facility] [address] [facility] [id number] [place] [address]- 8660 Aug, [facility] [place] [facility] [id number] [place] [address], [place] [address]- 7657 Jul, [facility] [place] [facility] [address] [id number] [place] [address]- 7025 Jul, [facility] [place] [facility] [id number] [place] [address]- 0020 Jul, [facility] [place] [facility] [id number] [place] [address]- 8640 Jul, [facility] [place] [facility] [address] [facility] [id number] [place] [address]- 1221 27 Jun, 2012 [facility] [place] [facility] [address] [facility] [id number], [place] [address]- 8554 14 Jun, 2012 [facility] [place] [facility] [address] [facility] [id number] [place] [address]- 9556 31 May, 2012 [facility] [place] [facility] [address] [facility] [id number] [place] [address]- 7378 May, [facility] [place] [facility] [id number] [place] [address]- 9804 18 Apr, 2012 [facility] [place] [facility] [address] [id number] [place] [address]- 7416 13 Apr, 2012 [facility] [place] [facility] [address] [id number] [place] [address]- 6256 28 Mar, 2012 [facility] [place] [facility] [address] [id number] [place] [address]- 7796 20 Mar, 2012 [facility] [place] [facility] [address] [id number] [place] [address]- 2676 18 Mar, 2012 [facility] [place] [facility] [address] [id number] [place] [address]- 8606 February, [facility] [place] [facility] [address] [id number] [place] [address]- 3866 February, [facility] [place] [facility] [address] [id number] [place] [address]- 3746 February, [facility] [place] [facility] [address] [id number] [place] [address]- 5172 18 Jan, 2012 [facility] [place] [facility] [address] [id number] [place] [address]- 1766 18 Jan, 2012 [facility] [place] [facility] [address] [id number] [place] [address]- 4506 10 Jan, 2012 [facility] [place] [facility] [address] [id number] [place] [address]- 3284 29 Dec, 2011 [facility] [place] [facility] [address] [id number] [place] [address]- 4804 20 Dec, 2011 [facility] [place] [facility] [address] [id number] [place] [address]- 5736 15 Dec, 2011 [facility] [place] [facility] [address] [id number] [place] [address]- 4426 14 Dec, 2011 [facility] [place] [facility] [address] [id number] [place] [address] 2546 13 Dec, 2011 [facility] [place] [facility] [address] [id number] [place] [address]- 3828 Dec, [facility] [address] [id number] [place] [address] 13 Dec, 2011 [facility] [address] [id number] [place] [address] 05 Dec, 2011 [facility] [address] [facility] [id number] [place] [address] 28 Nov, 2011 [facility] [address] [id number] [place] [address] 23 Nov, 2011 [facility] [address] [id number] [place] [address] 16 Nov, 2011 [facility] [address] [facility] [id number] [place] [address] 16 Nov, 2011 [facility] [address] [facility] [id number] [place] [address] Nov, [facility] [place] [facility] [address] [id number] [place] [address] 07 Nov, 2011 [facility] [address] [facility] [id number] [place] [address] 06 Nov, 2011 [facility] [address] [facility] [id number] [place] [address] Nov, [facility] [address] [facility] [id number] [place] [address] Oct, [facility] [place] [facility] [address] [facility] [id number] [place] [address] Oct, [facility] [place] [facility] [address] [id number] [place] [address] 18 Oct, 2011 [facility] [place] [facility] [address] [facility] [id number] [place] [address] 16 Oct, 2011 [facility] [place] [facility] [address] [facility] [id number] [place] [address] Oct, [facility] [place] [facility] [address] [facility] [id number] [address] Oct, [facility] [address] [facility] [id number] [address] Oct, [facility] [address] [facility] [id number] [address] [address] Oct, [facility] [id number] [address] Sep, [facility] [address] [facility] [id number], [place] [address] Sep, [facility] [id number] [address] Sep, [facility] [id number], [place] [address] Sep, [facility] [id number], [place] [address] Aug, [facility] [id number], [place] [address] Aug, [facility] [id number], [place] [address] Aug, [facility] [address] [address] Jul, [facility] [address] [id number] [address] Jul, [facility] [address] [id number], [place] [address] Jul, [facility] [id number], [place] [address] Aug, IMMUNIZATIONS No Known Immunizations SOCIAL HISTORY Never Assessed REASON FOR VISIT Follow-up Bipolar PLAN OF CARE Activity Details Follow Up 4 Weeks Reason: Follow-up VITAL SIGNS MEDICATIONS Unknown Medications RESULTS No Results PROCEDURES Procedure Date Ordered Result Body Site [facility] VISIT MENTAL HEALTH ESTAB PT February 27, 2018 Psychotherapy, patient &/family, 45 minutes, established patient February 27, 2018 INSTRUCTIONS MEDICATIONS ADMINISTERED No Known Medications
--- OUTSIDE RECORDS SUMMARY | 2018-12-17 10:52 | XMS REPORT ---
Author Author ARIANNA MOSQUEDA Organization [facility] Address [address] [place] [address] Care Team Providers Care Legal Activity Adjudicator Name Role Phone ARIANNA MOSQUEDA Unavailable PROBLEMS Type Condition ICD9-CM Code [id number] Code Onset Dates Condition Status SNOMED Code Problem Moderate mixed bipolar I disorder F31.62 Active 03951780 Problem Anxiety state F41.1 Active [id number] ALLERGIES No Information ENCOUNTERS Encounter Location Date Diagnosis [facility] [facility] [id number] [place] [address] 56580- 6867 Jun, [place] [facility] [id number] [place] [address] 65752- 6027 May, [facility] [facility] [id number] [place] [address] 61895- 5354 May, Moderate mixed bipolar I disorder F31.62 and Anxiety state F41.1 [place] [facility] [id number] [place] [address] 89589- 9507 Apr, Moderate mixed bipolar I disorder F31.62 and Anxiety state F41.1 [place] [facility] [id number] [place] [address] 60837- 9256 Apr, Moderate mixed bipolar I disorder F31.62 and Anxiety state F41.1 [place] [id number] [place] [address] 19334- 9900 Mar, Moderate mixed bipolar I disorder F31.62 and Anxiety state F41.1 [place] [id number] [place] [address] 59482- 7375 February, Moderate mixed bipolar I disorder F31.62 and Anxiety state F41.1 [place] [id number] [place] [address] 09257- 3623 Jan, Moderate mixed bipolar I disorder F31.62 and Anxiety state F41.1 [facility] [id number] [place] [address] 86888- 6536 Dec, Moderate mixed bipolar I disorder F31.62 and Anxiety state F41.1 [facility] [id number] [place] [address] 96427- 8747 Nov, Moderate mixed bipolar I disorder F31.62 and Anxiety state F41.1 [facility] [id number] [place] [address] 39105- 2510 Nov, Moderate mixed bipolar I disorder F31.62 and Anxiety state F41.1 [facility] [id number] [place] [address] 66383- 8298 Oct, Moderate mixed bipolar I disorder F31.62 and Anxiety state F41.1 [facility] [id number] [place] [address] 11464- 8141 Oct, Moderate mixed bipolar I disorder F31.62 and Anxiety state F41.1 [facility] [id number] [place] [address] 95588- 2324 Sep, Moderate mixed bipolar I disorder F31.62 and Anxiety state F41.1 [facility] [id number] [place] [address] 14322- 6196 Aug, Moderate mixed bipolar I disorder F31.62 and Anxiety state F41.1 [facility] [address] [address]- 1153 Jul, Moderate mixed bipolar I disorder F31.62 and Anxiety state F41.1 [facility] [id number] [place] [address] 93742- 5804 Jul, [facility] [id number] [place] [address] 14397- 2908 Jul, Moderate mixed bipolar I disorder F31.62 and Anxiety state F41.1 [facility] [address] [address]- 9946 May, Moderate mixed bipolar I disorder F31.62 and Anxiety state F41.1 [facility] [id number] [place] [address] 04753- 0840 May, Moderate mixed bipolar I disorder F31.62 and Anxiety state F41.1 [facility] [id number] [place] [address] 07960- 2452 May, Moderate mixed bipolar I disorder F31.62 and Anxiety state F41.1 [facility] [id number] [place] [address] 89691- 4486 May, [facility] [id number] [place] [address] 19571- 6813 Apr, Moderate mixed bipolar I disorder F31.62 and Anxiety state F41.1 [facility] [id number] [place] [address] 16740- 5458 Apr, Moderate mixed bipolar I disorder F31.62 and Anxiety state F41.1 [facility] [id number] [place] [address] 96662- 2511 Mar, Moderate mixed bipolar I disorder F31.62 and Anxiety state F41.1 [facility] [address] [address]- 1533 February, Moderate mixed bipolar I disorder F31.62 and Anxiety state F41.1 [facility] [address] [address]- 4626 February, Moderate mixed bipolar I disorder F31.62 and Anxiety state F41.1 [facility] [id number] [place] [address] 86721- 1818 Jan, Moderate mixed bipolar I disorder F31.62 and Anxiety state F41.1 [facility] [address] [address]- 5056 Jan, Moderate mixed bipolar I disorder F31.62 and Anxiety state F41.1 [facility] [address] [address]- 5321 Jan, [facility] [id number] [place] [address] 56945- 6847 30 Dec, 2016 Moderate mixed bipolar I disorder F31.62 and Anxiety state F41.1 [facility] [id number] [place] [address] 07503- 0347 14 Dec, 2016 Moderate mixed bipolar I disorder F31.62 and Anxiety state F41.1 [facility] [id number] [place] [address] 74068- 6474 Nov, Moderate mixed bipolar I disorder F31.62 and Anxiety state F41.1 [facility] [id number] [place] [address] 32958- 0418 14 Nov, 2016 Moderate mixed bipolar I disorder F31.62 and Anxiety state F41.1 [facility] [id number] [place] [address] 10305- 8726 Oct, Moderate mixed bipolar I disorder F31.62 and Anxiety state F41.1 [facility] [id number] [place] [address] 23037- 2818 05 Sep, 2016 Moderate mixed bipolar I disorder F31.62 and Anxiety state F41.1 [facility] [id number] [place] [address] 50435- 0116 Aug, Moderate mixed bipolar I disorder F31.62 and Anxiety state F41.1 [facility] [id number] [place] [address] 23391- 0750 Aug, Moderate mixed bipolar I disorder F31.62 and Anxiety state F41.1 [facility] [id number] [place] [address] 78528- 4652 Jul, Moderate mixed bipolar I disorder F31.62 and Anxiety state F41.1 [facility] [id number] [place] [address] 52653- 2457 06 Sep, 2016 Moderate mixed bipolar I disorder F31.62 and Anxiety state F41.1 [facility] [id number] [place] [address] 40377- 1527 May, Moderate mixed bipolar I disorder F31.62 and Anxiety state F41.1 [facility] [id number] [place] [address] 63906- 3400 May, Moderate mixed bipolar I disorder F31.62 and Anxiety state F41.1 [facility] [id number] [place] [address] 27704- 6347 Apr, Bipolar 1 disorder, depressed, moderate F31.32 and Anxiety state F41.1 [place] [id number] [place] [address] 85223- 3891 Apr, Bipolar 1 disorder, depressed, moderate F31.32 and Bipolar I disorder, mild, current or most recent episode depressed, with anxious distress F31.31 [place] [id number] [place] [address] 20706- 4267 Mar, Bipolar 1 disorder, depressed, moderate F31.32 [place] [id number] [place] [address] 28811- 5572 February, Bipolar 1 disorder, depressed, moderate F31.32 [facility] [id number] [place] [address] 42925- 8177 Jan, Bipolar I disorder, mild, current or most recent episode depressed, with anxious distress F31.31 [facility] [id number] [place] [address] 23525- 2013 Jan, Bipolar I disorder, mild, current or most recent episode depressed, with anxious distress F31.31 [facility] [id number] [place] [address] 37415- 3400 Jan, Bipolar 1 disorder, depressed, moderate F31.32 [facility] [id number] [place] [address] 54893- 7923 Dec, Bipolar I disorder, mild, current or most recent episode depressed, with anxious distress F31.31 [facility] [address] [address]- 2218 Dec, Bipolar I disorder, mild, current or most recent episode depressed, with anxious distress F31.31 [facility] [address] [address]- 7649 Nov, Bipolar I disorder, mild, current or most recent episode depressed, with anxious distress F31.31 [facility] [id number] [place] [address] 75078- 6981 Oct, Bipolar I disorder, mild, current or most recent episode depressed, with anxious distress F31.31 [facility] [id number] [place] [address] 74799- 0347 Oct, Bipolar I disorder, mild, current or most recent episode depressed, with anxious distress F31.31 [place] [id number] [place] [address] 63185- 8852 Sep, Bipolar I disorder, mild, current or most recent episode depressed, with anxious distress F31.31 [facility] [id number] [place] [address] 19907- 5341 Aug, Bipolar I disorder, mild, current or most recent episode depressed, with anxious distress F31.31 [facility] [address] [address]- 6811 Jul, Bipolar I disorder, mild, current or most recent episode depressed, with anxious distress F31.31 [facility] [address] [address]- 8304 Jul, Bipolar I disorder, mild, current or most recent episode depressed, with anxious distress F31.31 [facility] [address] [address]- 2164 17 Jun, 2015 Bipolar I disorder, most recent episode depressed 296.50 [facility] [id number] [place] [address] 05721- 2401 Jun, Bipolar I disorder, most recent episode depressed 296.50 [facility] [address] [address]- 3267 May, Bipolar disorder, current episode depressed, moderate 296.52 [facility] [address] [address]- 2496 May, Bipolar I disorder, most recent episode mixed, moderate 296.62 [facility] [address] [address]- 1478 Apr, Bipolar I disorder, most recent episode mixed, moderate 296.62 [facility] [address] [address]- 2777 Apr, [facility] [address] [address]- 9496 Apr, Bipolar I disorder, most recent episode mixed, moderate 296.62 [facility] [address] [address]- 0772 February, Bipolar disorder, current episode depressed, moderate 296.52 [facility] [address] [address]- 4042 Jan, [facility] [address] [address] 8643 Jan, [facility] [address] [address] 4416 Dec, [facility] [address] [address]- 3826 Dec, [facility] [address] [address]- 7831 Dec, [facility] [address], [place] [address]- 9318 Dec, [facility] [address] [address]- 4062 Dec, [facility] [id number] [place] [address]- 8387 Dec, [facility] [place] [facility] [address] [id number] [place] [address]- 5896 Dec, [facility] [place] [facility] [address] [id number] [place] [address]- 7014 Dec, [facility] [place] [facility] [address] [id number] [place] [address]- 6744 Nov, [facility] [place] [facility] [address] [id number] [place] [address]- 6565 Nov, [facility] [place] [facility] [address] [id number] [place] [address]- 7043 Nov, [facility] [place] [facility] [address] [id number] [place] [address]- 1389 Nov, [facility] [place] [facility] [address] [id number] [place] [address]- 3997 Oct, [facility] [place] [facility] [address] [id number] [place] [address]- 0232 Oct, [facility] [place] [facility] [address] [id number] [place] [address]- 4056 Oct, [facility] [place] [facility] [address] [id number] [place] [address]- 5668 Oct, [facility] [place] [facility] [address] [id number] [place] [address]- 6717 Oct, [facility] [place] [facility] [address] [id number] [place] [address]- 3231 Oct, [facility] [place] [facility] [address] [id number] [place] [address]- 3553 Oct, [facility] [place] [facility] [address] [id number] [place] [address]- 4519 Oct, [facility] [place] [facility] [address] [id number] [place] [address]- 7845 Aug, [facility] [place] [facility] [address] [id number] [place] [address]- 9550 Aug, [facility] [place] [facility] [address] [id number] [place] [address]- 7222 Jun, [facility] [place] [facility] [address] [id number] [place] [address]- 5046 Jun, [facility] [place] [facility] [address] [id number] [place] [address]- 0521 May, [facility] [place] [facility] [address] [id number] [place] [address]- 0307 May, [facility] [place] [facility] [address] [id number] [place] [address]- 1193 Apr, [facility] [place] [facility] [address] [id number] [place] [address]- 6088 Apr, [facility] [place] [facility] [address] [id number] [place] [address]- 7653 Mar, [facility] [place] [facility] [address] [id number] [place] [address]- 1672 Mar, [facility] [place] [facility] [address] [id number] [place] [address]- 0167 February, [facility] [place] [facility] [address] [id number] [place] [address]- 9667 February, [facility] [place] [facility] [address] [id number] [address]- 0751 February, [facility] [place] [facility] [address] [id number] [place] [address]- 8113 February, [facility] [place] [facility] [address] [id number] [place] [address]- 9663 Jan, [facility] [place] [facility] [address] [id number] [place] [address]- 7412 Jan, [facility] [place] [facility] [address] [id number] [place] [address]- 0126 Jan, [facility] [address] [id number] [place] [address]- 0196 Jan, [facility] [place] [facility] [address] [id number] [place] [address]- 6006 Dec, [facility] [place] [facility] [address] [id number] [place] [address]- 3116 Dec, [facility] [place] [facility] [address] [id number] [place] [address]- 8112 Nov, [facility] [place] [facility] [address] [id number] [place] [address]- 7006 Nov, [facility] [place] [facility] [address] [id number] [place] 2334 Oct, [facility] [place] [facility] [address] [id number] [place] [address]- 8558 Oct, [facility] [address] [id number] [place] [address]- 4120 Sep, [facility] [place] [facility] [address] [id number] [place] [address]- 3562 Sep, [facility] [address] [facility] [id number] [place] [address]- 1415 Sep, [facility] [place] [facility] [address] [id number] [place] [address] 2546 Sep, [facility] [place] [facility] [address] [id number] [place] [address]- 3070 Aug, [facility] [place] [facility] [address] [id number] [place] [address]- 8576 Aug, [facility] [place] [facility] [address] [id number] [place] [address]- 2546 Aug, [facility] [place] [facility] [address] [facility] [id number] [place] [address]- 6236 Aug, [facility] [address] [id number] [place] [address]- 3185 Jul, [facility] [place] [facility] [address] [id number] [place] [address]- 2606 Jul, [facility] [place] [facility] [address] [id number] [place] [address]- 3476 Jul, [facility] [place] [facility] [address] [id number] [place] [address]- 5356 Jul, [facility] [place] [facility] [address] [id number] [place] [address]- 4645 Jun, [facility] [place] [facility] [address] [id number] [place] [address]- 6956 Jun, [facility] [place] [facility] [address] [id number] [place] [address]- 0826 May, [facility] [place] [facility] [address] [id number], [place] [address]- 6166 Apr, [facility] [place] [facility] [address] [id number] [place] [address]- 8399 Mar, [facility] [place] [facility] [address] [facility] [id number], [place] [address]- 9806 Mar, [facility] [place] [facility] [address] [facility] [id number], [place] [address]- 9206 February, [facility] [place] [facility] [address] [id number], [place] [address]- 4416 Jan, [facility] [place] [facility] [address] [id number], [place] [address]- 4036 Jan, [facility] [place] [facility] [address] [id number], [place] [address]- 2546 Dec, [facility] [place] [facility] [address] [facility] [id number], [place] [address]- 6106 Nov, [facility] [place] [facility] [address] [id number], [place] [address]- 4003 Oct, [facility] [place] [facility] [address] [id number] [place] [address]- 6854 Aug, [facility] [place] [facility] [address] [id number] [place] [address]- 7462 Aug, [facility] [place] [facility] [address] [facility] [id number] [place] [address]- 0829 Aug, [facility] [place] [facility] [address] [id number] [place] [address]- 0576 Aug, [facility] [place] [facility] [address] [facility] [id number] [place] [address], [place] [address]- 1597 Aug, [facility] [place] [facility] [address] [facility] [id number] [place] [address]- 2119 Aug, [facility] [place] [facility] [id number] [place] [address], [place] [address]- 8815 Jul, [facility] [place] [facility] [address] [id number] [place] [address]- 7004 Jul, [facility] [place] [facility] [id number] [place] [address]- 9811 Jul, [facility] [place] [facility] [id number] [place] [address]- 9245 Jul, [facility] [place] [facility] [address] [facility] [id number] [place] [address]- 0714 27 Jun, 2012 [facility] [place] [facility] [address] [facility] [id number], [place] [address]- 4615 14 Jun, 2012 [facility] [place] [facility] [address] [facility] [id number] [place] [address]- 3703 31 May, 2012 [facility] [place] [facility] [address] [facility] [id number] [place] [address]- 3372 May, [facility] [place] [facility] [id number] [place] [address]- 5185 18 Apr, 2012 [facility] [place] [facility] [address] [id number] [place] [address]- 8676 13 Apr, 2012 [facility] [place] [facility] [address] [id number] [place] [address]- 6816 28 Mar, 2012 [facility] [place] [facility] [address] [id number] [place] [address]- 4536 20 Mar, 2012 [facility] [place] [facility] [address] [id number] [place] [address]- 7186 18 Mar, 2012 [facility] [place] [facility] [address] [id number] [place] [address]- 6316 February, [facility] [place] [facility] [address] [id number] [place] [address]- 1676 February, [facility] [place] [facility] [address] [id number] [place] [address]- 7486 February, [facility] [place] [facility] [address] [id number] [place] [address]- 1354 18 Jan, 2012 [facility] [place] [facility] [address] [id number] [place] [address]- 8978 18 Jan, 2012 [facility] [place] [facility] [address] [id number] [place] [address]- 5467 10 Jan, 2012 [facility] [place] [facility] [address] [id number] [place] [address]- 0828 29 Dec, 2011 [facility] [place] [facility] [address] [id number] [place] [address] 20 Dec, 2011 [facility] [place] [facility] [address] [id number] [place] [address] 15 Dec, 2011 [facility] [place] [facility] [address] [id number] [place] [address] 14 Dec, 2011 [facility] [place] [facility] [address] [id number] [place] [address] 13 Dec, 2011 [facility] [place] [facility] [address] [id number] [place] [address] Dec, [facility] [address] [id number] [place] [address] 13 Dec, 2011 [facility] [address] [id number] [place] [address] 05 Dec, 2011 [facility] [address] [facility] [id number] [place] [address] 28 Nov, 2011 [facility] [address] [id number] [place] [address] 23 Nov, 2011 [facility] [address] [id number] [place] [address] 16 Nov, 2011 [facility] [address] [facility] [id number] [place] [address] 16 Nov, 2011 [facility] [address] [facility] [id number] [place] [address] Nov, [facility] [place] [facility] [address] [id number] [place] [address] 07 Nov, 2011 [facility] [address] [facility] [id number] [place] [address] 06 Nov, 2011 [facility] [address] [facility] [id number] [place] [address] Nov, [facility] [address] [facility] [id number] [place] [address] Oct, [facility] [place] [facility] [address] [facility] [id number] [place] [address] Oct, [facility] [place] [facility] [address] [id number] [place] [address] 18 Oct, 2011 [facility] [place] [facility] [address] [facility] [id number] [place] [address] 16 Oct, 2011 [facility] [place] [facility] [address] [facility] [id number] [place] [address]15 Oct, [facility] [place] [facility] [id number] [address] Oct, [facility] [id number] [address] Oct, [facility] [id number] [address] [address] Oct, [facility] [id number] [place] [address] Sep, [facility] [address] [facility] [id number] [address] Sep, [facility] [id number] [address] Sep, [facility] [id number] [place] [address] Sep, [facility] [id number] [place] [address] Aug, [facility] [id number] [place] [address] Aug, [facility] [id number] [place] [address] Aug, [facility] [id number] [place] [address] Jul, [facility] [id number] [address] Jul, [facility] [address] [id number] [address] Jul, [facility] [id number] [address] Aug, IMMUNIZATIONS No Known Immunizations SOCIAL HISTORY Never Assessed REASON FOR VISIT Follow-up Bipolar PLAN OF CARE Activity Details Follow Up 2 Weeks Reason: Follow-up VITAL SIGNS MEDICATIONS Unknown Medications RESULTS No Results PROCEDURES Procedure Date Ordered Result Body Site [facility] VISIT MENTAL HEALTH ESTAB PT March 28, 2018 Psychotherapy, patient &/family, 30 minutes, established patient March 28, 2018 INSTRUCTIONS MEDICATIONS ADMINISTERED No Known Medications
--- OUTSIDE RECORDS SUMMARY | 2018-12-17 10:53 | XMS REPORT ---
Author Author ARIANNA MOSQUEDA Organization [facility] Address [address] [place] [address] Care Team Providers Care Budget Clerk Name Role Phone ARIANNA MOSQUEDA Unavailable PROBLEMS Type Condition ICD9-CM Code [id number] Onset Dates Condition Status SNOMED Code Problem Moderate mixed bipolar I disorder F31.62 Active 36123553 Problem Anxiety state F41.1 Active [id number] ALLERGIES No Information ENCOUNTERS Encounter Location Date Diagnosis [place] [id number] [place] [address] 27913- 1817 May, [place] [id number] [place] [address] 80086- 5021 May, [place] [id number] [place] [address] 87435- 5102 Apr, Moderate mixed bipolar I disorder F31.62 and Anxiety state F41.1 [place] [id number] [place] [address] 57940- 6845 Apr, Moderate mixed bipolar I disorder F31.62 and Anxiety state F41.1 [place] [id number] [place] [address] 19577- 9537 Mar, Moderate mixed bipolar I disorder F31.62 and Anxiety state F41.1 [place] [id number] [place] [address] 53123- 8845 February, Moderate mixed bipolar I disorder F31.62 and Anxiety state F41.1 [place] [id number] [place] [address] 92284- 4115 Jan, Moderate mixed bipolar I disorder F31.62 and Anxiety state F41.1 [place] [id number] [place] [address] 37262- 7096 Dec, Moderate mixed bipolar I disorder F31.62 and Anxiety state F41.1 [facility] [id number] [place] [address] 90690- 7539 Nov, Moderate mixed bipolar I disorder F31.62 and Anxiety state F41.1 [facility] [id number] [place] [address] 64304- 4292 Nov, Moderate mixed bipolar I disorder F31.62 and Anxiety state F41.1 [facility] [address] [facility] [id number] [place] [address] 68382- 5273 Oct, Moderate mixed bipolar I disorder F31.62 and Anxiety state F41.1 [facility] [id number] [place] [address] 86755- 3381 Oct, Moderate mixed bipolar I disorder F31.62 and Anxiety state F41.1 [facility] [id number] [place] [address] 93022- 0770 Sep, Moderate mixed bipolar I disorder F31.62 and Anxiety state F41.1 [facility] [id number] [place] [address] 93196- 1152 Aug, Moderate mixed bipolar I disorder F31.62 and Anxiety state F41.1 [facility] [id number] [place] [address] 94106- 6704 Jul, Moderate mixed bipolar I disorder F31.62 and Anxiety state F41.1 [facility] [address] [address] 3414 Jul, [facility] [address] [facility] [id number] [place] [address] 13462- 5369 Jul, Moderate mixed bipolar I disorder F31.62 and Anxiety state F41.1 [facility] [id number] [place] [address] 86173- 8432 May, Moderate mixed bipolar I disorder F31.62 and Anxiety state F41.1 [facility] [address] [address]- 5799 May, Moderate mixed bipolar I disorder F31.62 and Anxiety state F41.1 [facility] [id number] [place] [address] 17710- 6150 May, Moderate mixed bipolar I disorder F31.62 and Anxiety state F41.1 [facility] [id number] [place] [address] 20715- 9999 May, [facility] [id number] [place] [address] 50256- 5875 Apr, Moderate mixed bipolar I disorder F31.62 and Anxiety state F41.1 [facility] [id number] [place] [address] 70228- 7679 Apr, Moderate mixed bipolar I disorder F31.62 and Anxiety state F41.1 [facility] [id number] [place] [address] 77430- 7202 Mar, Moderate mixed bipolar I disorder F31.62 and Anxiety state F41.1 [facility] [address] [address]- 9890 February, Moderate mixed bipolar I disorder F31.62 and Anxiety state F41.1 [facility] [address] [address]- 3720 February, Moderate mixed bipolar I disorder F31.62 and Anxiety state F41.1 [facility] [address] [address]- 9408 Jan, Moderate mixed bipolar I disorder F31.62 and Anxiety state F41.1 [facility] [address] [address]- 0004 Jan, Moderate mixed bipolar I disorder F31.62 and Anxiety state F41.1 [facility] [address] [address]- 3332 Jan, [facility] [id number] [address]- 8682 30 Dec, 2016 Moderate mixed bipolar I disorder F31.62 and Anxiety state F41.1 [facility] [id number] [place] [address] 78273- 3370 14 Dec, 2016 Moderate mixed bipolar I disorder F31.62 and Anxiety state F41.1 [facility] [id number] [place] [address] 07872- 6392 Nov, Moderate mixed bipolar I disorder F31.62 and Anxiety state F41.1 [facility] [id number] [place] [address] 92760- 1826 Nov, Moderate mixed bipolar I disorder F31.62 and Anxiety state F41.1 [facility] [id number] [place] [address] 84468- 4151 Oct, Moderate mixed bipolar I disorder F31.62 and Anxiety state F41.1 [facility] [id number] [place] [address] 66410- 1661 Sep, Moderate mixed bipolar I disorder F31.62 and Anxiety state F41.1 [facility] [id number] [place] [address] 34380- 5148 Aug, Moderate mixed bipolar I disorder F31.62 and Anxiety state F41.1 [facility] [id number] [place] [address] 37276- 0211 Aug, Moderate mixed bipolar I disorder F31.62 and Anxiety state F41.1 [facility] [id number] [place] [address] 13597- 4114 Jul, Moderate mixed bipolar I disorder F31.62 and Anxiety state F41.1 [facility] [id number] [place] [address] 61142- 6858 Jun, Moderate mixed bipolar I disorder F31.62 and Anxiety state F41.1 [facility] [id number] [place] [address] 43338- 7066 May, Moderate mixed bipolar I disorder F31.62 and Anxiety state F41.1 [facility] [id number] [place] [address] 95037- 0821 May, Moderate mixed bipolar I disorder F31.62 and Anxiety state F41.1 [facility] [id number] [place] [address] 81525- 2147 Apr, Bipolar 1 disorder, depressed, moderate F31.32 and Anxiety state F41.1 [facility] [id number] [place] [address] 88731- 0466 Apr, Bipolar 1 disorder, depressed, moderate F31.32 and Bipolar I disorder, mild, current or most recent episode depressed, with anxious distress F31.31 [place] [id number] [place] [address] 16773- 5247 Mar, Bipolar 1 disorder, depressed, moderate F31.32 [place] [id number] [place] [address] 01155- 1722 February, Bipolar 1 disorder, depressed, moderate F31.32 [facility] [id number] [place] [address] 02007- 8841 Jan, Bipolar I disorder, mild, current or most recent episode depressed, with anxious distress F31.31 [facility] [id number] [place] [address] 18250- 4175 Jan, Bipolar I disorder, mild, current or most recent episode depressed, with anxious distress F31.31 [facility] [id number] [place] [address] 41161- 6790 Jan, Bipolar 1 disorder, depressed, moderate F31.32 [facility] [id number] [place] [address] 29398- 3626 Dec, Bipolar I disorder, mild, current or most recent episode depressed, with anxious distress F31.31 [facility] [id number] [place] [address] 58960- 0521 Dec, Bipolar I disorder, mild, current or most recent episode depressed, with anxious distress F31.31 [facility] [address] [address]- 5374 Nov, Bipolar I disorder, mild, current or most recent episode depressed, with anxious distress F31.31 [facility] [address] [address]- 5885 Oct, Bipolar I disorder, mild, current or most recent episode depressed, with anxious distress F31.31 [facility] [id number] [place] [address] 80772- 2857 Oct, Bipolar I disorder, mild, current or most recent episode depressed, with anxious distress F31.31 [facility] [id number] [place] [address] 78784- 6130 Sep, Bipolar I disorder, mild, current or most recent episode depressed, with anxious distress F31.31 [facility] [id number] [place] [address] 22989- 8736 Aug, Bipolar I disorder, mild, current or most recent episode depressed, with anxious distress F31.31 [facility] [id number] [place] [address] 41493- 3034 Jul, Bipolar I disorder, mild, current or most recent episode depressed, with anxious distress F31.31 [facility] [address] [address]- 7138 Jul, Bipolar I disorder, mild, current or most recent episode depressed, with anxious distress F31.31 [facility] [address] [address]- 3387 Jun, Bipolar I disorder, most recent episode depressed 296.50 [facility] [id number] [place] [address] 27064- 8042 Jun, Bipolar I disorder, most recent episode depressed 296.50 [facility] [id number] [place] [address] 89167- 1894 May, Bipolar disorder, current episode depressed, moderate 296.52 [facility] [id number] 1182 May, Bipolar I disorder, most recent episode mixed, moderate 296.62 [facility] [address] [facility] [id number] [place] 6556 Apr, Bipolar I disorder, most recent episode mixed, moderate 296.62 [facility] [address] 0180 Apr, [facility] [address] 2688 Apr, Bipolar I disorder, most recent episode mixed, moderate 296.62 [facility] [address] 1716 February, Bipolar disorder, current episode depressed, moderate 296.52 [facility] [address] [address]- 5737 Jan, [facility] [address] 9742 Jan, [facility] [address] [address]- 4678 Dec, [facility] [address] 5336 Dec, [facility] [address] 1957 Dec, [facility] [id number] 5602 Dec, [facility] [address], [place] [address]- 4101 Dec, [facility] [id number] 4658 Dec, [facility] [address], [place] [address]- 0370 Dec, [facility] [place] [facility] [address] [id number] [place] [address]- 5865 Dec, [facility] [place] [facility] [address] [id number] [place] [address]- 7229 Nov, [facility] [place] [facility] [address] [id number] [place] [address]- 0865 Nov, [facility] [place] [facility] [address] [id number] [place] [address]- 6955 Nov, [facility] [place] [facility] [address] [id number] [place] [address]- 1740 Nov, [facility] [place] [facility] [address] [id number] [place] [address]- 5737 Oct, [facility] [place] [facility] [address] [id number] [place] [address]- 5223 Oct, [facility] [place] [facility] [address] [id number] [place] [address]- 0783 Oct, [facility] [place] [facility] [address] [id number] [place] [address]- 2693 Oct, [facility] [place] [facility] [address] [id number] [place] [address]- 2322 Oct, [facility] [place] [facility] [address] [id number] [address]- 5322 Oct, [facility] [place] [facility] [address] [id number] [place] [address]- 5376 Oct, [facility] [place] [facility] [address] [id number] [place] [address]- 4753 Oct, [facility] [place] [facility] [address] [id number] [place] [address]- 3221 Aug, [facility] [place] [facility] [address] [id number] [place] [address]- 9822 Aug, [facility] [place] [facility] [address] [id number] [place] [address]- 3628 Jun, [facility] [place] [facility] [address] [id number] [place] [address]- 3915 Jun, [facility] [place] [facility] [address] [id number] [place] [address]- 0399 May, [facility] [place] [facility] [address] [id number] [place] [address]- 3272 May, [facility] [place] [facility] [address] [id number] [place] [address]- 9953 Apr, [facility] [place] [facility] [address] [id number] [place] 5321 Apr, [facility] [place] [facility] [address] [id number] [place] [address]- 6039 Mar, [facility] [place] [facility] [address] [id number] [place] [address]- 5629 Mar, [facility] [address] [id number] [place] [address]- 4847 February, [facility] [place] [facility] [address] [id number] [place] [address]- 0027 February, [facility] [place] [facility] [address] [id number] [place] [address]- 2344 February, [facility] [place] [facility] [address] [id number] [place] [address]- 8381 February, [facility] [place] [facility] [address] [id number] [place] [address]- 6350 Jan, [facility] [place] [facility] [address] [id number] [place] [address]- 4317 Jan, [facility] [place] [facility] [address] [id number] [place] [address]- 7383 Jan, [facility] [place] [facility] [address] [id number] [place] [address]- 7273 Jan, [facility] [place] [facility] [address] [id number] [place] [address]- 8304 Dec, [facility] [place] [facility] [address] [id number] [place] [address]- 9964 Dec, [facility] [place] [facility] [address] [id number] [place] [address]- 7654 Nov, [facility] [place] [facility] [address] [id number] [place] [address]- 7257 Nov, [facility] [place] [facility] [address] [id number] [place] [address]- 1214 Oct, [facility] [place] [facility] [address] [id number] [place] [address]- 3842 Oct, [facility] [place] [facility] [address] [id number] [place] [address]- 3049 Sep, [facility] [place] [facility] [address] [id number] [place] [address]- 5301 Sep, [facility] [place] [facility] [address] [id number] [place] [address]- 7108 Sep, [facility] [place] [facility] [address] [facility] [id number] [place] [address]- 3876 Sep, [facility] [place] [facility] [address] [id number], [place] [address]- 4286 Aug, [facility] [place] [facility] [address] [id number], [place] [address]- 3321 Aug, [facility] [place] [facility] [address] [id number] [place] [address]- 8578 Aug, [facility] [place] [facility] [address] [id number] [place] [address]- 8218 Aug, [facility] [place] [facility] [address] [id number] [place] [address]- 3720 Jul, [facility] [place] [facility] [address] [id number] [place] [address]- 0316 Jul, [facility] [address] [id number] [place] [address]- 5398 Jul, [facility] [address] [id number] [place] [address]- 1310 Jul, [facility] [address] [id number] [place] [address]- 5888 Jun, [facility] [place] [facility] [address] [id number] [place] [address]- 5862 Jun, [facility] [address] [id number] [place] [address]- 7775 May, [facility] [place] [facility] [address] [id number] [place] [address]- 9875 Apr, [facility] [address] [id number] [place] [address]- 2255 Mar, [facility] [address] [id number] [place] [address]- 7492 Mar, [facility] [address] [id number] [place] [address]- 2296 February, [facility] [address] [id number] [place] [address]- 3891 Jan, [facility] [place] [facility] [address] [id number] [place] [address]- 0529 Jan, [facility] [place] [facility] [address] [id number] [place] [address]- 2540 Dec, [facility] [place] [facility] [address] [id number] [place] [address]- 9823 Nov, [facility] [place] [facility] [address] [id number] [place] [address]- 1266 Oct, [facility] [address] [id number] [place] [address]- 2467 Aug, [facility] [place] [facility] [address] [id number] [place] [address]- 1936 Aug, [facility] [place] [facility] [address] [id number] [place] [address]- 9434 Aug, [facility] [place] [facility] [address] [id number] [place] [address]- 1025 Aug, [facility] [place] [facility] [id number] [place] [address], [place] [address]- 9261 Aug, [facility] [place] [facility] [address] [id number] [place] [address]- 3098 Aug, [facility] [place] [facility] [address] [id number] [place] [address]- 4365 Jul, [facility] [place] [facility] [address] [id number] [place] [address]- 2372 Jul, [facility] [place] [facility] [address] [id number] [place] [address]- 0469 Jul, [facility] [place] [facility] [address] [id number] [place] [address]- 7618 Jul, [facility] [place] [facility] [address] [id number] [place] [address]- 1289 Jun, [facility] [place] [facility] [address] [id number] [place] [address]- 3687 14 Jun, 2012 [facility] [place] [facility] [address] [id number] [place] [address]- 6932 May, [facility] [place] [facility] [address] [id number] [place] [address]- 3528 May, [facility] [place] [facility] [address] [id number] [place] [address]- 2479 18 Apr, 2012 [facility] [place] [facility] [address] [id number] [place] [address]- 6787 13 Apr, 2012 [facility] [place] [facility] [address] [id number] [place] [address]- 0763 28 Mar, 2012 [facility] [place] [facility] [address] [id number] [place] [address]- 9978 Mar, [facility] [place] [facility] [address] [id number] [place] [address]- 3516 18 Mar, 2012 [facility] [place] [facility] [address] [id number] [place] [address]- 6916 February, [facility] [place] [facility] [address] [id number] [place] [address]- 8086 February, [facility] [place] [facility] [address] [id number] [place] [address]- 7566 February, [facility] [place] [facility] [address] [id number] [place] [address] 18 Jan, 2012 [facility] [place] [facility] [address] [id number] [place] [address] 18 Jan, 2012 [facility] [place] [facility] [address] [id number] [place] [address] 10 Jan, 2012 [facility] [place] [facility] [address] [id number] [place] [address] 29 Dec, 2011 [facility] [place] [facility] [address] [id number] [place] [address] 20 Dec, 2011 [facility] [place] [facility] [address] [id number] [place] [address] 15 Dec, 2011 [facility] [place] [facility] [address] [id number] [place] [address] 14 Dec, 2011 [facility] [place] [facility] [address] [id number] [place] [address] 13 Dec, 2011 [facility] [place] [facility] [address] [id number] [place] [address] 13 Dec, 2011 [facility] [place] [facility] [address] [id number] [place] [address] 13 Dec, 2011 [facility] [place] [facility] [address] [id number] [place] [address] Dec, [facility] [address] [id number] [place] [address] Nov, [facility] [place] [facility] [address] [id number] [place] [address] Nov, [facility] [place] [facility] [address] [id number] [place] [address] Nov, [facility] [place] [facility] [address] [id number] [place] [address] Nov, [facility] [place] [facility] [address] [id number] [place] [address] Nov, [facility] [place] [facility] [address] [id number] [place] [address] Nov, [facility] [place] [facility] [address] [id number] [place] [address] Nov, [facility] [place] [facility] [address] [id number] [place] [address] Nov, [facility] [place] [facility] [address] [facility] [id number] [place] [address] Oct, [facility] [place] [facility] [address] [id number] [place] [address] Oct, [facility] [place] [facility] [address] [id number] [place] [address] 18 Oct, 2011 [facility] [place] [facility] [address] [id number] [place] [address] 16 Oct, 2011 [facility] [place] [facility] [address] [id number] [place] [address] Oct, [facility] [place] [facility] [address] [id number] [place] [address] Oct, [facility] [place] [facility] [address] [id number] [address] Oct, [facility] [id number] [address] Oct, [facility] [id number] [address] Sep, [facility] [id number] [address] Sep, [facility] [id number] [address] Sep, [facility] [id number] [address] Sep, [facility] [id number] [address] Aug, [facility] [id number] [address] Aug, [facility] [id number] [address] Aug, [facility] [id number] [address] Jul, [facility] [id number] [address] Jul, [facility] [id number] [address] Jul, [facility] [id number] [address] Aug, IMMUNIZATIONS No Known Immunizations SOCIAL HISTORY Never Assessed REASON FOR VISIT Follow-up Bipolar PLAN OF CARE Activity Details Follow Up 4 Weeks Reason: Follow-up VITAL SIGNS MEDICATIONS Unknown Medications RESULTS No Results PROCEDURES Procedure Date Ordered Result Body Site [facility] VISIT MENTAL HEALTH ESTAB PT January 25, 2018 Psychotherapy, patient &/family, 45 minutes, established patient January 25, 2018 INSTRUCTIONS MEDICATIONS ADMINISTERED No Known Medications
--- OUTSIDE RECORDS SUMMARY | 2018-12-17 10:53 | XMS REPORT ---
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 Name Role Phone ARIANNA MOSQUEDA Unavailable PROBLEMS Type Condition ICD9-CM Code [id number] Code Onset Dates Condition Status SNOMED Code Problem Moderate mixed bipolar I disorder F31.62 Active 32319732 Problem Anxiety state F41.1 Active [id number] ALLERGIES No Information ENCOUNTERS Encounter Location Date Diagnosis [place] [id number] [place] [address] 61038- 6309 May, [place] [id number] [place] [address] 45485- 1360 May, [place] [id number] [place] [address] 60137- 7209 Apr, Moderate mixed bipolar I disorder F31.62 and Anxiety state F41.1 [place] [id number] [place] [address] 38488- 6844 Apr, Moderate mixed bipolar I disorder F31.62 and Anxiety state F41.1 [place] [id number] [place] [address] 78802- 1510 Mar, Moderate mixed bipolar I disorder F31.62 and Anxiety state F41.1 [place] [id number] [place] [address] 29658- 8781 February, Moderate mixed bipolar I disorder F31.62 and Anxiety state F41.1 [place] [id number] [place] [address] 01203- 5993 Jan, Moderate mixed bipolar I disorder F31.62 and Anxiety state F41.1 [place] [id number] [place] [address] 30023- 4038 Dec, Moderate mixed bipolar I disorder F31.62 and Anxiety state F41.1 [facility] [id number] [place] [address] 36979- 1652 Nov, Moderate mixed bipolar I disorder F31.62 and Anxiety state F41.1 [facility] [id number] [place] [address] 85597- 8583 Nov, Moderate mixed bipolar I disorder F31.62 and Anxiety state F41.1 [facility] [address] [facility] [id number] [place] [address] 74396- 9078 Oct, Moderate mixed bipolar I disorder F31.62 and Anxiety state F41.1 [facility] [id number] [place] [address] 90776- 9027 Oct, Moderate mixed bipolar I disorder F31.62 and Anxiety state F41.1 [facility] [id number] [place] [address] 40651- 7573 Sep, Moderate mixed bipolar I disorder F31.62 and Anxiety state F41.1 [facility] [id number] [place] [address] 43407- 1985 Aug, Moderate mixed bipolar I disorder F31.62 and Anxiety state F41.1 [facility] [id number] [place] [address] 41417- 4171 Jul, Moderate mixed bipolar I disorder F31.62 and Anxiety state F41.1 [facility] [address] [address] 3591 Jul, [facility] [address] [facility] [id number] [place] [address] 01780- 5216 Jul, Moderate mixed bipolar I disorder F31.62 and Anxiety state F41.1 [facility] [id number] [place] [address] 99013- 3388 May, Moderate mixed bipolar I disorder F31.62 and Anxiety state F41.1 [facility] [address] [address]- 6613 May, Moderate mixed bipolar I disorder F31.62 and Anxiety state F41.1 [facility] [id number] [place] [address] 44891- 3539 May, Moderate mixed bipolar I disorder F31.62 and Anxiety state F41.1 [facility] [id number] [place] [address] 60243- 4558 May, [facility] [id number] [place] [address] 07986- 8779 Apr, Moderate mixed bipolar I disorder F31.62 and Anxiety state F41.1 [facility] [id number] [place] [address] 69791- 4117 Apr, Moderate mixed bipolar I disorder F31.62 and Anxiety state F41.1 [facility] [id number] [place] [address] 95030- 4503 Mar, Moderate mixed bipolar I disorder F31.62 and Anxiety state F41.1 [facility] [address], [place] [address]- 6905 February, Moderate mixed bipolar I disorder F31.62 and Anxiety state F41.1 [facility] [address] [place] [address]- 9588 February, Moderate mixed bipolar I disorder F31.62 and Anxiety state F41.1 [facility] [address], [place] [address]- 5632 Jan, Moderate mixed bipolar I disorder F31.62 and Anxiety state F41.1 [facility] [address], [place] [address]- 1241 Jan, Moderate mixed bipolar I disorder F31.62 and Anxiety state F41.1 [facility] [address], [place] [address]- 3957 Jan, [facility] [id number] [address] 1983 30 Dec, 2016 Moderate mixed bipolar I disorder F31.62 and Anxiety state F41.1 [facility] [id number] [place] [address] 62869- 5074 14 Dec, 2016 Moderate mixed bipolar I disorder F31.62 and Anxiety state F41.1 [facility] [id number] [place] [address] 74921- 2646 Nov, Moderate mixed bipolar I disorder F31.62 and Anxiety state F41.1 [facility] [id number] [place] [address] 17197- 8474 Nov, Moderate mixed bipolar I disorder F31.62 and Anxiety state F41.1 [facility] [id number] [place] [address] 81841- 8158 Oct, Moderate mixed bipolar I disorder F31.62 and Anxiety state F41.1 [facility] [id number] [place] [address] 32031- 0010 Sep, Moderate mixed bipolar I disorder F31.62 and Anxiety state F41.1 [facility] [id number] [place] [address] 36659- 9587 Aug, Moderate mixed bipolar I disorder F31.62 and Anxiety state F41.1 [facility] [id number] [place] [address] 82988- 8039 Aug, Moderate mixed bipolar I disorder F31.62 and Anxiety state F41.1 [facility] [id number] [place] [address] 97261- 7603 Jul, Moderate mixed bipolar I disorder F31.62 and Anxiety state F41.1 [facility] [id number] [place] [address] 62371- 6560 Jun, Moderate mixed bipolar I disorder F31.62 and Anxiety state F41.1 [facility] [id number] [place] [address] 25870- 4857 May, Moderate mixed bipolar I disorder F31.62 and Anxiety state F41.1 [facility] [id number] [place] [address] 22097- 3164 May, Moderate mixed bipolar I disorder F31.62 and Anxiety state F41.1 [facility] [id number] [place] [address] 12962- 8309 Apr, Bipolar 1 disorder, depressed, moderate F31.32 and Anxiety state F41.1 [facility] [id number] [place] [address] 82931- 9084 Apr, Bipolar 1 disorder, depressed, moderate F31.32 and Bipolar I disorder, mild, current or most recent episode depressed, with anxious distress F31.31 [place] [id number] [place] [address] 42260- 8396 Mar, Bipolar 1 disorder, depressed, moderate F31.32 [place] [id number] [place] [address] 77655- 3067 February, Bipolar 1 disorder, depressed, moderate F31.32 [facility] [id number] [place] [address] 59425- 9746 Jan, Bipolar I disorder, mild, current or most recent episode depressed, with anxious distress F31.31 [facility] [id number] [place] [address] 66091- 7308 Jan, Bipolar I disorder, mild, current or most recent episode depressed, with anxious distress F31.31 [facility] [id number] [place] [address] 33715- 9158 Jan, Bipolar 1 disorder, depressed, moderate F31.32 [facility] [id number] [place] [address] 79963- 8933 Dec, Bipolar I disorder, mild, current or most recent episode depressed, with anxious distress F31.31 [facility] [id number] [place] [address] 75445- 9386 Dec, Bipolar I disorder, mild, current or most recent episode depressed, with anxious distress F31.31 [facility] [address] [address]- 2081 Nov, Bipolar I disorder, mild, current or most recent episode depressed, with anxious distress F31.31 [facility] [address], [place] [address]- 6703 Oct, Bipolar I disorder, mild, current or most recent episode depressed, with anxious distress F31.31 [facility] [id number] [place] [address] 33632- 7165 Oct, Bipolar I disorder, mild, current or most recent episode depressed, with anxious distress F31.31 [facility] [id number] [place] [address] 98518- 4026 Sep, Bipolar I disorder, mild, current or most recent episode depressed, with anxious distress F31.31 [facility] [id number] [place] [address] 97304- 4721 Aug, Bipolar I disorder, mild, current or most recent episode depressed, with anxious distress F31.31 [facility] [id number] [place] [address] 96864- 5025 Jul, Bipolar I disorder, mild, current or most recent episode depressed, with anxious distress F31.31 [facility] [address], [place] [address]- 6382 Jul, Bipolar I disorder, mild, current or most recent episode depressed, with anxious distress F31.31 [facility] [address], [place] [address]- 5454 Jun, Bipolar I disorder, most recent episode depressed 296.50 [facility] [id number] [place] [address] 00757- 4261 Jun, Bipolar I disorder, most recent episode depressed 296.50 [facility] [id number] [place] [address] 80837- 6116 May, Bipolar disorder, current episode depressed, moderate 296.52 [facility] [id number] 4623 May, Bipolar I disorder, most recent episode mixed, moderate 296.62 [facility] [address] [facility] [id number] [place] 4536 Apr, Bipolar I disorder, most recent episode mixed, moderate 296.62 [facility] [address] 1236 Apr, [facility] [address] 4716 Apr, Bipolar I disorder, most recent episode mixed, moderate 296.62 [facility] [address] 3953 February, Bipolar disorder, current episode depressed, moderate 296.52 [facility] [address], [place] [address]- 5330 Jan, [facility] [address] 7622 Jan, [facility] [address], [place] [address]- 1064 Dec, [facility] [address] 1146 Dec, [facility] [address] 1273 Dec, [facility] [id number] 9273 Dec, [facility] [address], [place] [address]- 8602 Dec, [facility] [id number] 0820 Dec, [facility] [address], [place] [address]- 0663 Dec, [facility] [place] [facility] [address] [id number] [place] [address]- 6665 Dec, [facility] [place] [facility] [address] [id number] [place] [address]- 3474 Nov, [facility] [place] [facility] [address] [id number] [place] [address]- 5059 Nov, [facility] [place] [facility] [address] [id number] [place] [address]- 9014 Nov, [facility] [place] [facility] [address] [id number] [place] [address]- 0217 Nov, [facility] [place] [facility] [address] [id number] [place] [address]- 4350 Oct, [facility] [place] [facility] [address] [id number] [place] [address]- 5704 Oct, [facility] [place] [facility] [address] [id number] [place] [address]- 1101 Oct, [facility] [place] [facility] [address] [id number] [place] [address]- 4933 Oct, [facility] [place] [facility] [address] [id number] [place] [address]- 0094 Oct, [facility] [place] [facility] [address] [id number] [address]- 7701 Oct, [facility] [place] [facility] [address] [id number] [place] [address]- 2545 Oct, [facility] [place] [facility] [address] [id number] [place] [address]- 0328 Oct, [facility] [place] [facility] [address] [id number] [place] [address]- 5280 Aug, [facility] [place] [facility] [address] [id number] [place] [address]- 2945 Aug, [facility] [place] [facility] [address] [id number] [place] [address]- 3013 Jun, [facility] [place] [facility] [address] [id number] [place] [address]- 5126 Jun, [facility] [place] [facility] [address] [id number] [place] [address]- 4740 May, [facility] [place] [facility] [address] [id number] [place] [address]- 6585 May, [facility] [place] [facility] [address] [id number] [place] [address]- 8827 Apr, [facility] [place] [facility] [address] [id number] [place] 9195 Apr, [facility] [place] [facility] [address] [id number] [place] [address]- 3348 Mar, [facility] [place] [facility] [address] [id number] [place] [address]- 0075 Mar, [facility] [address] [id number] [place] [address]- 6498 February, [facility] [place] [facility] [address] [id number] [place] [address]- 7915 February, [facility] [place] [facility] [address] [id number] [place] [address]- 1365 February, [facility] [place] [facility] [address] [id number] [place] [address]- 3992 February, [facility] [place] [facility] [address] [id number] [place] [address]- 7640 Jan, [facility] [place] [facility] [address] [id number] [place] [address]- 1253 Jan, [facility] [place] [facility] [address] [id number] [place] [address]- 7683 Jan, [facility] [place] [facility] [address] [id number] [place] [address]- 4921 Jan, [facility] [place] [facility] [address] [id number] [place] [address]- 7240 Dec, [facility] [place] [facility] [address] [id number] [place] [address]- 5187 Dec, [facility] [place] [facility] [address] [id number] [place] [address]- 5700 Nov, [facility] [place] [facility] [address] [id number] [place] [address]- 8490 Nov, [facility] [place] [facility] [address] [id number] [place] [address]- 5483 Oct, [facility] [place] [facility] [address] [id number] [place] [address]- 5928 Oct, [facility] [place] [facility] [address] [id number] [place] [address]- 3151 Sep, [facility] [place] [facility] [address] [id number] [place] [address]- 5337 Sep, [facility] [place] [facility] [address] [id number] [place] [address]- 8493 Sep, [facility] [place] [facility] [address] [facility] [id number] [place] [address]- 2429 Sep, [facility] [place] [facility] [address] [id number], [place] [address]- 6361 Aug, [facility] [place] [facility] [address] [id number], [place] [address]- 2664 Aug, [facility] [place] [facility] [address] [id number] [place] [address]- 0753 Aug, [facility] [place] [facility] [address] [id number] [place] [address]- 7279 Aug, [facility] [place] [facility] [address] [id number] [place] [address]- 7944 Jul, [facility] [place] [facility] [address] [id number] [place] [address]- 9763 Jul, [facility] [address] [id number] [place] [address]- 0011 Jul, [facility] [address] [id number] [place] [address]- 2005 Jul, [facility] [address] [id number] [place] [address]- 3291 Jun, [facility] [place] [facility] [address] [id number] [place] [address]- 8127 Jun, [facility] [address] [id number] [place] [address]- 5166 May, [facility] [place] [facility] [address] [id number] [place] [address]- 4674 Apr, [facility] [address] [id number] [place] [address]- 7726 Mar, [facility] [address] [id number] [place] [address]- 1547 Mar, [facility] [address] [id number] [place] [address]- 9227 February, [facility] [address] [id number] [place] [address]- 6361 Jan, [facility] [place] [facility] [address] [id number] [place] [address]- 4971 Jan, [facility] [place] [facility] [address] [id number] [place] [address]- 2544 Dec, [facility] [place] [facility] [address] [id number] [place] [address]- 2959 Nov, [facility] [place] [facility] [address] [id number] [place] [address]- 5116 Oct, [facility] [address] [id number] [place] [address]- 8366 Aug, [facility] [place] [facility] [address] [id number] [place] [address]- 5502 Aug, [facility] [place] [facility] [address] [id number] [place] [address]- 2351 Aug, [facility] [place] [facility] [address] [id number] [place] [address]- 7836 Aug, [facility] [place] [facility] [id number] [place] [address], [place] [address]- 6405 Aug, [facility] [place] [facility] [address] [id number] [place] [address]- 0151 Aug, [facility] [place] [facility] [address] [id number] [place] [address]- 8060 Jul, [facility] [place] [facility] [address] [id number] [place] [address]- 3723 Jul, [facility] [place] [facility] [address] [id number] [place] [address]- 3578 Jul, [facility] [place] [facility] [address] [id number] [place] [address]- 9760 Jul, [facility] [place] [facility] [address] [id number] [place] [address]- 3666 Jun, [facility] [place] [facility] [address] [id number] [place] [address]- 3333 14 Jun, 2012 [facility] [place] [facility] [address] [id number] [place] [address]- 6912 May, [facility] [place] [facility] [address] [id number] [place] [address]- 4397 May, [facility] [place] [facility] [address] [id number] [place] [address]- 4305 18 Apr, 2012 [facility] [place] [facility] [address] [id number] [place] [address]- 8314 13 Apr, 2012 [facility] [place] [facility] [address] [id number] [place] [address]- 9795 28 Mar, 2012 [facility] [place] [facility] [address] [id number] [place] [address]- 3349 Mar, [facility] [place] [facility] [address] [id number] [place] [address]- 8836 18 Mar, 2012 [facility] [place] [facility] [address] [id number] [place] [address]- 9956 February, [facility] [place] [facility] [address] [id number] [place] [address] February, [facility] [place] [facility] [address] [id number] [place] [address] February, [facility] [place] [facility] [address] [id number] [place] [address] 18 Jan, 2012 [facility] [place] [facility] [address] [id number] [place] [address] 18 Jan, 2012 [facility] [place] [facility] [address] [id number] [place] [address] 10 Jan, 2012 [facility] [place] [facility] [address] [id number] [place] [address] 29 Dec, 2011 [facility] [place] [facility] [address] [id number] [place] [address] 20 Dec, 2011 [facility] [place] [facility] [address] [id number] [place] [address]- 2015 15 Dec, 2011 [facility] [place] [facility] [address] [id number] [place] [address] 14 Dec, 2011 [facility] [place] [facility] [address] [id number] [place] [address] 13 Dec, 2011 [facility] [place] [facility] [address] [id number] [place] [address] 13 Dec, 2011 [facility] [place] [facility] [address] [id number] [place] [address] 13 Dec, 2011 [facility] [place] [facility] [address] [id number] [place] [address] Dec, [facility] [address] [id number] [place] [address] Nov, [facility] [place] [facility] [address] [id number] [place] [address] Nov, [facility] [place] [facility] [address] [id number] [place] [address] Nov, [facility] [place] [facility] [address] [id number] [place] [address] Nov, [facility] [place] [facility] [address] [id number] [place] [address] Nov, [facility] [place] [facility] [address] [id number] [place] [address] Nov, [facility] [place] [facility] [address] [id number] [place] [address]- [address] Nov, [facility] [place] [facility] [address] [id number] [place] [address] Nov, [facility] [place] [facility] [address] [facility] [id number] [place] [address] Oct, [facility] [place] [facility] [address] [id number] [place] [address] Oct, [facility] [place] [facility] [address] [id number] [place] [address] 18 Oct, 2011 [facility] [place] [facility] [address] [id number] [place] [address] 16 Oct, 2011 [facility] [place] [facility] [address] [id number] [place] [address] Oct, [facility] [place] [facility] [address] [id number] [place] [address] Oct, [facility] [place] [facility] [address] [id number] [address] Oct, [facility] [id number] [address] Oct, [facility] [id number], [place] [address] Sep, [facility] [id number], [place] [address] Sep, [facility] [address] [facility] [id number], [place] [address] Sep, [facility] [address] [id number] [address] Sep, [facility] [id number], [place] [address] Aug, [facility] [id number] [address] Aug, [facility] [id number], [place] [address] Aug, [facility] [id number], [place] [address] Jul, [facility] [id number], [place] [address] Jul, [facility] [address] [id number], [place] [address] Jul, [facility] [id number], [place] [address] Aug, IMMUNIZATIONS No Known Immunizations SOCIAL HISTORY Never Assessed REASON FOR VISIT Follow-up Bipolar PLAN OF CARE Activity Details Follow Up 4 Weeks Reason: Follow-up VITAL SIGNS MEDICATIONS Unknown Medications RESULTS No Results PROCEDURES Procedure Date Ordered Result Body Site [facility] VISIT MENTAL HEALTH ESTAB PT January 02, 2018 Psychotherapy, patient &/family, 45 minutes, established patient January 02, 2018 INSTRUCTIONS MEDICATIONS ADMINISTERED No Known Medications
--- OUTSIDE RECORDS SUMMARY | 2018-12-17 10:54 | XMS REPORT ---
Author Author ARIANNA MOSQUEDA Organization [facility] Address [address] [place] [address] Care Team Providers Care Supervisor [place] Name Role Phone ARIANNA MOSQUEDA Unavailable PROBLEMS Type Condition ICD9-CM Code [id number] Code Onset Dates Condition Status SNOMED Code Problem Moderate mixed bipolar I disorder F31.62 Active 11612545 Problem Anxiety state F41.1 Active [id number] ALLERGIES No Information ENCOUNTERS Encounter Location Date Diagnosis [place] [id number] [place] [address] 69184- 4016 May, [place] [id number] [place] [address] 35143- 5578 Apr, [place] [id number] [place] [address] 14462- 2036 Apr, Moderate mixed bipolar I disorder F31.62 and Anxiety state F41.1 [place] [id number] [place] [address] 49594- 3288 Mar, Moderate mixed bipolar I disorder F31.62 and Anxiety state F41.1 [place] [id number] [place] [address] 32805- 1503 February, Moderate mixed bipolar I disorder F31.62 and Anxiety state F41.1 [place] [id number] [place] [address] 36570- 2747 Jan, Moderate mixed bipolar I disorder F31.62 and Anxiety state F41.1 [place] [id number] [place] [address] 84229- 0241 Dec, Moderate mixed bipolar I disorder F31.62 and Anxiety state F41.1 [place] [id number] [place] [address] 60319- 8845 Nov, Moderate mixed bipolar I disorder F31.62 and Anxiety state F41.1 [facility] [id number] [place] [address] 92241- 9034 Nov, Moderate mixed bipolar I disorder F31.62 and Anxiety state F41.1 [facility] [id number] [place] [address] 04742- 5815 Oct, Moderate mixed bipolar I disorder F31.62 and Anxiety state F41.1 [facility] [address] [facility] [id number] [place] [address] 44332- 6857 Oct, Moderate mixed bipolar I disorder F31.62 and Anxiety state F41.1 [facility] [id number] [place] [address] 77043- 7311 Sep, Moderate mixed bipolar I disorder F31.62 and Anxiety state F41.1 [facility] [id number] [place] [address] 75736- 3427 Aug, Moderate mixed bipolar I disorder F31.62 and Anxiety state F41.1 [facility] [id number] [place] [address] 61233- 7019 Jul, Moderate mixed bipolar I disorder F31.62 and Anxiety state F41.1 [facility] [address] [address]- 2987 Jul, [facility] [id number] [place] [address] 50725- 7257 Jul, Moderate mixed bipolar I disorder F31.62 and Anxiety state F41.1 [facility] [address] [facility] [id number] [place] [address] 12601- 9127 May, Moderate mixed bipolar I disorder F31.62 and Anxiety state F41.1 [facility] [id number] [address]- 1275 May, Moderate mixed bipolar I disorder F31.62 and Anxiety state F41.1 [facility] [address], [place] [address]- 3980 May, Moderate mixed bipolar I disorder F31.62 and Anxiety state F41.1 [facility] [address], [place] [address]- 4796 May, [facility] [id number] [place] [address] 69854- 6764 Apr, Moderate mixed bipolar I disorder F31.62 and Anxiety state F41.1 [facility] [address], [place] [address]- 1851 Apr, Moderate mixed bipolar I disorder F31.62 and Anxiety state F41.1 [facility] [id number] [place] [address] 78346- 5079 Mar, Moderate mixed bipolar I disorder F31.62 and Anxiety state F41.1 [facility] [id number] [place] [address] 19843- 1414 February, Moderate mixed bipolar I disorder F31.62 and Anxiety state F41.1 [facility] [address], [place] [address]- 8420 February, Moderate mixed bipolar I disorder F31.62 and Anxiety state F41.1 [facility] [address], [place] [address]- 7545 Jan, Moderate mixed bipolar I disorder F31.62 and Anxiety state F41.1 [facility] [address], [place] [address]- 2689 Jan, Moderate mixed bipolar I disorder F31.62 and Anxiety state F41.1 [facility] [address], [place] [address]- 4996 Jan, [facility] [id number] [address]- 2777 Dec, Moderate mixed bipolar I disorder F31.62 and Anxiety state F41.1 [facility] [id number] [address]- 7402 14 Dec, 2016 Moderate mixed bipolar I disorder F31.62 and Anxiety state F41.1 [facility] [id number] [place] [address] 57723- 3135 27 Nov, 2016 Moderate mixed bipolar I disorder F31.62 and Anxiety state F41.1 [facility] [id number] [place] [address] 69456- 4366 14 Nov, 2016 Moderate mixed bipolar I disorder F31.62 and Anxiety state F41.1 [facility] [id number] [place] [address] 00246- 2722 Oct, Moderate mixed bipolar I disorder F31.62 and Anxiety state F41.1 [facility] [id number] [place] [address] 46460- 1118 Sep, Moderate mixed bipolar I disorder F31.62 and Anxiety state F41.1 [facility] [id number] [place] [address] 48471- 6546 Aug, Moderate mixed bipolar I disorder F31.62 and Anxiety state F41.1 [facility] [id number] [place] [address] 26239- 2094 Aug, Moderate mixed bipolar I disorder F31.62 and Anxiety state F41.1 [facility] [id number] [place] [address] 63037- 0031 Jul, Moderate mixed bipolar I disorder F31.62 and Anxiety state F41.1 [facility] [id number] [place] [address] 23798- 3417 Jun, Moderate mixed bipolar I disorder F31.62 and Anxiety state F41.1 [facility] [id number] [place] [address] 01064- 8851 May, Moderate mixed bipolar I disorder F31.62 and Anxiety state F41.1 [facility] [id number] [place] [address] 84664- 9433 May, Moderate mixed bipolar I disorder F31.62 and Anxiety state F41.1 [facility] [id number] [place] [address] 27838- 1508 Apr, Bipolar 1 disorder, depressed, moderate F31.32 and Anxiety state F41.1 [facility] [id number] [place] [address] 97287- 9798 Apr, Bipolar 1 disorder, depressed, moderate F31.32 and Bipolar I disorder, mild, current or most recent episode depressed, with anxious distress F31.31 [facility] [id number] [place] [address] 27689- 6270 Mar, Bipolar 1 disorder, depressed, moderate F31.32 [facility] [id number] [place] [address] 64517- 0335 February, Bipolar 1 disorder, depressed, moderate F31.32 [facility] [id number] [place] [address] 62636- 1875 Jan, Bipolar I disorder, mild, current or most recent episode depressed, with anxious distress F31.31 [facility] [id number] [place] [address] 35588- 2817 Jan, Bipolar I disorder, mild, current or most recent episode depressed, with anxious distress F31.31 [facility] [id number] [place] [address] 43160- 8107 Jan, Bipolar 1 disorder, depressed, moderate F31.32 [facility] [id number] [place] [address] 86584- 6714 Dec, Bipolar I disorder, mild, current or most recent episode depressed, with anxious distress F31.31 [facility] [id number] [place] [address] 53591- 4205 Dec, Bipolar I disorder, mild, current or most recent episode depressed, with anxious distress F31.31 [facility] [id number] [place] [address] 08819- 7808 Nov, Bipolar I disorder, mild, current or most recent episode depressed, with anxious distress F31.31 [facility] [address] [address]- 3883 Oct, Bipolar I disorder, mild, current or most recent episode depressed, with anxious distress F31.31 [facility] [address] [address]- 7370 Oct, Bipolar I disorder, mild, current or most recent episode depressed, with anxious distress F31.31 [facility] [id number] [place] [address] 74338- 1701 Sep, Bipolar I disorder, mild, current or most recent episode depressed, with anxious distress F31.31 [facility] [id number] [place] [address] 35663- 9829 Aug, Bipolar I disorder, mild, current or most recent episode depressed, with anxious distress F31.31 [facility] [id number] [place] [address] 09855- 4567 Jul, Bipolar I disorder, mild, current or most recent episode depressed, with anxious distress F31.31 [facility] [id number] [place] [address] 65816- 5436 Jul, Bipolar I disorder, mild, current or most recent episode depressed, with anxious distress F31.31 [facility] [address], [place] [address]- 6695 Jun, Bipolar I disorder, most recent episode depressed 296.50 [facility] [id number] [place] [address] 75614- 7310 Jun, Bipolar I disorder, most recent episode depressed 296.50 [facility] [id number] [place] [address] 18561- 4914 May, Bipolar disorder, current episode depressed, moderate 296.52 [facility] [id number] [place] [address] 46428- 9049 May, Bipolar I disorder, most recent episode mixed, moderate 296.62 [facility] [id number] 1052 Apr, Bipolar I disorder, most recent episode mixed, moderate 296.62 [facility] [address] 7036 Apr, [facility] [address] 8939 Apr, Bipolar I disorder, most recent episode mixed, moderate 296.62 [facility] [address] 6047 February, Bipolar disorder, current episode depressed, moderate 296.52 [facility] [address] [place] [address]- 4185 Jan, [facility] [address] [place] [address]- 2516 Jan, [facility] [address], [place] [address]- 0713 Dec, [facility] [address], [place] [address]- 9224 Dec, [facility] [address], [place] [address]- 0592 Dec, [facility] [address], [place] [address]- 8755 Dec, [facility] [address] [place] [address]- 0147 Dec, [facility] [address] 0769 Dec, [facility] [address] [place] [address]- 8731 Dec, [facility] [address], [place] [address]- 6427 Dec, [facility] [place] [facility] [id number] [place] [address]- 3452 18 Nov, 2014 [facility] [place] [facility] [address] [id number] [place] [address]- 3490 Nov, [facility] [place] [facility] [address] [id number] [place] [address]- 8266 Nov, [facility] [place] [facility] [address] [id number] [place] [address]- 2536 Nov, [facility] [place] [facility] [address] [id number] [place] [address]- 5047 Oct, [facility] [place] [facility] [address] [id number] [place] [address]- 2802 Oct, [facility] [place] [facility] [address] [id number] [place] [address]- 8296 Oct, [facility] [place] [facility] [address] [id number] [place] [address]- 5935 Oct, [facility] [place] [facility] [address] [id number] [place] [address]- 3827 Oct, [facility] [place] [facility] [address] [id number] [place] [address]- 5675 Oct, [facility] [place] [facility] [address] [id number] [place] [address]- 5356 Oct, [facility] [place] [facility] [address] [id number] [place] [address]- 0182 Oct, [facility] [place] [facility] [address] [id number] [place] [address]- 4875 Aug, [facility] [place] [facility] [address] [id number] [place] [address]- 6402 Aug, [facility] [place] [facility] [address] [id number] [place] [address]- 3138 Jun, [facility] [place] [facility] [address] [id number] [place] [address]- 0456 Jun, [facility] [place] [facility] [address] [id number] [place] [address]- 4655 May, [facility] [place] [facility] [address] [id number] [place] [address]- 6999 May, [facility] [place] [facility] [address] [id number] [place] [address]- 5943 Apr, [facility] [place] [facility] [address] [id number] [place] [address]- 0849 Apr, [facility] [place] [facility] [address] [id number] [place] [address]- 9991 Mar, [facility] [place] [facility] [address] [id number] [place] [address]- 9324 Mar, [facility] [place] [facility] [address] [id number] [place] [address]- 7725 February, [facility] [place] [facility] [address] [id number] [place] [address]- 7137 February, [facility] [place] [facility] [address] [id number] [place] [address]- 1899 February, [facility] [place] [facility] [address] [id number] [place] [address]- 6964 February, [facility] [place] [facility] [address] [id number] [place] [address]- 4793 Jan, [facility] [place] [facility] [address] [id number] [place] [address]- 7087 Jan, [facility] [place] [facility] [address] [id number] [place] [address]- 8449 Jan, [facility] [place] [facility] [address] [id number] [place] [address]- 7293 Jan, [facility] [place] [facility] [address] [id number] [place] [address]- 2277 Dec, [facility] [place] [facility] [address] [id number] [place] [address]- 0832 Dec, [facility] [address] [id number] [place] [address]- 4083 Nov, [facility] [place] [facility] [address] [id number] [place] 9876 Nov, [facility] [address] [id number] [place] [address]- 0544 Oct, [facility] [place] [facility] [address] [id number] [place] [address]- 1036 Oct, [facility] [address] [id number] [place] 7325 Sep, [facility] [address] [id number] [place] [address]- 5376 Sep, [facility] [address] [id number] [place] [address]- 5642 Sep, [facility] [address] [id number] [place] [address]- 0725 Sep, [facility] [place] [facility] [address] [facility] [id number] [place] [address]- 5184 Aug, [facility] [address] [facility] [id number] [place] [address]- 8825 Aug, [facility] [place] [facility] [address] [id number] [place] [address]- 0907 Aug, [facility] [place] [facility] [address] [id number] [place] [address]- 3631 Aug, [facility] [place] [facility] [address] [id number] [place] [address]- 4401 Jul, [facility] [place] [facility] [address] [id number] [place] [address]- 7882 Jul, [facility] [place] [facility] [address] [facility] [id number] [place] [address]- 3166 Jul, [facility] [address] [id number] [place] [address]- 6586 Jul, [facility] [place] [facility] [address] [id number] [place] [address]- 2616 Jun, [facility] [place] [facility] [address] [id number] [place] [address]- 8276 Jun, [facility] [place] [facility] [address] [id number] [place] [address]- 4476 May, [facility] [place] [facility] [address] [id number] [place] [address]- 9566 Apr, [facility] [place] [facility] [address] [id number] [place] [address]- 7686 Mar, [facility] [place] [facility] [address] [id number] [place] [address]- 9376 Mar, [facility] [place] [facility] [address] [id number] [place] [address]- 2406 February, [facility] [place] [facility] [address] [id number] [place] [address]- 4186 Jan, [facility] [place] [facility] [address] [id number], [place] [address]- 3246 Jan, [facility] [place] [facility] [address] [facility] [id number], [place] [address]- 2546 Dec, [facility] [place] [facility] [address] [id number], [place] [address]- 6666 Nov, [facility] [place] [facility] [address] [id number] [place] [address]- 4016 Oct, [facility] [place] [facility] [address] [id number], [place] [address]- 2556 Aug, [facility] [place] [facility] [address] [id number], [place] [address]- 5926 Aug, [facility] [place] [facility] [address] [id number], [place] [address]- 9594 Aug, [facility] [place] [facility] [address] [id number] [place] [address]- 0487 Aug, [facility] [place] [facility] [address] [id number] [place] [address]- 5510 Aug, [facility] [place] [facility] [address] [facility] [id number] [place] [address]- 4417 Aug, [facility] [place] [facility] [address] [id number] [place] [address]- 0583 Jul, [facility] [place] [facility] [id number] [place] [address], [place] [address]- 7241 Jul, [facility] [place] [facility] [address] [facility] [id number] [place] [address]- 1468 Jul, [facility] [place] [facility] [address] [place] [address]- 0247 Jul, [facility] [place] [facility] [address] [id number] [place] [address]- 5002 Jun, [facility] [place] [facility] [address] [id number] [place] [address]- 6612 14 Jun, 2012 [facility] [place] [facility] [address] [id number] [place] [address]- 2262 May, [facility] [place] [facility] [address] [facility] [id number] [place] [address]- 5139 May, [facility] [place] [facility] [address] [facility] [id number], [place] [address]- 7329 Apr, [facility] [place] [facility] [address] [id number] [place] [address]- 1890 Apr, [facility] [place] [facility] [address] [facility] [id number] [place] [address]- 1867 Mar, [facility] [place] [facility] [address] [id number] [place] [address]- 0439 Mar, [facility] [place] [facility] [address] [id number] [place] [address] 2546 18 Mar, 2012 [facility] [place] [facility] [address] [id number] [place] [address]- 9906 30 Feb, 2012 [facility] [place] [facility] [address] [id number] [place] [address] 2546 23 Feb, 2012 [facility] [place] [facility] [address] [id number] [place] [address] 2546 02 Feb, 2012 [facility] [place] [facility] [address] [id number] [place] [address]- 8341 18 Jan, 2012 [facility] [place] [facility] [address] [id number] [place] [address]- 0567 18 Jan, 2012 [facility] [place] [facility] [address] [id number] [place] [address]- 4736 10 Jan, 2012 [facility] [place] [facility] [address] [id number] [place] [address]- 5949 29 Dec, 2011 [facility] [place] [facility] [address] [id number] [place] [address]- 8593 20 Dec, 2011 [facility] [place] [facility] [address] [id number] [place] [address]- 6101 15 Dec, 2011 [facility] [place] [facility] [address] [id number] [place] [address]- 6154 14 Dec, 2011 [facility] [place] [facility] [address] [id number] [place] [address]- 7751 13 Dec, 2011 [facility] [place] [facility] [address] [id number] [place] [address] 13 Dec, 2011 [facility] [place] [facility] [address] [id number] [place] [address] 13 Dec, 2011 [facility] [place] [facility] [address] [id number] [place] [address] 05 Dec, 2011 [facility] [place] [facility] [address] [id number] [place] [address] Nov, [facility] [address] [id number] [place] [address] Nov, [facility] [place] [facility] [address] [id number] [place] [address] Nov, [facility] [place] [facility] [address] [facility] [id number] [place] [address] Nov, [facility] [address] [id number] [place] [address] Nov, [facility] [address] [id number] [place] [address] Nov, [facility] [address] [facility] [id number] [place] [address] Nov, [facility] [address] [id number] [place] [address] Nov, [facility] [place] [facility] [address] [facility] [id number] [place] [address] Oct, [facility] [address] [facility] [id number] [place] [address] Oct, [facility] [place] [facility] [address] [facility] [id number] [place] [address] Oct, [facility] [address] [facility] [id number] [place] [address] Oct, [facility] [place] [facility] [address] [facility] [id number], [place] [address] Oct, [facility] [place] [facility] [address] [id number] [place] [address] Oct, [facility] [place] [facility] [address] [facility] [id number] [place] [address] Oct, [facility] [place] [facility] [address] [facility] [id number] [place] [address] Oct, [facility] [place] [facility] [address] [facility] [id number], [place] [address] Sep, [facility] [address] [facility] [id number], [place] [address] Sep, [facility] [address] [facility] [id number], [place] [address] Sep, [facility] [address] [facility] [id number], [place] [address] Sep, [facility] [address] [facility] [id number][place] [address] Aug, [facility] [address] [facility] [id number], [place] [address] Aug, [facility] [address] [facility] [id number], [place] [address] Aug, [facility] [id number], [place] [address] Jul, [facility] [id number], [place] [address] Jul, [facility] [id number], [place] [address] Jul, [facility] [address] [id number], [place] [address] Aug, IMMUNIZATIONS No Known Immunizations SOCIAL HISTORY Never Assessed REASON FOR VISIT Follow-up Bipolar PLAN OF CARE Activity Details Follow Up 2 Weeks Reason: Follow-up VITAL SIGNS MEDICATIONS Unknown Medications RESULTS No Results PROCEDURES Procedure Date Ordered Result Body Site [facility] VISIT MENTAL HEALTH ESTAB PT Nov 07, 2017 Psychotherapy, patient &/family, 30 minutes, established patient Nov 07, 2017 INSTRUCTIONS MEDICATIONS ADMINISTERED No Known Medications
--- OUTSIDE RECORDS SUMMARY | 2018-12-17 10:55 | XMS REPORT ---
Author Author ARIANNA MOSQUEDA Organization [facility] Address [address] [place] [address] Care Team Providers Care Sack Sorter Name Role Phone ARIANNA MOSQUEDA Unavailable PROBLEMS Type Condition ICD9-CM Code [id number] Code Onset Dates Condition Status SNOMED Code Problem Moderate mixed bipolar I disorder F31.62 Active 72171129 Problem Anxiety state F41.1 Active [id number] ALLERGIES No Information ENCOUNTERS Encounter Location Date Diagnosis [place] [id number] [place] [address] 33110- 3009 Apr, [place] [id number] [place] [address] 54228- 9621 Apr, [place] [id number] [place] [address] 06828- 1804 Mar, Moderate mixed bipolar I disorder F31.62 and Anxiety state F41.1 [place] [id number] [place] [address] 55134- 0589 February, Moderate mixed bipolar I disorder F31.62 and Anxiety state F41.1 [place] [id number] [place] [address] 78473- 4831 Jan, Moderate mixed bipolar I disorder F31.62 and Anxiety state F41.1 [place] [id number] [place] [address] 06863- 9847 Dec, Moderate mixed bipolar I disorder F31.62 and Anxiety state F41.1 [place] [id number] [place] [address] 54297- 5630 Nov, Moderate mixed bipolar I disorder F31.62 and Anxiety state F41.1 [place] [id number] [place] [address] 03785- 0729 Nov, Moderate mixed bipolar I disorder F31.62 and Anxiety state F41.1 [facility] [id number] [place] [address] 69317- 8118 Oct, Moderate mixed bipolar I disorder F31.62 and Anxiety state F41.1 [facility] [id number] [place] [address] 06183- 3573 Oct, Moderate mixed bipolar I disorder F31.62 and Anxiety state F41.1 [facility] [address] [facility] [id number] [place] [address] 55405- 1067 Sep, Moderate mixed bipolar I disorder F31.62 and Anxiety state F41.1 [facility] [id number] [place] [address] 41192- 8657 Aug, Moderate mixed bipolar I disorder F31.62 and Anxiety state F41.1 [facility] [id number] [place] [address] 82667- 3579 Jul, Moderate mixed bipolar I disorder F31.62 and Anxiety state F41.1 [facility] [id number] [place] [address] 83767- 0141 Jul, [facility] [id number] [place] [address] 03141- 0939 Jul, Moderate mixed bipolar I disorder F31.62 and Anxiety state F41.1 [facility] [id number] [place] [address] 44112- 4760 May, Moderate mixed bipolar I disorder F31.62 and Anxiety state F41.1 [facility] [address] [facility] [id number] [place] [address] 23697- 1437 May, Moderate mixed bipolar I disorder F31.62 and Anxiety state F41.1 [facility] [address] [facility] [id number], [place] [address] 0354 May, Moderate mixed bipolar I disorder F31.62 and Anxiety state F41.1 [facility] [address], [place] [address]- 0169 May, [facility] [address] [facility] [id number] [place] [address] 60775- 3090 Apr, Moderate mixed bipolar I disorder F31.62 and Anxiety state F41.1 [facility] [address], [place] [address]- 1697 Apr, Moderate mixed bipolar I disorder F31.62 and Anxiety state F41.1 [facility] [id number], [place] [address]- 7175 Mar, Moderate mixed bipolar I disorder F31.62 and Anxiety state F41.1 [facility] [address] [place] [address] 01626- 2735 February, Moderate mixed bipolar I disorder F31.62 and Anxiety state F41.1 [facility] [address] [place] [address] 59361- 0414 February, Moderate mixed bipolar I disorder F31.62 and Anxiety state F41.1 [facility] [id number], [place] [address]- 1413 Jan, Moderate mixed bipolar I disorder F31.62 and Anxiety state F41.1 [facility] [address], [place] [address]- 9609 Jan, Moderate mixed bipolar I disorder F31.62 and Anxiety state F41.1 [facility] [address], [place] [address]- 9604 Jan, [facility] [id number], [place] [address]- 2528 30 Dec, 2016 Moderate mixed bipolar I disorder F31.62 and Anxiety state F41.1 [facility] [id number], [place] [address]- 7146 14 Dec, 2016 Moderate mixed bipolar I disorder F31.62 and Anxiety state F41.1 [facility] [id number] [address]- 7948 Nov, Moderate mixed bipolar I disorder F31.62 and Anxiety state F41.1 [facility] [id number] [place] [address] 65569- 8157 14 Nov, 2016 Moderate mixed bipolar I disorder F31.62 and Anxiety state F41.1 [facility] [id number] [place] [address] 36243- 3079 Oct, Moderate mixed bipolar I disorder F31.62 and Anxiety state F41.1 [facility] [address] [place] [address] 82224- 9250 Sep, Moderate mixed bipolar I disorder F31.62 and Anxiety state F41.1 [facility] [address] [place] [address] 03670- 8955 Aug, Moderate mixed bipolar I disorder F31.62 and Anxiety state F41.1 [facility] [id number] [place] [address] 20841- 4160 Aug, Moderate mixed bipolar I disorder F31.62 and Anxiety state F41.1 [facility] [id number] [place] [address] 47883- 0516 Jul, Moderate mixed bipolar I disorder F31.62 and Anxiety state F41.1 [facility] [address] [place] [address] 70411- 0796 Jun, Moderate mixed bipolar I disorder F31.62 and Anxiety state F41.1 [facility] [address] [place] [address] 52596- 9379 May, Moderate mixed bipolar I disorder F31.62 and Anxiety state F41.1 [facility] [address] [place] [address] 18584- 4843 May, Moderate mixed bipolar I disorder F31.62 and Anxiety state F41.1 [facility] [address] [place] [address] 86447- 2768 Apr, Bipolar 1 disorder, depressed, moderate F31.32 and Anxiety state F41.1 [facility] [address] [place] [address] 28575- 6946 Apr, Bipolar 1 disorder, depressed, moderate F31.32 and Bipolar I disorder, mild, current or most recent episode depressed, with anxious distress F31.31 [facility] [address] [place] [address] 88684- 5727 Mar, Bipolar 1 disorder, depressed, moderate F31.32 [facility] [id number] [place] [address] 84081- 5037 February, Bipolar 1 disorder, depressed, moderate F31.32 [place] [id number] [place] [address] 37540- 1493 Jan, Bipolar I disorder, mild, current or most recent episode depressed, with anxious distress F31.31 [place] [id number] [place] [address] 83554- 4236 Jan, Bipolar I disorder, mild, current or most recent episode depressed, with anxious distress F31.31 [facility] [address] [place] [address] 13746- 0534 Jan, Bipolar 1 disorder, depressed, moderate F31.32 [facility] [address] [place] [address] 27415- 0815 Dec, Bipolar I disorder, mild, current or most recent episode depressed, with anxious distress F31.31 [facility] [address], [place] [address]- 0661 Dec, Bipolar I disorder, mild, current or most recent episode depressed, with anxious distress F31.31 [facility] [address] [place] [address] 52454- 9863 Nov, Bipolar I disorder, mild, current or most recent episode depressed, with anxious distress F31.31 [facility] [address] [place] [address] 62099- 0078 Oct, Bipolar I disorder, mild, current or most recent episode depressed, with anxious distress F31.31 [facility] [address] [place] [address] 60715- 3139 Oct, Bipolar I disorder, mild, current or most recent episode depressed, with anxious distress F31.31 [facility] [address], [place] [address]- 2740 Sep, Bipolar I disorder, mild, current or most recent episode depressed, with anxious distress F31.31 [facility] [id number] [place] [address] 37097- 7620 Aug, Bipolar I disorder, mild, current or most recent episode depressed, with anxious distress F31.31 [facility] [id number] [place] [address] 29479- 1260 Jul, Bipolar I disorder, mild, current or most recent episode depressed, with anxious distress F31.31 [place] [address] [place] [address] 56391- 1062 Jul, Bipolar I disorder, mild, current or most recent episode depressed, with anxious distress F31.31 [place] [id number] [place] [address] 68288- 8897 Jun, Bipolar I disorder, most recent episode depressed 296.50 [facility] [address] [place] [address] 87088- 1304 Jun, Bipolar I disorder, most recent episode depressed 296.50 [facility] [id number] [place] [address] 32027- 4851 May, Bipolar disorder, current episode depressed, moderate 296.52 [facility] [id number] [place] [address] 86717- 5361 May, Bipolar I disorder, most recent episode mixed, moderate 296.62 [facility] [address] [place] [address] 60334- 7481 Apr, Bipolar I disorder, most recent episode mixed, moderate 296.62 [facility] [address] [facility] [id number] [place] 7241 Apr, [facility] [address] [facility] [id number] [place] [address]- 8464 Apr, Bipolar I disorder, most recent episode mixed, moderate 296.62 [facility] [address] [facility] [id number] [place] [address]- 1571 February, Bipolar disorder, current episode depressed, moderate 296.52 [facility] [address] [facility] [id number] [place]- 3436 Jan, [facility] [address] [facility] [id number] [place] [address]- 8819 Jan, [facility] [address], [place] [address]- 5998 Dec, [facility] [id number], [place] [address]- 3978 Dec, [facility] [id number] [address]- 7936 Dec, [facility] [id number], [place] [address]- 9141 Dec, [facility] [address], [place] [address]- 8666 Dec, [facility] [id number], [place] [address]- 4151 Dec, [facility] [id number] 7879 Dec, [facility] [place] [facility] [id number] 8821 Dec, [facility] [place] [facility] [address] [facility] [id number], [place] [address]- 5641 Nov, [facility] [id number], [place] [address]- 7004 Nov, [facility] [place] [facility] [address] [id number] [place] [address]- 5688 Nov, [facility] [place] [facility] [address] [id number] [place] [address]- 6309 Nov, [facility] [place] [facility] [address] [id number] [place] [address]- 5336 Oct, [facility] [place] [facility] [address] [id number] [place] [address]- 9176 Oct, [facility] [place] [facility] [address] [id number] [place] [address]- 2754 Oct, [facility] [place] [facility] [address] [id number] [place] [address]- 3985 Oct, [facility] [place] [facility] [address] [id number] [place] [address]- 5112 Oct, [facility] [place] [facility] [address] [id number] [place] [address]- 1435 Oct, [facility] [place] [facility] [address] [id number] [place] [address]- 9383 Oct, [facility] [place] [facility] [address] [id number] [place] [address]- 4861 Oct, [facility] [place] [facility] [address] [id number], [place] [address]- 8137 Aug, [facility] [place] [facility] [address] [id number] [place] [address]- 6587 Aug, [facility] [place] [facility] [address] [id number] [place] [address]- 5109 Jun, [facility] [place] [facility] [address] [id number] [place] [address]- 6887 Jun, [facility] [place] [facility] [address] [id number] [place] [address]- 8378 May, [facility] [place] [facility] [address] [id number] [place] [address]- 5680 May, [facility] [address] [id number] [place] [address]- 5862 Apr, [facility] [place] [facility] [address] [id number] [place] [address]- 4816 Apr, [facility] [place] [facility] [address] [id number] [place] [address]- 6395 Mar, [facility] [place] [facility] [address] [id number] [place] [address]- 1757 Mar, [facility] [place] [facility] [address] [id number] [place] [address]- 3634 February, [facility] [place] [facility] [address] [id number] [place] [address]- 6334 February, [facility] [place] [facility] [address] [id number] [place] [address]- 8594 February, [facility] [address] [id number] [place] [address]- 2051 February, [facility] [place] [facility] [address] [id number] [place] [address]- 9420 Jan, [facility] [place] [facility] [address] [id number] [place] [address]- 4045 Jan, [facility] [place] [facility] [address] [id number] [place] [address]- 2761 Jan, [facility] [place] [facility] [address] [id number] [place] [address]- 7296 Jan, [facility] [place] [facility] [address] [id number] [place] [address]- 3226 Dec, [facility] [place] [facility] [address] [id number] [place] [address]- 2546 Dec, [facility] [place] [facility] [address] [id number] [place] [address]- 4676 Nov, [facility] [place] [facility] [address] [id number] [place] [address]- 0799 Nov, [facility] [place] [facility] [address] [id number] [place] [address]- 9398 Oct, [facility] [place] [facility] [address] [id number] [place] [address]- 6601 Oct, [facility] [place] [facility] [address] [id number] [place] [address]- 5120 Sep, [facility] [place] [facility] [address] [id number] [place] [address]- 1520 Sep, [facility] [place] [facility] [address] [id number] [place] [address]- 9620 Sep, [facility] [place] [facility] [address] [id number] [place] [address]- 4992 Sep, [facility] [place] [facility] [address] [id number], [place] [address]- 0384 Aug, [facility] [place] [facility] [address] [id number] [place] [address]- 2536 Aug, [facility] [place] [facility] [address] [id number], [place] [address]- 0144 Aug, [facility] [place] [facility] [address] [id number], [place] [address]- 4861 Aug, [facility] [place] [facility] [address] [id number], [place] [address]- 5740 Jul, [facility] [place] [facility] [address] [id number] [place] [address]- 5147 Jul, [facility] [place] [facility] [address] [id number], [place] [address]- 6076 Jul, [facility] [place] [facility] [address] [facility] [id number], [place] [address]- 4989 Jul, [facility] [place] [facility] [address] [id number] [place] [address]- 0362 Jun, [facility] [address] [id number] [place] [address]- 6337 Jun, [facility] [place] [facility] [address] [id number] [place] [address]- 9356 May, [facility] [address] [id number] [place] [address]- 5421 Apr, [facility] [place] [facility] [address] [id number] [place] [address]- 1960 Mar, [facility] [address] [id number] [place] [address]- 1997 Mar, [facility] [address] [id number] [place] [address]- 6458 February, [facility] [address] [id number] [place] [address]- 6538 Jan, [facility] [address] [id number] [place] [address]- 3577 Jan, [facility] [address] [id number] [place] [address]- 1977 Dec, [facility] [address] [id number] [place] [address]- 9047 Nov, [facility] [address] [id number] [place] [address]- 7472 Oct, [facility] [address] [id number] [place] [address]- 7368 Aug, [facility] [place] [facility] [address] [id number] [place] [address]- 1637 Aug, [facility] [place] [facility] [address] [id number] [place] [address]- 1781 Aug, [facility] [address] [id number] [place] 4196 Aug, [facility] [place] [facility] [address] [id number] [place] [address]- 4240 Aug, [facility] [place] [facility] [address] [id number] [place] [address]- 1855 Aug, [facility] [place] [facility] [address] [id number] [place] [address]- 8284 Jul, [facility] [place] [facility] [address] [id number] [place] [address], [place] [address]- 5332 Jul, [facility] [place] [facility] [address] [id number] [place] [address]- 7405 Jul, [facility] [place] [facility] [address] [id number] [place] [address]- 4882 Jul, [facility] [place] [facility] [address] [id number] [place] [address]- 2840 Jun, [facility] [place] [facility] [address] [id number] [place] [address]- 5371 14 Jun, 2012 [facility] [place] [facility] [address] [id number] [place] [address]- 0106 May, [facility] [place] [facility] [address] [id number] [place] [address]- 0211 May, [facility] [place] [facility] [address] [id number] [place] [address]- 1649 Apr, [facility] [place] [facility] [address] [id number] [place] [address]- 5130 Apr, [facility] [place] [facility] [address] [id number] [place] [address]- 4076 Mar, [facility] [place] [facility] [address] [id number] [place] [address]- 5583 Mar, [facility] [place] [facility] [address] [id number] [place] [address]- 6822 Mar, [facility] [place] [facility] [address] [id number] [place] [address]- 6906 30 Feb, 2012 [facility] [place] [facility] [address] [id number] [place] [address]- 2359 February, [facility] [place] [facility] [address] [id number] [place] [address]- 0586 February, [facility] [place] [facility] [address] [id number] [place] [address]- 7806 18 Jan, 2012 [facility] [place] [facility] [address] [id number] [place] [address]- 3431 18 Jan, 2012 [facility] [place] [facility] [address] [id number] [place] [address]- 6415 10 Jan, 2012 [facility] [place] [facility] [address] [id number] [place] [address]- 6410 29 Dec, 2011 [facility] [place] [facility] [address] [id number] [place] [address] 20 Dec, 2011 [facility] [place] [facility] [address] [id number] [place] [address] 15 Dec, 2011 [facility] [place] [facility] [address] [id number] [place] [address] 14 Dec, 2011 [facility] [place] [facility] [address] [id number] [place] [address] 13 Dec, 2011 [facility] [place] [facility] [address] [id number] [place] [address] 13 Dec, 2011 [facility] [place] [facility] [address] [id number] [place] [address] 13 Dec, 2011 [facility] [place] [facility] [address] [id number] [place] [address] 05 Dec, 2011 [facility] [place] [facility] [address] [id number] [place] [address] 28 Nov, 2011 [facility] [place] [facility] [address] [id number] [place] [address] 23 Nov, 2011 [facility] [place] [facility] [address] [id number] [place] [address] 16 Nov, 2011 [facility] [address] [id number] [place] [address] Nov, 2011 [facility] [place] [facility] [address] [id number] [place] [address] Nov, [facility] [place] [facility] [address] [id number] [place] [address] Nov, [facility] [place] [facility] [address] [id number] [place] [address] Nov, [facility] [place] [facility] [address] [id number] [place] [address] Nov, [facility] [address] [id number] [place] [address] Oct, [facility] [address] [id number] [place] [address] Oct, [facility] [address] [id number] [place] [address] Oct, [facility] [address] [id number] [place] [address] Oct, [facility] [place] [facility] [address] [id number] [place] [address] Oct, [facility] [place] [facility] [address] [id number] [place] [address] Oct, [facility] [place] [facility] [address] [id number] [place] [address] Oct, [facility] [place] [facility] [address] [id number] [place] [address] Oct, [facility] [place] [facility] [address] [id number] [place] [address] Sep, [facility] [place] [facility] [address] [id number], [place] [address] Sep, [facility] [id number], [place] [address] Sep, [facility] [address] [id number], [place] [address] Sep, [facility] [id number], [place] [address] Aug, [facility] [id number], [place] [address] Aug, [facility] [id number], [place] [address] Aug, [facility] [id number], [place] [address] Jul, [facility] [id number], [place] [address] Jul, [facility] [id number], [place] [address] Jul, [facility] [address] [id number], [place] [address] Aug, IMMUNIZATIONS No Known Immunizations SOCIAL HISTORY Never Assessed REASON FOR VISIT Follow-up Bipolar PLAN OF CARE Activity Details Follow Up 2 Weeks Reason: Follow-up VITAL SIGNS MEDICATIONS Unknown Medications RESULTS No Results PROCEDURES Procedure Date Ordered Result Body Site [facility] PT Oct 26, 2017 Psychotherapy, patient &/family, 45 minutes, established patient Oct 26, 2017 INSTRUCTIONS MEDICATIONS ADMINISTERED No Known Medications
--- OUTSIDE RECORDS SUMMARY | 2018-12-17 10:55 | XMS REPORT ---
Author Author ARIANNA MOSQUEDA Organization [facility] Address [address] [place] [address] Care Team Providers Care Business Services Manager Name Role Phone ARIANNA MOSQUEDA Unavailable PROBLEMS Type Condition ICD9-CM Code [id number] Code Onset Dates Condition Status SNOMED Code Problem Moderate mixed bipolar I disorder F31.62 Active 27597910 Problem Anxiety state F41.1 Active [id number] ALLERGIES No Information ENCOUNTERS Encounter Location Date Diagnosis [place] [id number] [place] [address] 16218- 9735 May, [place] [id number] [place] [address] 61580- 5232 Apr, [place] [id number] [place] [address] 46505- 0553 Apr, Moderate mixed bipolar I disorder F31.62 and Anxiety state F41.1 [place] [id number] [place] [address] 95426- 1873 Mar, Moderate mixed bipolar I disorder F31.62 and Anxiety state F41.1 [place] [id number] [place] [address] 24140- 6192 February, Moderate mixed bipolar I disorder F31.62 and Anxiety state F41.1 [place] [id number] [place] [address] 77219- 7650 Jan, Moderate mixed bipolar I disorder F31.62 and Anxiety state F41.1 [place] [id number] [place] [address] 18415- 6588 Dec, Moderate mixed bipolar I disorder F31.62 and Anxiety state F41.1 [place] [id number] [place] [address] 58380- 7639 Nov, Moderate mixed bipolar I disorder F31.62 and Anxiety state F41.1 [facility] [id number] [place] [address] 68432- 6483 Nov, Moderate mixed bipolar I disorder F31.62 and Anxiety state F41.1 [facility] [id number] [place] [address] 73851- 8556 Oct, Moderate mixed bipolar I disorder F31.62 and Anxiety state F41.1 [facility] [address] [facility] [id number] [place] [address] 00427- 1576 Oct, Moderate mixed bipolar I disorder F31.62 and Anxiety state F41.1 [facility] [id number] [place] [address] 85111- 8714 Sep, Moderate mixed bipolar I disorder F31.62 and Anxiety state F41.1 [facility] [id number] [place] [address] 93951- 8676 Aug, Moderate mixed bipolar I disorder F31.62 and Anxiety state F41.1 [facility] [id number] [place] [address] 53341- 2391 Jul, Moderate mixed bipolar I disorder F31.62 and Anxiety state F41.1 [facility] [address] [address]- 4949 Jul, [facility] [id number] [place] [address] 93030- 1909 Jul, Moderate mixed bipolar I disorder F31.62 and Anxiety state F41.1 [facility] [address] [facility] [id number] [place] [address] 70903- 8086 May, Moderate mixed bipolar I disorder F31.62 and Anxiety state F41.1 [facility] [id number] [address]- 9739 May, Moderate mixed bipolar I disorder F31.62 and Anxiety state F41.1 [facility] [address] [address]- 8109 May, Moderate mixed bipolar I disorder F31.62 and Anxiety state F41.1 [facility] [address] [address]- 9126 May, [facility] [id number] [place] [address] 54369- 4182 Apr, Moderate mixed bipolar I disorder F31.62 and Anxiety state F41.1 [facility] [address] [address]- 1355 Apr, Moderate mixed bipolar I disorder F31.62 and Anxiety state F41.1 [facility] [id number] [place] [address] 93381- 4587 Mar, Moderate mixed bipolar I disorder F31.62 and Anxiety state F41.1 [facility] [id number] [place] [address] 39413- 6964 February, Moderate mixed bipolar I disorder F31.62 and Anxiety state F41.1 [facility] [address] [address]- 9812 February, Moderate mixed bipolar I disorder F31.62 and Anxiety state F41.1 [facility] [address] [address]- 4250 Jan, Moderate mixed bipolar I disorder F31.62 and Anxiety state F41.1 [facility] [address] [address]- 7808 Jan, Moderate mixed bipolar I disorder F31.62 and Anxiety state F41.1 [facility] [address] [address]- 4759 Jan, [facility] [id number] [address]- 9037 Dec, Moderate mixed bipolar I disorder F31.62 and Anxiety state F41.1 [facility] [id number] [address]- 3773 14 Dec, 2016 Moderate mixed bipolar I disorder F31.62 and Anxiety state F41.1 [facility] [id number] [place] [address] 15488- 3407 27 Nov, 2016 Moderate mixed bipolar I disorder F31.62 and Anxiety state F41.1 [facility] [address] [place] [address] 81858- 1205 14 Nov, 2016 Moderate mixed bipolar I disorder F31.62 and Anxiety state F41.1 [facility] [address] [place] [address] 55881- 7580 Oct, Moderate mixed bipolar I disorder F31.62 and Anxiety state F41.1 [facility] [address] [place] [address] 49347- 5951 Sep, Moderate mixed bipolar I disorder F31.62 and Anxiety state F41.1 [facility] [id number] [place] [address] 21082- 0330 Aug, Moderate mixed bipolar I disorder F31.62 and Anxiety state F41.1 [facility] [id number] [place] [address] 07263- 4821 Aug, Moderate mixed bipolar I disorder F31.62 and Anxiety state F41.1 [facility] [address] [place] [address] 99542- 3048 Jul, Moderate mixed bipolar I disorder F31.62 and Anxiety state F41.1 [facility] [address] [place] [address] 81726- 2008 Jun, Moderate mixed bipolar I disorder F31.62 and Anxiety state F41.1 [facility] [address] [place] [address] 26174- 4848 May, Moderate mixed bipolar I disorder F31.62 and Anxiety state F41.1 [facility] [id number] [place] [address] 54933- 3254 May, Moderate mixed bipolar I disorder F31.62 and Anxiety state F41.1 [facility] [id number] [place] [address] 31428- 9802 Apr, Bipolar 1 disorder, depressed, moderate F31.32 and Anxiety state F41.1 [facility] [address] [place] [address] 62716- 2893 Apr, Bipolar 1 disorder, depressed, moderate F31.32 and Bipolar I disorder, mild, current or most recent episode depressed, with anxious distress F31.31 [facility] [id number] [place] [address] 55197- 2481 Mar, Bipolar 1 disorder, depressed, moderate F31.32 [facility] [id number] [place] [address] 66045- 5059 February, Bipolar 1 disorder, depressed, moderate F31.32 [facility] [id number] [place] [address] 35330- 3347 Jan, Bipolar I disorder, mild, current or most recent episode depressed, with anxious distress F31.31 [facility] [id number] [place] [address] 65679- 5224 Jan, Bipolar I disorder, mild, current or most recent episode depressed, with anxious distress F31.31 [facility] [id number] [place] [address] 47664- 1248 Jan, Bipolar 1 disorder, depressed, moderate F31.32 [facility] [address] [place] [address] 71169- 4474 Dec, Bipolar I disorder, mild, current or most recent episode depressed, with anxious distress F31.31 [facility] [id number] [place] [address] 60657- 8280 Dec, Bipolar I disorder, mild, current or most recent episode depressed, with anxious distress F31.31 [facility] [address] [place] [address] 49536- 5225 Nov, Bipolar I disorder, mild, current or most recent episode depressed, with anxious distress F31.31 [facility] [address] [address]- 1877 Oct, Bipolar I disorder, mild, current or most recent episode depressed, with anxious distress F31.31 [facility] [address] [address]- 4688 Oct, Bipolar I disorder, mild, current or most recent episode depressed, with anxious distress F31.31 [facility] [address] [place] [address] 21261- 7099 Sep, Bipolar I disorder, mild, current or most recent episode depressed, with anxious distress F31.31 [facility] [address] [place] [address] 61380- 9095 Aug, Bipolar I disorder, mild, current or most recent episode depressed, with anxious distress F31.31 [facility] [id number] [place] [address] 93544- 9015 Jul, Bipolar I disorder, mild, current or most recent episode depressed, with anxious distress F31.31 [facility] [address] [place] [address] 34919- 3454 Jul, Bipolar I disorder, mild, current or most recent episode depressed, with anxious distress F31.31 [facility] [address] [address]- 8143 Jun, Bipolar I disorder, most recent episode depressed 296.50 [facility] [id number] [place] [address] 50930- 2409 Jun, Bipolar I disorder, most recent episode depressed 296.50 [facility] [address] [place] [address] 12008- 9775 May, Bipolar disorder, current episode depressed, moderate 296.52 [facility] [address] [place] [address] 14116- 6481 May, Bipolar I disorder, most recent episode mixed, moderate 296.62 [facility] [id number] [place] 6968 Apr, Bipolar I disorder, most recent episode mixed, moderate 296.62 [facility] [address] 0556 Apr, [facility] [address] 1375 Apr, Bipolar I disorder, most recent episode mixed, moderate 296.62 [facility] [address] 9773 February, Bipolar disorder, current episode depressed, moderate 296.52 [facility] [address] [address]- 7763 Jan, [facility] [address] [address]- 8367 Jan, [facility] [address] [address]- 0101 Dec, [facility] [address] [address]- 5967 Dec, [facility] [address] [address]- 1414 Dec, [facility] [address] [address]- 4699 Dec, [facility] [address] [address]- 9887 Dec, [facility] [address] 2636 Dec, [facility] [address] [address]- 9000 Dec, [facility] [address] [address]- 7217 Dec, [facility] [place] [facility] [id number] [place] [address]- 0350 18 Nov, 2014 [facility] [place] [facility] [address] [id number] [place] [address]- 5888 Nov, [facility] [place] [facility] [address] [id number] [place] [address]- 1266 Nov, [facility] [place] [facility] [address] [id number] [place] [address]- 6636 Nov, [facility] [place] [facility] [address] [id number] [place] [address]- 7943 Oct, [facility] [place] [facility] [address] [id number] [place] [address]- 9043 Oct, [facility] [place] [facility] [address] [id number] [place] [address]- 9082 Oct, [facility] [place] [facility] [address] [id number] [place] [address]- 0882 Oct, [facility] [place] [facility] [address] [id number] [place] [address]- 3374 Oct, [facility] [place] [facility] [address] [id number] [place] [address]- 9187 Oct, [facility] [place] [facility] [address] [id number] [place] [address]- 1405 Oct, [facility] [place] [facility] [address] [id number] [place] [address]- 5075 Oct, [facility] [place] [facility] [address] [id number] [place] [address]- 6422 Aug, [facility] [place] [facility] [address] [id number] [place] [address]- 5411 Aug, [facility] [place] [facility] [address] [id number] [place] [address]- 2097 Jun, [facility] [place] [facility] [address] [id number] [place] [address]- 2217 Jun, [facility] [place] [facility] [address] [id number] [place] [address]- 8626 May, [facility] [place] [facility] [address] [id number] [place] [address]- 2428 May, [facility] [place] [facility] [address] [id number] [place] [address]- 1817 Apr, [facility] [place] [facility] [address] [id number] [place] [address]- 3497 Apr, [facility] [place] [facility] [address] [id number] [place] [address]- 2447 Mar, [facility] [place] [facility] [address] [id number] [place] [address]- 8891 Mar, [facility] [place] [facility] [address] [id number] [place] [address]- 1741 February, [facility] [place] [facility] [address] [id number] [place] [address]- 2599 February, [facility] [place] [facility] [address] [id number] [place] [address]- 3076 February, [facility] [place] [facility] [address] [id number] [place] [address]- 9998 February, [facility] [place] [facility] [address] [id number] [place] [address]- 4756 Jan, [facility] [place] [facility] [address] [id number] [place] [address]- 5889 Jan, [facility] [place] [facility] [address] [id number] [place] [address]- 2592 Jan, [facility] [place] [facility] [address] [id number] [place] [address]- 4454 Jan, [facility] [place] [facility] [address] [id number] [place] [address]- 8549 Dec, [facility] [place] [facility] [address] [id number] [place] [address]- 1630 Dec, [facility] [address] [id number] [place] [address]- 0931 Nov, [facility] [place] [facility] [address] [id number] [place] 9636 Nov, [facility] [address] [id number] [place] [address]- 5507 Oct, [facility] [place] [facility] [address] [id number] [place] [address]- 8190 Oct, [facility] [address] [id number] [place] 0025 Sep, [facility] [address] [id number] [place] [address]- 2820 Sep, [facility] [address] [id number] [place] [address]- 7038 Sep, [facility] [address] [id number] [place] [address]- 7213 Sep, [facility] [place] [facility] [address] [facility] [id number] [place] [address]- 1377 Aug, [facility] [address] [facility] [id number] [place] [address]- 6856 Aug, [facility] [place] [facility] [address] [id number] [place] [address]- 6249 Aug, [facility] [place] [facility] [address] [id number] [place] [address]- 3979 Aug, [facility] [place] [facility] [address] [id number] [place] [address]- 1437 Jul, [facility] [place] [facility] [address] [id number] [place] [address]- 9450 Jul, [facility] [place] [facility] [address] [facility] [id number] [place] [address]- 6284 Jul, [facility] [address] [id number] [place] [address]- 1206 Jul, [facility] [place] [facility] [address] [id number] [place] [address]- 2646 Jun, [facility] [place] [facility] [address] [id number] [place] [address]- 5626 Jun, [facility] [place] [facility] [address] [id number] [place] [address]- 3646 May, [facility] [place] [facility] [address] [id number] [place] [address]- 9538 Apr, [facility] [place] [facility] [address] [id number] [place] [address]- 1536 Mar, [facility] [place] [facility] [address] [id number] [place] [address]- 7776 Mar, [facility] [place] [facility] [address] [id number] [place] [address]- 6056 February, [facility] [place] [facility] [address] [id number] [place] [address]- 5386 Jan, [facility] [place] [facility] [address] [id number] [place] [address]- 1696 Jan, [facility] [place] [facility] [address] [facility] [id number] [place] [address]- 2546 Dec, [facility] [place] [facility] [address] [id number] [place] [address]- 9286 Nov, [facility] [place] [facility] [address] [id number] [place] [address]- 7136 Oct, [facility] [place] [facility] [address] [id number] [place] [address]- 2146 Aug, [facility] [place] [facility] [address] [id number] [place] [address]- 2386 Aug, [facility] [place] [facility] [address] [id number] [place] [address]- 3493 Aug, [facility] [place] [facility] [address] [id number] [place] [address]- 1608 Aug, [facility] [place] [facility] [address] [id number] [place] [address]- 2262 Aug, [facility] [place] [facility] [address] [facility] [id number] [place] [address]- 2703 Aug, [facility] [place] [facility] [address] [id number] [place] [address]- 1172 Jul, [facility] [place] [facility] [id number] [place] [address], [place] [address]- 5295 Jul, [facility] [place] [facility] [address] [facility] [id number] [place] [address]- 0991 Jul, [facility] [place] [facility] [address] [place] [address]- 9433 Jul, [facility] [place] [facility] [address] [id number] [place] [address]- 6974 Jun, [facility] [place] [facility] [id number] [place] [address]- 9695 14 Jun, 2012 [facility] [place] [facility] [id number] [place] [address]- 1559 May, [facility] [place] [facility] [address] [facility] [id number] [place] [address]- 4382 May, [facility] [place] [facility] [address] [facility] [id number] [place] [address]- 5842 Apr, [facility] [place] [facility] [address] [id number] [place] [address]- 7242 Apr, [facility] [place] [facility] [address] [facility] [id number] [place] [address]- 3959 Mar, [facility] [place] [facility] [id number] [place] [address]- 4579 Mar, [facility] [place] [facility] [address] [id number] [place] [address] 2546 18 Mar, 2012 [facility] [place] [facility] [address] [id number] [place] [address]- 9726 30 Feb, 2012 [facility] [place] [facility] [address] [id number] [place] [address] 2546 23 Feb, 2012 [facility] [place] [facility] [address] [id number] [place] [address] 2546 02 Feb, 2012 [facility] [place] [facility] [address] [id number] [place] [address] 18 Jan, 2012 [facility] [place] [facility] [address] [id number] [place] [address] 18 Jan, 2012 [facility] [place] [facility] [address] [id number] [place] [address] 10 Jan, 2012 [facility] [place] [facility] [address] [id number] [place] [address] 29 Dec, 2011 [facility] [place] [facility] [address] [id number] [place] [address] 20 Dec, 2011 [facility] [place] [facility] [address] [id number] [place] [address] 15 Dec, 2011 [facility] [place] [facility] [address] [id number] [place] [address] 14 Dec, 2011 [facility] [place] [facility] [address] [id number] [place] [address] 13 Dec, 2011 [facility] [place] [facility] [address] [id number] [place] [address] 13 Dec, 2011 [facility] [place] [facility] [address] [id number] [place] [address] 4096 13 Dec, 2011 [facility] [place] [facility] [address] [id number] [place] [address] 05 Dec, 2011 [facility] [place] [facility] [address] [id number] [place] [address] Nov, [facility] [address] [id number] [place] [address] Nov, [facility] [place] [facility] [address] [id number] [place] [address] Nov, [facility] [place] [facility] [address] [facility] [id number] [place] [address] Nov, [facility] [address] [id number] [place] [address] Nov, [facility] [address] [id number] [place] [address] Nov, [facility] [address] [facility] [id number] [place] [address]6 Nov, [facility] [address] [id number] [place] [address] Nov, [facility] [place] [facility] [address] [facility] [id number] [place] [address] Oct, [facility] [address] [facility] [id number] [place] [address] Oct, [facility] [place] [facility] [address] [facility] [id number] [place] [address] Oct, [facility] [address] [facility] [id number] [place] [address] Oct, [facility] [place] [facility] [address] [facility] [id number] [place] [address] Oct, [facility] [place] [facility] [address] [id number] [place] [address] Oct, [facility] [place] [facility] [address] [facility] [id number] [place] [address] Oct, [facility] [place] [facility] [address] [facility] [id number] [place] [address] 8383 Oct, [facility] [place] [facility] [address] [facility] [id number] [place] [address] 12 Sep, 2011 [facility] [address] [facility] [id number] [place] Sep, [facility] [address] [facility] [id number] [place] [address] Sep, [facility] [facility] [address] [facility] [id number] [address] Sep[facility] [address] [facility] [id number] [place] [address] Aug, [facility] [id number] [address] Aug, [facility] [address] [facility] [id number] [place] [address] Aug, [facility] [id number] [address] Jul, [facility] [id number] [address] Jul, [facility] [id number] [address] Jul, [facility] [id number] [address] Aug, IMMUNIZATIONS No Known Immunizations SOCIAL HISTORY Never Assessed REASON FOR VISIT Follow-up Bipolar PLAN OF CARE Activity Details Follow Up 2 Weeks Reason: Follow-up VITAL SIGNS MEDICATIONS Unknown Medications RESULTS No Results PROCEDURES Procedure Date Ordered Result Body Site [facility] VISIT MENTAL HEALTH ESTAB PT Dec 07, 2017 Psychotherapy, patient &/family, 30 minutes, established patient Dec 07, 2017 INSTRUCTIONS MEDICATIONS ADMINISTERED No Known Medications
--- OUTSIDE RECORDS SUMMARY | 2018-12-17 10:56 | XMS REPORT ---
Author Author ARIANNA MOSQUEDA Organization [facility] Address [address] [place] [address] Care Team Providers Care Highway Maintainer Name Role Phone ARIANNA MOSQUEDA Unavailable PROBLEMS Type Condition ICD9-CM Code [id number] Code Onset Dates Condition Status SNOMED Code Problem Moderate mixed bipolar I disorder F31.62 Active 73194233 Problem Anxiety state F41.1 Active [id number] ALLERGIES No Information ENCOUNTERS Encounter Location Date Diagnosis [place] [id number] [place] [address] 99293- 3551 Apr, [place] [id number] [place] [address] 95801- 1624 Mar, [place] [id number] [address]- [address]58 February, Moderate mixed bipolar I disorder F31.62 and Anxiety state F41.1 [place] [id number] [place] [address] 62181- 0054 Jan, Moderate mixed bipolar I disorder F31.62 and Anxiety state F41.1 [place] [id number] [place] [address] 99410- 2821 Dec, Moderate mixed bipolar I disorder F31.62 and Anxiety state F41.1 [place] [id number] [place] [address] 20852- 3609 Nov, Moderate mixed bipolar I disorder F31.62 and Anxiety state F41.1 [place] [id number] [place] [address] 10249- 8403 Nov, Moderate mixed bipolar I disorder F31.62 and Anxiety state F41.1 [place] [id number] [place] [address] 32683- 1822 Oct, Moderate mixed bipolar I disorder F31.62 and Anxiety state F41.1 [facility] [id number] [place] [address] 48714- 5545 Oct, Moderate mixed bipolar I disorder F31.62 and Anxiety state F41.1 [facility] [id number] [place] [address] 96901- 8226 Sep, Moderate mixed bipolar I disorder F31.62 and Anxiety state F41.1 [facility] [id number] [place] [address] 39933- 9467 Aug, Moderate mixed bipolar I disorder F31.62 and Anxiety state F41.1 [facility] [id number] [place] [address] 77988- 6341 Jul, Moderate mixed bipolar I disorder F31.62 and Anxiety state F41.1 [facility] [id number] [place] [address] 37953- 3190 Jul, [facility] [id number] [place] [address] 80212- 2155 Jul, Moderate mixed bipolar I disorder F31.62 and Anxiety state F41.1 [facility] [id number] [place] [address] 60065- 9793 May, Moderate mixed bipolar I disorder F31.62 and Anxiety state F41.1 [facility] [address] [address]- 7763 May, Moderate mixed bipolar I disorder F31.62 and Anxiety state F41.1 [facility] [id number] [place] [address] 47773- 8663 May, Moderate mixed bipolar I disorder F31.62 and Anxiety state F41.1 [facility] [id number] [address]- 6148 May, [facility] [id number] [place] [address] 10727- 7372 Apr, Moderate mixed bipolar I disorder F31.62 and Anxiety state F41.1 [facility] [id number] [place] [address] 83330- 1271 Apr, Moderate mixed bipolar I disorder F31.62 and Anxiety state F41.1 [facility] [id number] [place] [address] 02231- 4699 Mar, Moderate mixed bipolar I disorder F31.62 and Anxiety state F41.1 [facility] [id number] [place] [address] 63713- 3106 February, Moderate mixed bipolar I disorder F31.62 and Anxiety state F41.1 [facility] [id number] [place] [address] 18859- 2973 February, Moderate mixed bipolar I disorder F31.62 and Anxiety state F41.1 [facility] [id number] [place] [address] 62884- 2312 Jan, Moderate mixed bipolar I disorder F31.62 and Anxiety state F41.1 [facility] [id number] [place] [address] 95366- 3872 Jan, Moderate mixed bipolar I disorder F31.62 and Anxiety state F41.1 [facility] [id number] [place] [address] 39297- 0686 Jan, [facility] [id number] [place] [address] 47795- 1466 Dec, Moderate mixed bipolar I disorder F31.62 and Anxiety state F41.1 [facility] [id number] [address]- 4395 Dec, Moderate mixed bipolar I disorder F31.62 and Anxiety state F41.1 [facility] [id number] [address]- 8948 Nov, Moderate mixed bipolar I disorder F31.62 and Anxiety state F41.1 [facility] [id number] [address]- 7279 14 Nov, 2016 Moderate mixed bipolar I disorder F31.62 and Anxiety state F41.1 [facility] [id number] [place] [address] 21799- 0384 Oct, Moderate mixed bipolar I disorder F31.62 and Anxiety state F41.1 [facility] [id number] [place] [address] 19213- 9486 Sep, Moderate mixed bipolar I disorder F31.62 and Anxiety state F41.1 [facility] [address] [place] [address] 03020- 9242 Aug, Moderate mixed bipolar I disorder F31.62 and Anxiety state F41.1 [facility] [address] [place] [address] 02204- 6391 Aug, Moderate mixed bipolar I disorder F31.62 and Anxiety state F41.1 [facility] [id number] [place] [address] 76609- 8747 Jul, Moderate mixed bipolar I disorder F31.62 and Anxiety state F41.1 [facility] [id number] [place] [address] 95966- 3623 Jun, Moderate mixed bipolar I disorder F31.62 and Anxiety state F41.1 [facility] [address] [place] [address] 59613- 9843 May, Moderate mixed bipolar I disorder F31.62 and Anxiety state F41.1 [facility] [address] [place] [address] 83860- 7650 May, Moderate mixed bipolar I disorder F31.62 and Anxiety state F41.1 [facility] [address] [place] [address] 15201- 3476 Apr, Bipolar 1 disorder, depressed, moderate F31.32 and Anxiety state F41.1 [facility] [address] [place] [address] 80609- 8027 Apr, Bipolar 1 disorder, depressed, moderate F31.32 and Bipolar I disorder, mild, current or most recent episode depressed, with anxious distress F31.31 [facility] [id number] [place] [address] 34245- 9402 Mar, Bipolar 1 disorder, depressed, moderate F31.32 [facility] [id number] [place] [address] 75630- 4940 February, Bipolar 1 disorder, depressed, moderate F31.32 [facility] [id number] [place] [address] 17868- 6184 Jan, Bipolar I disorder, mild, current or most recent episode depressed, with anxious distress F31.31 [place] [id number] [place] [address] 51198- 5695 Jan, Bipolar I disorder, mild, current or most recent episode depressed, with anxious distress F31.31 [place] [id number] [place] [address] 58528- 8127 Jan, Bipolar 1 disorder, depressed, moderate F31.32 [facility] [id number] [place] [address] 80790- 0015 Dec, Bipolar I disorder, mild, current or most recent episode depressed, with anxious distress F31.31 [facility] [address] [place] [address] 06569- 6273 Dec, Bipolar I disorder, mild, current or most recent episode depressed, with anxious distress F31.31 [facility] [address] [place] [address] 09988- 6792 Nov, Bipolar I disorder, mild, current or most recent episode depressed, with anxious distress F31.31 [facility] [address] [place] [address] 67648- 0339 Oct, Bipolar I disorder, mild, current or most recent episode depressed, with anxious distress F31.31 [facility] [id number] [place] [address] 95299- 4309 Oct, Bipolar I disorder, mild, current or most recent episode depressed, with anxious distress F31.31 [facility] [address] [address]- 2559 Sep, Bipolar I disorder, mild, current or most recent episode depressed, with anxious distress F31.31 [facility] [address] [address]- 6784 Aug, Bipolar I disorder, mild, current or most recent episode depressed, with anxious distress F31.31 [facility] [address] [address]- 4636 Jul, Bipolar I disorder, mild, current or most recent episode depressed, with anxious distress F31.31 [facility] [address] [address]- 5271 Jul, Bipolar I disorder, mild, current or most recent episode depressed, with anxious distress F31.31 [facility] [address] [address]- 0585 Jun, Bipolar I disorder, most recent episode depressed 296.50 [facility] [address] [address]- 7710 Jun, Bipolar I disorder, most recent episode depressed 296.50 [facility] [address] [address]- 4055 May, Bipolar disorder, current episode depressed, moderate 296.52 [facility] [address] [address]- 4080 May, Bipolar I disorder, most recent episode mixed, moderate 296.62 [facility] [address] [address]- 2000 Apr, Bipolar I disorder, most recent episode mixed, moderate 296.62 [facility] [address] [address]- 3971 Apr, [facility] [id number] [address]- 4706 Apr, Bipolar I disorder, most recent episode mixed, moderate 296.62 [facility] [id number] [place] [address] 249804- 2764 February, Bipolar disorder, current episode depressed, moderate 296.52 [facility] [address] [place] [address]- 0158 Jan, [facility] [id number] [place] [address] 80443- 8926 Jan, [facility] [id number]- 0674 Dec, [facility] [id number] 7425 Dec, [facility] [address] [address]- 1227 Dec, [facility] [address] [address]- 1047 Dec, [facility] [address] [address]- 0762 Dec, [facility] [address] [address]- 8687 Dec, [facility] [address] [address]- 6220 Dec, [facility] [address] [address]- 7827 Dec, [facility] [address] [address]- 2548 Nov, [facility] [address] [address]- 4287 Nov, [facility] [address] [address]- 0696 Nov, [facility] [place] [facility] [address] [id number] [place] [address]- 6295 Nov, [facility] [place] [facility] [address] [id number] [place] [address]- 7001 Oct, [facility] [place] [facility] [address] [id number] [place] [address]- 7077 Oct, [facility] [place] [facility] [address] [id number] [place] [address]- 4277 Oct, [facility] [place] [facility] [address] [id number] [place] [address]- 7660 Oct, [facility] [place] [facility] [address] [id number] [place] [address]- 9090 Oct, [facility] [place] [facility] [address] [id number] [place] [address]- 2336 Oct, [facility] [place] [facility] [address] [id number] [place] [address]- 4345 Oct, [facility] [place] [facility] [address] [id number] [place] [address]- 8907 Oct, [facility] [place] [facility] [address] [id number] [place] [address]- 9548 Aug, [facility] [place] [facility] [address] [id number] [place] [address]- 2767 Aug, [facility] [place] [facility] [address] [id number] [place] [address]- 1167 Jun, [facility] [place] [facility] [address] [id number] [place] [address]- 5270 Jun, [facility] [place] [facility] [address] [id number] [place] [address]- 9179 May, [facility] [place] [facility] [address] [id number] [place] [address]- 5065 May, [facility] [place] [facility] [address] [id number] [place] [address]- 1687 Apr, [facility] [place] [facility] [address] [id number] [place] [address]- 2764 Apr, [facility] [place] [facility] [address] [id number] [place] [address]- 8313 Mar, [facility] [place] [facility] [address] [id number] [place] [address]- 1083 Mar, [facility] [place] [facility] [address] [id number] [place] [address]- 2406 February, [facility] [place] [facility] [address] [id number] [place] [address]- 3309 February, [facility] [place] [facility] [address] [id number] [place] [address]- 0692 February, [facility] [place] [facility] [address] [id number] [place] [address]- 4880 February, [facility] [place] [facility] [address] [id number] [place] [address]- 9121 Jan, [facility] [place] [facility] [address] [id number] [place] [address]- 2224 Jan, [facility] [place] [facility] [address] [id number] [place] [address]- 7674 Jan, [facility] [place] [facility] [address] [id number] [place] [address]- 3300 Jan, [facility] [place] [facility] [address] [id number] [address]- 4055 Dec, [facility] [place] [facility] [address] [id number] [place] [address]- 2602 Dec, [facility] [place] [facility] [address] [id number] [place] [address]- 9638 Nov, [facility] [place] [facility] [address] [id number] [place] [address]- 3097 Nov, [facility] [place] [facility] [address] [id number] [place] [address]- 3285 Oct, [facility] [address] [id number] [place] [address]- 1337 Oct, [facility] [address] [id number] [place] [address]- 2321 Sep, [facility] [address] [id number] [place] [address]- 4185 Sep, [facility] [address] [id number] [place] [address]- 1732 Sep, [facility] [address] [id number] [place] 7125 Sep, [facility] [address] [id number] [place] [address]- 2233 Aug, [facility] [address] [id number] [place] [address]- 4760 Aug, [facility] [address] [id number] [place] [address]- 9271 Aug, [facility] [address] [facility] [id number] [place] [address]- 1163 Aug, [facility] [address] [facility] [id number] [place] [address]- 4611 Jul, [facility] [place] [facility] [address] [id number] [place] [address]- 2592 Jul, [facility] [address] [id number] [place] [address]- 9577 Jul, [facility] [place] [facility] [address] [id number] [place] [address]- 7450 Jul, [facility] [place] [facility] [address] [facility] [id number] [place] [address]- 2546 Jun, [facility] [place] [facility] [address] [facility] [id number] [place] [address]- 7798 Jun, [facility] [address] [id number] [place] [address]- 4971 May, [facility] [place] [facility] [address] [id number] [place] [address]- 7146 Apr, [facility] [place] [facility] [address] [id number] [place] [address]- 6846 Mar, [facility] [place] [facility] [address] [id number] [place] [address]- 2706 Mar, [facility] [place] [facility] [address] [id number] [place] [address]- 6350 February, [facility] [place] [facility] [address] [id number] [place] [address]- 7076 Jan, [facility] [place] [facility] [address] [id number] [place] [address]- 6646 Jan, [facility] [place] [facility] [address] [id number] [place] [address]- 8586 Dec, [facility] [place] [facility] [address] [id number] [place] [address]- 7950 Nov, [facility] [place] [facility] [address] [id number] [place] [address]- 1046 Oct, [facility] [place] [facility] [address] [id number] [place] [address]- 6996 Aug, [facility] [place] [facility] [address] [id number] [place] [address]- 3810 Aug, [facility] [place] [facility] [address] [id number] [place] [address]- 7959 Aug, [facility] [place] [facility] [address] [id number] [place] [address]- 3166 Aug, [facility] [place] [facility] [address] [facility] [id number] [place] [address]- 2286 Aug, [facility] [place] [facility] [address] [id number] [place] [address]- 6843 Aug, [facility] [place] [facility] [address] [id number] [place] [address]- 3315 Jul, [facility] [place] [facility] [address] [id number] [place] [address]- 1116 Jul, [facility] [place] [facility] [address] [facility] [id number] [place] [address]- 0826 Jul, [facility] [place] [facility] [address] [id number] [place] [address]- 1064 Jul, [facility] [place] [facility] [id number] [place] [address], [place] [address]- 8890 27 Jun, 2012 [facility] [place] [facility] [address] [id number] [place] 6283 14 Jun, 2012 [facility] [place] [facility] [id number] [place] [address]- 6900 May, [facility] [place] [facility] [address] [id number] [place] [address]- 3851 May, [facility] [place] [facility] [id number] [place] [address]- 2868 Apr, [facility] [place] [facility] [id number] [place] [address]- 5940 Apr, [facility] [place] [facility] [address] [id number] [place] [address]- 0504 Mar, [facility] [place] [facility] [address] [id number] [place] [address]- 1752 Mar, [facility] [place] [facility] [address] [id number] [place] [address]- 5163 Mar, [facility] [place] [facility] [address] [facility] [id number] [place] [address]- 2464 February, [facility] [place] [facility] [id number] [place] [address]- 1263 February, [facility] [place] [facility] [address] [id number] [place] [address]- 6950 02 Feb, 2012 [facility] [place] [facility] [address] [id number] [place] [address]- 0864 18 Jan, 2012 [facility] [place] [facility] [address] [id number] [place] [address]- 2446 18 Jan, 2012 [facility] [place] [facility] [address] [id number] [place] [address]- 9391 10 Jan, 2012 [facility] [place] [facility] [address] [id number] [place] [address]- 1293 29 Dec, 2011 [facility] [place] [facility] [address] [id number] [place] [address]- 6954 20 Dec, 2011 [facility] [place] [facility] [address] [id number] [place] [address]- 0377 15 Dec, 2011 [facility] [place] [facility] [address] [id number] [place] [address] 14 Dec, 2011 [facility] [place] [facility] [address] [id number] [place] [address] 13 Dec, 2011 [facility] [place] [facility] [address] [id number] [place] [address] 13 Dec, 2011 [facility] [place] [facility] [address] [id number] [place] [address] 13 Dec, 2011 [facility] [place] [facility] [address] [id number] [place] [address] 05 Dec, 2011 [facility] [place] [facility] [address] [id number] [place] [address] 28 Nov, 2011 [facility] [place] [facility] [address] [id number] [place] [address] 23 Nov, 2011 [facility] [place] [facility] [address] [id number] [place] [address] 16 Nov, 2011 [facility] [place] [facility] [address] [id number] [place] [address] 16 Nov, 2011 [facility] [address] [id number] [place] [address] Nov, [facility] [address] [id number] [place] [address] Nov, [facility] [address] [id number] [place] [address] Nov, [facility] [address] [id number] [place] [address] Nov, [facility] [address] [id number] [place] [address] Oct, [facility] [address] [id number] [place] [address] Oct, [facility] [address] [id number] [place] [address] Oct, [facility] [address] [id number] [place] [address] Oct, [facility] [address] [facility] [id number] [place] [address] Oct, [facility] [address] [facility] [id number] [place] [address] Oct, [facility] [address] [id number] [place] [address] Oct, [facility] [address] [id number] [place] [address] Oct, [facility] [address] [id number] [place] [address] Sep, [facility] [address] [id number] [place] [address] Sep, [facility] [address] [facility] [id number] [place] [address] Sep, [facility] [id number] [address] Sep, [facility] [id number] [address] Aug, [facility] [id number] [place] [address] Aug, [facility] [id number] [place] [address] Aug, [facility] [id number] [place] [address] Jul, [facility] [id number] [place] [address] Jul, [facility] [id number] [address] Jul, [facility] [id number] [address] Aug, IMMUNIZATIONS No Known Immunizations SOCIAL HISTORY Never Assessed REASON FOR VISIT Follow-up Bipolar PLAN OF CARE Activity Details Follow Up 4 Weeks Reason: Follow-up VITAL SIGNS MEDICATIONS Unknown Medications RESULTS No Results PROCEDURES Procedure Date Ordered Result Body Site [facility] VISIT MENTAL [facility] Sep 19, 2017 Psychotherapy, patient &/family, 45 minutes, established patient Sep 19, 2017 INSTRUCTIONS MEDICATIONS ADMINISTERED No Known Medications
--- OUTSIDE RECORDS SUMMARY | 2018-12-17 10:56 | XMS REPORT ---
Author Author ARIANNA MOSQUEDA Organization [facility] [place] Address [address] [place] [address] Care Team Providers Care Grader Patrol Name Role Phone ARIANNA MOSQUEDA Unavailable PROBLEMS Type Condition ICD9-CM Code OOU80-QN Code Onset Dates Condition Status SNOMED Code Problem Moderate mixed bipolar I disorder F31.62 Active 42632213 Problem Anxiety state F41.1 Active [id number] ALLERGIES No Information ENCOUNTERS Encounter Location Date Diagnosis [place] [id number] [place] [address] 55636- 9220 February, [place] [address] [address]- [address] Jan, Moderate mixed bipolar I disorder F31.62 and Anxiety state F41.1 [place] [id number] [place] [address] 89887- 9606 Dec, Moderate mixed bipolar I disorder F31.62 and Anxiety state F41.1 [place] [id number] [place] [address] 63266- 8974 Nov, Moderate mixed bipolar I disorder F31.62 and Anxiety state F41.1 [place] [id number] [place] [address] 17872- 8525 Nov, Moderate mixed bipolar I disorder F31.62 and Anxiety state F41.1 [place] [id number] [place] [address] 51144- 9135 Oct, Moderate mixed bipolar I disorder F31.62 and Anxiety state F41.1 [place] [id number] [place] [address] 89520- 5463 Oct, Moderate mixed bipolar I disorder F31.62 and Anxiety state F41.1 [place] [address] [facility] [id number], [place] [address] 7[address] Sep, Moderate mixed bipolar I disorder F31.62 and Anxiety state F41.1 [facility] [place] [address] [facility] [id number], [place] [address] 6306 Aug, Moderate mixed bipolar I disorder F31.62 and Anxiety state F41.1 [facility] [place] [address] [id number] [address] 5416 Jul, Moderate mixed bipolar I disorder F31.62 and Anxiety state F41.1 [facility] [place] [address] [facility] [id number], [place] [address] 4[address] Jul, [facility] [place] [address] [id number], [place] [address] 8015 Jul, Moderate mixed bipolar I disorder F31.62 and Anxiety state F41.1 [facility] [place] [address] [id number], [place] [address] 8986 May, Moderate mixed bipolar I disorder F31.62 and Anxiety state F41.1 [facility] [place] [address] [facility] [id number], [place] [address]- 2842 May, Moderate mixed bipolar I disorder F31.62 and Anxiety state F41.1 [facility] [place] [address] [id number], [place] [address]- 5502 May, Moderate mixed bipolar I disorder F31.62 and Anxiety state F41.1 [facility] [place] [address] [id number], [place] [address]- 3126 May, [facility] [place] [address] [facility] [id number], [place] [address]- 1479 Apr, Moderate mixed bipolar I disorder F31.62 and Anxiety state F41.1 [facility] [place] [address] [facility] [id number], [place] [address]- 5741 Apr, Moderate mixed bipolar I disorder F31.62 and Anxiety state F41.1 [facility] [place] [id number], [place] [address]- 8628 Mar, Moderate mixed bipolar I disorder F31.62 and Anxiety state F41.1 [facility] [place] [id number] [place] [address] 72054- 1526 February, Moderate mixed bipolar I disorder F31.62 and Anxiety state F41.1 [facility] [place] [id number] [place] [address] 91633- 0238 February, Moderate mixed bipolar I disorder F31.62 and Anxiety state F41.1 [facility] [place] [id number] [place] [address] 36909- 3610 Jan, Moderate mixed bipolar I disorder F31.62 and Anxiety state F41.1 [facility] [place] [id number] [place] [address] 11516- 9069 Jan, Moderate mixed bipolar I disorder F31.62 and Anxiety state F41.1 [facility] [place] [id number], [place] [address]- 4359 Jan, [facility] [place] [id number] [place] [address] 24433- 3305 Dec, Moderate mixed bipolar I disorder F31.62 and Anxiety state F41.1 [facility] [place] [address], [place] [address]- 9733 Dec, Moderate mixed bipolar I disorder F31.62 and Anxiety state F41.1 [facility] [place] [address], [place] [address]- 6782 Nov, Moderate mixed bipolar I disorder F31.62 and Anxiety state F41.1 [facility] [place] [id number] [place] [address] 57211- 7664 Nov, Moderate mixed bipolar I disorder F31.62 and Anxiety state F41.1 [facility] [place] [address], [place] [address]- 8486 Oct, Moderate mixed bipolar I disorder F31.62 and Anxiety state F41.1 [facility] [place] [address], [place] [address]- 7183 Sep, Moderate mixed bipolar I disorder F31.62 and Anxiety state F41.1 [facility] [place] [id number] [place] [address] 45482- 8951 Aug, Moderate mixed bipolar I disorder F31.62 and Anxiety state F41.1 [facility] [place] [id number] [place] [address] 65551- 3736 Aug, Moderate mixed bipolar I disorder F31.62 and Anxiety state F41.1 [facility] [place] [id number] [place] [address] 28175- 2594 Jul, Moderate mixed bipolar I disorder F31.62 and Anxiety state F41.1 [facility] [place] [id number] [place] [address] 52407- 7882 Jun, Moderate mixed bipolar I disorder F31.62 and Anxiety state F41.1 [facility] [place] [id number] [place] [address] 05543- 9219 May, Moderate mixed bipolar I disorder F31.62 and Anxiety state F41.1 [facility] [place] [id number] [place] [address] 82030- 6290 May, Moderate mixed bipolar I disorder F31.62 and Anxiety state F41.1 [facility] [place] [id number] [place] [address] 89119- 5189 Apr, Bipolar 1 disorder, depressed, moderate F31.32 and Anxiety state F41.1 [facility] [place] [address], [place] [address]- 9214 Apr, Bipolar 1 disorder, depressed, moderate F31.32 and Bipolar I disorder, mild, current or most recent episode depressed, with anxious distress F31.31 [facility] [place] [address], [place] [address]- 6617 Mar, Bipolar 1 disorder, depressed, moderate F31.32 [facility] [place] [address], [place] [address]- 0601 February, Bipolar 1 disorder, depressed, moderate F31.32 [facility] [place] [id number] [place] [address] 64372- 1018 Jan, Bipolar I disorder, mild, current or most recent episode depressed, with anxious distress F31.31 [facility] [place] [id number] [place] [address] 40913- 4927 Jan, Bipolar I disorder, mild, current or most recent episode depressed, with anxious distress F31.31 [place] [id number] [place] [address] 63867- 2911 Jan, Bipolar 1 disorder, depressed, moderate F31.32 [place] [id number] [place] [address] 27771- 8643 Dec, Bipolar I disorder, mild, current or most recent episode depressed, with anxious distress F31.31 [place] [id number] [place] [address] 24762- 3866 Dec, Bipolar I disorder, mild, current or most recent episode depressed, with anxious distress F31.31 [place] [id number] [place] [address] 51496- 2742 Nov, Bipolar I disorder, mild, current or most recent episode depressed, with anxious distress F31.31 [place] [id number] [place] [address] 58702- 4550 Oct, Bipolar I disorder, mild, current or most recent episode depressed, with anxious distress F31.31 [place] [id number] [place] [address] 04952- 8954 Oct, Bipolar I disorder, mild, current or most recent episode depressed, with anxious distress F31.31 [facility] [place] [address], [place] [address]- 4327 Sep, Bipolar I disorder, mild, current or most recent episode depressed, with anxious distress F31.31 [facility] [place] [id number], [place] [address]- 0941 Aug, Bipolar I disorder, mild, current or most recent episode depressed, with anxious distress F31.31 [facility] [place] [address] 1363 Jul, Bipolar I disorder, mild, current or most recent episode depressed, with anxious distress F31.31 [facility] [place] [address], [place] [address]- 2400 Jul, Bipolar I disorder, mild, current or most recent episode depressed, with anxious distress F31.31 [facility] [place] [address], [place] [address]- 7790 Jun, Bipolar I disorder, most recent episode depressed 296.50 [facility] [place] [address], [place] [address]- 6871 Jun, Bipolar I disorder, most recent episode depressed 296.50 [facility] [place] [address], [place] [address]- 0233 May, Bipolar disorder, current episode depressed, moderate 296.52 [facility] [place] [address], [place] [address]- 7079 May, Bipolar I disorder, most recent episode mixed, moderate 296.62 [facility] [place] [address], [place] [address]- 1551 Apr, Bipolar I disorder, most recent episode mixed, moderate 296.62 [facility] [place] [address], [place] [address]- 9706 Apr, [facility] [place] [id number] [place] [address] 13782- 1634 Apr, Bipolar I disorder, most recent episode mixed, moderate 296.62 [facility] [place] [address], [place] [address]- 3630 February, Bipolar disorder, current episode depressed, moderate 296.52 [facility] [place] [address] [id number] [place] [address]- 5965 14 Jan, 2015 [facility] [place] [facility] [address] [id number] [place] [address]- 4913 13 Jan, 2015 [facility] [place] [facility] [address] [id number] [place] [address]- 4055 30 Dec, 2014 [facility] [place] [facility] [address] [id number] [place] [address]- 8791 30 Dec, 2014 [facility] [place] [facility] [address] [id number] [place] [address]- 4865 Dec, [facility] [place] [facility] [address] [id number] [place] [address]- 0907 Dec, [facility] [place] [facility] [address] [id number] [place] [address]- 6936 Dec, [facility] [place] [facility] [address] [id number] [place] [address]- 7289 Dec, [facility] [place] [facility] [address] [id number] [place] [address]- 9801 Dec, [facility] [place] [facility] [address] [id number] [place] [address]- 8000 Dec, [facility] [place] [facility] [address] [id number] [place] [address]- 9995 Nov, [facility] [place] [facility] [address] [id number] [place] [address]- 7445 Nov, [facility] [place] [facility] [address] [id number] [place] [address]- 3038 Nov, [facility] [place] [facility] [address] [id number] [place] [address]- 0430 Nov, [facility] [place] [facility] [address] [id number] [place] [address]- 9473 Oct, [facility] [place] [facility] [address] [id number] [place] [address]- 1013 Oct, [facility] [place] [facility] [address] [id number] [place] [address]- 1395 Oct, [facility] [place] [facility] [address] [id number] [place] [address]- 2431 Oct, [facility] [place] [facility] [address] [id number] [place] [address]- 2511 Oct, [facility] [place] [facility] [address] [id number] [place] [address]- 1294 Oct, [facility] [place] [facility] [address] [id number] [place] [address]- 0598 Oct, [facility] [place] [facility] [address] [id number] [place] [address]- 5187 Oct, [facility] [place] [facility] [address] [id number] [place] [address]- 6846 Aug, [facility] [place] [facility] [address] [id number] [place] [address]- 2393 Aug, [facility] [place] [facility] [address] [id number] [place] [address]- 1916 Jun, [facility] [place] [facility] [address] [id number] [place] [address]- 7094 Jun, [facility] [place] [facility] [address] [id number] [place] [address]- 4554 May, [facility] [place] [facility] [address] [id number] [place] [address]- 3195 May, [facility] [place] [facility] [address] [id number] [place] 1727 Apr, [facility] [place] [facility] [address] [id number] [place] 6957 Apr, [facility] [place] [facility] [address] [id number] [place] 0711 Mar, [facility] [place] [facility] [address] [id number] [place] [address]- 2072 Mar, [facility] [address] [id number] [place] [address]- 1081 February, [facility] [place] [facility] [address] [id number] [place] [address]- 0176 February, [facility] [address] [id number] [place] [address]- 7926 February, [facility] [place] [facility] [address] [id number] [place] [address]- 7583 February, [facility] [address] [id number] [place] [address]- 0415 Jan, [facility] [place] [facility] [address] [id number] [place] [address]- 2714 Jan, [facility] [place] [facility] [address] [id number] [place] [address]- 2862 Jan, [facility] [address] [id number] [place] [address]- 4338 Jan, [facility] [place] [facility] [address] [id number] [place] [address]- 9908 Dec, [facility] [place] [facility] [address] [id number] [place] [address]- 2998 Dec, [facility] [place] [facility] [address] [id number] [place] [address]- 7067 Nov, [facility] [place] [facility] [address] [id number] [place] [address]- 7907 Nov, [facility] [place] [facility] [address] [id number] [place] [address]- 6535 Oct, [facility] [place] [facility] [address] [id number] [place] [address]- 9886 Oct, [facility] [place] [facility] [address] [id number] [place] [address]- 5888 Sep, [facility] [place] [facility] [address] [id number] [place] [address]- 6037 Sep, [facility] [place] [facility] [address] [id number] [place] [address]- 3031 Sep, [facility] [place] [facility] [address] [id number] [place] [address]- 2542 Sep, [facility] [place] [facility] [address] [id number] [place] [address]- 5638 Aug, [facility] [place] [facility] [address] [id number] [place] [address]- 8232 Aug, [facility] [place] [facility] [address] [id number] [place] [address]- 4567 Aug, [facility] [place] [facility] [address] [id number] [place] [address]- 5661 Aug, [facility] [place] [facility] [address] [id number], [place] [address]- 0785 Jul, [facility] [place] [facility] [address] [id number] [place] [address]- 0838 Jul, [facility] [place] [facility] [address] [id number], [place] [address]- 6893 Jul, [facility] [place] [facility] [address] [id number], [place] [address]- 8456 Jul, [facility] [place] [facility] [address] [id number], [place] [address]- 4926 Jun, [facility] [place] [facility] [address] [id number] [place] [address]- 9958 Jun, [facility] [place] [facility] [address] [id number], [place] [address]- 4974 May, [facility] [place] [facility] [address] [id number], [place] [address]- 2447 Apr, [facility] [place] [facility] [address] [id number] [place] [address]- 9216 Mar, [facility] [address] [id number] [place] [address]- 8548 Mar, [facility] [place] [facility] [address] [id number] [place] [address]- 4518 February, [facility] [place] [facility] [address] [id number] [place] [address]- 4446 Jan, [facility] [place] [facility] [address] [id number] [place] [address]- 2043 Jan, [facility] [place] [facility] [address] [id number] [place] 0460 Dec, [facility] [place] [facility] [address] [id number] [place] [address]- 0720 Nov, [facility] [place] [facility] [address] [id number] [place] [address]- 2290 Oct, [facility] [place] [facility] [address] [id number] [place] [address]- 2869 Aug, [facility] [place] [facility] [address] [id number] [place] [address]- 8385 Aug, [facility] [place] [facility] [address] [facility] [id number] [place] [address]- 1510 Aug, [facility] [place] [facility] [address] [id number] [place] [address]- 6055 Aug, [facility] [place] [facility] [address] [id number] [place] [address]- 0831 Aug, [facility] [place] [facility] [address] [id number] [place] [address]- 4480 Aug, [facility] [place] [facility] [address] [facility] [id number] [place] [address]- 4990 Jul, [facility] [place] [facility] [address] [id number] [place] [address]- 1122 Jul, [facility] [place] [facility] [address] [id number] [place] [address]- 3261 Jul, [facility] [place] [facility] [address] [id number] [place] [address]- 6650 Jul, [facility] [place] [facility] [address] [id number] [place] [address]- 7156 Jun, [facility] [place] [facility] [address] [id number] [place] [address]- 8142 14 Jun, 2012 [facility] [address] [id number] [place] [address]- 6086 May, [facility] [place] [facility] [address] [id number] [place] [address]- 3244 May, [facility] [place] [facility] [address] [id number] [place] [address]- 7070 Apr, [facility] [place] [facility] [address] [id number] [place] [address]- 8650 Apr, [facility] [place] [facility] [address] [id number] [place] [address]- 7769 Mar, [facility] [place] [facility] [address] [id number] [place] [address]- 4942 Mar, [facility] [place] [facility] [address] [id number] [place] [address]- 5051 Mar, [facility] [place] [facility] [address] [id number] [place] [address]- 0256 February, [facility] [place] [facility] [address] [id number] [place] [address]- 0661 February, [facility] [place] [facility] [address] [id number] [place] [address]- 2546 February, [facility] [place] [facility] [address] [id number] [place] [address]- 8156 Jan, [facility] [place] [facility] [address] [id number] [place] [address]- 4863 18 Jan, 2012 [facility] [place] [facility] [address] [id number] [place] [address]- 9520 10 Jan, 2012 [facility] [place] [facility] [address] [id number] [place] [address]- 4656 29 Dec, 2011 [facility] [place] [facility] [address] [id number] [place] [address]- 1996 20 Dec, 2011 [facility] [place] [facility] [address] [id number] [place] [address]- 8276 15 Dec, 2011 [facility] [place] [facility] [address] [id number] [place] [address]- 7551 14 Dec, 2011 [facility] [place] [facility] [address] [facility] [id number] [place] [address]- 9198 13 Dec, 2011 [facility] [place] [facility] [address] [facility] [id number] [place] [address]- 8357 13 Dec, 2011 [facility] [place] [facility] [address] [id number] [place] [address]- 4047 13 Dec, 2011 [facility] [place] [facility] [address] [id number] [place] [address]- 6190 05 Dec, 2011 [facility] [place] [facility] [address] [facility] [id number] [place] [address]- 2230 28 Nov, 2011 [facility] [place] [facility] [address] [id number] [place] [address]- 2944 23 Nov, 2011 [facility] [place] [facility] [address] [id number] [place] [address]- 1362 16 Nov, 2011 [facility] [place] [facility] [address] [id number] [place] [address] 16 Nov, 2011 [facility] [place] [facility] [address] [id number] [place] [address] 07 Nov, 2011 [facility] [place] [facility] [address] [facility] [id number] [place] [address] 07 Nov, 2011 [facility] [place] [facility] [address] [id number] [place] [address] Nov, [facility] [address] [id number] [place] [address] Nov, [facility] [address] [id number] [place] [address] Oct, [facility] [address] [id number] [place] [address] Oct, [facility] [address] [id number] [place] [address] Oct, [facility] [address] [id number] [place] [address] Oct, [facility] [address] [id number] [place] [address] Oct, [facility] [address] [id number] [place] [address] Oct, [facility] [address] [id number] [place] [address] Oct, [facility] [address] [id number] [place] [address] Oct, [facility] [address] [id number] [place] [address] Sep, [facility] [address] [id number] [place] [address] Sep, [facility] [place] [facility] [address] [id number] [place] [address] Sep, [facility] [place] [facility] [address] [id number] [place] [address] Sep, [facility] [place] [facility] [address] [id number] [place] [address] Aug, [facility] [address] [id number], [place] [address] Aug, [facility] [place] [address] [facility] [id number], [place] [address] Aug, [facility] [place] [address] [id number], [place] [address] Jul, [facility] [place] [address] [id number], [place] [address] Jul, [facility] [place] [id number], [place] [address] Jul, [facility] [place] [address] [facility] [id number], [place] [address] Aug, IMMUNIZATIONS No Known Immunizations SOCIAL HISTORY Never Assessed REASON FOR VISIT Requests return call PLAN OF CARE VITAL SIGNS MEDICATIONS Unknown Medications RESULTS No Results PROCEDURES No Known procedures INSTRUCTIONS MEDICATIONS ADMINISTERED No Known Medications
--- OUTSIDE RECORDS SUMMARY | 2018-12-17 10:57 | XMS REPORT ---
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 Role Phone ARIANNA MOSQUEDA Unavailable PROBLEMS Type Condition ICD9-CM Code ZGX47-AM Code Onset Dates Condition Status SNOMED Code Problem Moderate mixed bipolar I disorder F31.62 Active 29320977 Problem Anxiety state F41.1 Active [id number] ALLERGIES No Information ENCOUNTERS Encounter Location Date Diagnosis [place] [id number] [place] [id number] [address]28- 5519 February, [place] [address] [address]- [address]58 Jan, Moderate mixed bipolar I disorder F31.62 and Anxiety state F41.1 [place] [address] [place] [id number] [address] 97904- 3261 Dec, Moderate mixed bipolar I disorder F31.62 and Anxiety state F41.1 [place] [address] [id number] [address] 18071- 2358 Nov, Moderate mixed bipolar I disorder F31.62 and Anxiety state F41.1 [place] [address] [place] [id number] [address] 82296- 4899 Nov, Moderate mixed bipolar I disorder F31.62 and Anxiety state F41.1 [place] [address] [address] [id number] [address] 20406- 7759 Oct, Moderate mixed bipolar I disorder F31.62 and Anxiety state F41.1 [place] [address] [id number] [address] 83018- 1668 Oct, Moderate mixed bipolar I disorder F31.62 and Anxiety state F41.1 [place] [address] [facility] [id number] [address] 5658 Sep, Moderate mixed bipolar I disorder F31.62 and Anxiety state F41.1 [facility] [address] [facility] [id number], [place] [address] 0716 Aug, Moderate mixed bipolar I disorder F31.62 and Anxiety state F41.1 [facility] [address] [place] [id number] [address] 5326 Jul, Moderate mixed bipolar I disorder F31.62 and Anxiety state F41.1 [facility] [address] [facility] [id number], [place] [address]- 5766 Jul, [facility] [address] [id number] [address] 4222 Jul, Moderate mixed bipolar I disorder F31.62 and Anxiety state F41.1 [facility] [address] [place] [id number] [address] 6237 May, Moderate mixed bipolar I disorder F31.62 and Anxiety state F41.1 [facility] [address] [facility] [id number], [place] [address]- 5625 May, Moderate mixed bipolar I disorder F31.62 and Anxiety state F41.1 [facility] [address] [id number] [address] 9739 May, Moderate mixed bipolar I disorder F31.62 and Anxiety state F41.1 [facility] [address] [id number] [address]- 0646 May, [facility] [address] [facility] [id number], [place] [address]- 6081 Apr, Moderate mixed bipolar I disorder F31.62 and Anxiety state F41.1 [facility] [address] [facility] [id number], [place] [address]- 4444 Apr, Moderate mixed bipolar I disorder F31.62 and Anxiety state F41.1 [facility] [address], [place] [address] 8179 Mar, Moderate mixed bipolar I disorder F31.62 and Anxiety state F41.1 [facility] [address] [place] [address] [id number] [place] [address] 65306- 4606 February, Moderate mixed bipolar I disorder F31.62 and Anxiety state F41.1 [facility] [address] [place] [id number] [address] 24848- 7691 February, Moderate mixed bipolar I disorder F31.62 and Anxiety state F41.1 [facility] [address] [place] [address] 44435- 3876 Jan, Moderate mixed bipolar I disorder F31.62 and Anxiety state F41.1 [facility] [address] [place] [address] 69654- 1473 Jan, Moderate mixed bipolar I disorder F31.62 and Anxiety state F41.1 [facility] [address], [place] [address]- 9662 Jan, [facility] [address] [place] [address] [id number] [place] [address] 08659- 5262 Dec, Moderate mixed bipolar I disorder F31.62 and Anxiety state F41.1 [facility] [address], [place] [address]- 5998 Dec, Moderate mixed bipolar I disorder F31.62 and Anxiety state F41.1 [facility] [address], [place] [address]- 5874 Nov, Moderate mixed bipolar I disorder F31.62 and Anxiety state F41.1 [facility] [address] [place] [address] 85613- 5714 Nov, Moderate mixed bipolar I disorder F31.62 and Anxiety state F41.1 [facility] [address], [place] [address]- 3376 Oct, Moderate mixed bipolar I disorder F31.62 and Anxiety state F41.1 [facility] [address], [place] [address]- 6009 Sep, Moderate mixed bipolar I disorder F31.62 and Anxiety state F41.1 [facility] [address] [place] [address] 51241- 7848 Aug, Moderate mixed bipolar I disorder F31.62 and Anxiety state F41.1 [facility] [address] [place] [id number] [place] [address] 78120- 8187 Aug, Moderate mixed bipolar I disorder F31.62 and Anxiety state F41.1 [facility] [address] [place] [id number] [place] [address] 22193- 6062 Jul, Moderate mixed bipolar I disorder F31.62 and Anxiety state F41.1 [facility] [address] [place] [id number] [place] [address] 48216- 8326 Jun, Moderate mixed bipolar I disorder F31.62 and Anxiety state F41.1 [facility] [address] [place] [address] [id number] [place] [address] 37848- 4659 May, Moderate mixed bipolar I disorder F31.62 and Anxiety state F41.1 [facility] [address] [place] [address] 14002- 6085 May, Moderate mixed bipolar I disorder F31.62 and Anxiety state F41.1 [facility] [address] [place] [address] 72687- 3260 Apr, Bipolar 1 disorder, depressed, moderate F31.32 and Anxiety state F41.1 [facility] [address], [place] [address]- 4267 Apr, Bipolar 1 disorder, depressed, moderate F31.32 and Bipolar I disorder, mild, current or most recent episode depressed, with anxious distress F31.31 [facility] [address], [place] [address]- 7964 Mar, Bipolar 1 disorder, depressed, moderate F31.32 [facility] [address], [place] [address]- 4831 February, Bipolar 1 disorder, depressed, moderate F31.32 [facility] [address] [place] [address] [id number] [address] 26629- 2901 Jan, Bipolar I disorder, mild, current or most recent episode depressed, with anxious distress F31.31 [facility] [address] [place] [id number] [address] 18571- 7600 Jan, Bipolar I disorder, mild, current or most recent episode depressed, with anxious distress F31.31 [place] [address] [place] [address] [id number] [address] 73397- 1841 Jan, Bipolar 1 disorder, depressed, moderate F31.32 [place] [address] [place] [id number] [address] 73277- 4639 Dec, Bipolar I disorder, mild, current or most recent episode depressed, with anxious distress F31.31 [place] [address] [place] [address] 36877- 6850 Dec, Bipolar I disorder, mild, current or most recent episode depressed, with anxious distress F31.31 [place] [address] [place] [address] 20488- 3381 Nov, Bipolar I disorder, mild, current or most recent episode depressed, with anxious distress F31.31 [place] [address] [place] [address] 31234- 6433 Oct, Bipolar I disorder, mild, current or most recent episode depressed, with anxious distress F31.31 [place] [address] [place] [address] 25177- 0375 Oct, Bipolar I disorder, mild, current or most recent episode depressed, with anxious distress F31.31 [facility] [address], [place] [address]- 7739 Sep, Bipolar I disorder, mild, current or most recent episode depressed, with anxious distress F31.31 [facility] [address] [place] [id number] [address]- 9196 Aug, Bipolar I disorder, mild, current or most recent episode depressed, with anxious distress F31.31 [facility] [address] 3125 Jul, Bipolar I disorder, mild, current or most recent episode depressed, with anxious distress F31.31 [facility] [address], [place] [address]- 1645 Jul, Bipolar I disorder, mild, current or most recent episode depressed, with anxious distress F31.31 [facility] [address], [place] [address]- 6702 Jun, Bipolar I disorder, most recent episode depressed 296.50 [facility] [address], [place] [address]- 7944 Jun, Bipolar I disorder, most recent episode depressed 296.50 [facility] [address], [place] [address]- 9506 May, Bipolar disorder, current episode depressed, moderate 296.52 [facility] [address], [place] [address]- 0284 May, Bipolar I disorder, most recent episode mixed, moderate 296.62 [facility] [address], [place] [address]- 8505 Apr, Bipolar I disorder, most recent episode mixed, moderate 296.62 [facility] [address], [place] [address]- 4014 Apr, [facility] [address] [place] [address] 48026- 2036 Apr, Bipolar I disorder, most recent episode mixed, moderate 296.62 [facility] [address], [place] [address]- 9480 February, Bipolar disorder, current episode depressed, moderate 296.52 [facility] [address] [id number] [place] [address]- 8423 14 Jan, 2015 [facility] [place] [facility] [address] [id number] [place] [address]- 2374 13 Jan, 2015 [facility] [place] [facility] [address] [id number] [place] [address]- 5998 30 Dec, 2014 [facility] [place] [facility] [address] [id number] [place] [address]- 8148 30 Dec, 2014 [facility] [place] [facility] [address] [id number] [place] [address]- 2175 Dec, [facility] [place] [facility] [address] [id number] [place] [address]- 4759 Dec, [facility] [place] [facility] [address] [id number] [place] [address]- 4867 Dec, [facility] [place] [facility] [address] [id number] [place] [address]- 0465 Dec, [facility] [place] [facility] [address] [id number] [place] [address]- 6801 Dec, [facility] [place] [facility] [address] [id number] [place] [address]- 9205 Dec, [facility] [place] [facility] [address] [id number] [place] [address]- 3754 Nov, [facility] [place] [facility] [address] [id number] [place] [address]- 6632 Nov, [facility] [place] [facility] [address] [id number] [place] [address]- 1024 Nov, [facility] [place] [facility] [address] [id number] [place] [address]- 7868 Nov, [facility] [place] [facility] [address] [id number] [place] [address]- 2410 Oct, [facility] [place] [facility] [address] [id number] [place] [address]- 6259 Oct, [facility] [place] [facility] [address] [id number] [place] [address]- 9927 Oct, [facility] [place] [facility] [address] [id number] [place] [address]- 1934 Oct, [facility] [place] [facility] [address] [id number] [place] [address]- 5806 Oct, [facility] [place] [facility] [address] [id number] [place] [address]- 3775 Oct, [facility] [place] [facility] [address] [id number] [place] [address]- 3744 Oct, [facility] [place] [facility] [address] [id number] [place] [address]- 4755 Oct, [facility] [place] [facility] [address] [id number] [place] [address]- 3990 Aug, [facility] [place] [facility] [address] [id number] [place] [address]- 6779 Aug, [facility] [place] [facility] [address] [id number] [place] [address]- 5592 Jun, [facility] [place] [facility] [address] [id number] [place] [address]- 5534 Jun, [facility] [place] [facility] [address] [id number] [place] [address]- 9853 May, [facility] [place] [facility] [address] [id number] [place] [address]- 0173 May, [facility] [place] [facility] [address] [id number] [place] 5931 Apr, [facility] [place] [facility] [address] [id number] [place] 7293 Apr, [facility] [place] [facility] [address] [id number] [place] 0933 Mar, [facility] [place] [facility] [address] [id number] [place] [address]- 5835 Mar, [facility] [address] [id number] [place] [address]- 0310 February, [facility] [place] [facility] [address] [id number] [place] [address]- 8616 February, [facility] [address] [id number] [place] [address]- 3389 February, [facility] [place] [facility] [address] [id number] [place] [address]- 0902 February, [facility] [address] [id number] [place] [address]- 7027 Jan, [facility] [place] [facility] [address] [id number] [place] [address]- 4782 Jan, [facility] [place] [facility] [address] [id number] [place] [address]- 0479 Jan, [facility] [address] [id number] [place] [address]- 7316 Jan, [facility] [place] [facility] [address] [id number] [place] [address]- 3697 Dec, [facility] [place] [facility] [address] [id number] [place] [address]- 0953 Dec, [facility] [place] [facility] [address] [id number] [place] [address]- 5536 Nov, [facility] [place] [facility] [address] [id number] [place] [address]- 9409 Nov, [facility] [place] [facility] [address] [id number] [place] [address]- 0974 Oct, [facility] [place] [facility] [address] [id number] [place] [address]- 6336 Oct, [facility] [place] [facility] [address] [id number] [place] [address]- 1547 Sep, [facility] [place] [facility] [address] [id number] [place] [address]- 2839 Sep, [facility] [place] [facility] [address] [id number] [place] [address]- 7552 Sep, [facility] [place] [facility] [address] [id number] [place] [address]- 4376 Sep, [facility] [place] [facility] [address] [id number] [place] [address]- 2105 Aug, [facility] [place] [facility] [address] [id number] [place] [address]- 7845 Aug, [facility] [place] [facility] [address] [id number] [place] [address]- 9390 Aug, [facility] [place] [facility] [address] [id number] [place] [address]- 0654 Aug, [facility] [place] [facility] [address] [id number], [place] [address]- 1753 Jul, [facility] [place] [facility] [address] [id number] [place] [address]- 1179 Jul, [facility] [place] [facility] [address] [id number], [place] [address]- 8620 Jul, [facility] [place] [facility] [address] [id number], [place] [address]- 9645 Jul, [facility] [place] [facility] [address] [id number], [place] [address]- 0882 Jun, [facility] [place] [facility] [address] [id number] [place] [address]- 3054 Jun, [facility] [place] [facility] [address] [id number], [place] [address]- 7820 May, [facility] [place] [facility] [address] [id number], [place] [address]- 8616 Apr, [facility] [place] [facility] [address] [id number] [place] [address]- 8173 Mar, [facility] [address] [id number] [place] [address]- 7023 Mar, [facility] [place] [facility] [address] [id number] [place] [address]- 2669 February, [facility] [place] [facility] [address] [id number] [place] [address]- 9360 Jan, [facility] [place] [facility] [address] [id number] [place] [address]- 0438 Jan, [facility] [place] [facility] [address] [id number] [place] 8568 Dec, [facility] [place] [facility] [address] [id number] [place] [address]- 7341 Nov, [facility] [place] [facility] [address] [id number] [place] [address]- 7674 Oct, [facility] [place] [facility] [address] [id number] [place] [address]- 8547 Aug, [facility] [place] [facility] [address] [id number] [place] [address]- 7462 Aug, [facility] [place] [facility] [address] [facility] [id number] [place] [address]- 0859 Aug, [facility] [place] [facility] [address] [id number] [place] [address]- 2335 Aug, [facility] [place] [facility] [address] [id number] [place] [address]- 6792 Aug, [facility] [place] [facility] [address] [id number] [place] [address]- 3234 Aug, [facility] [place] [facility] [address] [facility] [id number] [place] [address]- 8653 Jul, [facility] [place] [facility] [address] [id number] [place] [address]- 4175 Jul, [facility] [place] [facility] [address] [id number] [place] [address]- 1472 Jul, [facility] [place] [facility] [address] [id number] [place] [address]- 8531 Jul, [facility] [place] [facility] [address] [id number] [place] [address]- 9346 Jun, [facility] [place] [facility] [address] [id number] [place] [address]- 6956 14 Jun, 2012 [facility] [address] [id number] [place] [address]- 2500 May, [facility] [place] [facility] [address] [id number] [place] [address]- 4102 May, [facility] [place] [facility] [address] [id number] [place] [address]- 0581 Apr, [facility] [place] [facility] [address] [id number] [place] [address]- 8054 Apr, [facility] [place] [facility] [address] [id number] [place] [address]- 2717 Mar, [facility] [place] [facility] [address] [id number] [place] [address]- 9784 Mar, [facility] [place] [facility] [address] [id number] [place] [address]- 5553 Mar, [facility] [place] [facility] [address] [id number] [place] [address]- 4116 February, [facility] [place] [facility] [address] [id number] [place] [address]- 7246 February, [facility] [place] [facility] [address] [id number] [place] [address]- 2546 February, [facility] [place] [facility] [address] [id number] [place] [address]- 6866 Jan, [facility] [place] [facility] [address] [id number] [place] [address]- 1053 18 Jan, 2012 [facility] [place] [facility] [address] [id number] [place] [address]- 3573 10 Jan, 2012 [facility] [place] [facility] [address] [id number] [place] [address]- 3376 29 Dec, 2011 [facility] [place] [facility] [address] [id number] [place] [address]- 0066 20 Dec, 2011 [facility] [place] [facility] [address] [id number] [place] [address]- 3656 15 Dec, 2011 [facility] [place] [facility] [address] [id number] [place] [address]- 6653 14 Dec, 2011 [facility] [place] [facility] [address] [facility] [id number] [place] [address]- 0409 13 Dec, 2011 [facility] [place] [facility] [address] [facility] [id number] [place] [address] 13 Dec, 2011 [facility] [place] [facility] [address] [id number] [place] [address] 13 Dec, 2011 [facility] [place] [facility] [address] [id number] [place] [address] 05 Dec, 2011 [facility] [place] [facility] [address] [facility] [id number] [place] [address] 28 Nov, 2011 [facility] [place] [facility] [address] [id number] [place] [address] 23 Nov, 2011 [facility] [place] [facility] [address] [id number] [place] [address] 16 Nov, 2011 [facility] [place] [facility] [address] [id number] [place] [address] 16 Nov, 2011 [facility] [place] [facility] [address] [id number] [place] [address] 07 Nov, 2011 [facility] [place] [facility] [address] [facility] [id number] [place] [address] 07 Nov, 2011 [facility] [place] [facility] [address] [id number] [place] [address] Nov, [facility] [address] [id number] [place] [address] Nov, [facility] [address] [id number] [place] [address] Oct, [facility] [address] [id number] [place] [address] Oct, [facility] [address] [id number] [place] [address] Oct, [facility] [address] [id number] [place] [address] Oct, [facility] [address] [id number] [place] [address] Oct, [facility] [address] [id number] [place] [address] Oct, [facility] [address] [id number] [place] [address] Oct, [facility] [address] [id number] [place] [address] Oct, [facility] [address] [id number] [place] [address] Sep, [facility] [address] [id number] [place] [address] Sep, [facility] [place] [facility] [address] [id number] [place] [address] Sep, [facility] [place] [facility] [address] [id number] [place] [address] Sep, [facility] [place] [facility] [address] [id number] [place] [address] Aug, [facility] [address] [id number] [place] [address] Aug, [facility] [address] [facility] [id number] [place] [address] Aug, [facility] [address] [facility] [id number], [place] [address] Jul, [facility] [address] [facility] [id number], [place] [address] Jul, [facility] [address] [facility] [id number], [place] [address] Jul, [facility] [address] [facility] [id number], [place] [address] Aug, IMMUNIZATIONS No Known Immunizations SOCIAL HISTORY Never Assessed REASON FOR VISIT Follow-up Bipolar PLAN OF CARE Activity Details Follow Up 2 Weeks Reason: Follow-up VITAL SIGNS MEDICATIONS Medication Instructions Dosage Frequency Start Date End Date Duration Status Topiramate 100 MG Orally Twice a day 1 tablet 12h Active Levoxyl 50 MCG Orally Once a day 1 tablet on an empty stomach in the morning 24h Active Hydrochlorothiazide 12.5 MG Orally Once a day 1 tablet in the morning 24h Active Oxcarbazepine 600 MG Active Metoprolol Succinate ER 100 MG Orally Once a day 1 tablet 24h Active Aripiprazole 5 MG Orally Once a day 1 tablet 24h Active Acamprosate Calcium 333 MG Orally Three times a day 1 tablet 8h Active Gabapentin Active Effexor Active Loratadine 10 MG Orally Once a day 1 tablet 24h Active Diazepam 2 MG Orally Once a day 1 tablet as needed 24h Active Atorvastatin Calcium 20 MG Orally Once a day 1 tablet 24h Active Prilosec 20 MG Orally Once a day 1 capsule 24h Active RESULTS No Results PROCEDURES Procedure Date Ordered Result Body Site [facility] VISIT MENTAL HEALTH ESTAB PT Jul 21, 2017 Psychotherapy, patient &/family, 45 minutes, established patient Jul 21, 2017 INSTRUCTIONS MEDICATIONS ADMINISTERED No Known Medications
--- OUTSIDE RECORDS SUMMARY | 2018-12-17 10:59 | XMS REPORT | Continuity of Care Document ---
Author Author [facility] Address Unknown Phone Unavailable Allergies Active Description Code Type Severity Reaction Onset Reported/Identified Relationship to Patient Clinical Status Yes ciprofloxacin [id number] Drug Allergy Unknown N/A 08/18/2010 Yes Cipro [...] 09/05/2009 307.47 SI DYSSOMNIA NOS 09/05/2009 [facility] ARIANNA STRONG 296.80 MO BIPOLAR NOS 09/05/2009 JAYLIN KINDRED [...] MN MEN DIS NOS 09/05/2009 [facility], ARIANAN R 307.47 SI DYSSOMNIA NOS 09/05/2009 JAYLIN [...] R 300.00 MN MEN DIS NOS [facility]/05[facility] 307.47 SI DYSSOMNIA [...] R 300.00 MN MEN DIS NOS 09/05/2009 [facility], ARIANNA R 307.47 SI DYSSOMNIA NOS 09/05/2009 [facility], ARIANNA R 296.80 MO BIPOLAR NOS 09/05/2009 [facility], ARIANNA R 300.00 MN MEN DIS NOS 09/05/2009 [facility], ARIANNA R 307.47 SI DYSSOMNIA NOS 09/05/2009 [facility], ARIANNA R 296.80 MO BIPOLAR NOS 09/05/2009 [facility], ARIANNA R 300.00 MN MEN DIS NOS 09/05/2009 [facility], ARIANNA R 307.47 SI DYSSOMNIA NOS 09/05/2009 [facility], ARIANNA R 296.80 MO BIPOLAR NOS 09/05/2009 [facility], ARIANNA R 300.00 MN MEN DIS NOS 09/05/2009 [facility], ARIANNA R 307.47 SI DYSSOMNIA NOS 09/05/2009 [facility], ARIANNA R 296.80 MO BIPOLAR NOS 09/05/2009 [facility], ARIANNA R 300.00 MN MEN DIS NOS 09/05/2009 [facility], ARIANNA R 307.47 SI DYSSOMNIA NOS 09/05/2009 [facility], ARIANNA R 296.80 MO BIPOLAR NOS 09/05/2009 [facility], ARIANNA R 300.00 MN MEN DIS NOS 09/05/2009 [facility], ARIANNA R 307.47 SI DYSSOMNIA NOS 11/04/2009 296.40 MO BIPOLAR MANIC UNSPECIFIED 11/04/2009 296.40 MO BIPOLAR MANIC UNSPECIFIED 11/04/2009 [facility], ARIANNA R 296.40 MO BIPOLAR MANIC UNSPECIFIED 11/04/2009 296.40 MO BIPOLAR MANIC UNSPECIFIED 11/04/2009 296.40 MO BIPOLAR MANIC UNSPECIFIED 11/04/2009 296.40 MO BIPOLAR MANIC UNSPECIFIED 11/04/2009 296.40 MO BIPOLAR MANIC UNSPECIFIED 11/04/2009 296.40 MO BIPOLAR MANIC UNSPECIFIED 11/04/2009 [facility], ARIANNA R 296.40 MO BIPOLAR MANIC UNSPECIFIED 11/04/2009 [facility], ARIANNA R 296.40 MO BIPOLAR MANIC UNSPECIFIED 11/04/2009 [facility], ARIANNA R 296.40 MO BIPOLAR MANIC UNSPECIFIED 11/04/2009 [facility], ARIANNA R 296.40 MO BIPOLAR MANIC UNSPECIFIED 11/04/2009 [facility], ARIANNA R 296.40 MO BIPOLAR MANIC UNSPECIFIED 11/04/2009 [facility], ARIANNA R 296.40 MO BIPOLAR MANIC UNSPECIFIED 11/04/2009 [facility] R 296.40 MO BIPOLAR MANIC UNSPECIFIED 11/04/2009 [facility], ARI[facility]NA R 296.40 MO BIPOLAR MANIC UNSPECIFIED 11/04/2009 [facility], ARIANNA R 296.40 MO BIPOLAR MANIC UNSPECIFIED 11/04/2009 [facility], ARIANNA R 296.40 MO BIPOLAR MANIC UNSPECIFIED 11/04/2009 [facility], ARIANNA R 296.40 MO BIPOLAR MANIC UNSPECIFIED 11/04/2009 [facility], ARIANNA R 296.40 MO BIPOLAR MANIC UNSPECIFIED 11/04/2009 [facility], ARIANNA R 296.40 MO BIPOLAR MANIC UNSPECIFIED 11/04/2009 [facility], ARIANNA R 296.40 MO BIPOLAR MANIC UNSPECIFIED 11/04/2009 [facility], ARIANNA R 296.40 MO BIPOLAR MANIC UNSPECIFIED 11/04/2009 [facility], ARIANNA R 296.40 MO BIPOLAR MANIC UNSPECIFIED 11/04/2009 [facility], ARIANNA R 296.40 MO BIPOLAR MANIC UNSPECIFIED 11/04/2009 [facility], ARIANNA R 296.40 MO BIPOLAR MANIC UNSPECIFIED 11/04/2009 [facility], ARIANNA R 296.40 MO BIPOLAR MANIC UNSPECIFIED 11/04/2009 [facility], ARIANNA R 296.40 MO BIPOLAR MANIC UNSPECIFIED 11/04/2009 [facility], ARIANNA R 296.40 MO BIPOLAR MANIC UNSPECIFIED 11/04/2009 [facility], ARIANNA R 296.40 MO BIPOLAR MANIC UNSPECIFIED 11/04/2009 [facility], ARIANNA R 296.40 MO BIPOLAR MANIC UNSPECIFIED 11/19/2009 296.60 MO BIPOLAR I MIXED UNSPECIFIED 11/19/2009 296.60 MO BIPOLAR I MIXED UNSPECIFIED 11/19/2009 [facility], ARIANNA R 296.60 MO BIPOLAR I MIXED UNSPECIFIED 11/19/2009 296.60 MO BIPOLAR I MIXED UNSPECIFIED 11/19/2009 296.60 MO BIPOLAR I MIXED UNSPECIFIED 11/19/2009 296.60 MO BIPOLAR I MIXED UNSPECIFIED 11/19/2009 296.60 MO BIPOLAR I MIXED UNSPECIFIED 11/19/2009 296.60 MO BIPOLAR I MIXED UNSPECIFIED 11/19/2009 [facility], ARIANNA R 296.60 MO BIPOLAR I MIXED UNSPECIFIED 11/19/2009 [facility], ARIANNA R 296.60 MO BIPOLAR I MIXED UNSPECIFIED 11/19/2009 [facility], ARIANNA R 296.60 MO BIPOLAR I MIXED UNSPECIFIED 11/19/2009 [facility], ARIANNA R 296.60 MO BIPOLAR I MIXED UNSPECIFIED 11/19/2009 [facility], ARIANNA R 296.60 MO BIPOLAR I MIXED UNSPECIFIED 11/19/2009 [facility], ARIANNA R 296.60 MO BIPOLAR I MIXED UNSPECIFIED 11/19/2009 [facility], ARIANNA R 296.60 MO BIPOLAR I MIXED UNSPECIFIED 11/19/2009 [facility], ARIANNA R 296.60 MO BIPOLAR I MIXED UNSPECIFIED 11/19/2009 [facility], ARIANNA R 296.60 MO BIPOLAR I MIXED UNSPECIFIED 11/19/2009 [facility], ARIANNA R 296.60 MO BIPOLAR I MIXED UNSPECIFIED 11/19/2009 [facility], ARIANNA R 296.60 MO BIPOLAR I MIXED UNSPECIFIED 11/19/2009 [facility], ARIANNA R 296.60 MO BIPOLAR I MIXED UNSPECIFIED 11/19/2009 [facility], ARIANNA R 296.60 MO BIPOLAR I MIXED UNSPECIFIED 11/19/2009 [facility], ARIANNA R 296.60 MO BIPOLAR I MIXED UNSPECIFIED 11/19/2009 [facility], ARIANNA R 296.60 MO BIPOLAR I MIXED UNSPECIFIED 11/19/2009 [facility], ARIANNA R 296.60 MO BIPOLAR I MIXED UNSPECIFIED 11/19/2009 [facility], ARIANNA R 296.60 MO BIPOLAR I MIXED UNSPECIFIED 11/19/2009 [facility], ARIANNA R 296.60 MO BIPOLAR I MIXED UNSPECIFIED 11/19/2009 [facility], ARIANNA R 296.60 MO BIPOLAR I MIXED UNSPECIFIED 11/19/2009 [facility], ARIANNA R 296.60 MO BIPOLAR I MIXED UNSPECIFIED 11/19/2009 [facility], ARIANNA R 296.60 MO BIPOLAR I MIXED UNSPECIFIED 11/19/2009 [facility], ARIANNA R 296.60 MO BIPOLAR I [...] CS, ARIANNA R 309.81 AN PTSD 12/11/2009 [facility], ARIANNA R 309.81 AN PTSD 12/11/2009 [facility], ARIANNA R 309.81 AN PTSD 12/11/2009 [facility], ARIANNA R 309.81 AN PTSD 12/11/2009 [facility], AIRANNA R 309.81 AN PTSD 12/11/2009 [facility], ARIANNA R 309.81 AN PTSD 12/11/2009 [...] 296.61 MO BIPOLAR I MIXED MILD 03/04/2010 [facility] ARI[facility]NA R 296.61 MO BIPOLAR I MIXED MILD 03/04/2010 [facility], ARIANNA R 296.61 MO BIPOLAR [...] 296.61 MO BIPOLAR I MIXED MILD 03/04/2010 [facility], ARIANNA R 296.61 MO BIPOLAR I MIXED MILD 03/04/2010 [facility], ARIANNA R 296.61 MO BIPOLAR I MIXED MILD 03/04/2010 [facility], ARIANNA R 296.61 MO BIPOLAR I MIXED MILD 03/04/2010 [facility], ARIANNA R 296.61 MO BIPOLAR I MIXED MILD 03/04/2010 [facility], ARIANNA R 296.61 MO BIPOLAR I MIXED MILD 03/04/2010 [facility], ARIANNA R 296.61 MO BIPOLAR I MIXED MILD 03/04/2010 [facility], ARIANNA R 296.61 MO BIPOLAR I MIXED MILD 03/04/2010 [facility], ARIANNA R 296.61 MO BIPOLAR I MIXED MILD 04/06/2011 V58.69 MEDICATION HIGH RISK 04/06/2011 V58.69 MEDICATION HIGH RISK 04/06/2011 [facility], ARIANNA R V58.69 MEDICATION HIGH RISK 04/06/2011 V58.69 MEDICATION HIGH RISK 04/06/2011 V58.69 MEDICATION HIGH RISK 04/06/2011 V58.69 MEDICATION HIGH RISK 04/06/2011 V58.69 MEDICATION HIGH RISK 04/06/2011 V58.69 MEDICATION HIGH RISK 04/06/2011 [facility], ARIANNA R V58.69 MEDICATION HIGH RISK 04/06/2011 [facility], ARIANNA R V58.69 MEDICATION HIGH RISK 04/06/2011 [facility], ARIANNA R V58.69 MEDICATION HIGH RISK 04/06/2011 [facility], ARIANNA R V58.69 MEDICATION HIGH RISK 04/06/2011 [facility], ARIANNA R V58.69 MEDICATION HIGH RISK 04/06/2011 [facility], ARIANNA R V58.69 MEDICATION HIGH RISK 04/06/2011 [facility], ARIANNA R V58.69 MEDICATION HIGH RISK 04/06/2011 [facility], ARIANNA R V58.69 MEDICATION HIGH RISK 04/06/2011 [facility], ARIANNA R V58.69 MEDICATION HIGH RISK 04/06/2011 [facility], ARIANNA R V58.69 MEDICATION HIGH RISK 04/06/2011 [facility], ARIANNA R V58.69 MEDICATION HIGH RISK 04/06/2011 [facility], ARIANNA R V58.69 MEDICATION HIGH RISK 04/06/2011 [facility], ARIANNA R V58.69 MEDICATION HIGH RISK 04/06/2011 [facility], ARIANNA R V58.69 MEDICATION HIGH RISK 04/06/2011 [facility], ARIANNA R V58.69 MEDICATION HIGH RISK 04/06/2011 [facility], ARIANNA R V58.69 MEDICATION HIGH RISK 04/06/2011 [facility], ARIANNA R V58.69 MEDICATION HIGH RISK 04/06/2011 [facility], ARIANNA R V58.69 MEDICATION HIGH RISK 04/06/2011 [facility], ARIANNA R V58.69 MEDICATION HIGH RISK 04/06/2011 [facility], ARIANNA R V58.69 MEDICATION HIGH RISK 04/06/2011 [facility], ARIANNA R V58.69 MEDICATION HIGH RISK 04/06/2011 [facility], ARIANNA R V58.69 MEDICATION HIGH RISK 04/06/2011 [facility], ARIANNA R V58.69 MEDICATION HIGH RISK 05/06/2011 296.65 MO BIPOLAR I MIXED PART OR UNSPECIFIED REMISSION 05/06/2011 296.65 MO BIPOLAR I MIXED PART OR UNSPECIFIED REMISSION 05/06/2011 [facility], ARIANNA R 296.65 MO BIPOLAR I MIXED PART OR UNSPECIFIED REMISSION 05/06/2011 296.65 MO BIPOLAR I MIXED PART OR UNSPECIFIED REMISSION 05/06/2011 296.65 MO BIPOLAR I MIXED PART OR UNSPECIFIED REMISSION 05/06/2011 296.65 MO BIPOLAR I MIXED PART OR UNSPECIFIED REMISSION 05/06/2011 296.65 MO BIPOLAR I MIXED PART OR UNSPECIFIED REMISSION 05/06/2011 296.65 MO BIPOLAR I MIXED PART OR UNSPECIFIED REMISSION 05/06/2011 [facility], ARIANNA R 296.65 MO BIPOLAR I MIXED PART OR UNSPECIFIED REMISSION 05/06/2011 [facility], ARIANNA R 296.65 MO BIPOLAR I MIXED PART OR UNSPECIFIED REMISSION 05/06/2011 [facility], ARIANNA R 296.65 MO BIPOLAR I MIXED PART OR UNSPECIFIED REMISSION 05/06/2011 [facility], ARIANNA R 296.65 MO BIPOLAR I MIXED PART OR UNSPECIFIED REMISSION 05/06/2011 [facility], ARIANNA R 296.65 MO BIPOLAR I MIXED PART OR UNSPECIFIED REMISSION 05/06/2011 [facility], ARIANNA R 296.65 MO BIPOLAR I MIXED PART OR UNSPECIFIED REMISSION 05/06/2011 [facility], ARIANNA R 296.65 MO BIPOLAR I MIXED PART OR UNSPECIFIED REMISSION 05/06/2011 [facility], ARIANNA R 296.65 MO BIPOLAR I MIXED PART OR UNSPECIFIED REMISSION 05/06/2011 [facility], ARIANNA R 296.65 MO BIPOLAR I MIXED PART OR UNSPECIFIED REMISSION 05/06/2011 [facility], ARIANNA R 296.65 MO BIPOLAR I MIXED PART OR UNSPECIFIED REMISSION 05/06/2011 [facility], ARIANNA R 296.65 MO BIPOLAR I MIXED PART OR UNSPECIFIED REMISSION 05/06/2011 [facility], ARIANNA R 296.65 MO BIPOLAR I MIXED PART OR UNSPECIFIED REMISSION 05/06/2011 [facility], ARIANNA R 296.65 MO BIPOLAR I MIXED PART OR UNSPECIFIED REMISSION 05/06/2011 [facility], ARIANNA R 296.65 MO BIPOLAR I MIXED PART OR UNSPECIFIED REMISSION 05/06/2011 [facility], ARIANNA R 296.65 MO BIPOLAR I MIXED PART OR UNSPECIFIED REMISSION 05/06/2011 [facility], ARIANNA R 296.65 MO BIPOLAR I MIXED PART OR UNSPECIFIED REMISSION 05/06/2011 [facility], ARIANNA R 296.65 MO BIPOLAR I MIXED PART OR UNSPECIFIED REMISSION 05/06/2011 [facility], ARIANNA R 296.65 MO BIPOLAR I MIXED PART OR UNSPECIFIED REMISSION 05/06/2011 [facility], ARIANNA R 296.65 MO BIPOLAR I MIXED PART OR UNSPECIFIED REMISSION 05/06/2011 [facility], ARIANNA R 296.65 MO BIPOLAR I MIXED PART OR UNSPECIFIED REMISSION 05/06/2011 [facility], ARIANNA R 296.65 MO BIPOLAR I MIXED PART OR UNSPECIFIED REMISSION 05/06/2011 [facility], ARIANNA R 296.65 MO BIPOLAR I MIXED PART OR UNSPECIFIED REMISSION 05/06/2011 [facility], ARIANNA R 296.65 MO BIPOLAR I MIXED PART OR UNSPECIFIED REMISSION 05/24/2011 296.64 MO BIPOLAR I MIXED W PSYCHOTIC BEHAVIOR 05/24/2011 296.64 MO BIPOLAR I MIXED W PSYCHOTIC BEHAVIOR 05/24/2011 [facility], ARIANNA R 296.64 MO BIPOLAR I [...] BIPOLAR I MIXED W PSYCHOTIC BEHAVIOR 05/24/2011 [facility], ARIANNA R 296.64 MO BIPOLAR I MIXED W PSYCHOTIC BEHAVIOR 05/24/2011 [facility], ARIANNA R 296.64 MO BIPOLAR I MIXED W PSYCHOTIC BEHAVIOR 05/24/2011 [facility], ARIANNA R 296.64 MO BIPOLAR I MIXED W PSYCHOTIC BEHAVIOR 05/24/2011 [facility], ARIANNA R 296.64 MO BIPOLAR I MIXED W PSYCHOTIC BEHAVIOR 05/24/2011 [facility], ARIANNA R 296.64 MO BIPOLAR I MIXED W PSYCHOTIC BEHAVIOR 05/24/2011 [facility], ARIANNA R 296.64 MO BIPOLAR I MIXED W PSYCHOTIC BEHAVIOR 05/24/2011 [facility], ARIANNA R 296.64 MO BIPOLAR I MIXED W PSYCHOTIC BEHAVIOR 05/24/2011 [facility], ARIANNA R 296.64 MO BIPOLAR I MIXED W PSYCHOTIC BEHAVIOR 05/24/2011 [facility], ARIANNA R 296.64 MO BIPOLAR I MIXED W PSYCHOTIC BEHAVIOR 05/24/2011 [facility], ARIANNA R 296.64 MO BIPOLAR I MIXED W PSYCHOTIC BEHAVIOR 05/24/2011 [facility], ARIANNA R 296.64 MO BIPOLAR I MIXED W PSYCHOTIC BEHAVIOR 05/24/2011 [facility], ARIANNA R 296.64 MO BIPOLAR I MIXED W PSYCHOTIC BEHAVIOR 05/24/2011 [facility], ARIANNA R 296.64 MO BIPOLAR I MIXED W PSYCHOTIC BEHAVIOR 05/24/2011 [facility], ARIANNA R 296.64 MO BIPOLAR I MIXED W PSYCHOTIC BEHAVIOR 05/24/2011 [facility], ARIANNA R 296.64 MO BIPOLAR I MIXED W PSYCHOTIC BEHAVIOR 05/24/2011 [facility], ARIANNA R 296.64 MO BIPOLAR I MIXED W PSYCHOTIC BEHAVIOR 05/24/2011 [facility], ARIANNA R 296.64 MO BIPOLAR I MIXED W PSYCHOTIC BEHAVIOR 05/24/2011 [facility], ARIANNA R 296.64 MO BIPOLAR [...] ARIANNA R 296.89 MO BIPOLAR II 10/27/2011 [facility] ARIANNA R 296.89 MO BIPOLAR II 10/27/2011 [facility], ARIANNA R 296.89 MO BIPOLAR II 10/27/2011 [facility], ARIANNA R 296.89 MO BIPOLAR II 10/27/2011 [facility], ARIANNA R 296.89 MO BIPOLAR II 10/27/2011 [facility], ARIANNA R 296.89 MO BIPOLAR II 10/27/2011 [facility], ARIANNA R 296.89 MO BIPOLAR II 10/27/2011 [facility], ARIANNA R 296.89 MO BIPOLAR II 10/27/2011 [facility], ARIANNA R 296.89 MO BIPOLAR II 01/19/2012 Ot 574.20 CHOLELITHIASIS NOS 04/03/2012 296.63 MO BIPOLAR I MIXED SEVERE W/O PSYCHOTIC BEHAVIOR 04/03/2012 296.63 MO BIPOLAR I MIXED SEVERE W/O PSYCHOTIC BEHAVIOR 04/03/2012 [facility], ARIANNA R 296.63 MO BIPOLAR I MIXED SEVERE W/O PSYCHOTIC BEHAVIOR 04/03/2012 296.63 MO BIPOLAR I MIXED SEVERE W/O PSYCHOTIC BEHAVIOR 04/03/2012 296.63 MO BIPOLAR I MIXED SEVERE W/O PSYCHOTIC BEHAVIOR 04/03/2012 296.63 MO BIPOLAR I MIXED SEVERE W/O PSYCHOTIC BEHAVIOR 04/03/2012 296.63 MO BIPOLAR I MIXED SEVERE W/O PSYCHOTIC BEHAVIOR 04/03/2012 296.63 MO BIPOLAR I MIXED SEVERE W/O PSYCHOTIC BEHAVIOR 04/03/2012 [facility], ARIANNA R 296.63 MO BIPOLAR I MIXED SEVERE W/O PSYCHOTIC BEHAVIOR 04/03/2012 [facility], ARIANNA R 296.63 MO BIPOLAR I MIXED SEVERE W/O PSYCHOTIC BEHAVIOR 04/03/2012 [facility], ARIANNA R 296.63 MO BIPOLAR I MIXED SEVERE W/O PSYCHOTIC BEHAVIOR 04/03/2012 [facility], ARIANNA R 296.63 MO BIPOLAR I MIXED SEVERE W/O PSYCHOTIC BEHAVIOR 04/03/2012 [facility], ARIANNA R 296.63 MO BIPOLAR I MIXED SEVERE W/O PSYCHOTIC BEHAVIOR 04/03/2012 [facility], ARIANNA R 296.63 MO BIPOLAR I MIXED SEVERE W/O PSYCHOTIC BEHAVIOR 04/03/2012 [facility], ARIANNA R 296.63 MO BIPOLAR I MIXED SEVERE W/O PSYCHOTIC BEHAVIOR 04/03/2012 [facility], ARIANNA R 296.63 MO BIPOLAR I MIXED SEVERE W/O PSYCHOTIC BEHAVIOR 04/03/2012 [facility], ARIANNA R 296.63 MO BIPOLAR I MIXED SEVERE W/O PSYCHOTIC BEHAVIOR 04/03/2012 [facility], ARIANNA R 296.63 MO BIPOLAR I MIXED SEVERE W/O PSYCHOTIC BEHAVIOR 04/03/2012 [facility], ARIANNA R 296.63 MO BIPOLAR I MIXED SEVERE W/O PSYCHOTIC BEHAVIOR 04/03/2012 [facility], ARIANNA R 296.63 MO BIPOLAR I MIXED SEVERE W/O PSYCHOTIC BEHAVIOR 04/03/2012 [facility], ARIANNA R 296.63 MO BIPOLAR I MIXED SEVERE W/O PSYCHOTIC BEHAVIOR 04/03/2012 [facility], ARIANNA R 296.63 MO BIPOLAR I MIXED SEVERE W/O PSYCHOTIC BEHAVIOR 04/03/2012 [facility], ARIANNA R 296.63 MO BIPOLAR I MIXED SEVERE W/O PSYCHOTIC BEHAVIOR 04/03/2012 [facility], ARIANNA R 296.63 MO BIPOLAR I MIXED SEVERE W/O PSYCHOTIC BEHAVIOR 04/03/2012 [facility], ARIANNA R 296.63 MO BIPOLAR I MIXED SEVERE W/O PSYCHOTIC BEHAVIOR 04/03/2012 [facility], ARIANNA R 296.63 MO BIPOLAR I MIXED SEVERE W/O PSYCHOTIC BEHAVIOR 04/03/2012 [facility], ARIANNA R 296.63 MO BIPOLAR I MIXED SEVERE W/O PSYCHOTIC BEHAVIOR 04/03/2012 [facility], ARIANNA R 296.63 MO BIPOLAR I MIXED SEVERE W/O PSYCHOTIC BEHAVIOR 04/03/2012 [facility], ARIANNA R 296.63 MO BIPOLAR I MIXED SEVERE W/O PSYCHOTIC BEHAVIOR 04/03/2012 [facility], ARIANNA R 296.63 MO BIPOLAR I MIXED SEVERE W/O PSYCHOTIC BEHAVIOR 04/03/2012 [facility], ARIANNA R 296.63 MO BIPOLAR I MIXED SEVERE W/O PSYCHOTIC BEHAVIOR 05/03/2012 296.53 MO BIPOLAR I SEVERE W/O PSYCHOTIC BEHAVIOR 05/03/2012 296.53 MO BIPOLAR I SEVERE W/O PSYCHOTIC BEHAVIOR 05/03/2012 [facility], ARIANNA R 296.53 MO BIPOLAR I SEVERE W/O PSYCHOTIC BEHAVIOR 05/03/2012 296.53 MO BIPOLAR I SEVERE W/O PSYCHOTIC BEHAVIOR 05/03/2012 296.53 MO BIPOLAR I SEVERE W/O PSYCHOTIC BEHAVIOR 05/03/2012 296.53 MO BIPOLAR I SEVERE W/O PSYCHOTIC BEHAVIOR 05/03/2012 296.53 MO BIPOLAR I SEVERE W/O PSYCHOTIC BEHAVIOR 05/03/2012 296.53 MO BIPOLAR I SEVERE W/O PSYCHOTIC BEHAVIOR 05/03/2012 [facility], ARIANNA R 296.53 MO BIPOLAR I SEVERE W/O PSYCHOTIC BEHAVIOR 05/03/2012 [facility], ARIANNA R 296.53 MO BIPOLAR I SEVERE W/O PSYCHOTIC BEHAVIOR 05/03/2012 [facility], ARIANNA R 296.53 MO BIPOLAR I SEVERE W/O PSYCHOTIC BEHAVIOR 05/03/2012 [facility], ARIANNA R 296.53 MO BIPOLAR I SEVERE W/O PSYCHOTIC BEHAVIOR 05/03/2012 [facility], ARIANNA R 296.53 MO BIPOLAR I SEVERE W/O PSYCHOTIC BEHAVIOR 05/03/2012 [facility], ARIANNA R 296.53 MO BIPOLAR I SEVERE W/O PSYCHOTIC BEHAVIOR 05/03/2012 [facility], [facility] R 296.53 MO BIPOLAR I SEVERE W/O PSYCHOTIC BEHAVIOR 05/03/2012 [facility], ARIANNA R 296.53 MO BIPOLAR I SEVERE W/O PSYCHOTIC BEHAVIOR 05/03/2012 [facility], ARIANNA R 296.53 MO BIPOLAR I SEVERE W/O PSYCHOTIC BEHAVIOR 05/03/2012 [facility], ARIANNA R 296.53 MO BIPOLAR I SEVERE W/O PSYCHOTIC BEHAVIOR 05/03/2012 [facility], ARIANNA R 296.53 MO BIPOLAR I SEVERE W/O PSYCHOTIC BEHAVIOR 05/03/2012 [facility], ARIANNA R 296.53 MO BIPOLAR I SEVERE W/O PSYCHOTIC BEHAVIOR 05/03/2012 [facility], ARIANNA R 296.53 MO BIPOLAR I SEVERE W/O PSYCHOTIC BEHAVIOR 05/03/2012 [facility], ARIANNA R 296.53 MO BIPOLAR I SEVERE W/O PSYCHOTIC BEHAVIOR 05/03/2012 [facility], ARIANNA R 296.53 MO BIPOLAR I SEVERE W/O PSYCHOTIC BEHAVIOR 05/03/2012 [facility], ARIANNA R 296.53 MO BIPOLAR I SEVERE W/O PSYCHOTIC BEHAVIOR 05/03/2012 [facility], ARIANNA R 296.53 MO BIPOLAR I SEVERE W/O PSYCHOTIC BEHAVIOR 05/03/2012 [facility], ARIANNA R 296.53 MO BIPOLAR I SEVERE W/O PSYCHOTIC BEHAVIOR 05/03/2012 [facility], ARIANNA R 296.53 MO BIPOLAR I SEVERE W/O PSYCHOTIC BEHAVIOR 05/03/2012 [facility], ARIANNA R 296.53 MO BIPOLAR I SEVERE W/O PSYCHOTIC BEHAVIOR 05/03/2012 [facility], ARIANNA R 296.53 MO BIPOLAR I SEVERE W/O PSYCHOTIC BEHAVIOR 05/03/2012 [facility], ARIANNA R 296.53 MO BIPOLAR I SEVERE W/O PSYCHOTIC BEHAVIOR 05/03/2012 [facility], ARIANNA R 296.53 MO BIPOLAR I SEVERE W/O PSYCHOTIC BEHAVIOR 07/05/2013 [facility], ARIANNA R 296.41 MO BIPOLAR I MANIC MILD 07/05/2013 [facility], ARIANNA R 296.41 MO BIPOLAR I [...] 296.41 MO BIPOLAR I MANIC MILD 07/05/2013 [facility], [facility] R 296.41 MO BIPOLAR I MANIC MILD 07/05/2013 [facility], ARIANNA R 296.41 MO BIPOLAR I MANIC MILD 07/05/2013 [facility], ARIANNA R 296.41 MO BIPOLAR I MANIC MILD 07/05/2013 [facility], ARIANNA R 296.41 MO BIPOLAR I MANIC MILD 07/05/2013 [facility], ARIANNA R 296.41 MO BIPOLAR I MANIC MILD 07/05/2013 [facility], [place] R 296.41 MO BIPOLAR I MANIC MILD 07/05/2013 [facility], [place] R 296.41 MO BIPOLAR I MANIC MILD 07/05/2013 [facility], [place] R 296.41 MO BIPOLAR I MANIC MILD 07/05/2013 [facility], [place] R 296.41 MO BIPOLAR [...] 01/18/2017 Ot 786.50 CHEST PAIN NOS 01/18/2017 MELYL GOODMAN, ANGELINA D Ot V76.12 OTH SCREEN [...] Z01.818 ENCOUNTER FOR OTHER PREPROCEDURAL EXAMIN 11/28/2017 TOMEKA GOODMAN, FREYA Evangelista Ot Z12.11 ENCOUNTER FOR SCREENING FOR MALIGNANT NE 11/30/2017 TOMEKA GOODMAN, FREYA Evangelista Ot Z01.818 ENCOUNTER FOR OTHER PREPROCEDURAL EXAMIN 11/30/2017 FREYA ECKERT MD Ot Z12.11 ENCOUNTER FOR SCREENING FOR MALIGNANT NE 11/30/2017 TOMEKA GOODMAN, FREYA Evangelista Ot Z01.818 ENCOUNTER FOR OTHER PREPROCEDURAL EXAMIN 11/30/2017 TOMEKA GOODMAN, FREYA Evangelista Ot Z12.11 ENCOUNTER FOR SCREENING FOR MALIGNANT NE 12/05/2017 Ot V76.12 OTH SCREEN MAMMO-MALIGN NEOPLASM OF ALONZO 12/05/2017 Ot V82.81 SCREENING FOR OSTEOPOROSIS 12/05/2017 Ot 786.50 CHEST PAIN NOS 12/05/2017 ANGELINA PICKARD MD Ot V76.12 OTH SCREEN MAMMO-MALIGN NEOPLASM OF ALONZO 12/05/2017 MELLY GOODMAN, ANGELINA Bear Ot 611.89 OTHER SPECIFIED DISORDERS OF BREAST 12/05/2017 ANGELINA PICKARD MD Ot 793.80 UNSPEC ABNORMAL MAMMOGRAM 12/05/2017 ANGELINA PICKARD MD Ot 793.80 UNSPEC ABNORMAL MAMMOGRAM 12/05/2017 ANGELINA PICKARD MD Ot 786.2 COUGH 12/05/2017 Ot M72.2 PLANTAR [...] Z12.11 ENCOUNTER FOR SCREENING FOR MALIGNANT NE 02/10/2018 LUCIE BREEN STUDIO DIRECTOR Ot E78.00 PURE HYPERCHOLESTEROLEMIA, UNSPECIFIED 02/10/2018 LUCIE BREEN STUDIO DIRECTOR Ot E87.6 HYPOKALEMIA 02/10/2018 LUCIE BREEN APRN Ot F31.9 BIPOLAR DISORDER, UNSPECIFIED 02/10/2018 LUCIE BREEN STUDIO DIRECTOR Ot I10 ESSENTIAL (PRIMARY) HYPERTENSION 02/10/2018 LUCIE BREEN STUDIO DIRECTOR Ot J45.909 UNSPECIFIED ASTHMA, UNCOMPLICATED 02/10/2018 LUCIE BREEN APRN Ot N39.0 URINARY TRACT INFECTION, SITE NOT SPECIF 02/10/2018 LUCIE BREEN APRN Ot R30.0 DYSURIA 02/10/2018 LUCIE BREEN STUDIO DIRECTOR Ot Z87.59 PERSONAL HISTORY OF COMP OF PREG, CHLDBR 02/10/2018 LUCIE BREEN STUDIO DIRECTOR Ot Z88.1 ALLERGY STATUS TO OTHER ANTIBIOTIC AGENT 02/10/2018 LUCIE BREEN APRN Ot Z90.710 ACQUIRED ABSENCE OF BOTH CERVIX AND UTER 02/13/2018 LUCIE BREEN APRN Ot E78.00 PURE HYPERCHOLESTEROLEMIA, UNSPECIFIED 02/13/2018 LUCIE BREEN APRN Ot E87.6 HYPOKALEMIA 02/13/2018 LUCIE BREEN APRN Ot F31.9 BIPOLAR DISORDER, UNSPECIFIED 02/13/2018 LUCIE BREEN APRN Ot I10 ESSENTIAL (PRIMARY) HYPERTENSION 02/13/2018 LUCIE BREEN APRN Ot J45.909 UNSPECIFIED ASTHMA, UNCOMPLICATED 02/13/2018 LUCIE BREEN APRN Ot N39.0 URINARY TRACT INFECTION, SITE NOT SPECIF 02/13/2018 LUCIE BREEN APRN Ot R30.0 DYSURIA 02/13/2018 LUCIE BREEN APRN Ot Z87.59 PERSONAL HISTORY OF COMP OF PREG, CHLDBR 02/13/2018 LUCIE BREEN APRN Ot Z88.1 ALLERGY STATUS TO OTHER ANTIBIOTIC AGENT 02/13/2018 LUCIE BREEN APRN Ot Z90.710 ACQUIRED ABSENCE OF BOTH CERVIX AND UTER 08/16/2018 ANGELINA PICKARD MD Ot V76.12 OT SCREEN MAMMO-MALIGN NEOPLASM OF ALONZO 08/16/2018 ANGELINA PICKARD MD Ot 611.89 OTHER SPECIFIED DISORDERS OF BREAST 08/16/2018 ANGELINA PICKARD MD Ot 793.80 UNSPEC ABNORMAL MAMMOGRAM 08/16/2018 ANGELINA PICKARD MD Ot 793.80 UNSPEC ABNORMAL MAMMOGRAM 08/16/2018 ANGELINA PICKARD MD Ot 786.2 COUGH 08/16/2018 Ot M72.2 PLANTAR FASCIAL FIBROMATOSIS 08/16/2018 ANGELINA PICKARD MD Ot N20.1 CALCULUS OF URETER 08/16/2018 ANGELINA PICKARD MD Ot Z12.31 ENCNTR SCREEN MAMMOGRAM FOR MALIGNANT NE 08/16/2018 ANGELINA PICKARD MD Ot Z12.31 ENCNTR SCREEN MAMMOGRAM FOR MALIGNANT NE 09/06/2018 ANGELINA PICKARD MD, Ot Z12.31 ENCNTR SCREEN MAMMOGRAM FOR MALIGNANT NE Procedures Code [place] [address] INDIV PSYTX 45/50 MIN 08/24/2012 84880 INDIV PSYTX 45/50 MIN 09/14/2012 41834 PSYTX PT&/FAMILY 45 MINUTES 11/15/2012 94628 PSYTX PT&/FAMILY 45 MINUTES 12/06/2012 18320 PSYTX PT&/FAMILY 45 MINUTES 12/19/2012 74310 PSYTX PT&/FAMILY 45 MINUTES 02/09/2013 52889 PSYTX PT&/FAMILY 45 MINUTES 04/04/2013 80856 PSYTX PT&/FAMILY 60 MINUTES 04/12/2013 46973 PSYTX PT&/FAMILY 45 MINUTES 06/06/2013 00569 PSYTX PT&/FAMILY 45 MINUTES 06/21/2013 88587 PSYTX PT&/FAMILY 45 MINUTES 07/05/2013 93909 PSYTX PT&/FAMILY 45 MINUTES 07/25/2013 08283 PSYTX PT&/FAMILY 45 MINUTES 08/08/2013 19361 PSYTX PT&/FAMILY 45 MINUTES 08/22/2013 68139 PSYTX PT&/FAMILY 45 MINUTES 09/05/2013 76186 PSYTX PT&/FAMILY 45 MINUTES 09/26/2013 51884 PSYTX PT&/FAMILY 45 MINUTES 11/09/2013 73538 PSYTX PT&/FAMILY 45 MINUTES 11/29/2013 04007 PSYTX PT&/FAMILY 45 MINUTES 12/21/2013 51605 PSYTX PT&/FAMILY 45 MINUTES 01/16/2014 75950 PSYTX PT&/FAMILY 45 MINUTES 01/29/2014 10522 PSYTX PT&/FAMILY 45 MINUTES 02/15/2014 66358 PSYTX PT&/FAMILY 45 MINUTES 02/26/2014 82393 PSYTX PT&/FAMILY 45 MINUTES 04/16/2014 04783 PSYTX PT&/FAMILY 45 MINUTES 05/28/2014 01983 PSYTX PT&/FAMILY 45 MINUTES 07/11/2014 26192 PSYTX PT&/FAMILY 45 MINUTES 08/29/2014 37109 PSYTX PT&/FAMILY 45 MINUTES 10/29/2014 19615 PSYTX PT&/FAMILY 45 MINUTES 01/08/2015 67439 PSYTX PT&/FAMILY 45 MINUTES 01/13/2015 86074 PSYTX PT&/FAMILY 45 MINUTES 01/29/2015 Results Test Result Range Complete urinalysis with reflex to culture - 02/10/18 14:10 Urine color determination YELLOW NRG Urine clarity determination SLIGHTLY CLOUDY NRG Urine pH measurement by test strip 6 5-9 Specific gravity of urine by test strip 1.015 1.016- 1.022 Urine protein assay by test strip, semi-quantitative 2+ NEGATIVE Urine glucose detection by automated test strip NEGATIVE NEGATIVE Erythrocytes detection in urine sediment by light microscopy 5+ NEGATIVE Urine ketones detection by automated test strip NEGATIVE NEGATIVE Urine nitrite detection by test strip NEGATIVE NEGATIVE Urine total bilirubin detection by test strip NEGATIVE NEGATIVE Urine urobilinogen measurement by automated test strip (mass/volume) NORMAL NORMAL Urine leukocyte esterase detection by dipstick 3+ NEGATIVE Automated urine sediment erythrocyte count by microscopy (number/high power field) [HPF] NRG Automated urine sediment leukocyte count by microscopy (number/high power field ) [HPF] NRG Bacteria detection in urine sediment by light microscopy MODERATE NRG Crystals detection in urine sediment by light microscopy NONE NRG Casts detection in urine sediment by light microscopy NONE NRG Mucus detection in urine sediment by light microscopy NEGATIVE NRG Complete urinalysis with reflex to culture YES NRG Bacterial urine culture - 02/10/18 14:10 Bacterial urine culture [id number] NRG COLONY COUNT >100,000/ML NRG FTX;REPORTABLE SENSITIVITY REPORTED 02/11/18 16:50 NRG FREE TEXT ENTRY 2 PLUS, MIXED GRAM POSITIVES <10,000/ML NRG Bacterial susceptibility panel - 02/10/18 14:10 Gentamicin susceptibility test by minimum inhibitory concentration < = NRG Trimethoprim/sulfamethoxazole susceptibility test by minimum inhibitoryconcentration S NRG Ampicillin susceptibility test by minimum inhibitory concentration < = NRG Tobramycin susceptibility test by minimum inhibitory concentration < = NRG Cefazolin susceptibility test by minimum inhibitory concentration < = NRG Ceftriaxone susceptibility test by minimum inhibitory concentration <= NRG Ampicillin/sulbactam susceptibility test by minimum inhibitory concentration S NRG Piperacillin/tazobactam susceptibility test by minimum inhibitory concentration S NRG Ciprofloxacin susceptibility test by minimum inhibitory concentration <= NRG Meropenem susceptibility test by minimum inhibitory concentration < = NRG Nitrofurantoin susceptibility test by minimum inhibitory concentration <= NRG Aztreonam susceptibility test by minimum inhibitory concentration < = NRG Extended spectrum beta lactamase (ESBL) producing bacteria susceptibility test by minimum inhibitory concentration - NRG Complete blood count (CBC) with automated white blood cell (WBC) differential - 02/10/18 14:20 Blood leukocytes automated count (number/volume) 14.8 10*3/uL 4.3-11.0 Blood erythrocytes automated count (number/volume) 4.78 10*6/uL 4.35-5.85 Venous blood hemoglobin measurement (mass/volume) 14.9 g/dL 11.5-16.0 Blood hematocrit (volume fraction) 43 % 35-52 Automated erythrocyte mean corpuscular volume 89 [foz_us] 80-99 Automated erythrocyte mean corpuscular hemoglobin (mass per erythrocyte) 31 pg 25-34 Automated erythrocyte mean corpuscular hemoglobin concentration measurement ( mass/volume) 35 g/dL 32-36 Automated erythrocyte distribution width ratio 14.0 % 10.0-14.5 Automated blood platelet count (count/volume) 305 10*3/uL 130-400 Automated blood platelet mean volume measurement 10.3 [foz_us] 7.4-10.4 Automated blood neutrophils/100 leukocytes 68 % 42-75 Automated blood lymphocytes/100 leukocytes 22 % 12-44 Blood monocytes/100 leukocytes 10 % 0-12 Automated blood eosinophils/100 leukocytes 0 % 0-10 Automated blood basophils/100 leukocytes 0 % 0-10 Blood neutrophils automated count (number/volume) 10.0 10*3 1.8-7.8 Blood lymphocytes automated count (number/volume) 3.3 10*3 1.0-4.0 Blood monocytes automated count (number/volume) 1.4 10*3 0.0-1.0 Automated eosinophil count 0.1 10*3/uL 0.0-0.3 Automated blood basophil count (count/volume) 0.0 10*3/uL 0.0-0.1 Whole blood basic metabolic panel - 02/10/18 14:20 Serum or plasma sodium measurement (moles/volume) 141 mmol/L 135-145 Serum or plasma potassium measurement (moles/volume) 2.8 mmol/L 3.6-5.0 Serum or plasma chloride measurement (moles/volume) 102 mmol/L 98-107 Carbon dioxide 26 mmol/L 21-32 Serum or plasma anion gap determination (moles/volume) 13 mmol/L 5-14 Serum or plasma urea nitrogen measurement (mass/volume) 16 mg/dL 7-18 Serum or plasma creatinine measurement (mass/volume) 0.85 mg/dL 0.60-1.30 Serum or plasma urea nitrogen/creatinine mass ratio 19 NRG Serum or plasma creatinine measurement with calculation of estimated glomerular filtration rate > NRG Serum or plasma glucose measurement (mass/volume) 66 mg/dL 70-105 Serum or plasma calcium measurement (mass/volume) 10.4 mg/dL 8.5-10.1 Blood manual differential performed detection - 02/10/18 14:20 Blood monocytes/100 leukocytes 9 % NRG Manual blood segmented neutrophils/100 leukocytes 67 % NRG Blood band neutrophils/100 leukocytes 2 % NRG Manual blood lymphocytes/100 leukocytes 22 % NRG Manual eosinophils/100 leukocytes in nose 0 % NRG Manual blood basophils/100 leukocytes 0 % NRG Blood erythrocyte morphology finding identification NORMAL NRG Encounters ACCT No. Visit Date/Time Discharge Status Pt. Type Provider Facility Loc./Unit Complaint [id number] 01/29/2015 [facility]:59[id number] 01[facility]2015 09:56:00 [facility]08[facility]2015 [id number] 11/12[facility]2014 16:59:00 [facility]12[facility]2014 [id number]2014 12:50:00 10/29/2014 23:59:59 CLS Outpatient JAYLIN LSCS, ARIANNA Tiny [id number] 08/29/2014 12:59:00 08/29/2014 23:59:59 CLS Outpatient JAYLIN [facility]SC[facility], ARIANNA Tiny [id number] 07/11/2014 13:57:00 07/11/2014 23:59:59 CLS Outpatient JAYLIN LSCS, ARIANNA Tiny [id number] 05/28/2014 10:56:00 05/28/2014 23:59:59 CLS Outpatient JAYLIN LSCS, ARIANNA Tiny [id number] 04/16/2014 09:53:00 04/16/2014 23:59:59 CLS Outpatient JAYLIN LSCS, ARIANNA Tiny [id number] 02/26/2014 15:56:00 02/26/2014 23:59:59 CLS Outpatient JAYLIN LSCS, ARIANNA Tiny [id number] 02/14/2014 13:49:00 02/14/2014 23:59:59 CLS Outpatient JAYLIN LSCS, ARIANNA Tiny [id number] 01/29/2014 15:37:00 01/29/2014 23:59:59 CLS Outpatient JAYLIN LSCS, AIRANNA Tiny [id number] 01/15/2014 16:03:00 01/15/2014 23:59:59 CLS Outpatient JAYLIN LSCS, ARIANNA R [id number] 12/21/2013 07:55:00 12/21/2013 23:59:59 CLS Outpatient JAYLIN LSCS, ARIANNA Tiny [id number] 11/29/2013 15:51:00 11/29/2013 23:59:59 CLS Outpatient JAYLIN LSCS, ARIANNA R [id number] 11/09/2013 15:42:00 11/09/2013 23:59:59 CLS Outpatient JAYLIN LSCS, ARIANNA R [id number] 09/25/2013 16:00:00 09/25/2013 23:59:59 CLS Outpatient JAYLIN LSCS, ARIANNA Franks [id number] 09/04/2013 17:56:00 09/04/2013 23:59:59 CLS Outpatient JAYLIN LSCS, ARIANNA R [id number] 08/21/2013 13:47:00 08/21/2013 23:59:59 CLS Outpatient JAYLIN LSCS, ARIANNA Franks [id number] 08/07/2013 15:54:00 08/07/2013 23:59:59 CLS Outpatient JAYLIN LSCS, ARIANNA Franks [id number] 07/25/2013 09:26:00 07/25/2013 23:59:59 CLS Outpatient JAYLIN LSCS, ARIANNA Tiny [id number] 07/05/2013 10:51:00 07/05/2013 23:59:59 CLS Outpatient JAYLIN LSCS, ARIANNA Franks [id number] 12/19/2012 09:56:00 12/19/2012 23:59:59 CLS Outpatient JAYLIN LSCS, ARIANNA Tiny [id number] 12/06/2012 07:58:00 12/06/2012 23:59:59 CLS Outpatient [id number] 11/09/2012 10:53:00 11/09/2012 23:59:59 CLS Outpatient [id number] 07/27/2012 10:00:00 07/27/2012 23:59:59 CLS Outpatient JAYLIN LSCS, ARIANNA Franks [id number] 06/21/2013 07:58:00 Document Registration [id number] 06/05/2013 16:51:00 Document Registration [id number] 04/10/2013 09:57:00 Document Registration [id number] 03/29/2013 07:58:00 Document Registration [id number] 02/09/2013 09:49:00 Document Registration [id number] 08/16/2018 10:29:00 08/16/2018 23:59:59 CLS Outpatient ANGELINA PICKARD MD [facility] RAD SCREENING [id number] 02/10/2018 12:51:00 02/10/2018 17:38:00 DIS Emergency LUCIE BREEN APRN [facility] ER UTI SYMTOMS [id number] 12/05/2017 08:49:00 12/05/2017 12:15:00 DIS Outpatient FREYA ECKERT MD [facility] ENDO SCREENING [id number] 11/28/2017 05:36:00 11/28/2017 15:07:00 DIS Outpatient FREYA ECKERT MD [facility] PREOP COLONOSCOPY [id number] 07/28/2017 10:32:00 07/28/2017 23:59:59 CLS Outpatient ANGELINA PICKARD MD [facility] RAD SCREENING [id number] 01/18/2017 10:30:00 01/18/2017 23:59:59 CLS Outpatient ANGELINA PICKARD MD [facility] RAD ABD PAIN [id number] 05/27/2015 11:57:00 05/27/2015 23:59:59 CLS Outpatient ANGELINA PICKARD MD [facility] RAD CHRONIC COUGH [id number] 03/03/2015 09:14:00 03/03/2015 23:59:59 CLS Outpatient ANGELINA PICKARD MD [facility] RAD FOLLOW UP [id number] 01/23/2014 08:00:00 01/23/2014 23:59:59 CLS Outpatient ANGELINA PICKARD MD [facility] RAD ABNORMAL MAMMO [id number] 01/09/2014 09:50:00 01/09/2014 23:59:59 CLS Outpatient ANGELINA PICKARD MD [facility] RAD SCREENING [id number] 11/06/2015 10:06:00 Document Registration [id number] 02/05/2013 11:19:00 Document Registration [id number] 01/12/2013 10:13:00 Document Registration [id number] 01/19/2012 05:34:00 Document Registration [id number] 01/13/2012 13:06:00 Document Registration [id number] 01/05/2012 07:57:00 Document Registration [id number] 06/18/2010 08:33:00 Document Registration [id number] 12/06/2018 12:30:00 12/06/2018 23:59:59 CLS Outpatient [facility]E [facility]YDER [facility]
== END 2018-12-16 08:50 | disposition home or self-care (01) ==
LOC: EDUNIT# 07:13 → ER 07:14
DX: N39.0 Urinary tract infection, site not specified (principal); J45.909 Unspecified asthma, uncomplicated; E78.00 Pure hypercholesterolemia, unspecified; I10 Essential (primary) hypertension; F31.9 Bipolar disorder, unspecified; Z88.1 Allergy status to other antibiotic agents; Z98.890 Other specified postprocedural states; Z90.710 Acquired absence of both cervix and uterus
CPT/HCPCS: 81000; 87088; 99283

== ENCOUNTER 2019-05-01 12:43 | Emergency (ER) | payer MEDICARE, OTHER ==
[~2019-05-01] VITALS: Ht 167.6 cm; Wt 131.5 kg
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
--- OUTSIDE RECORDS SUMMARY | 2019-05-01 12:59 | XMS REPORT ---
Author Author ARIANNA MOSQUEDA Organization [facility] Address [address] [place] [address] Care Team Providers Care Drilling Superintendent Name Role Phone ARIANNA MOSQUEDA Unavailable PROBLEMS Type Condition ICD9-CM Code NGD39-EX Code Onset Dates Condition Status SNOMED Code Problem Anxiety state F41.1 Active 490402512 Problem Moderate mixed bipolar I disorder F31.62 Active [id number] ALLERGIES No Information ENCOUNTERS Encounter Location Date Diagnosis [place] [id number] [place] [address] May, [place] [address] [address] Apr, [place] [id number] [place] [address] Mar, Anxiety state F41.1 and Moderate mixed bipolar I disorder F31.62 [place] [id number] [place] [address] Jan, Moderate mixed bipolar I disorder F31.62 and Anxiety state F41.1 [place] [id number] [place] [address] Dec, Moderate mixed bipolar I disorder F31.62 and Anxiety state F41.1 [place] [id number] [place] [address] Nov, Moderate mixed bipolar I disorder F31.62 and Anxiety state F41.1 [place] [id number] [place] [address] Oct, Moderate mixed bipolar I disorder F31.62 and Anxiety state F41.1 [place] [address] [address] Sep, Moderate mixed bipolar I disorder F31.62 and Anxiety state F41.1 [facility] [id number] [place] [address] Aug, Moderate mixed bipolar I disorder F31.62 and Anxiety state F41.1 [facility] [id number] [address] Jul, Moderate mixed bipolar I disorder F31.62 and Anxiety state F41.1 [facility] [address] [facility] [id number] [place] [address] Jul, Moderate mixed bipolar I disorder F31.62 and Anxiety state F41.1 [facility] [id number] [place] [address] Jul, [facility] [id number] [place] [address] Jun, Moderate mixed bipolar I disorder F31.62 and Anxiety state F41.1 [facility] [id number] [place] [address] May, Moderate mixed bipolar I disorder F31.62 and Anxiety state F41.1 [facility] [id number] [address] Apr, Moderate mixed bipolar I disorder F31.62 and Anxiety state F41.1 [facility] [address] [address] Apr, Moderate mixed bipolar I disorder F31.62 and Anxiety state F41.1 [facility] [id number] [address] Mar, Moderate mixed bipolar I disorder F31.62 and Anxiety state F41.1 [facility] [id number] [address] February, Moderate mixed bipolar I disorder F31.62 and Anxiety state F41.1 [facility] [address] [address] Jan, Moderate mixed bipolar I disorder F31.62 and Anxiety state F41.1 [facility] [address] [place] [address] Dec, Moderate mixed bipolar I disorder F31.62 and Anxiety state F41.1 [facility] [address] [place] [address] Nov, Moderate mixed bipolar I disorder F31.62 and Anxiety state F41.1 [facility] [address] [place] [address] Nov, Moderate mixed bipolar I disorder F31.62 and Anxiety state F41.1 [facility] [address] [address] Oct, Moderate mixed bipolar I disorder F31.62 and Anxiety state F41.1 [facility] [address] [place] [address] Oct, Moderate mixed bipolar I disorder F31.62 and Anxiety state F41.1 [facility] [address] [place] [address] Sep, Moderate mixed bipolar I disorder F31.62 and Anxiety state F41.1 [facility] [address] [address] Aug, Moderate mixed bipolar I disorder F31.62 and Anxiety state F41.1 [facility] [address] [address] Jul, Moderate mixed bipolar I disorder F31.62 and Anxiety state F41.1 [facility] [address] [address] Jul, [facility] [address] [address] Jul, Moderate mixed bipolar I disorder F31.62 and Anxiety state F41.1 [facility] [address] [address] May, Moderate mixed bipolar I disorder F31.62 and Anxiety state F41.1 [facility] [address] [address] May, Moderate mixed bipolar I disorder F31.62 and Anxiety state F41.1 [facility] [address] [place] [address] May, Moderate mixed bipolar I disorder F31.62 and Anxiety state F41.1 [facility] [address] [place] [address] May, [facility] [address] [place] [address] Apr, Moderate mixed bipolar I disorder F31.62 and Anxiety state F41.1 [facility] [id number] [place] [address] Apr, Moderate mixed bipolar I disorder F31.62 and Anxiety state F41.1 [facility] [address] [place] [address] Mar, Moderate mixed bipolar I disorder F31.62 and Anxiety state F41.1 [facility] [address] [address] February, Moderate mixed bipolar I disorder F31.62 and Anxiety state F41.1 [facility] [address] [address] February, Moderate mixed bipolar I disorder F31.62 and Anxiety state F41.1 [facility] [address] [place] [address] Jan, Moderate mixed bipolar I disorder F31.62 and Anxiety state F41.1 [facility] [address] [address] Jan, Moderate mixed bipolar I disorder F31.62 and Anxiety state F41.1 [facility] [address] [address] Jan, [facility] [id number] [place] [address] 30 Dec, 2016 Moderate mixed bipolar I disorder F31.62 and Anxiety state F41.1 [facility] [id number] [place] [address] Dec, Moderate mixed bipolar I disorder F31.62 and Anxiety state F41.1 [facility] [address] [place] [address] Nov, Moderate mixed bipolar I disorder F31.62 and Anxiety state F41.1 [facility] [id number] [place] [address] Nov, Moderate mixed bipolar I disorder F31.62 and Anxiety state F41.1 [facility] [address] [place] [address] Oct, Moderate mixed bipolar I disorder F31.62 and Anxiety state F41.1 [facility] [address] [place] [address] Sep, Moderate mixed bipolar I disorder F31.62 and Anxiety state F41.1 [facility] [address] [address] Aug, Moderate mixed bipolar I disorder F31.62 and Anxiety state F41.1 [facility] [address] [address] Aug, Moderate mixed bipolar I disorder F31.62 and Anxiety state F41.1 [facility] [address] [address] Jul, Moderate mixed bipolar I disorder F31.62 and Anxiety state F41.1 [facility] [address] [place] [address] Jun, Moderate mixed bipolar I disorder F31.62 and Anxiety state F41.1 [place] [address] [place] [address] May, Moderate mixed bipolar I disorder F31.62 and Anxiety state F41.1 [place] [address] [place] [address] May, Moderate mixed bipolar I disorder F31.62 and Anxiety state F41.1 [place] [address] [place] [address] Apr, Bipolar 1 disorder, depressed, moderate F31.32 and Anxiety state F41.1 [place] [address] [place] [address] Apr, Bipolar 1 disorder, depressed, moderate F31.32 and Bipolar I disorder, mild, current or most recent episode depressed, with anxious distress F31.31 [place] [address] [place] [address] Mar, Bipolar 1 disorder, depressed, moderate F31.32 [place] [address] [place] [address] February, Bipolar 1 disorder, depressed, moderate F31.32 [place] [address] [place] [address] Jan, Bipolar I disorder, mild, current or most recent episode depressed, with anxious distress F31.31 [place] [address] [place] [address] Jan, Bipolar I disorder, mild, current or most recent episode depressed, with anxious distress F31.31 [place] [address] [place] [address] Jan, Bipolar 1 disorder, depressed, moderate F31.32 [place] [address] [place] [address] Dec, Bipolar I disorder, mild, current or most recent episode depressed, with anxious distress F31.31 [facility] [address] [place] [address] Dec, Bipolar I disorder, mild, current or most recent episode depressed, with anxious distress F31.31 [facility] [address] [address] Nov, Bipolar I disorder, mild, current or most recent episode depressed, with anxious distress F31.31 [facility] [address] [address] Oct, Bipolar I disorder, mild, current or most recent episode depressed, with anxious distress F31.31 [facility] [id number] [place] [address] Oct, Bipolar I disorder, mild, current or most recent episode depressed, with anxious distress F31.31 [facility] [address] [place] [address] Sep, Bipolar I disorder, mild, current or most recent episode depressed, with anxious distress F31.31 [facility] [address] [place] [address] Aug, Bipolar I disorder, mild, current or most recent episode depressed, with anxious distress F31.31 [facility] [address] [address] Jul, Bipolar I disorder, mild, current or most recent episode depressed, with anxious distress F31.31 [facility] [address] [address] 07 Jul, 2015 Bipolar I disorder, mild, current or most recent episode depressed, with anxious distress F31.31 [facility] [address] [address] 17 Jun, 2015 Bipolar I disorder, most recent episode depressed 296.50 [facility] [id number] [address] Jun, Bipolar I disorder, most recent episode depressed 296.50 [facility] [address] [address] May, Bipolar disorder, current episode depressed, moderate 296.52 [facility] [address] [address] May, Bipolar I disorder, most recent episode mixed, moderate 296.62 [facility] [address] [address] Apr, Bipolar I disorder, most recent episode mixed, moderate 296.62 [facility] [address] [address] Apr, [facility] [id number] [address] Apr, Bipolar I disorder, most recent episode mixed, moderate 296.62 [facility] [address] [address] February, Bipolar disorder, current episode depressed, moderate 296.52 [facility] [address] [address] Jan, [facility] [address] [address] Jan, [facility] [address] [address] Dec, [facility] [address] [address] Dec, [facility] [address] [address] Dec, [facility] [address] [address] Dec, [facility] [address] [address] Dec, [facility] [place] [facility] [address] [id number] [place] [address] Dec, [facility] [place] [facility] [address] [id number] [place] [address] Dec, [facility] [place] [facility] [address] [id number] [place] [address] Dec, [facility] [place] [facility] [address] [id number] [place] [address] Nov, [facility] [place] [facility] [address] [id number] [place] [address] Nov, [facility] [place] [facility] [address] [id number] [place] [address] Nov, [facility] [place] [facility] [address] [id number] [place] [address] Nov, [facility] [place] [facility] [address] [id number] [place] [address] Oct, [facility] [place] [facility] [address] [id number] [place] [address] Oct, [facility] [place] [facility] [address] [id number] [place] [address] Oct, [facility] [place] [facility] [address] [id number] [place] [address] Oct, [facility] [place] [facility] [address] [id number] [place] [address] Oct, [facility] [place] [facility] [address] [id number] [place] [address] Oct, [facility] [place] [facility] [address] [id number] [place] [address] Oct, [facility] [place] [facility] [address] [id number] [place] [address] Oct, [facility] [place] [facility] [address] [id number] [place] [address] Aug, [facility] [address] [id number] [place] [address] Aug, [facility] [place] [facility] [address] [id number] [place] [address] Jun, [facility] [place] [facility] [address] [id number] [place] [address] Jun, [facility] [place] [facility] [address] [id number] [place] [address] May, [facility] [place] [facility] [address] [id number] [place] [address] May, [facility] [place] [facility] [address] [id number] [place] [address] Apr, [facility] [place] [facility] [address] [id number] [place] [address] Apr, [facility] [address] [id number] [place] [address] Mar, [facility] [place] [facility] [address] [id number] [place] [address] Mar, [facility] [address] [id number] [place] [address] February, [facility] [place] [facility] [address] [id number] [place] [address] February[facility] [place] [facility] [address] [id number] [place] [address] February, [facility] [place] [facility] [address] [id number] [place] [address] February, [facility] [place] [facility] [address] [id number] [place] [address] Jan, [facility] [place] [facility] [address] [id number] [place] [address] Jan, [facility] [place] [facility] [address] [id number] [place] [address] Jan, [facility] [place] [facility] [address] [id number] [place] [address] Jan, [facility] [place] [facility] [address] [id number] [place] [address] Dec, [facility] [place] [facility] [address] [id number] [place] [address] Dec, [facility] [place] [facility] [address] [id number] [place] [address] Nov, [facility] [place] [facility] [address] [id number] [place] [address] Nov, [facility] [place] [facility] [address] [id number] [place] [address] Oct, [facility] [place] [facility] [address] [id number] [place] [address] Oct, [facility] [place] [facility] [address] [id number] [place] [address] Sep, [facility] [place] [facility] [address] [id number] [place] [address] Sep, [facility] [place] [facility] [address] [id number] [place] [address] Sep, [facility] [place] [facility] [address] [id number] [address] Sep, [facility] [place] [facility] [address] [id number] [place] [address] Aug, [facility] [place] [facility] [address] [id number] [place] [address] Aug, [facility] [place] [facility] [address] [facility] [id number] [place] [address] Aug, [facility] [place] [facility] [address] [id number] [place] [address] Aug, [facility] [address] [id number] [place] [address] Jul, [facility] [address] [id number] [place] [address] Jul, [facility] [address] [facility] [id number] [place] [address] Jul, [facility] [address] [id number] [place] [address] Jul, [facility] [id number] [place] [address] Jun, [facility] [address] [facility] [id number] [place] [address] Jun, [facility] [address] [address] May, [facility] [address] [facility] [id number] [place] [address] Apr, [facility] [id number] [address] Mar, [facility] [id number] [address] Mar, [facility] [address] [facility] [id number] [place] [address] February, [facility] [place] [facility] [address] [facility] [id number] [place] [address] Jan, [facility] [place] [facility] [address] [id number] [place] [address] Jan, [facility] [place] [facility] [address] [facility] [id number] [place] [address] Dec, [facility] [place] [facility] [id number] [address] Nov, [facility] [place] [facility] [address] [id number] [place] [address] Oct, [facility] [place] [facility] [address] [id number] [place] [address] Aug, [facility] [place] [facility] [address] [id number] [place] [address] Aug, [facility] [place] [facility] [address] [id number] [place] [address] Aug, [facility] [place] [facility] [address] [id number] [place] [address] Aug, [facility] [place] [facility] [address] [id number] [place] [address] Aug, [facility] [place] [facility] [address] [id number] [place] [address] Aug, [facility] [place] [facility] [address] [id number] [place] [address] Jul, [facility] [place] [facility] [address] [id number] [place] [address] Jul, [facility] [place] [facility] [address] [id number] [place] [address] Jul, [facility] [place] [facility] [address] [id number] [place] [address] Jul, [facility] [place] [facility] [address] [id number] [place] [address] 27 Jun, 2012 [facility] [place] [facility] [address] [id number] [place] [address] 14 Jun, 2012 [facility] [place] [facility] [address] [id number] [place] [address] 31 May, 2012 [facility] [place] [facility] [address] [id number] [place] [address] 13 May, 2012 [facility] [place] [facility] [address] [id number] [place] [address] 18 Apr, 2012 [facility] [place] [facility] [address] [id number] [place] [address] 13 Apr, 2012 [facility] [place] [facility] [address] [id number] [place] [address] 28 Mar, 2012 [facility] [place] [facility] [address] [id number] [place] [address] Mar, [facility] [place] [facility] [address] [id number] [place] [address] Mar, [facility] [place] [facility] [address] [id number] [place] [address] February, [facility] [place] [facility] [address] [id number] [place] [address] February, [facility] [place] [facility] [address] [id number] [place] [address] February, [facility] [place] [facility] [address] [id number] [place] [address] 18 Jan, 2012 [facility] [place] [facility] [address] [id number] [place] [address] 18 Jan, 2012 [facility] [place] [facility] [address] [id number] [place] [address] 10 Jan, 2012 [facility] [place] [facility] [address] [id number] [place] [address] 29 Dec, 2011 [facility] [place] [facility] [address] [id number] [place] [address] 20 Dec, 2011 [facility] [place] [facility] [address] [id number] [place] [address] 15 Dec, 2011 [facility] [place] [facility] [address] [id number] [place] [address] 14 Dec, 2011 [facility] [place] [facility] [address] [id number] [place] [address] 13 Dec, 2011 [facility] [place] [facility] [address] [id number] [place] [address] 13 Dec, 2011 [facility] [place] [facility] [address] [id number] [place] [address] 13 Dec, 2011 [facility] [place] [facility] [address] [id number] [place] [address] 05 Dec, 2011 [facility] [place] [facility] [address] [id number] [place] [address] 28 Nov, 2011 [facility] [place] [facility] [address] [id number] [place] [address] 23 Nov, 2011 [facility] [place] [facility] [address] [id number] [place] [address] 16 Nov, 2011 [facility] [place] [facility] [address] [id number] [place] [address] 16 Nov, 2011 [facility] [place] [facility] [address] [id number] [place] [address] 07 Nov, 2011 [facility] [place] [facility] [address] [id number] [place] [address] 07 Nov, 2011 [facility] [place] [facility] [address] [id number] [place] [address] 06 Nov, 2011 [facility] [place] [facility] [address] [facility] [id number] [place] [address] Nov, [facility] [place] [facility] [address] [id number] [place] [address] Oct, [facility] [place] [facility] [address] [id number] [place] [address] Oct, [facility] [place] [facility] [address] [id number] [place] [address] 18 Oct, 2011 [facility] [place] [facility] [address] [address] [id number] [place] [address] 16 Oct, 2011 [facility] [place] [facility] [address] [id number] [place] [address] Oct, [facility] [id number] [address] Oct, [facility] [address] [facility] [id number] [place] [address] Oct, [facility] [id number] [address] Oct, [facility] [id number] [address] Sep, [facility] [id number] [address] Sep, [facility] [id number] [place] [address] Sep, [facility] [id number] [address] Sep, [facility] [id number] [address] Aug, [facility] [id number] [address] Aug, [facility] [id number] [address] Aug, [facility] [id number] [address] Jul, [facility] [id number] [address] Jul, [facility] [id number] [address] Jul, [facility] [id number] [address] Aug, IMMUNIZATIONS No Known Immunizations SOCIAL HISTORY Never Assessed REASON FOR VISIT PLAN OF CARE VITAL SIGNS MEDICATIONS Unknown Medications RESULTS No Results PROCEDURES Procedure Date Ordered Result Body Site PSYTX PT&/FAMILY 45 MINUTES December 18, 2014 INSTRUCTIONS MEDICATIONS ADMINISTERED No Known Medications
--- OUTSIDE RECORDS SUMMARY | 2019-05-01 12:59 | XMS REPORT ---
Author Author ARIANNA MOSQUEDA Organization [facility] Address [address] [place] [address] Care Team Providers Care Mold Washer Name Role Phone ARIANNA MOSQUEDA Unavailable PROBLEMS Type Condition ICD9-CM Code DTI30-RE Code Onset Dates Condition Status SNOMED Code Problem Anxiety state F41.1 Active 120162490 Problem Moderate mixed bipolar I disorder F31.62 Active [id number] ALLERGIES No Information ENCOUNTERS Encounter Location Date Diagnosis [place] [id number] [place] [address] May, [place] [address] [address] Apr, [place] [id number] [place] [address] Mar, Anxiety state F41.1 and Moderate mixed bipolar I disorder F31.62 [place] [id number] [place] [address] Jan, Moderate mixed bipolar I disorder F31.62 and Anxiety state F41.1 [place] [id number] [place] [address] Dec, Moderate mixed bipolar I disorder F31.62 and Anxiety state F41.1 [place] [id number] [place] [address] Nov, Moderate mixed bipolar I disorder F31.62 and Anxiety state F41.1 [place] [id number] [place] [address] Oct, Moderate mixed bipolar I disorder F31.62 and Anxiety state F41.1 [place] [address] [address] Sep, Moderate mixed bipolar I disorder F31.62 [address] An[address] [facility] [id number] [place] [address] Aug, Moderate mixed bipolar I disorder F31.62 [address] [facility] [id number] [address] Jul, Moderate mixed bipolar I disorder F31.62 [address].1 [facility] [address] [facility] [id number] [place] [address] Jul, Moderate mixed bipolar I disorder F31.62 [address] Anxiety state F[address].1 [facility] [id number] [place] [address] Jul, [facility] [id number] [place] [address] Jun, Moderate mixed bipolar I disorder F31.62 and Anxiety state F41.1 [facility] [id number] [place] [address] May, Moderate mixed bipolar I disorder F31.62 and Anxiety state F41.1 [facility] [id number], [place] [address] Apr, Moderate mixed bipolar I disorder F31.62 and Anxiety state F41.1 [facility] [address], [place] [address] Apr, Moderate mixed bipolar I disorder F31.62 and Anxiety state F41.1 [facility] [id number], [place] [address] Mar, Moderate mixed bipolar I disorder F31.62 and Anxiety state F41.1 [facility] [id number], [place] [address] February, Moderate mixed bipolar I disorder F31.62 and Anxiety state F41.1 [facility] [address], [place] [address] Jan, Moderate mixed bipolar I disorder F31.62 and Anxiety state F41.1 [facility] [address] [place] [address] Dec, Moderate mixed bipolar I disorder F31.62 and Anxiety state F41.1 [facility] [address] [place] [address] Nov, Moderate mixed bipolar I disorder F31.62 and Anxiety state F41.1 [facility] [address] [place] [address] Nov, Moderate mixed bipolar I disorder F31.62 and Anxiety state F41.1 [facility] [address], [place] [address] Oct, Moderate mixed bipolar I disorder F31.62 and Anxiety state F41.1 [facility] [address] [place] [address] Oct, Moderate mixed bipolar I disorder F31.62 and Anxiety state F41.1 [facility] [address] [place] [address] Sep, Moderate mixed bipolar I disorder F31.62 and Anxiety state F41.1 [facility] [address], [place] [address] Aug, Moderate mixed bipolar I disorder F31.62 and Anxiety state F41.1 [facility] [address], [place] [address] Jul, Moderate mixed bipolar I disorder F31.62 and Anxiety state F41.1 [facility] [address], [place] [address] Jul, [facility] [address], [place] [address] Jul, Moderate mixed bipolar I disorder F31.62 and Anxiety state F41.1 [facility] [address], [place] [address] May, Moderate mixed bipolar I disorder F31.62 and Anxiety state F41.1 [facility] [address], [place] [address] May, Moderate mixed bipolar I disorder F31.62 and Anxiety state F41.1 [facility] [address] [place] [address] May, Moderate mixed bipolar I disorder F31.62 and Anxiety state F41.1 [facility] [address] [place] [address] May, [facility] [address] [place] [address] Apr, Moderate mixed bipolar I disorder F31.62 and Anxiety state F41.1 [facility] [id number] [place] [address] Apr, Moderate mixed bipolar I disorder F31.62 and Anxiety state F41.1 [facility] [address] [place] [address] Mar, Moderate mixed bipolar I disorder F31.62 and Anxiety state F41.1 [facility] [address], [place] [address] February, Moderate mixed bipolar I disorder F31.62 and Anxiety state F41.1 [facility] [address], [place] [address] February, Moderate mixed bipolar I disorder F31.62 and Anxiety state F41.1 [facility] [address] [place] [address] Jan, Moderate mixed bipolar I disorder F31.62 and Anxiety state F41.1 [facility] [address], [place] [address] Jan, Moderate mixed bipolar I disorder F31.62 and Anxiety state F41.1 [facility] [address], [place] [address] Jan, [facility] [id number] [place] [address] 30 Dec, 2016 Moderate mixed bipolar I disorder F31.62 and Anxiety state F41.1 [facility] [id number] [place] [address] Dec, Moderate mixed bipolar I disorder F31.62 and Anxiety state F41.1 [facility] [address] [place] [address] Nov, Moderate mixed bipolar I disorder F31.62 and Anxiety state F41.1 [facility] [id number] [place] [address] Nov, Moderate mixed bipolar I disorder F31.62 and Anxiety state F41.1 [facility] [address] [place] [address] Oct, Moderate mixed bipolar I disorder F31.62 and Anxiety state F41.1 [facility] [address] [place] [address] Sep, Moderate mixed bipolar I disorder F31.62 and Anxiety state F41.1 [facility] [address], [place] [address] Aug, Moderate mixed bipolar I disorder F31.62 and Anxiety state F41.1 [facility] [address], [place] [address] Aug, Moderate mixed bipolar I disorder F31.62 and Anxiety state F41.1 [facility] [address], [place] [address] Jul, Moderate mixed bipolar I disorder F31.62 and Anxiety state F41.1 [facility] [address] [place] [address] Jun, Moderate mixed bipolar I disorder F31.62 and Anxiety state F41.1 [place] [address] [place] [address] May, Moderate mixed bipolar I disorder F31.62 and Anxiety state F41.1 [place] [address] [place] [address] May, Moderate mixed bipolar I disorder F31.62 and Anxiety state F41.1 [place] [address] [place] [address] Apr, Bipolar 1 disorder, depressed, moderate F31.32 and Anxiety state F41.1 [place] [address] [place] [address] Apr, Bipolar 1 disorder, depressed, moderate F31.32 and Bipolar I disorder, mild, current or most recent episode depressed, with anxious distress F31.31 [place] [address] [place] [address] Mar, Bipolar 1 disorder, depressed, moderate F31.32 [place] [address] [place] [address] February, Bipolar 1 disorder, depressed, moderate F31.32 [place] [address] [place] [address] Jan, Bipolar I disorder, mild, current or most recent episode depressed, with anxious distress F31.31 [place] [address] [place] [address] Jan, Bipolar I disorder, mild, current or most recent episode depressed, with anxious distress F31.31 [place] [address] [place] [address] Jan, Bipolar 1 disorder, depressed, moderate F31.32 [place] [address] [place] [address] Dec, Bipolar I disorder, mild, current or most recent episode depressed, with anxious distress F31.31 [facility] [address] [place] [address] Dec, Bipolar I disorder, mild, current or most recent episode depressed, with anxious distress F31.31 [facility] [address], [place] [address] Nov, Bipolar I disorder, mild, current or most recent episode depressed, with anxious distress F31.31 [facility] [address], [place] [address] Oct, Bipolar I disorder, mild, current or most recent episode depressed, with anxious distress F31.31 [facility] [id number] [place] [address] Oct, Bipolar I disorder, mild, current or most recent episode depressed, with anxious distress F31.31 [facility] [address] [place] [address] Sep, Bipolar I disorder, mild, current or most recent episode depressed, with anxious distress F31.31 [facility] [address] [place] [address] Aug, Bipolar I disorder, mild, current or most recent episode depressed, with anxious distress F31.31 [facility] [address], [place] [address] Jul, Bipolar I disorder, mild, current or most recent episode depressed, with anxious distress F31.31 [facility] [address], [place] [address] 07 Jul, 2015 Bipolar I disorder, mild, current or most recent episode depressed, with anxious distress F31.31 [facility] [address], [place] [address] 17 Jun, 2015 Bipolar I disorder, most recent episode depressed 296.50 [facility] [id number] [address] Jun, Bipolar I disorder, most recent episode depressed 296.50 [facility] [address], [place] [address] May, Bipolar disorder, current episode depressed, moderate 296.52 [facility] [address], [place] [address] May, Bipolar I disorder, most recent episode mixed, moderate 296.62 [facility] [address], [place] [address] Apr, Bipolar I disorder, most recent episode mixed, moderate 296.62 [facility] [address], [place] [address] Apr, [facility] [id number] [address] Apr, Bipolar I disorder, most recent episode mixed, moderate 296.62 [facility] [address], [place] [address] February, Bipolar disorder, current episode depressed, moderate 296.52 [facility] [address], [place] [address] Jan, [facility] [address] [address] Jan, [facility] [address] [address] Dec, [facility] [address], [place] [address] Dec, [facility] [address], [place] [address] Dec, [facility] [address], [place] [address] Dec, [facility] [address], [place] [address] Dec, [facility] [place] [facility] [address] [id number] [place] [address] Dec, [facility] [place] [facility] [address] [id number] [place] [address] Dec, [facility] [place] [facility] [address] [id number] [place] [address] Dec, [facility] [place] [facility] [address] [id number] [place] [address] Nov, [facility] [place] [facility] [address] [id number] [place] [address] Nov, [facility] [place] [facility] [address] [id number] [place] [address] Nov, [facility] [place] [facility] [address] [id number] [place] [address] Nov, [facility] [place] [facility] [address] [id number] [place] [address] Oct, [facility] [place] [facility] [address] [id number] [place] [address] Oct, [facility] [place] [facility] [address] [id number] [place] [address] Oct, [facility] [place] [facility] [address] [id number] [place] [address] Oct, [facility] [place] [facility] [address] [id number] [place] [address] Oct, [facility] [place] [facility] [address] [id number] [place] [address] Oct, [facility] [place] [facility] [address] [id number] [place] [address] Oct, [facility] [place] [facility] [address] [id number] [place] [address] Oct, [facility] [place] [facility] [address] [id number] [place] [address] Aug, [facility] [address] [id number] [place] [address] Aug, [facility] [place] [facility] [address] [id number] [place] [address] Jun, [facility] [place] [facility] [address] [id number] [place] [address] Jun, [facility] [place] [facility] [address] [id number] [place] [address] May, [facility] [place] [facility] [address] [id number] [place] [address] May, [facility] [place] [facility] [address] [id number] [place] [address] Apr, [facility] [place] [facility] [address] [id number] [place] [address] Apr, [facility] [address] [id number] [place] [address] Mar, [facility] [place] [facility] [address] [id number] [place] [address] Mar, [facility] [address] [id number] [place] [address] February, [facility] [place] [facility] [address] [id number] [place] [address] February, [facility] [place] [facility] [address] [id number] [place] [address] February, [facility] [place] [facility] [address] [id number] [place] [address] February, [facility] [place] [facility] [address] [id number] [place] [address] Jan, [facility] [place] [facility] [address] [id number] [place] [address] Jan, [facility] [place] [facility] [address] [id number] [place] [address] Jan, [facility] [place] [facility] [address] [id number] [place] [address] Jan, [facility] [place] [facility] [address] [id number] [place] [address] Dec, [facility] [place] [facility] [address] [id number] [place] [address] Dec, [facility] [place] [facility] [address] [id number] [place] [address] Nov, [facility] [place] [facility] [address] [id number] [place] [address] Nov, [facility] [place] [facility] [address] [id number] [place] [address] Oct, [facility] [place] [facility] [address] [id number] [place] [address] Oct, [facility] [place] [facility] [address] [id number] [place] [address] Sep, [facility] [place] [facility] [address] [id number] [place] [address] Sep, [facility] [place] [facility] [address] [id number] [place] [address] Sep, [facility] [place] [facility] [address] [id number], [place] [address] Sep, [facility] [place] [facility] [address] [id number] [place] [address] Aug, [facility] [place] [facility] [address] [id number] [place] [address] Aug, [facility] [place] [facility] [address] [facility] [address] [id number] [place] [address] Aug, [facility] [place] [facility] [address] [id number], [place] [address] Aug, [facility] [address] [id number] [place] [address] Jul, [facility] [address] [id number], [place] [address] Jul, [facility] [address] [facility] [address] [id number] [place] [address] Jul, [facility] [address] [id number], [place] [address] Jul, [facility] [id number] [place] [address] Jun, [facility] [address] [facility] [address] [id number] [place] [address] Jun, [facility] [address], [place] [address] May, [facility] [address] [facility] [address] [id number], [place] [address] Apr, [facility] [id number], [place] [address] Mar, [facility] [id number], [place] [address] Mar, [facility] [address] [facility] [address] [id number], [place] [address] February, [facility] [place] [facility] [address] [facility] [address] [id number], [place] [address] Jan, [facility] [place] [facility] [address] [id number], [place] [address] Jan, [facility] [place] [facility] [address] [facility] [address] [id number], [place] [address] Dec, [facility] [place] [facility] [id number], [place] [address] Nov, [facility] [place] [facility] [address] [id number] [place] [address] Oct, [facility] [place] [facility] [address] [id number] [place] [address] Aug, [facility] [place] [facility] [address] [id number] [place] [address] Aug, [facility] [place] [facility] [address] [id number] [place] [address] Aug, [facility] [place] [facility] [address] [id number] [place] [address] Aug, [facility] [place] [facility] [address] [id number] [place] [address] Aug, [facility] [place] [facility] [address] [id number] [place] [address] Aug, [facility] [place] [facility] [address] [id number] [place] [address] Jul, [facility] [place] [facility] [address] [id number] [place] [address] Jul, [facility] [place] [facility] [address] [id number] [place] [address] Jul, [facility] [place] [facility] [address] [id number] [place] [address] Jul, [facility] [place] [facility] [address] [id number] [place] [address] 27 Jun, 2012 [facility] [place] [facility] [address] [id number] [place] [address] 14 Jun, 2012 [facility] [place] [facility] [address] [id number] [place] [address] 31 May, 2012 [facility] [place] [facility] [address] [id number] [place] [address] 13 May, 2012 [facility] [place] [facility] [address] [id number] [place] [address] 18 Apr, 2012 [facility] [place] [facility] [address] [id number] [place] [address] 13 Apr, 2012 [facility] [place] [facility] [address] [id number] [place] [address] 28 Mar, 2012 [facility] [place] [facility] [address] [id number] [place] [address] Mar, [facility] [place] [facility] [address] [id number] [place] [address] Mar, [facility] [place] [facility] [address] [id number] [place] [address] February, [facility] [place] [facility] [address] [id number] [place] [address] February, [facility] [place] [facility] [address] [id number] [place] [address] February, [facility] [place] [facility] [address] [id number] [place] [address] 18 Jan, 2012 [facility] [place] [facility] [address] [id number] [place] [address] 18 Jan, 2012 [facility] [place] [facility] [address] [id number] [place] [address] 10 Jan, 2012 [facility] [place] [facility] [address] [id number] [place] [address] 29 Dec, 2011 [facility] [place] [facility] [address] [id number] [address] 20 Dec, 2011 [facility] [place] [facility] [address] [id number] [place] [address] 15 Dec, 2011 [facility] [place] [facility] [address] [id number] [place] [address] 14 Dec, 2011 [facility] [place] [facility] [address] [id number] [place] [address] 13 Dec, 2011 [facility] [place] [facility] [address] [id number] [place] [address] 13 Dec, 2011 [facility] [place] [facility] [address] [id number] [place] [address] 13 Dec, 2011 [facility] [place] [facility] [address] [id number] [place] [address] 05 Dec, 2011 [facility] [place] [facility] [address] [id number] [place] [address] 28 Nov, 2011 [facility] [place] [facility] [address] [id number] [place] [address] 23 Nov, 2011 [facility] [place] [facility] [address] [id number] [place] [address] 16 Nov, 2011 [facility] [place] [facility] [address] [id number] [place] [address] 16 Nov, 2011 [facility] [place] [facility] [address] [id number] [place] [address] 07 Nov, 2011 [facility] [place] [facility] [address] [id number] [place] [address] 07 Nov, 2011 [facility] [place] [facility] [address] [id number] [place] [address] 06 Nov, 2011 [facility] [place] [facility] [address] [facility] [id number] [place] [address] Nov, [facility] [place] [facility] [address] [id number] [place] [address] Oct, [facility] [place] [facility] [address] [id number] [place] [address] Oct, [facility] [place] [facility] [address] [id number] [place] [address] 18 Oct, 2011 [facility] [place] [facility] [address] [id number] [place] [address] 16 Oct, 2011 [facility] [place] [facility] [address] [id number] [place] [address] Oct, [facility] [address] [id number] [address] Oct, [facility] [address] [id number] [address] Oct, [facility] [id number] [address] Oct, [facility] [id number] [address] Sep, [facility] [id number] [address] Sep, [facility] [id number] [place] [id number] Sep, [facility] [address] [address] Sep, [facility] [address] [address] Aug, [facility] [id number] [address] Aug, [facility] [address] [address] Aug, [facility] [id number] [address] Jul, [facility] [id number] [address] Jul, [facility] [id number] [address] Jul, [facility] [address], [place] [address] Aug, IMMUNIZATIONS No Known Immunizations SOCIAL HISTORY Never Assessed REASON FOR VISIT PLAN OF CARE VITAL SIGNS MEDICATIONS Unknown Medications RESULTS No Results PROCEDURES Procedure Date Ordered Result Body Site PSYTX PT&/FAMILY 45 MINUTES January 08, 2015 INSTRUCTIONS MEDICATIONS ADMINISTERED No Known Medications
[2019-05-01] MEDS ORDERED: fentaNYL INJECTION 100 MCG/2 ML AMP IVP ONE (13:00)
--- OUTSIDE RECORDS SUMMARY | 2019-05-01 13:00 | XMS REPORT ---
Author Author ARIANNA MOSQUEDA Organization [facility] Address [address] [place] [address] Care Team Providers Care Complaint Coordinator Name Role Phone ARIANNA MOSQUEDA Unavailable PROBLEMS Type Condition ICD9-CM Code NBG79-UA Code Onset Dates Condition Status SNOMED Code Problem Anxiety state F41.1 Active 135890688 Problem Moderate mixed bipolar I disorder F31.62 Active [id number] ALLERGIES No Information ENCOUNTERS Encounter Location Date Diagnosis [place] [id number] [place] [address] May, [place] [address] [address] Apr, [place] [id number] [place] [address] Mar, Anxiety state F41.1 and Moderate mixed bipolar I disorder F31.62 [place] [id number] [place] [address] Jan, Moderate mixed bipolar I disorder F31.62 and Anxiety state F41.1 [place] [id number] [place] [address] Dec, Moderate mixed bipolar I disorder F31.62 and Anxiety state F41.1 [place] [id number] [place] [address] Nov, Moderate mixed bipolar I disorder F31.62 and Anxiety state F41.1 [place] [id number] [place] [address] Oct, Moderate mixed bipolar I disorder F31.62 and Anxiety state F41.1 [place] [address] [address] Sep, Moderate mixed bipolar I disorder F31.62 and Anxiety state F41.1 [facility] [id number] [place] [address] Aug, Moderate mixed bipolar I disorder F31.62 and Anxiety state F41.1 [facility] [id number] [address] Jul, Moderate mixed bipolar I disorder F31.62 and Anxiety state F41.1 [facility] [address] [facility] [id number] [place] [address] Jul, Moderate mixed bipolar I disorder F31.62 and Anxiety state F41.1 [facility] [id number] [place] [address] Jul, [facility] [id number] [place] [address] Jun, Moderate mixed bipolar I disorder F31.62 and Anxiety state F41.1 [facility] [id number] [place] [address] May, Moderate mixed bipolar I disorder F31.62 and Anxiety state F41.1 [facility] [id number] [address] Apr, Moderate mixed bipolar I disorder F31.62 and Anxiety state F41.1 [facility] [address] [place] [address] Apr, Moderate mixed bipolar I disorder F31.62 and Anxiety state F41.1 [facility] [id number] [address] Mar, Moderate mixed bipolar I disorder F31.62 and Anxiety state F41.1 [facility] [id number] [address] February, Moderate mixed bipolar I disorder F31.62 and Anxiety state F41.1 [facility] [address] [place] [address] Jan, Moderate mixed bipolar I disorder F31.62 and Anxiety state F41.1 [facility] [id number] [place] [address] Dec, Moderate mixed bipolar I disorder F31.62 and Anxiety state F41.1 [facility] [id number] [place] [address] Nov, Moderate mixed bipolar I disorder F31.62 and Anxiety state F41.1 [facility] [id number] [place] [address] Nov, Moderate mixed bipolar I disorder F31.62 and Anxiety state F41.1 [facility] [address] [address] Oct, Moderate mixed bipolar I disorder F31.62 and Anxiety state F41.1 [facility] [id number] [place] [address] Oct, Moderate mixed bipolar I disorder F31.62 and Anxiety state F41.1 [facility] [id number] [place] [address] Sep, Moderate mixed bipolar I disorder F31.62 and Anxiety state F41.1 [facility] [address], [place] [address] Aug, Moderate mixed bipolar I disorder F31.62 and Anxiety state F41.1 [facility] [address], [place] [address] Jul, Moderate mixed bipolar I disorder F31.62 and Anxiety state F41.1 [facility] [address] [place] [address] Jul, [facility] [address], [place] [address] Jul, Moderate mixed bipolar I disorder F31.62 and Anxiety state F41.1 [facility] [address] [address] May, Moderate mixed bipolar I disorder F31.62 and Anxiety state F41.1 [facility] [address] [place] [address] May, Moderate mixed bipolar I disorder F31.62 and Anxiety state F41.1 [facility] [id number] [place] [address] May, Moderate mixed bipolar I disorder F31.62 and Anxiety state F41.1 [facility] [id number] [place] [address] May, [facility] [id number] [place] [address] Apr, Moderate mixed bipolar I disorder F31.62 and Anxiety state F41.1 [facility] [id number] [place] [address] Apr, Moderate mixed bipolar I disorder F31.62 and Anxiety state F41.1 [facility] [id number] [place] [address] Mar, Moderate mixed bipolar I disorder F31.62 and Anxiety state F41.1 [facility] [address] [address] February, Moderate mixed bipolar I disorder F31.62 and Anxiety state F41.1 [facility] [address] [address] February, Moderate mixed bipolar I disorder F31.62 and Anxiety state F41.1 [facility] [id number] [place] [address] Jan, Moderate mixed bipolar I disorder F31.62 and Anxiety state F41.1 [facility] [address] [address] Jan, Moderate mixed bipolar I disorder F31.62 and Anxiety state F41.1 [facility] [address], [place] [address] Jan, [facility] [id number] [place] [address] 30 Dec, 2016 Moderate mixed bipolar I disorder F31.62 and Anxiety state F41.1 [facility] [id number] [place] [address] Dec, Moderate mixed bipolar I disorder F31.62 and Anxiety state F41.1 [facility] [id number] [place] [address] Nov, Moderate mixed bipolar I disorder F31.62 and Anxiety state F41.1 [facility] [id number] [place] [address] Nov, Moderate mixed bipolar I disorder F31.62 and Anxiety state F41.1 [facility] [id number] [place] [address] Oct, Moderate mixed bipolar I disorder F31.62 and Anxiety state F41.1 [facility] [id number] [place] [address] Sep, Moderate mixed bipolar I disorder F31.62 and Anxiety state F41.1 [facility] [address], [place] [address] Aug, Moderate mixed bipolar I disorder F31.62 and Anxiety state F41.1 [facility] [address], [place] [address] Aug, Moderate mixed bipolar I disorder F31.62 and Anxiety state F41.1 [facility] [address] [place] [address] Jul, Moderate mixed bipolar I disorder F31.62 and Anxiety state F41.1 [facility] [id number] [place] [address] Jun, Moderate mixed bipolar I disorder F31.62 and Anxiety state F41.1 [place] [id number] [place] [address] May, Moderate mixed bipolar I disorder F31.62 and Anxiety state F41.1 [place] [id number] [place] [address] May, Moderate mixed bipolar I disorder F31.62 and Anxiety state F41.1 [place] [id number] [place] [address] Apr, Bipolar 1 disorder, depressed, moderate F31.32 and Anxiety state F41.1 [place] [id number] [place] [address] Apr, Bipolar 1 disorder, depressed, moderate F31.32 and Bipolar I disorder, mild, current or most recent episode depressed, with anxious distress F31.31 [place] [id number] [place] [address] Mar, Bipolar 1 disorder, depressed, moderate F31.32 [place] [id number] [place] [address] February, Bipolar 1 disorder, depressed, moderate F31.32 [place] [id number] [place] [address] Jan, Bipolar I disorder, mild, current or most recent episode depressed, with anxious distress F31.31 [place] [id number] [place] [address] Jan, Bipolar I disorder, mild, current or most recent episode depressed, with anxious distress F31.31 [place] [id number] [place] [address] Jan, Bipolar 1 disorder, depressed, moderate F31.32 [place] [id number] [place] [address] Dec, Bipolar I disorder, mild, current or most recent episode depressed, with anxious distress F31.31 [facility] [id number] [place] [address] Dec, Bipolar I disorder, mild, current or most recent episode depressed, with anxious distress F31.31 [facility] [address] [address] Nov, Bipolar I disorder, mild, current or most recent episode depressed, with anxious distress F31.31 [facility] [address] [place] [address] Oct, Bipolar I disorder, mild, current or most recent episode depressed, with anxious distress F31.31 [facility] [id number] [place] [address] Oct, Bipolar I disorder, mild, current or most recent episode depressed, with anxious distress F31.31 [facility] [id number] [place] [address] Sep, Bipolar I disorder, mild, current or most recent episode depressed, with anxious distress F31.31 [facility] [id number] [place] [address] Aug, Bipolar I disorder, mild, current or most recent episode depressed, with anxious distress F31.31 [facility] [address] [address] Jul, Bipolar I disorder, mild, current or most recent episode depressed, with anxious distress F31.31 [facility] [address] [address] 07 Jul, 2015 Bipolar I disorder, mild, current or most recent episode depressed, with anxious distress F31.31 [facility] [address] [place] [address] 17 Jun, 2015 Bipolar I disorder, most recent episode depressed 296.50 [facility] [id number] [address] Jun, Bipolar I disorder, most recent episode depressed 296.50 [facility] [address] [place] [address] May, Bipolar disorder, current episode depressed, moderate 296.52 [facility] [address] [place] [address] May, Bipolar I disorder, most recent episode mixed, moderate 296.62 [facility] [address] [place] [address] Apr, Bipolar I disorder, most recent episode mixed, moderate 296.62 [facility] [address] [place] [address] Apr, [facility] [id number] [address] Apr, Bipolar I disorder, most recent episode mixed, moderate 296.62 [facility] [address] [place] [address] February, Bipolar disorder, current episode depressed, moderate 296.52 [facility] [address], [place] [address] Jan, [facility] [address] [place] [address] Jan, [facility] [address], [place] [address] Dec, [facility] [address], [place] [address] Dec, [facility] [address], [place] [address] Dec, [facility] [address], [place] [address] Dec, [facility] [address], [place] [address] Dec, [facility] [place] [facility] [address] [id number] [place] [address] Dec, [facility] [place] [facility] [address] [id number] [place] [address] Dec, [facility] [place] [facility] [address] [id number] [place] [address] Dec, [facility] [place] [facility] [address] [id number] [place] [address] Nov, [facility] [place] [facility] [address] [id number] [place] [address] Nov, [facility] [place] [facility] [address] [id number] [place] [address] Nov, [facility] [place] [facility] [address] [id number] [place] [address] Nov, [facility] [place] [facility] [address] [id number] [place] [address] Oct, [facility] [place] [facility] [address] [id number] [place] [address] Oct, [facility] [place] [facility] [address] [id number] [place] [address] Oct, [facility] [place] [facility] [address] [id number] [place] [address] Oct, [facility] [place] [facility] [address] [id number] [place] [address] Oct, [facility] [place] [facility] [address] [id number] [place] [address] Oct, [facility] [place] [facility] [address] [id number] [place] [address] Oct, [facility] [place] [facility] [address] [id number] [place] [address] Oct, [facility] [place] [facility] [address] [id number] [place] [address] Aug, [facility] [address] [id number] [place] [address] Aug, [facility] [place] [facility] [address] [id number] [place] [address] Jun, [facility] [place] [facility] [address] [id number] [place] [address] Jun, [facility] [place] [facility] [address] [id number] [place] [address] May, [facility] [place] [facility] [address] [id number] [place] [address] May, [facility] [place] [facility] [address] [id number] [place] [address] Apr, [facility] [place] [facility] [address] [id number] [place] [address] Apr, [facility] [address] [id number] [place] [address] Mar, [facility] [place] [facility] [address] [id number] [place] [address] Mar, [facility] [address] [id number] [place] [address] February, [facility] [place] [facility] [address] [id number] [place] [address] February, [facility] [place] [facility] [address] [id number] [place] [address] February, [facility] [place] [facility] [address] [id number] [place] [address] February, [facility] [place] [facility] [address] [id number] [place] [address] Jan, [facility] [place] [facility] [address] [id number] [place] [address] Jan, [facility] [place] [facility] [address] [id number] [place] [address] Jan, [facility] [place] [facility] [address] [id number] [place] [address] Jan, [facility] [place] [facility] [address] [id number] [place] [address] Dec, [facility] [place] [facility] [address] [id number] [place] [address] Dec, [facility] [place] [facility] [address] [id number] [place] [address] Nov, [facility] [place] [facility] [address] [id number] [place] [address] Nov, [facility] [place] [facility] [address] [id number] [place] [address] Oct, [facility] [place] [facility] [address] [id number] [place] [address] Oct, [facility] [place] [facility] [address] [id number] [place] [address] Sep, [facility] [place] [facility] [address] [id number] [place] [address] Sep, [facility] [place] [facility] [address] [id number] [place] [address] Sep, [facility] [place] [facility] [address] [id number], [place] [address] Sep, [facility] [place] [facility] [address] [id number] [place] [address] Aug, [facility] [place] [facility] [address] [id number] [place] [address] Aug, [facility] [place] [facility] [address] [facility] [id number] [place] [address] Aug, [facility] [place] [facility] [address] [id number], [place] [address] Aug, [facility] [address] [id number] [place] [address] Jul, [facility] [address] [id number], [place] [address] Jul, [facility] [address] [facility] [id number] [place] [address] Jul, [facility] [address] [id number], [place] [address] Jul, [facility] [id number] [place] [address] Jun, [facility] [address] [facility] [id number] [place] [address] Jun, [facility] [address], [place] [address] May, [facility] [address] [facility] [id number], [place] [address] Apr, [facility] [id number] [address] Mar, [facility] [id number], [place] [address] Mar, [facility] [address] [facility] [id number], [place] [address] February, [facility] [place] [facility] [address] [facility] [id number], [place] [address] Jan, [facility] [place] [facility] [address] [id number], [place] [address] Jan, [facility] [place] [facility] [address] [facility] [id number], [place] [address] Dec, [facility] [place] [facility] [id number] [address] Nov, [facility] [place] [facility] [address] [id number] [place] [address] Oct, [facility] [place] [facility] [address] [id number] [place] [address] Aug, [facility] [place] [facility] [address] [id number] [place] [address] Aug, [facility] [place] [facility] [address] [id number] [place] [address] Aug, [facility] [place] [facility] [address] [id number] [place] [address] Aug, [facility] [place] [facility] [address] [id number] [place] [address] Aug, [facility] [place] [facility] [address] [id number] [place] [address] Aug, [facility] [place] [facility] [address] [id number] [place] [address] Jul, [facility] [place] [facility] [address] [id number] [place] [address] Jul, [facility] [place] [facility] [address] [id number] [place] [address] Jul, [facility] [place] [facility] [address] [id number] [place] [address] Jul, [facility] [place] [facility] [address] [id number] [place] [address] 27 Jun, 2012 [facility] [place] [facility] [address] [id number] [place] [address] 14 Jun, 2012 [facility] [place] [facility] [address] [id number] [place] [address] 31 May, 2012 [facility] [place] [facility] [address] [id number] [place] [address] 13 May, 2012 [facility] [place] [facility] [address] [id number] [place] [address] 18 Apr, 2012 [facility] [place] [facility] [address] [id number] [place] [address] 13 Apr, 2012 [facility] [place] [facility] [address] [id number] [place] [address] 28 Mar, 2012 [facility] [place] [facility] [address] [id number] [place] [address] Mar, [facility] [place] [facility] [address] [id number] [place] [address] Mar, [facility] [place] [facility] [address] [id number] [place] [address] February, [facility] [place] [facility] [address] [id number] [place] [address] February, [facility] [place] [facility] [address] [id number] [place] [address] February, [facility] [place] [facility] [address] [id number] [place] [address] 18 Jan, 2012 [facility] [place] [facility] [address] [id number] [place] [address] 18 Jan, 2012 [facility] [place] [facility] [address] [id number] [place] [address] 10 Jan, 2012 [facility] [place] [facility] [address] [id number] [place] [address] 29 Dec, 2011 [facility] [place] [facility] [address] [id number] [address] 20 Dec, 2011 [facility] [place] [facility] [address] [id number] [place] [address] 15 Dec, 2011 [facility] [place] [facility] [address] [id number] [place] [address] 14 Dec, 2011 [facility] [place] [facility] [address] [id number] [place] [address] 13 Dec, 2011 [facility] [place] [facility] [address] [id number] [place] [address] 13 Dec, 2011 [facility] [place] [facility] [address] [id number] [place] [address] 13 Dec, 2011 [facility] [place] [facility] [address] [id number] [place] [address] 05 Dec, 2011 [facility] [place] [facility] [address] [id number] [place] [address] 28 Nov, 2011 [facility] [place] [facility] [address] [id number] [place] [address] 23 Nov, 2011 [facility] [place] [facility] [address] [id number] [place] [address] 16 Nov, 2011 [facility] [place] [facility] [address] [id number] [place] [address] 16 Nov, 2011 [facility] [place] [facility] [address] [id number] [place] [address] 07 Nov, 2011 [facility] [place] [facility] [address] [id number] [place] [address] 07 Nov, 2011 [facility] [place] [facility] [address] [id number] [place] [address] 06 Nov, 2011 [facility] [place] [facility] [address] [facility] [id number] [place] [address] Nov, [facility] [place] [facility] [address] [id number] [place] [address] Oct, [facility] [place] [facility] [address] [id number] [place] [address] Oct, [facility] [place] [facility] [address] [id number] [place] [address] 18 Oct, 2011 [facility] [place] [facility] [address] [id number] [place] [address] 16 Oct, 2011 [facility] [place] [facility] [address] [id number] [place] [address] Oct, [facility] [address] [id number] [address] Oct, [facility] [address] [facility] [id number] [address] Oct, [facility] [id number] [place] [address] Oct, [facility] [id number] [place] [address] Sep, [facility] [id number] [place] [address] Sep, [facility] [id number] [place] [address] Sep, [facility] [id number] [place] [address] Sep, [facility] [id number] [place] [address] Aug, [facility] [id number] [place] [address] Aug, [facility] [id number] [place] [address] Aug, [facility] [id number] [place] [address] Jul, [facility] [id number] [place] [address] Jul, [facility] [id number] [place] [address] Jul, [facility] [id number] [address] Aug, IMMUNIZATIONS No Known Immunizations SOCIAL HISTORY Never Assessed REASON FOR VISIT PLAN OF CARE VITAL SIGNS MEDICATIONS Unknown Medications RESULTS No Results PROCEDURES Procedure Date Ordered Result Body Site PSYTX PT&/FAMILY 45 MINUTES Nov 06, 2014 INSTRUCTIONS MEDICATIONS ADMINISTERED No Known Medications
--- OUTSIDE RECORDS SUMMARY | 2019-05-01 13:00 | XMS REPORT ---
Author Author Migration, Doctor Organization [facility] Address Unknown Phone Unavailable Care Team Providers Care Wheel Grinder Name Role Phone Migration, Doctor Unavailable Unavailable PROBLEMS Type Condition ICD9-CM Code YUR48-FW Code Onset Dates Condition Status SNOMED Code Problem Anxiety state F41.1 Active 671212688 Problem Moderate mixed bipolar I disorder F31.62 Active [id number] ALLERGIES No Information ENCOUNTERS Encounter Location Date Diagnosis [place] [address] [address] Apr, [place] [address] [place] [id number] [place] [address] Mar, [place] [address] [address] Jan, Moderate mixed bipolar I disorder F31.62 and Anxiety state F41.1 [place] [address] [place] [id number] [place] [address] Dec, Moderate mixed bipolar I disorder F31.62 and Anxiety state F41.1 [place] [address] [place] [id number] [place] [address] Nov, Moderate mixed bipolar I disorder F31.62 and Anxiety state F41.1 [place] [address] [place] [id number] [place] [address] Oct, Moderate mixed bipolar I disorder F31.62 and Anxiety state F41.1 [place] [address] [place] [id number] [place] [address] Sep, Moderate mixed bipolar I disorder F31.62 and Anxiety state F41.1 [place] [address] [place] [id number] [place] [address] Aug, Moderate mixed bipolar I disorder F31.62 and Anxiety state F41.1 [facility] [address], [place] [address] Jul, Moderate mixed bipolar I disorder F31.62 and Anxiety state F41.1 [facility] [address], [place] [address] Jul, Moderate mixed bipolar I disorder F31.62 and Anxiety state F41.1 [facility] [address] [place] [id number] [place] [address] Jul, [facility] [address], [place] [address] Jun, Moderate mixed bipolar I disorder F31.62 and Anxiety state F41.1 [facility] [address], [place] [address] May, Moderate mixed bipolar I disorder F31.62 and Anxiety state F41.1 [facility] [id number] [place] [address] Apr, Moderate mixed bipolar I disorder F31.62 and Anxiety state F41.1 [facility] [id number] [place] [address] Apr, Moderate mixed bipolar I disorder F31.62 and Anxiety state F41.1 [facility] [address], [place] [address] Mar, Moderate mixed bipolar I disorder F31.62 and Anxiety state F41.1 [facility] [address], [place] [address] February, Moderate mixed bipolar I disorder F31.62 and Anxiety state F41.1 [facility] [address], [place] [address] Jan, Moderate mixed bipolar I disorder F31.62 and Anxiety state F41.1 [facility] [address], [place] [address] Dec, Moderate mixed bipolar I disorder F31.62 and Anxiety state F41.1 [facility] [address], [place] [address] Nov, Moderate mixed bipolar I disorder F31.62 and Anxiety state F41.1 [facility] [address] [place] [id number] [place] [address] Nov, Moderate mixed bipolar I disorder F31.62 and Anxiety state F41.1 [facility] [address] [place] [id number] [place] [address] Oct, Moderate mixed bipolar I disorder F31.62 and Anxiety state F41.1 [facility] [address] [place] [id number] [place] [address] Oct, Moderate mixed bipolar I disorder F31.62 and Anxiety state F41.1 [facility] [id number] [place] [address] Sep, Moderate mixed bipolar I disorder F31.62 and Anxiety state F41.1 [facility] [id number] [place] [address] Aug, Moderate mixed bipolar I disorder F31.62 and Anxiety state F41.1 [facility] [address] [place] [id number], [place] [address] Jul, Moderate mixed bipolar I disorder F31.62 and Anxiety state F41.1 [facility] [id number] [place] [address] Jul, [facility] [address] [place] [id number] [place] [address] Jul, Moderate mixed bipolar I disorder F31.62 and Anxiety state F41.1 [facility] [address] [place] [id number] [place] [address] May, Moderate mixed bipolar I disorder F31.62 and Anxiety state F41.1 [facility] [id number] [place] [address] May, Moderate mixed bipolar I disorder F31.62 and Anxiety state F41.1 [facility] [id number] [place] [address] May, Moderate mixed bipolar I disorder F31.62 and Anxiety state F41.1 [facility] [address], [place] [address] May, [facility] [address] [place] [id number] [place] [address] Apr, Moderate mixed bipolar I disorder F31.62 and Anxiety state F41.1 [facility] [id number] [place] [address] Apr, Moderate mixed bipolar I disorder F31.62 and Anxiety state F41.1 [facility] [address] [place] [id number] [place] [address] Mar, Moderate mixed bipolar I disorder F31.62 and Anxiety state F41.1 [facility] [id number] [place] [address] February, Moderate mixed bipolar I disorder F31.62 and Anxiety state F41.1 [facility] [address], [place] [address] February, Moderate mixed bipolar I disorder F31.62 and Anxiety state F41.1 [facility] [address], [place] [address] Jan, Moderate mixed bipolar I disorder F31.62 and Anxiety state F41.1 [facility] [id number] [place] [address] Jan, Moderate mixed bipolar I disorder F31.62 and Anxiety state F41.1 [facility] [address], [place] [address] Jan, [facility] [id number] [place] [address] Dec, Moderate mixed bipolar I disorder F31.62 and Anxiety state F41.1 [facility] [id number] [place] [address] Dec, Moderate mixed bipolar I disorder F31.62 and Anxiety state F41.1 [facility] [address] [place] [id number] [place] [address] Nov, Moderate mixed bipolar I disorder F31.62 and Anxiety state F41.1 [facility] [address] [place] [id number] [place] [address] Nov, Moderate mixed bipolar I disorder F31.62 and Anxiety state F41.1 [facility] [address] [place] [id number] [place] [address] Oct, Moderate mixed bipolar I disorder F31.62 and Anxiety state F41.1 [facility] [address] [place] [id number] [place] [address] Sep, Moderate mixed bipolar I disorder F31.62 and Anxiety state F41.1 [facility] [address] [place] [id number] [place] [address] Aug, Moderate mixed bipolar I disorder F31.62 and Anxiety state F41.1 [facility] [address] [place] [id number] [place] [address] Aug, Moderate mixed bipolar I disorder F31.62 and Anxiety state F41.1 [facility] [id number] [place] [address] Jul, Moderate mixed bipolar I disorder F31.62 and Anxiety state F41.1 [facility] [address] [place] [id number] [place] [address] Jun, Moderate mixed bipolar I disorder F31.62 and Anxiety state F41.1 [facility] [address], [place] [address] May, Moderate mixed bipolar I disorder F31.62 and Anxiety state F41.1 [facility] [id number] [place] [address] May, Moderate mixed bipolar I disorder F31.62 and Anxiety state F41.1 [facility] [id number] [place] [address] Apr, Bipolar 1 disorder, depressed, moderate F31.32 and Anxiety state F41.1 [facility] [address] [place] [id number] [place] [address] Apr, Bipolar 1 disorder, depressed, moderate F31.32 and Bipolar I disorder, mild, current or most recent episode depressed, with anxious distress F31.31 [place] [address] [place] [id number] [place] [address] Mar, Bipolar 1 disorder, depressed, moderate F31.32 [place] [address] [place] [id number] [place] [address] February, Bipolar 1 disorder, depressed, moderate F31.32 [facility] [id number] [place] [address] Jan, Bipolar I disorder, mild, current or most recent episode depressed, with anxious distress F31.31 [facility] [id number] [place] [address] Jan, Bipolar I disorder, mild, current or most recent episode depressed, with anxious distress F31.31 [facility] [id number] [place] [address] Jan, Bipolar 1 disorder, depressed, moderate F31.32 [facility] [id number] [place] [address] Dec, Bipolar I disorder, mild, current or most recent episode depressed, with anxious distress F31.31 [facility] [id number] [place] [address] Dec, Bipolar I disorder, mild, current or most recent episode depressed, with anxious distress F31.31 [facility] [address], [place] [address] Nov, Bipolar I disorder, mild, current or most recent episode depressed, with anxious distress F31.31 [facility] [address], [place] [address] Oct, Bipolar I disorder, mild, current or most recent episode depressed, with anxious distress F31.31 [facility] [id number] [place] [address] Oct, Bipolar I disorder, mild, current or most recent episode depressed, with anxious distress F31.31 [facility] [address] [place] [id number] [place] [address] Sep, Bipolar I disorder, mild, current or most recent episode depressed, with anxious distress F31.31 [facility] [address] [place] [id number] [place] [address] Aug, Bipolar I disorder, mild, current or most recent episode depressed, with anxious distress F31.31 [facility] [id number] [place] [address] Jul, Bipolar I disorder, mild, current or most recent episode depressed, with anxious distress F31.31 [facility] [address], [place] [address] Jul, Bipolar I disorder, mild, current or most recent episode depressed, with anxious distress F31.31 [facility] [address], [place] [address] Jun, Bipolar I disorder, most recent episode depressed 296.50 [facility] [address] [place] [id number] [place] [address] Jun, Bipolar I disorder, most recent episode depressed 296.50 [facility] [id number] [place] [address] May, Bipolar disorder, current episode depressed, moderate 296.52 [facility] [address], [place] [address] May, Bipolar I disorder, most recent episode mixed, moderate 296.62 [facility] [address], [place] [address] Apr, Bipolar I disorder, most recent episode mixed, moderate 296.62 [facility] [address], [place] [address] Apr, [facility] [address], [place] [address] Apr, Bipolar I disorder, most recent episode mixed, moderate 296.62 [facility] [address], [place] [address] February, Bipolar disorder, current episode depressed, moderate 296.52 [facility] [address], [place] [address] Jan, [facility] [address], [place] [address] Jan, [facility] [address], [place] [address] Dec, [facility] [address], [place] [address] Dec, [facility] [address], [place] [address] Dec, [facility] [address], [place] [address] Dec, [facility] [address], [place] [address] Dec, [facility] [address], [place] [address] Dec, [facility] [address], [place] [address] Dec, [facility] [place] [facility] [address] [id number] [place] [address] Dec, [facility] [place] [facility] [address] [id number] [place] [address] Nov, [facility] [place] [facility] [address] [id number] [place] [address] Nov, [facility] [place] [facility] [address] [id number] [place] [address] Nov, [facility] [place] [facility] [address] [id number] [place] [address] Nov, [facility] [place] [facility] [address] [id number] [place] [address] Oct, [facility] [place] [facility] [address] [id number] [place] [address] Oct, [facility] [place] [facility] [address] [id number] [place] [address] Oct, [facility] [place] [facility] [address] [id number] [place] [address] Oct, [facility] [place] [facility] [address] [id number] [place] [address] Oct, [facility] [place] [facility] [address] [id number] [place] [address] Oct, [facility] [place] [facility] [address] [id number] [place] [address] Oct, [facility] [place] [facility] [address] [id number] [place] [address] Oct, [facility] [place] [facility] [address] [id number] [place] [address] Aug, [facility] [place] [facility] [address] [id number] [place] [address] Aug, [facility] [place] [facility] [address] [id number] [place] [address] Jun, [facility] [place] [facility] [address] [id number] [place] [address] Jun, [facility] [place] [facility] [address] [id number] [place] [address] May, [facility] [place] [facility] [address] [id number] [place] [address] May, [facility] [place] [facility] [address] [id number] [place] [address] Apr, [facility] [place] [facility] [address] [id number] [place] [address] Apr, [facility] [place] [facility] [address] [id number] [place] [address] Mar, [facility] [place] [facility] [address] [id number] [place] [address] Mar, [facility] [place] [facility] [address] [id number] [place] [address] February, [facility] [place] [facility] [address] [id number] [place] [address] February, [facility] [place] [facility] [address] [id number] [place] [address] February, [facility] [place] [facility] [address] [id number] [place] [address] February, [facility] [place] [facility] [address] [id number] [place] [address] Jan, [facility] [place] [facility] [address] [id number] [place] [address] Jan, [facility] [place] [facility] [address] [id number] [place] [address] Jan, [facility] [place] [facility] [address] [id number] [place] [address] Jan, [facility] [place] [facility] [address] [id number] [place] [address] Dec, [facility] [place] [facility] [address] [id number] [place] [address] Dec, [facility] [place] [facility] [address] [id number] [place] [address] Nov, [facility] [place] [facility] [address] [id number] [place] [address] Nov, [facility] [place] [facility] [address] [id number] [place] [address] Oct, [facility] [place] [facility] [address] [id number] [place] [address] Oct, [facility] [place] [facility] [address] [id number] [place] [address] Sep, [facility] [place] [facility] [address] [id number] [place] [address] Sep, [facility] [place] [facility] [address] [id number] [place] [address] Sep, [facility] [place] [facility] [address] [id number] [place] [address] Sep, [facility] [place] [facility] [address] [id number] [place] [address] Aug, [facility] [place] [facility] [address] [id number] [place] [address] Aug, [facility] [place] [facility] [address] [id number] [place] [address] Aug, [facility] [place] [facility] [address] [id number] [place] [address] Aug, [facility] [place] [facility] [address] [id number] [place] [address] Jul, [facility] [place] [facility] [address] [id number] [place] [address] Jul, [facility] [address] [id number] [place] [address] Jul, [facility] [address] [id number] [place] [address] Jul, [facility] [address] [id number] [place] [address] Jun, [facility] [place] [facility] [address] [id number] [place] [address] Jun, [facility] [address] [id number] [place] [address] May, [facility] [address] [id number] [place] [address] Apr, [facility] [address] [id number] [place] [address] Mar, [facility] [place] [facility] [address] [id number], [place] [address] Mar, [facility] [address] [id number] [place] [address] February, [facility] [place] [facility] [address] [id number], [place] [address] Jan, [facility] [place] [facility] [address] [id number], [place] [address] Jan, [facility] [place] [facility] [address] [id number], [place] [address] Dec, [facility] [place] [facility] [address] [id number], [place] [address] Nov, [facility] [place] [facility] [address] [id number], [place] [address] Oct, [facility] [place] [facility] [address] [id number], [place] [address] Aug, [facility] [place] [facility] [address] [id number] [place] [address] Aug, [facility] [place] [facility] [address] [id number] [place] [address] Aug, [facility] [place] [facility] [address] [id number] [place] [address] Aug, [facility] [place] [facility] [address] [id number] [place] [address] Aug, [facility] [place] [facility] [address] [id number] [place] [address] Aug, [facility] [place] [facility] [address] [id number] [place] [address] Jul, [facility] [place] [facility] [address] [id number] [place] [address] Jul, [facility] [place] [facility] [address] [id number] [place] [address] Jul, [facility] [place] [facility] [address] [id number] [place] [address] Jul, [facility] [place] [facility] [address] [id number] [place] [address] 27 Jun, 2012 [facility] [place] [facility] [address] [id number] [place] [address] 14 Jun, 2012 [facility] [place] [facility] [address] [id number] [place] [address] 31 May, 2012 [facility] [place] [facility] [address] [id number] [place] [address] May, [facility] [place] [facility] [address] [id number] [place] [address] 18 Apr, 2012 [facility] [place] [facility] [address] [id number] [place] [address] Apr, [facility] [place] [facility] [address] [id number] [place] [address] Mar, [facility] [place] [facility] [address] [id number] [place] [address] Mar, [facility] [place] [facility] [address] [id number] [place] [address] 18 Mar, 2012 [facility] [place] [facility] [address] [id number] [place] [address] February, [facility] [place] [facility] [address] [id number] [place] [address] February, [facility] [address] [id number] [place] [address] February, [facility] [place] [facility] [address] [id number] [place] [address] 18 Jan, 2012 [facility] [address] [id number] [place] [address] Jan, [facility] [address] [id number] [place] [address] Jan, [facility] [address] [id number] [place] [address] 29 Dec, 2011 [facility] [place] [facility] [address] [id number] [place] [address] 20 Dec, 2011 [facility] [place] [facility] [address] [id number] [place] [address] 15 Dec, 2011 [facility] [place] [facility] [address] [id number] [place] [address] 14 Dec, 2011 [facility] [place] [facility] [address] [id number] [place] [address] 13 Dec, 2011 [facility] [place] [facility] [address] [id number] [place] [address] 13 Dec, 2011 [facility] [place] [facility] [address] [id number] [place] [address] 13 Dec, 2011 [facility] [place] [facility] [address] [id number] [place] [address] Dec, [facility] [address] [id number] [place] [address] Nov, [facility] [place] [facility] [address] [id number] [place] [address] 23 Nov, 2011 [facility] [place] [facility] [address] [id number] [place] [address] 16 Nov, 2011 [facility] [place] [facility] [address] [id number] [place] [address] 16 Nov, 2011 [facility] [place] [facility] [address] [id number] [place] [address] Nov, [facility] [place] [facility] [address] [id number] [place] [address] Nov, [facility] [address] [id number] [place] [address] 06 Nov, 2011 [facility] [place] [facility] [address] [id number] [place] [address] Nov, [facility] [place] [facility] [address] [id number] [place] [address] Oct, [facility] [address] [id number] [place] [address] Oct, [facility] [place] [facility] [address] [id number] [place] [address] 18 Oct, 2011 [facility] [place] [facility] [address] [id number] [place] [address] 16 Oct, 2011 [facility] [place] [facility] [address] [id number] [place] [address] 13 Oct, 2011 [facility] [place] [facility] [address] [id number] [place] [address] Oct, [facility] [place] [facility] [address] [id number] [place] [address] Oct, [facility] [address] [facility] [id number], [place] [address] Oct, [facility] [address] [facility] [id number], [place] [address] Sep, [facility] [address] [facility] [id number], [place] [address] Sep, [facility] [address] [facility] [id number] [place] [address] Sep, [facility] [address] [facility] [id number], [place] [address] Sep, [facility] [id number], [place] [address] Aug, [facility] [id number] [id number] Aug, [facility] [id number] [place] [id number] Aug, [facility] [id number], [place] [address] Jul, [facility] [id number] [place] [address] Jul, [facility] [id number] [place] [address] Jul, [facility] [id number] [place] [address] Aug, IMMUNIZATIONS No Known Immunizations SOCIAL HISTORY Never Assessed REASON FOR VISIT EMR-[facility] [place] PLAN OF CARE VITAL SIGNS MEDICATIONS Unknown Medications RESULTS No Results PROCEDURES No Known procedures INSTRUCTIONS MEDICATIONS ADMINISTERED No Known Medications
--- OUTSIDE RECORDS SUMMARY | 2019-05-01 13:01 | XMS REPORT ---
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 Name Role Phone Migration, Doctor Unavailable Unavailable PROBLEMS Type Condition ICD9-CM Code RET18-CY Code Onset Dates Condition Status SNOMED Code Problem Anxiety state F41.1 Active 729655977 Problem Moderate mixed bipolar I disorder F31.62 Active [id number] ALLERGIES No Information ENCOUNTERS Encounter Location Date Diagnosis [place] [address] [address] Mar, [place] [address] [place] [id number] [place] [address] February, [place] [address] [address] Jan, Moderate mixed bipolar I disorder F31.62 and Anxiety state F41.1 [place] [address] [place] [id number] [place] [address] Dec, Moderate mixed bipolar I disorder F31.62 and Anxiety state F41.1 [place] [address] [place] [id number] [place] [address] Nov, Moderate mixed bipolar I disorder F31.62 and Anxiety state F41.1 [place] [address] [place] [id number] [place] [address] Oct, Moderate mixed bipolar I disorder F31.62 and Anxiety state F41.1 [place] [address] [address] Sep, Moderate mixed bipolar I disorder F31.62 and Anxiety state F41.1 [place] [address] [place] [id number] [place] [address] Aug, Moderate mixed bipolar I disorder F31.62 and Anxiety state F41.1 [facility] [address], [place] [address] Jul, Moderate mixed bipolar I disorder F31.62 and Anxiety state F41.1 [facility] [address], [place] [address] Jul, Moderate mixed bipolar I disorder F31.62 and Anxiety state F41.1 [facility] [address] [place] [id number] [place] [address] Jul, [facility] [address], [place] [address] Jun, Moderate mixed bipolar I disorder F31.62 and Anxiety state F41.1 [facility] [address] [address] May, Moderate mixed bipolar I disorder F31.62 and Anxiety state F41.1 [facility] [id number] [place] [address] Apr, Moderate mixed bipolar I disorder F31.62 and Anxiety state F41.1 [facility] [id number] [place] [address] Apr, Moderate mixed bipolar I disorder F31.62 and Anxiety state F41.1 [facility] [address], [place] [address] Mar, Moderate mixed bipolar I disorder F31.62 and Anxiety state F41.1 [facility] [address], [place] [address] February, Moderate mixed bipolar I disorder F31.62 and Anxiety state F41.1 [facility] [address], [place] [address] Jan, Moderate mixed bipolar I disorder F31.62 and Anxiety state F41.1 [facility] [address], [place] [address] Dec, Moderate mixed bipolar I disorder F31.62 and Anxiety state F41.1 [facility] [address], [place] [address] Nov, Moderate mixed bipolar I disorder F31.62 and Anxiety state F41.1 [facility] [address] [place] [id number] [place] [address] Nov, Moderate mixed bipolar I disorder F31.62 and Anxiety state F41.1 [facility] [address] [place] [id number] [place] [address] Oct, Moderate mixed bipolar I disorder F31.62 and Anxiety state F41.1 [facility] [address] [place] [id number] [place] [address] Oct, Moderate mixed bipolar I disorder F31.62 and Anxiety state F41.1 [facility] [id number] [place] [address] Sep, Moderate mixed bipolar I disorder F31.62 and Anxiety state F41.1 [facility] [id number] [place] [address] Aug, Moderate mixed bipolar I disorder F31.62 and Anxiety state F41.1 [facility] [address] [place] [id number] [address] Jul, Moderate mixed bipolar I disorder F31.62 and Anxiety state F41.1 [facility] [id number] [place] [address] Jul, [facility] [address] [place] [id number] [place] [address] Jul, Moderate mixed bipolar I disorder F31.62 and Anxiety state F41.1 [facility] [address] [place] [id number] [place] [address] May, Moderate mixed bipolar I disorder F31.62 and Anxiety state F41.1 [facility] [id number] [place] [address] May, Moderate mixed bipolar I disorder F31.62 and Anxiety state F41.1 [facility] [address] [place] [address] May, Moderate mixed bipolar I disorder F31.62 and Anxiety state F41.1 [facility] [address], [place] [address] May, [facility] [address] [place] [id number] [place] [address] Apr, Moderate mixed bipolar I disorder F31.62 and Anxiety state F41.1 [facility] [id number] [place] [address] Apr, Moderate mixed bipolar I disorder F31.62 and Anxiety state F41.1 [facility] [address] [place] [id number] [place] [address] Mar, Moderate mixed bipolar I disorder F31.62 and Anxiety state F41.1 [facility] [address] [place] [address] February, Moderate mixed bipolar I disorder F31.62 and Anxiety state F41.1 [facility] [address], [place] [address] February, Moderate mixed bipolar I disorder F31.62 and Anxiety state F41.1 [facility] [address], [place] [address] Jan, Moderate mixed bipolar I disorder F31.62 and Anxiety state F41.1 [facility] [address] [place] [address] Jan, Moderate mixed bipolar I disorder F31.62 and Anxiety state F41.1 [facility] [address], [place] [address] Jan, [facility] [id number] [place] [address] Dec, Moderate mixed bipolar I disorder F31.62 and Anxiety state F41.1 [facility] [id number] [place] [address] Dec, Moderate mixed bipolar I disorder F31.62 and Anxiety state F41.1 [facility] [address] [place] [id number] [place] [address] Nov, Moderate mixed bipolar I disorder F31.62 and Anxiety state F41.1 [facility] [address] [place] [id number] [place] [address] Nov, Moderate mixed bipolar I disorder F31.62 and Anxiety state F41.1 [facility] [address] [place] [id number] [place] [address] Oct, Moderate mixed bipolar I disorder F31.62 and Anxiety state F41.1 [facility] [address] [place] [id number] [place] [address] Sep, Moderate mixed bipolar I disorder F31.62 and Anxiety state F41.1 [facility] [address] [place] [id number] [place] [address] Aug, Moderate mixed bipolar I disorder F31.62 and Anxiety state F41.1 [facility] [address] [place] [id number] [place] [address] Aug, Moderate mixed bipolar I disorder F31.62 and Anxiety state F41.1 [facility] [id number] [place] [address] Jul, Moderate mixed bipolar I disorder F31.62 and Anxiety state F41.1 [facility] [address] [place] [id number] [place] [address] Jun, Moderate mixed bipolar I disorder F31.62 and Anxiety state F41.1 [facility] [address] [address] May, Moderate mixed bipolar I disorder F31.62 and Anxiety state F41.1 [facility] [address] [place] [address] May, Moderate mixed bipolar I disorder F31.62 and Anxiety state F41.1 [facility] [id number] [place] [address] Apr, Bipolar 1 disorder, depressed, moderate F31.32 and Anxiety state F41.1 [facility] [address] [place] [id number] [place] [address] Apr, Bipolar 1 disorder, depressed, moderate F31.32 and Bipolar I disorder, mild, current or most recent episode depressed, with anxious distress F31.31 [place] [address] [place] [id number] [place] [address] Mar, Bipolar 1 disorder, depressed, moderate F31.32 [place] [address] [place] [id number] [place] [address] February, Bipolar 1 disorder, depressed, moderate F31.32 [facility] [address] [place] [address] Jan, Bipolar I disorder, mild, current or most recent episode depressed, with anxious distress F31.31 [facility] [id number] [place] [address] Jan, Bipolar I disorder, mild, current or most recent episode depressed, with anxious distress F31.31 [facility] [id number] [place] [address] Jan, Bipolar 1 disorder, depressed, moderate F31.32 [facility] [id number] [place] [address] Dec, Bipolar I disorder, mild, current or most recent episode depressed, with anxious distress F31.31 [facility] [id number] [place] [address] Dec, Bipolar I disorder, mild, current or most recent episode depressed, with anxious distress F31.31 [facility] [address], [place] [address] Nov, Bipolar I disorder, mild, current or most recent episode depressed, with anxious distress F31.31 [facility] [address], [place] [address] Oct, Bipolar I disorder, mild, current or most recent episode depressed, with anxious distress F31.31 [facility] [id number] [place] [address] Oct, Bipolar I disorder, mild, current or most recent episode depressed, with anxious distress F31.31 [facility] [address] [place] [id number] [place] [address] Sep, Bipolar I disorder, mild, current or most recent episode depressed, with anxious distress F31.31 [facility] [address] [place] [id number] [place] [address] Aug, Bipolar I disorder, mild, current or most recent episode depressed, with anxious distress F31.31 [facility] [id number] [place] [address] Jul, Bipolar I disorder, mild, current or most recent episode depressed, with anxious distress F31.31 [facility] [address], [place] [address] Jul, Bipolar I disorder, mild, current or most recent episode depressed, with anxious distress F31.31 [facility] [address], [place] [address] Jun, Bipolar I disorder, most recent episode depressed 296.50 [facility] [address] [place] [id number] [place] [address] Jun, Bipolar I disorder, most recent episode depressed 296.50 [facility] [address] [place] [address] May, Bipolar disorder, current episode depressed, moderate 296.52 [facility] [address], [place] [address] May, Bipolar I disorder, most recent episode mixed, moderate 296.62 [facility] [address], [place] [address] Apr, Bipolar I disorder, most recent episode mixed, moderate 296.62 [facility] [address], [place] [address] Apr, [facility] [address], [place] [address] Apr, Bipolar I disorder, most recent episode mixed, moderate 296.62 [facility] [address], [place] [address] February, Bipolar disorder, current episode depressed, moderate 296.52 [facility] [address], [place] [address] Jan, [facility] [address], [place] [address] Jan, [facility] [address], [place] [address] Dec, [facility] [address], [place] [address] Dec, [facility] [address], [place] [address] Dec, [facility] [address], [place] [address] Dec, [facility] [address], [place] [address] Dec, [facility] [address], [place] [address] Dec, [facility] [address], [place] [address] Dec, [facility] [place] [facility] [address] [id number] [place] [address] Dec, [facility] [place] [facility] [address] [id number] [place] [address] Nov, [facility] [place] [facility] [address] [id number] [place] [address] Nov, [facility] [place] [facility] [address] [id number] [place] [address] Nov, [facility] [place] [facility] [address] [id number] [place] [address] Nov, [facility] [place] [facility] [address] [id number] [place] [address] Oct, [facility] [place] [facility] [address] [id number] [place] [address] Oct, [facility] [place] [facility] [address] [id number] [place] [address] Oct, [facility] [place] [facility] [address] [id number] [place] [address] Oct, [facility] [place] [facility] [address] [id number] [place] [address] Oct, [facility] [place] [facility] [address] [id number] [place] [address] Oct, [facility] [place] [facility] [address] [id number] [place] [address] Oct, [facility] [place] [facility] [address] [id number] [place] [address] Oct, [facility] [place] [facility] [address] [id number] [place] [address] Aug, [facility] [place] [facility] [address] [id number] [place] [address] Aug, [facility] [place] [facility] [address] [id number] [place] [address] Jun, [facility] [place] [facility] [address] [id number] [place] [address] Jun, [facility] [place] [facility] [address] [id number] [place] [address] May, [facility] [place] [facility] [address] [id number] [place] [address] May, [facility] [place] [facility] [address] [id number] [place] [address] Apr, [facility] [place] [facility] [address] [id number] [place] [address] Apr, [facility] [place] [facility] [address] [id number] [place] [address] Mar, [facility] [place] [facility] [address] [id number] [place] [address] Mar, [facility] [place] [facility] [address] [id number] [place] [address] February, [facility] [place] [facility] [address] [id number] [place] [address] February, [facility] [place] [facility] [address] [id number] [place] [address] February, [facility] [place] [facility] [address] [id number] [place] [address] February, [facility] [place] [facility] [address] [id number] [place] [address] Jan, [facility] [place] [facility] [address] [id number] [place] [address] Jan, [facility] [place] [facility] [address] [id number] [place] [address] Jan, [facility] [place] [facility] [address] [id number] [place] [address] Jan, [facility] [place] [facility] [address] [id number] [place] [address] Dec, [facility] [place] [facility] [address] [id number] [place] [address] Dec, [facility] [place] [facility] [address] [id number] [place] [address] Nov, [facility] [place] [facility] [address] [id number] [place] [address] Nov, [facility] [place] [facility] [address] [id number] [place] [address] Oct, [facility] [place] [facility] [address] [id number] [place] [address] Oct, [facility] [place] [facility] [address] [id number] [place] [address] Sep, [facility] [place] [facility] [address] [id number] [place] [address] Sep, [facility] [place] [facility] [address] [id number] [place] [address] Sep, [facility] [place] [facility] [address] [id number] [place] [address] Sep, [facility] [place] [facility] [address] [id number] [place] [address] Aug, [facility] [place] [facility] [address] [id number] [place] [address] Aug, [facility] [place] [facility] [address] [id number] [place] [address] Aug, [facility] [place] [facility] [address] [id number] [place] [address] Aug, [facility] [place] [facility] [address] [id number] [place] [address] Jul, [facility] [place] [facility] [address] [id number] [place] [address] Jul, [facility] [address] [id number] [place] [address] Jul, [facility] [address] [id number] [place] [address] Jul, [facility] [address] [id number] [place] [address] Jun, [facility] [place] [facility] [address] [id number] [place] [address] Jun, [facility] [address] [id number] [place] [address] May, [facility] [address] [id number] [place] [address] Apr, [facility] [address] [id number] [place] [address] Mar, [facility] [place] [facility] [address] [id number], [place] [address] Mar, [facility] [address] [id number] [place] [address] February, [facility] [place] [facility] [address] [id number], [place] [address] Jan, [facility] [place] [facility] [address] [id number], [place] [address] Jan, [facility] [place] [facility] [address] [id number], [place] [address] Dec, [facility] [place] [facility] [address] [id number], [place] [address] Nov, [facility] [place] [facility] [address] [id number], [place] [address] Oct, [facility] [place] [facility] [address] [id number], [place] [address] Aug, [facility] [place] [facility] [address] [id number] [place] [address] Aug, [facility] [place] [facility] [address] [id number] [place] [address] Aug, [facility] [place] [facility] [address] [id number] [place] [address] Aug, [facility] [place] [facility] [address] [id number] [place] [address] Aug, [facility] [place] [facility] [address] [id number] [place] [address] Aug, [facility] [place] [facility] [address] [id number] [place] [address] Jul, [facility] [place] [facility] [address] [id number] [place] [address] Jul, [facility] [place] [facility] [address] [id number] [place] [address] Jul, [facility] [place] [facility] [address] [id number] [place] [address] Jul, [facility] [place] [facility] [address] [id number] [place] [address] 27 Jun, 2012 [facility] [place] [facility] [address] [id number] [place] [address] 14 Jun, 2012 [facility] [place] [facility] [address] [id number] [place] [address] 31 May, 2012 [facility] [place] [facility] [address] [id number] [place] [address] May, [facility] [place] [facility] [address] [id number] [place] [address] 18 Apr, 2012 [facility] [place] [facility] [address] [id number] [place] [address] Apr, [facility] [place] [facility] [address] [id number] [place] [address] Mar, [facility] [place] [facility] [address] [id number] [place] [address] Mar, [facility] [place] [facility] [address] [id number] [place] [address] 18 Mar, 2012 [facility] [place] [facility] [address] [id number] [place] [address] February, [facility] [place] [facility] [address] [id number] [place] [address] February, [facility] [address] [id number] [place] [address] February, [facility] [place] [facility] [address] [id number] [place] [address] 18 Jan, 2012 [facility] [address] [id number] [place] [address] Jan, [facility] [address] [id number] [place] [address] Jan, [facility] [address] [id number] [place] [address] 29 Dec, 2011 [facility] [place] [facility] [address] [id number] [place] [address] 20 Dec, 2011 [facility] [place] [facility] [address] [id number] [place] [address] 15 Dec, 2011 [facility] [place] [facility] [address] [id number] [place] [address] 14 Dec, 2011 [facility] [place] [facility] [address] [id number] [place] [address] 13 Dec, 2011 [facility] [place] [facility] [address] [id number] [place] [address] 13 Dec, 2011 [facility] [place] [facility] [address] [id number] [place] [address] 13 Dec, 2011 [facility] [place] [facility] [address] [id number] [place] [address] Dec, [facility] [address] [id number] [place] [address] Nov, [facility] [place] [facility] [address] [id number] [place] [address] 23 Nov, 2011 [facility] [place] [facility] [address] [id number] [place] [address] 16 Nov, 2011 [facility] [place] [facility] [address] [id number] [place] [address] 16 Nov, 2011 [facility] [place] [facility] [address] [id number] [place] [address] Nov, [facility] [place] [facility] [address] [id number] [place] [address] Nov, [facility] [address] [id number] [place] [address] 06 Nov, 2011 [facility] [place] [facility] [address] [id number] [place] [address] Nov, [facility] [place] [facility] [address] [id number] [place] [address] Oct, [facility] [address] [id number] [place] [address] Oct, [facility] [place] [facility] [address] [id number] [place] [address] 18 Oct, 2011 [facility] [place] [facility] [address] [id number] [place] [address] 16 Oct, 2011 [facility] [place] [facility] [address] [id number] [place] [address] 13 Oct, 2011 [facility] [place] [facility] [address] [id number] [place] [address] Oct, [facility] [place] [facility] [address] [id number] [place] [address] Oct, [facility] [address] [facility] [id number] [address] Oct, [facility] [address] [facility] [id number], [place] [address] Sep, [facility] [address] [facility] [id number] [address] Sep, [facility] [address] [facility] [id number] [place] [id number] Sep, [facility] [address] [facility] [id number], [place] [address] Sep, [facility] [id number] [address] Aug, [facility] [id number] [address] Aug, [facility] [id number] [place] [id number] Aug, [facility] [id number] [address] Jul, [facility] [id number] [address] Jul, [facility] [id number] [address] Jul, [facility] [id number] [address] Aug, IMMUNIZATIONS No Known Immunizations SOCIAL HISTORY Never Assessed REASON FOR VISIT EMR-[facility] PLAN OF CARE VITAL SIGNS MEDICATIONS Unknown Medications RESULTS No Results PROCEDURES No Known procedures INSTRUCTIONS MEDICATIONS ADMINISTERED No Known Medications
--- OUTSIDE RECORDS SUMMARY | 2019-05-01 13:02 | XMS REPORT ---
Author Author Migration, Doctor Organization [facility] Address Unknown Phone Unavailable Care Team Providers Care Senior Compliance Analyst Name Role Phone Migration, Doctor Unavailable Unavailable PROBLEMS Type Condition ICD9-CM Code URM20-YO Code Onset Dates Condition Status SNOMED Code Problem Anxiety state F41.1 Active 273969071 Problem Moderate mixed bipolar I disorder F31.62 Active [id number] ALLERGIES No Information ENCOUNTERS Encounter Location Date Diagnosis [place] [address] [address] February, [place] [address] [place] [id number] [place] [address] Jan, [place] [address] [address] Dec, Moderate mixed bipolar I disorder F31.62 and Anxiety state F41.1 [place] [address] [place] [id number] [place] [address] Nov, Moderate mixed bipolar I disorder F31.62 and Anxiety state F41.1 [place] [address] [place] [id number] [place] [address] Oct, Moderate mixed bipolar I disorder F31.62 and Anxiety state F41.1 [place] [address] [place] [id number] [place] [address] Sep, Moderate mixed bipolar I disorder F31.62 and Anxiety state F41.1 [place] [address] [place] [id number] [place] [address] Aug, Moderate mixed bipolar I disorder F31.62 and Anxiety state F41.1 [place] [address] [place] [id number] [place] [address] Jul, Moderate mixed bipolar I disorder F31.62 and Anxiety state F41.1 [facility] [address], [place] [address] Jul, Moderate mixed bipolar I disorder F31.62 and Anxiety state F41.1 [facility] [address], [place] [address] Jul, [facility] [address], [place] [address] Jun, Moderate mixed bipolar I disorder F31.62 and Anxiety state F41.1 [facility] [address], [place] [address] May, Moderate mixed bipolar I disorder F31.62 and Anxiety state F41.1 [facility] [address], [place] [address] Apr, Moderate mixed bipolar I disorder F31.62 and Anxiety state F41.1 [facility] [address] [place] [address] Apr, Moderate mixed bipolar I disorder F31.62 and Anxiety state F41.1 [facility] [address] [place] [address] Mar, Moderate mixed bipolar I disorder F31.62 and Anxiety state F41.1 [facility] [address], [place] [address] February, Moderate mixed bipolar I disorder F31.62 and Anxiety state F41.1 [facility] [address], [place] [address] Jan, Moderate mixed bipolar I disorder F31.62 and Anxiety state F41.1 [facility] [address], [place] [address] Dec, Moderate mixed bipolar I disorder F31.62 and Anxiety state F41.1 [facility] [address], [place] [address] Nov, Moderate mixed bipolar I disorder F31.62 and Anxiety state F41.1 [facility] [address], [place] [address] Nov, Moderate mixed bipolar I disorder F31.62 and Anxiety state F41.1 [facility] [address] [place] [id number] [place] [address] Oct, Moderate mixed bipolar I disorder F31.62 and Anxiety state F41.1 [facility] [address] [place] [id number] [place] [address] Oct, Moderate mixed bipolar I disorder F31.62 and Anxiety state F41.1 [facility] [address] [place] [id number] [place] [address] Sep, Moderate mixed bipolar I disorder F31.62 and Anxiety state F41.1 [facility] [address] [place] [id number] [place] [address] Aug, Moderate mixed bipolar I disorder F31.62 and Anxiety state F41.1 [facility] [address], [place] [address] Jul, Moderate mixed bipolar I disorder F31.62 and Anxiety state F41.1 [facility] [address] [place] [address] Jul, [facility] [id number] [place] [address] Jul, Moderate mixed bipolar I disorder F31.62 and Anxiety state F41.1 [facility] [address], [place] [address] May, Moderate mixed bipolar I disorder F31.62 and Anxiety state F41.1 [facility] [address] [place] [id number] [address] May, Moderate mixed bipolar I disorder F31.62 and Anxiety state F41.1 [facility] [address] [place] [id number] [place] [address] May, Moderate mixed bipolar I disorder F31.62 and Anxiety state F41.1 [facility] [address], [place] [address] May, [facility] [address] [place] [address] Apr, Moderate mixed bipolar I disorder F31.62 and Anxiety state F41.1 [facility] [address] [place] [id number] [place] [address] Apr, Moderate mixed bipolar I disorder F31.62 and Anxiety state F41.1 [facility] [address] [place] [address] Mar, Moderate mixed bipolar I disorder F31.62 and Anxiety state F41.1 [facility] [address] [place] [id number] [place] [address] February, Moderate mixed bipolar I disorder F31.62 and Anxiety state F41.1 [facility] [address] [place] [address] February, Moderate mixed bipolar I disorder F31.62 and Anxiety state F41.1 [facility] [address] [place] [address] Jan, Moderate mixed bipolar I disorder F31.62 and Anxiety state F41.1 [facility] [address], [place] [address] Jan, Moderate mixed bipolar I disorder F31.62 and Anxiety state F41.1 [facility] [address] [place] [address] Jan, [facility] [id number] [place] [address] Dec, Moderate mixed bipolar I disorder F31.62 and Anxiety state F41.1 [facility] [address] [place] [address] Dec, Moderate mixed bipolar I disorder F31.62 and Anxiety state F41.1 [facility] [address] [place] [address] Nov, Moderate mixed bipolar I disorder F31.62 and Anxiety state F41.1 [facility] [address] [place] [id number] [place] [address] Nov, Moderate mixed bipolar I disorder F31.62 and Anxiety state F41.1 [facility] [address] [place] [address] Oct, Moderate mixed bipolar I disorder F31.62 and Anxiety state F41.1 [facility] [address] [place] [id number] [place] [address] Sep, Moderate mixed bipolar I disorder F31.62 and Anxiety state F41.1 [facility] [address] [place] [id number] [place] [address] Aug, Moderate mixed bipolar I disorder F31.62 and Anxiety state F41.1 [facility] [address] [place] [id number] [place] [address] Aug, Moderate mixed bipolar I disorder F31.62 and Anxiety state F41.1 [facility] [address] [place] [address] Jul, Moderate mixed bipolar I disorder F31.62 and Anxiety state F41.1 [facility] [address] [place] [address] Jun, Moderate mixed bipolar I disorder F31.62 and Anxiety state F41.1 [facility] [address] [place] [id number] [place] [address] May, Moderate mixed bipolar I disorder F31.62 and Anxiety state F41.1 [facility] [address] [place] [address] May, Moderate mixed bipolar I disorder F31.62 and Anxiety state F41.1 [facility] [address], [place] [address] Apr, Bipolar 1 disorder, depressed, moderate F31.32 and Anxiety state F41.1 [facility] [address], [place] [address] Apr, Bipolar 1 disorder, depressed, moderate F31.32 and Bipolar I disorder, mild, current or most recent episode depressed, with anxious distress F31.31 [place] [address] [place] [id number] [place] [address] Mar, Bipolar 1 disorder, depressed, moderate F31.32 [place] [address] [place] [id number] [place] [address] February, Bipolar 1 disorder, depressed, moderate F31.32 [place] [address] [place] [id number] [place] [address] Jan, Bipolar I disorder, mild, current or most recent episode depressed, with anxious distress F31.31 [place] [id number] [place] [address] Jan, Bipolar I disorder, mild, current or most recent episode depressed, with anxious distress F31.31 [place] [id number] [place] [address] Jan, Bipolar 1 disorder, depressed, moderate F31.32 [facility] [id number] [place] [address] Dec, Bipolar I disorder, mild, current or most recent episode depressed, with anxious distress F31.31 [place] [address] [place] [id number] [place] [address] Dec, Bipolar I disorder, mild, current or most recent episode depressed, with anxious distress F31.31 [facility] [address], [place] [address] Nov, Bipolar I disorder, mild, current or most recent episode depressed, with anxious distress F31.31 [facility] [address], [place] [address] Oct, Bipolar I disorder, mild, current or most recent episode depressed, with anxious distress F31.31 [facility] [address], [place] [address] Oct, Bipolar I disorder, mild, current or most recent episode depressed, with anxious distress F31.31 [facility] [address] [place] [id number] [place] [address] Sep, Bipolar I disorder, mild, current or most recent episode depressed, with anxious distress F31.31 [place] [address] [place] [id number] [place] [address] Aug, Bipolar I disorder, mild, current or most recent episode depressed, with anxious distress F31.31 [facility] [address] [place] [id number] [place] [address] Jul, Bipolar I disorder, mild, current or most recent episode depressed, with anxious distress F31.31 [facility] [address] [place] [id number] [place] [address] Jul, Bipolar I disorder, mild, current or most recent episode depressed, with anxious distress F31.31 [facility] [address], [place] [address] Jun, Bipolar I disorder, most recent episode depressed 296.50 [facility] [id number] [place] [address] Jun, Bipolar I disorder, most recent episode depressed 296.50 [facility] [address] [place] [id number] [place] [address] May, Bipolar disorder, current episode depressed, moderate 296.52 [facility] [id number] [place] [address] May, Bipolar I disorder, most recent episode mixed, moderate 296.62 [place] [address] [facility] [id number] [address] Apr, Bipolar I disorder, most recent episode mixed, moderate 296.62 [facility] [address], [place] [address] Apr, [facility] [address], [place] [address] Apr, Bipolar I disorder, most recent episode mixed, moderate 296.62 [facility] [address] [facility] [id number] [place] [address] February, Bipolar disorder, current episode depressed, moderate 296.52 [facility] [address], [place] [address] Jan, [facility] [address], [place] [address] Jan, [facility] [address], [place] [address] Dec, [facility] [address] [place] [id number], [place] [address] Dec, [facility] [address], [place] [address] Dec, [facility] [address], [place] [address] Dec, [facility] [address], [place] [address] Dec, [facility] [address] [place] [address] [id number], [place] [address] Dec, [facility] [address], [place] [address] Dec, [facility] [address] [place] [id number], [place] [address] Dec, [facility] [address], [place] [address] Nov, [facility] [place] [facility] [address] [id number] [place] [address] Nov, [facility] [place] [facility] [address] [id number] [place] [address] Nov, [facility] [place] [facility] [address] [id number] [place] [address] Nov, [facility] [place] [facility] [address] [id number] [place] [address] Oct, [facility] [place] [facility] [address] [id number] [place] [address] Oct, [facility] [place] [facility] [address] [id number] [place] [address] Oct, [facility] [place] [facility] [address] [id number] [place] [address] Oct, [facility] [place] [facility] [address] [id number] [place] [address] Oct, [facility] [place] [facility] [address] [id number] [place] [address] Oct, [facility] [place] [facility] [address] [facility] [id number] [place] [address] Oct, [facility] [place] [facility] [address] [id number] [place] [address] Oct, [facility] [place] [facility] [address] [id number] [address] Aug, [facility] [place] [facility] [address] [id number] [place] [address] Aug, [facility] [place] [facility] [address] [id number] [place] [address] Jun, [facility] [place] [facility] [address] [id number] [place] [address] Jun, [facility] [place] [facility] [address] [id number] [place] [address] May, [facility] [place] [facility] [address] [id number] [place] [address] May, [facility] [place] [facility] [address] [id number] [place] [address] Apr, [facility] [place] [facility] [address] [id number] [place] [address] Apr, [facility] [place] [facility] [address] [id number] [place] [address] Mar, [facility] [place] [facility] [address] [id number] [place] [address] Mar, [facility] [place] [facility] [address] [id number] [place] [address] February, [facility] [place] [facility] [address] [id number] [place] [address] February, [facility] [place] [facility] [address] [id number] [place] [address] February, [facility] [place] [facility] [address] [id number] [place] [address] February, [facility] [place] [facility] [address] [id number] [place] [address] Jan, [facility] [place] [facility] [address] [id number] [place] [address] Jan, [facility] [place] [facility] [address] [id number] [place] [address] Jan, [facility] [place] [facility] [address] [id number] [place] [address] Jan, [facility] [place] [facility] [address] [id number] [place] [address] Dec, [facility] [place] [facility] [address] [id number] [place] [address] Dec, [facility] [place] [facility] [address] [id number] [place] [address] Nov, [facility] [place] [facility] [address] [id number] [place] [address] Nov, [facility] [place] [facility] [address] [id number] [place] [address] Oct, [facility] [place] [facility] [address] [id number] [place] [address] Oct, [facility] [place] [facility] [address] [id number] [place] [address] Sep, [facility] [place] [facility] [address] [id number] [place] [address] Sep, [facility] [place] [facility] [address] [id number] [place] [address] Sep, [facility] [place] [facility] [address] [id number] [place] [address] Sep, [facility] [place] [facility] [address] [id number] [place] [address] Aug, [facility] [place] [facility] [address] [id number] [place] [address] Aug, [facility] [place] [facility] [address] [id number], [place] [address] Aug, [facility] [place] [facility] [address] [id number], [place] [address] Aug, [facility] [place] [facility] [address] [id number] [place] [address] Jul, [facility] [place] [facility] [address] [id number] [place] [address] Jul, [facility] [place] [facility] [address] [id number] [place] [address] Jul, [facility] [place] [facility] [address] [id number] [place] [address] Jul, [facility] [address] [id number] [place] [address] Jun, [facility] [address] [id number] [place] [address] Jun, [facility] [address] [id number] [place] [address] May, [facility] [address] [id number] [place] [address] Apr, [facility] [address] [id number] [place] [address] Mar, [facility] [address] [id number] [place] [address] Mar, [facility] [address] [id number] [place] [address] February, [facility] [address] [id number] [place] [address] Jan, [facility] [address] [id number] [place] [address] Jan, [facility] [address] [id number] [place] [address] Dec, [facility] [address] [id number] [place] [address] Nov, [facility] [address] [id number] [place] [address] Oct, [facility] [address] [id number] [place] [address] Aug, [facility] [address] [id number] [place] [address] Aug, [facility] [address] [id number] [place] [address] Aug, [facility] [place] [facility] [address] [id number] [place] [address] Aug, [facility] [place] [facility] [address] [id number] [place] [address] Aug, [facility] [place] [facility] [address] [id number] [place] [address] Aug, [facility] [place] [facility] [address] [id number] [place] [address] Jul, [facility] [place] [facility] [address] [id number] [place] [address] Jul, [facility] [place] [facility] [address] [id number] [place] [address] Jul, [facility] [place] [facility] [address] [id number] [place] [address] Jul, [facility] [place] [facility] [address] [id number] [place] [address] Jun, [facility] [place] [facility] [address] [id number] [place] [address] 14 Jun, 2012 [facility] [place] [facility] [address] [id number] [place] [address] May, [facility] [place] [facility] [address] [id number] [place] [address] May, [facility] [place] [facility] [address] [id number] [place] [address] 18 Apr, 2012 [facility] [place] [facility] [address] [id number] [place] [address] Apr, [facility] [place] [facility] [address] [id number] [place] [address] Mar, [facility] [place] [facility] [address] [id number] [place] [address] Mar, [facility] [place] [facility] [address] [id number] [place] [address] 18 Mar, 2012 [facility] [address] [id number] [place] [address] 30 Feb, 2012 [facility] [place] [facility] [address] [id number] [place] [address] February, [facility] [address] [id number] [place] [address] February, [facility] [place] [facility] [address] [id number] [place] [address] 18 Jan, 2012 [facility] [place] [facility] [address] [id number] [place] [address] 18 Jan, 2012 [facility] [place] [facility] [address] [id number] [place] [address] Jan, [facility] [address] [id number] [place] [address] 29 Dec, 2011 [facility] [place] [facility] [address] [id number] [place] [address] 20 Dec, 2011 [facility] [place] [facility] [address] [id number] [place] [address] 15 Dec, 2011 [facility] [place] [address] [facility] [id number] [place] [address] 14 Dec, 2011 [facility] [place] [facility] [address] [id number] [place] [address] 13 Dec, 2011 [facility] [place] [address] [id number] [place] [address] 13 Dec, 2011 [facility] [place] [facility] [address] [id number] [place] [address] 13 Dec, 2011 [facility] [place] [facility] [address] [id number] [place] [address] 05 Dec, 2011 [facility] [place] [facility] [address] [id number] [place] [address] 28 Nov, 2011 [facility] [place] [facility] [address] [id number] [place] [address] Nov, [facility] [place] [facility] [address] [id number] [place] [address] Nov, [facility] [place] [facility] [address] [id number] [place] [address] Nov, [facility] [place] [facility] [address] [id number] [place] [address] Nov, [facility] [place] [facility] [address] [id number] [place] [address] Nov, [facility] [place] [facility] [address] [id number] [place] [address] Nov, [facility] [place] [facility] [address] [id number] [place] [address] Nov, [facility] [place] [address] [id number] [place] [address] Oct, [facility] [place] [address] [id number] [place] [address] Oct, [facility] [place] [facility] [address] [id number] [place] [address] Oct, [facility] [address] [id number] [place] [address] Oct, [facility] [address] [id number] [place] [address] Oct, [facility] [place] [facility] [address] [id number] [place] [address] Oct, [facility] [place] [facility] [address] [id number] [place] [address] Oct, [facility] [place] [facility] [address] [id number] [place] [address] Oct, [facility] [place] [facility] [address] [id number], [place] [address] Sep, [facility] [address] [facility] [id number], [place] [address] Sep, [facility] [address] [facility] [id number], [place] [address] Sep, [facility] [address] [facility] [id number], [place] [address] Sep, [facility] [address] [facility] [id number], [place] [address] Aug, [facility] [address] [facility] [id number], [place] [address] Aug, [facility] [address] [facility] [id number], [place] [address] Aug, [facility] [id number], [place] [address] Jul, [facility] [address] [facility] [id number], [place] [address] Jul, [facility] [address] [facility] [id number], [place] [address] Jul, [facility] [address] [facility] [id number], [place] [address] Aug, IMMUNIZATIONS No Known Immunizations SOCIAL HISTORY Never Assessed REASON FOR VISIT [facility] PLAN OF CARE VITAL SIGNS MEDICATIONS Medication Instructions Dosage Frequency Start Date End Date Duration Status Effexor 75 mg 1 tablet by Oral route 3 times per day Mar, Active Lorazepam 0.5 mg by Oral route 3 times per day Apr, Active lithium 450 mg 1 tablet by Oral route 2 times per day. Mar, Active Singulair 10 mg 1 Tablet by Oral route 1 time per day Dec, Active RESULTS No Results PROCEDURES No Known procedures INSTRUCTIONS MEDICATIONS ADMINISTERED No Known Medications
[2019-05-01 13:08] LABS: HEMOGLOBIN 13.9 G/DL (11.5-16.0); MEAN PLATELET VOLUME 9.8 FL (7.4-10.4); RED CELL DISTRIBUTION WIDTH 14.9 % (10.0-14.5); WHITE BLOOD COUNT 7.6 10^3/uL (4.3-11.0)
--- OUTSIDE RECORDS SUMMARY | 2019-05-01 13:13 | XMS REPORT | Continuity of Care Document ---
Author Organization Unknown Address Unknown Allergies Active Description Code Type Severity Reaction Onset Reported/Identified Relationship to Patient Clinical Status Yes ciprofloxacin [id number] Drug Allergy Unknown N/A 08/18/2010 Yes Cipro [...] NOS 09/05/2009 307.47 SI DYSSOMNIA NOS 09/05/2009 ERIKA GARCIA 296.80 MO BIPOLAR NOS 09/05/2009 ERIKA GARCIA 300.00 MN MEN DIS NOS 09/05/2009 ERIKA GARCIA 307.47 SI DYSSOMNIA NOS 09/05/2009 296.80 MO [...] NOS 09/05/2009 307.47 SI DYSSOMNIA NOS 09/05/2009 ERIKA GARCIA 296.80 MO BIPOLAR NOS 09/05/2009 [facility], ERIKA R 300.00 MN MEN DIS NOS 09/05/2009 [facility], ERIKA R 307.47 SI DYSSOMNIA NOS 09/05/2009 [facility], ERIKA R 296.80 MO BIPOLAR NOS 09/05/2009 [facility], ERIKA R 300.00 MN MEN DIS NOS 09/05/2009 [facility], ERIKA R 307.47 SI DYSSOMNIA NOS 09/05/2009 [facility], ERIKA R 296.80 MO BIPOLAR NOS 09/05/2009 [facility], ERIKA R 300.00 MN MEN DIS NOS 09/05/2009 [facility], ERIKA R 307.47 SI DYSSOMNIA NOS 09/05/2009 [facility], ERIKA R 296.80 MO BIPOLAR NOS 09/05/2009 [facility], ERIKA R 300.00 MN MEN DIS NOS 09/05/2009 [facility], ERIKA R 307.47 SI DYSSOMNIA NOS 09/05/2009 [facility], ERIKA R 296.80 MO BIPOLAR NOS 09/05/2009 [facility], ERIKA R 300.00 MN MEN DIS NOS 09/05/2009 [facility], ERIKA R 307.47 SI DYSSOMNIA NOS 09/05/2009 [facility], ERIKA R 296.80 MO BIPOLAR NOS 09/05/2009 [facility], ERIKA R 300.00 MN MEN DIS NOS 09/05/2009 [facility], ERIKA R 307.47 SI DYSSOMNIA NOS 09/05/2009 [facility], ERIKA R 296.80 MO BIPOLAR NOS 09/05/2009 [facility], ERIKA R 300.00 MN MEN DIS NOS 09/05/2009 [facility], ERIKA R 307.47 SI DYSSOMNIA NOS 09/05/2009 [facility], ERIKA R 296.80 MO BIPOLAR NOS 09/05/2009 [facility], ERIKA R 300.00 MN MEN DIS NOS 09/05/2009 [facility], ERIKA R 307.47 SI DYSSOMNIA NOS 09/05/2009 [facility], ERIKA R 296.80 MO BIPOLAR NOS 09/05/2009 [facility], ERIKA R 300.00 MN MEN DIS NOS 09/05/2009 [facility], ERIKA R 307.47 SI DYSSOMNIA NOS 09/05/2009 [facility], ERIKA R 296.80 MO BIPOLAR NOS 09/05/2009 [facility], ERIKA R 300.00 MN MEN DIS NOS 09/05/2009 [facility], ERIKA R 307.47 SI DYSSOMNIA NOS 09/05/2009 [facility], ERIKA R 296.80 MO BIPOLAR NOS 09/05/2009 [facility], ERIKA R 300.00 MN MEN DIS NOS 09/05/2009 [facility], ERIKA R 307.47 SI DYSSOMNIA NOS 09/05/2009 [facility], ERIKA R 296.80 MO BIPOLAR NOS 09/05/2009 [facility], ERIKA R 300.00 MN MEN DIS NOS 09/05/2009 [facility], ERIKA R 307.47 SI DYSSOMNIA NOS 09/05/2009 [facility], ERIKA R 296.80 MO BIPOLAR NOS 09/05/2009 [facility], ERIKA R 300.00 MN MEN DIS NOS 09/05/2009 [facility], ERIKA R 307.47 SI DYSSOMNIA NOS 09/05/2009 [facility], ERIKA R 296.80 MO BIPOLAR NOS 09/05/2009 [facility], ERIKA R 300.00 MN MEN DIS NOS 09/05/2009 [facility], ERIKA R 307.47 SI DYSSOMNIA NOS 09/05/2009 [facility], ERIKA R 296.80 MO BIPOLAR NOS 09/05/2009 [facility], ERIKA R 300.00 MN MEN DIS NOS 09/05/2009 [facility], ERIKA R 307.47 SI DYSSOMNIA NOS 09/05/2009 [facility], ERIKA R 296.80 MO BIPOLAR NOS 09/05/2009 [facility], ERIKA R 300.00 MN MEN DIS NOS 09/05/2009 [facility], ERIKA R 307.47 SI DYSSOMNIA NOS 09/05/2009 [facility], ERIKA R 296.80 MO BIPOLAR NOS 09/05/2009 [facility], ERIKA R 300.00 MN MEN DIS NOS 09/05/2009 [facility], ERIKA R 307.47 SI DYSSOMNIA NOS 09/05/2009 [facility], ERIKA R 296.80 MO BIPOLAR NOS 09/05/2009 [facility], ERIKA R 300.00 MN MEN DIS NOS 09/05/2009 [facility], ERIKA R 307.47 SI DYSSOMNIA NOS 09/05/2009 [facility], ERIKA R 296.80 MO BIPOLAR NOS 09/05/2009 [facility], ERIKA R 300.00 MN MEN DIS NOS 09/05/2009 [facility], ERIKA R 307.47 SI DYSSOMNIA NOS 09/05/2009 [facility], ERIKA R 296.80 MO BIPOLAR NOS 09/05/2009 [facility], ERIKA R 300.00 MN MEN DIS NOS 09/05/2009 [facility], ERIKA R 307.47 SI DYSSOMNIA NOS 09/05/2009 [facility], ERIKA R 296.80 MO BIPOLAR NOS 09/05/2009 [facility], ERIKA R 300.00 MN MEN DIS NOS 09/05/2009 [facility], ERIKA R 307.47 SI DYSSOMNIA NOS 09/05/2009 [facility], ERIKA R 296.80 MO BIPOLAR NOS 09/05/2009 [facility], ERIKA R 300.00 MN MEN DIS NOS 09/05/2009 [facility], ERIKA R 307.47 SI DYSSOMNIA NOS 09/05/2009 [facility], ERIKA R 296.80 MO BIPOLAR NOS 09/05/2009 [facility], ERIKA R 300.00 MN MEN DIS NOS 09/05/2009 [facility], ERIKA R 307.47 SI DYSSOMNIA NOS 11/04/2009 296.40 MO BIPOLAR MANIC UNSPECIFIED 11/04/2009 296.40 MO BIPOLAR MANIC UNSPECIFIED 11/04/2009 [facility], ERIKA R 296.40 MO BIPOLAR MANIC UNSPECIFIED 11/04/2009 296.40 MO BIPOLAR MANIC UNSPECIFIED 11/04/2009 296.40 MO BIPOLAR MANIC UNSPECIFIED 11/04/2009 296.40 MO BIPOLAR MANIC UNSPECIFIED 11/04/2009 296.40 MO BIPOLAR MANIC UNSPECIFIED 11/04/2009 296.40 MO BIPOLAR MANIC UNSPECIFIED 11/04/2009 [facility], ERIKA R 296.40 MO BIPOLAR MANIC UNSPECIFIED 11/04/2009 [facility], ERIKA R 296.40 MO BIPOLAR MANIC UNSPECIFIED 11/04/2009 [facility], ERIKA R 296.40 MO BIPOLAR MANIC UNSPECIFIED 11/04/2009 [facility], ERIKA R 296.40 MO BIPOLAR MANIC UNSPECIFIED 11/04/2009 [facility], ERIKA R 296.40 MO BIPOLAR MANIC UNSPECIFIED 11/04/2009 [facility], ERIKA R 296.40 MO BIPOLAR MANIC UNSPECIFIED 11/04/2009 [facility], ERIKA R 296.40 MO BIPOLAR MANIC UNSPECIFIED 11/04/2009 [facility], ERIKA R 296.40 MO BIPOLAR MANIC UNSPECIFIED 11/04/2009 [facility], ERIKA R 296.40 MO BIPOLAR MANIC UNSPECIFIED 11/04/2009 [facility], ERIKA R 296.40 MO BIPOLAR MANIC UNSPECIFIED 11/04/2009 [facility], ERIKA R 296.40 MO BIPOLAR MANIC UNSPECIFIED 11/04/2009 [facility], ERIKA R 296.40 MO BIPOLAR MANIC UNSPECIFIED 11/04/2009 [facility], ERIKA R 296.40 MO BIPOLAR MANIC UNSPECIFIED 11/04/2009 [facility], ERIKA R 296.40 MO BIPOLAR MANIC UNSPECIFIED 11/04/2009 [facility], ERIKA R 296.40 MO BIPOLAR MANIC UNSPECIFIED 11/04/2009 [facility], ERIKA R 296.40 MO BIPOLAR MANIC UNSPECIFIED 11/04/2009 [facility], ERIKA R 296.40 MO BIPOLAR MANIC UNSPECIFIED 11/04/2009 [facility], ERIKA R 296.40 MO BIPOLAR MANIC UNSPECIFIED 11/04/2009 [facility], ERIKA R 296.40 MO BIPOLAR MANIC UNSPECIFIED 11/04/2009 [facility], ERIKA R 296.40 MO BIPOLAR MANIC UNSPECIFIED 11/04/2009 [facility], ERIKA R 296.40 MO BIPOLAR MANIC UNSPECIFIED 11/04/2009 [facility], ERIKA R 296.40 MO BIPOLAR MANIC UNSPECIFIED 11/04/2009 [facility], ERIKA R 296.40 MO BIPOLAR MANIC UNSPECIFIED 11/19/2009 296.60 MO BIPOLAR I MIXED UNSPECIFIED 11/19/2009 296.60 MO BIPOLAR I MIXED UNSPECIFIED 11/19/2009 [facility], ERIKA R 296.60 MO BIPOLAR I MIXED UNSPECIFIED 11/19/2009 296.60 MO BIPOLAR I MIXED UNSPECIFIED 11/19/2009 296.60 MO BIPOLAR I MIXED UNSPECIFIED 11/19/2009 296.60 MO BIPOLAR I MIXED UNSPECIFIED 11/19/2009 296.60 MO BIPOLAR I MIXED UNSPECIFIED 11/19/2009 296.60 MO BIPOLAR I MIXED UNSPECIFIED 11/19/2009 [facility], ERIKA R 296.60 MO BIPOLAR I MIXED UNSPECIFIED 11/19/2009 [facility], ERIKA R 296.60 MO BIPOLAR I MIXED UNSPECIFIED 11/19/2009 [facility], ERIKA R 296.60 MO BIPOLAR I MIXED UNSPECIFIED 11/19/2009 [facility], ERIKA R 296.60 MO BIPOLAR I MIXED UNSPECIFIED 11/19/2009 [facility], ERIKA R 296.60 MO BIPOLAR I MIXED UNSPECIFIED 11/19/2009 [facility], ERIKA R 296.60 MO BIPOLAR I MIXED UNSPECIFIED 11/19/2009 [facility], ERIKA R 296.60 MO BIPOLAR I MIXED UNSPECIFIED 11/19/2009 [facility], ERIKA R 296.60 MO BIPOLAR I MIXED UNSPECIFIED 11/19/2009 [facility], ERIKA R 296.60 MO BIPOLAR I MIXED UNSPECIFIED 11/19/2009 [facility], ERIKA R 296.60 MO BIPOLAR I MIXED UNSPECIFIED 11/19/2009 [facility], ERIKA R 296.60 MO BIPOLAR I MIXED UNSPECIFIED 11/19/2009 [facility], ERIKA R 296.60 MO BIPOLAR I MIXED UNSPECIFIED 11/19/2009 [facility], ERIKA R 296.60 MO BIPOLAR I MIXED UNSPECIFIED 11/19/2009 [facility], ERIKA R 296.60 MO BIPOLAR I MIXED UNSPECIFIED 11/19/2009 [facility], ERIKA R 296.60 MO BIPOLAR I MIXED UNSPECIFIED 11/19/2009 [facility], ERIKA R 296.60 MO BIPOLAR I MIXED UNSPECIFIED 11/19/2009 [facility], ERIKA R 296.60 MO BIPOLAR I MIXED UNSPECIFIED 11/19/2009 [facility], ERIKA R 296.60 MO BIPOLAR I MIXED UNSPECIFIED 11/19/2009 [facility], ERIKA R 296.60 MO BIPOLAR I MIXED UNSPECIFIED 11/19/2009 [facility], ERIKA R 296.60 MO BIPOLAR I MIXED UNSPECIFIED 11/19/2009 [facility], ERIKA R 296.60 MO BIPOLAR I MIXED UNSPECIFIED 11/19/2009 [facility], ERIKA R 296.60 MO BIPOLAR I MIXED UNSPECIFIED 11/19/2009 [facility], ERIKA R 296.60 MO BIPOLAR I MIXED UNSPECIFIED 12/04/2009 296.62 MO BIPOLAR I MIXED MODERATE 12/04/2009 296.62 MO BIPOLAR I MIXED MODERATE 12/04/2009 [facility], ERIKA R 296.62 MO BIPOLAR I MIXED MODERATE 12/04/2009 296.62 MO BIPOLAR I MIXED MODERATE 12/04/2009 296.62 MO BIPOLAR I MIXED MODERATE 12/04/2009 296.62 MO BIPOLAR I MIXED MODERATE 12/04/2009 296.62 MO BIPOLAR I MIXED MODERATE 12/04/2009 296.62 MO BIPOLAR I MIXED MODERATE 12/04/2009 [facility], ERIKA R 296.62 MO BIPOLAR I MIXED MODERATE 12/04/2009 [facility], ERIKA R 296.62 MO BIPOLAR I MIXED MODERATE 12/04/2009 [facility], ERIKA R 296.62 MO BIPOLAR I MIXED MODERATE 12/04/2009 [facility], ERIKA R 296.62 MO BIPOLAR I MIXED MODERATE 12/04/2009 [facility], ERIKA R 296.62 MO BIPOLAR I MIXED MODERATE 12/04/2009 [facility], ERIKA R 296.62 MO BIPOLAR I MIXED MODERATE 12/04/2009 [facility], ERIKA R 296.62 MO BIPOLAR I MIXED MODERATE 12/04/2009 [facility], ERIKA R 296.62 MO BIPOLAR I MIXED MODERATE 12/04/2009 [facility], ERIKA R 296.62 MO BIPOLAR I MIXED MODERATE 12/04/2009 [facility], ERIKA R 296.62 MO BIPOLAR I MIXED MODERATE 12/04/2009 [facility], ERIKA R 296.62 MO BIPOLAR I MIXED MODERATE 12/04/2009 [facility], ERIKA R 296.62 MO BIPOLAR I MIXED MODERATE 12/04/2009 [facility], ERIKA R 296.62 MO BIPOLAR I MIXED MODERATE 12/04/2009 [facility], ERIKA R 296.62 MO BIPOLAR I MIXED MODERATE 12/04/2009 [facility], ERIKA R 296.62 MO BIPOLAR I MIXED MODERATE 12/04/2009 [facility], ERIKA R 296.62 MO BIPOLAR I MIXED MODERATE 12/04/2009 [facility], ERIKA R 296.62 MO BIPOLAR I MIXED MODERATE 12/04/2009 [facility], ERIKA R 296.62 MO BIPOLAR I MIXED MODERATE 12/04/2009 [facility], ERIKA R 296.62 MO BIPOLAR I MIXED MODERATE 12/04/2009 [facility], ERIKA R 296.62 MO BIPOLAR I MIXED MODERATE 12/04/2009 [facility], ERIKA R 296.62 MO BIPOLAR I MIXED MODERATE 12/04/2009 [facility], ERIKA R 296.62 MO BIPOLAR I MIXED MODERATE 12/04/2009 [facility], ERIKA R 296.62 MO BIPOLAR I MIXED MODERATE 12/11/2009 309.81 AN PTSD 12/11/2009 309.81 AN PTSD 12/11/2009 JAYLIN [facility], ERIKA R 309.81 AN PTSD 12/11/2009 309.81 AN PTSD 12/11/2009 309.81 AN PTSD 12/11/2009 309.81 AN PTSD 12/11/2009 309.81 AN PTSD 12/11/2009 309.81 AN PTSD 12/11/2009 [facility], ERIKA R 309.81 AN PTSD 12/11/2009 [facility], ERIKA R 309.81 AN PTSD 12/11/2009 [facility], ERIKA R 309.81 AN PTSD 12/11/2009 [facility], ERIKA R 309.81 AN PTSD 12/11/2009 [facility], ERIKA R 309.81 AN PTSD 12/11/2009 [facility], ERIKA R 309.81 AN PTSD 12/11/2009 [facility], ERIKA R 309.81 AN PTSD 12/11/2009 [facility], ERIKA R 309.81 AN PTSD 12/11/2009 [facility], ERIKA R 309.81 AN PTSD 12/11/2009 [facility], ERIKA R 309.81 AN PTSD 12/11/2009 [facility], ERIKA R 309.81 AN PTSD 12/11/2009 [facility], ERIKA R 309.81 AN PTSD 12/11/2009 [facility], ERIKA R 309.81 AN PTSD 12/11/2009 JAYLIN [facility], ERIKA R 309.81 AN PTSD 12/11/2009 [facility], ERIKA R 309.81 AN PTSD 12/11/2009 JAYLIN [facility], ERIKA R 309.81 AN PTSD 12/11/2009 JAY[facility], ERIKA R 309.81 AN PTSD 12/11/2009 [facility], ERIKA R 309.81 AN PTSD 12/11/2009 [facility], ERIKA R 309.81 AN PTSD 12/11/2009 [facility], ERIKA R 309.81 AN PTSD 12/11/2009 [facility], ERIKA R 309.81 AN PTSD 12/11/2009 [facility], ERIKA R 309.81 AN PTSD 12/11/2009 [facility], ERIKA R 309.81 AN PTSD 03/04/2010 296.61 MO BIPOLAR I MIXED MILD 03/04/2010 296.61 MO BIPOLAR I MIXED MILD 03/04/2010 [facility], ERIKA R 296.61 MO BIPOLAR I MIXED MILD 03/04/2010 296.61 MO BIPOLAR I MIXED MILD 03/04/2010 296.61 MO BIPOLAR I MIXED MILD 03/04/2010 296.61 MO BIPOLAR I MIXED MILD 03/04/2010 296.61 MO BIPOLAR I MIXED MILD 03/04/2010 296.61 MO BIPOLAR I MIXED MILD 03/04/2010 [facility], ERIKA R 296.61 MO BIPOLAR I MIXED MILD 03/04/2010 [facility], ERIKA R 296.61 MO BIPOLAR I MIXED MILD 03/04/2010 [facility], ERIKA R 296.61 MO BIPOLAR I MIXED MILD 03/04/2010 [facility], ERIKA R 296.61 MO BIPOLAR I MIXED MILD 03/04/2010 [facility], REIKA R 296.61 MO BIPOLAR I MIXED MILD 03/04/2010 [facility], ERIKA R 296.61 MO BIPOLAR I MIXED MILD 03/04/2010 [facility], ERIKA R 296.61 MO BIPOLAR I MIXED MILD 03/04/2010 [facility], ERIKA R 296.61 MO BIPOLAR I MIXED MILD 03/04/2010 [facility], ERIKA R 296.61 MO BIPOLAR I MIXED MILD 03/04/2010 [facility], ERIKA R 296.61 MO BIPOLAR I MIXED MILD 03/04/2010 [facility], ERIKA R 296.61 MO BIPOLAR I MIXED MILD 03/04/2010 [facility], ERIKA R 296.61 MO BIPOLAR I MIXED MILD 03/04/2010 [facility], ERIKA R 296.61 MO BIPOLAR I MIXED MILD 03/04/2010 [facility], ERIKA R 296.61 MO BIPOLAR I MIXED MILD 03/04/2010 [facility], ERIKA R 296.61 MO BIPOLAR I MIXED MILD 03/04/2010 [facility], ERIKA R 296.61 MO BIPOLAR I MIXED MILD 03/04/2010 [facility], ERIKA R 296.61 MO BIPOLAR I MIXED MILD 03/04/2010 [facility], ERIKA R 296.61 MO BIPOLAR I MIXED MILD 03/04/2010 [facility], ERIKA R 296.61 MO BIPOLAR I MIXED MILD 03/04/2010 [facility], ERIKA R 296.61 MO BIPOLAR I MIXED MILD 03/04/2010 [facility], ERIKA R 296.61 MO BIPOLAR I MIXED MILD 03/04/2010 [facility], ERIKA R 296.61 MO BIPOLAR I MIXED MILD 03/04/2010 [facility], ERIKA R 296.61 MO BIPOLAR I MIXED MILD 04/06/2011 V58.69 MEDICATION HIGH RISK 04/06/2011 V58.69 MEDICATION HIGH RISK 04/06/2011 [facility], ERIKA R V58.69 MEDICATION HIGH RISK 04/06/2011 V58.69 MEDICATION HIGH RISK 04/06/2011 V58.69 MEDICATION HIGH RISK 04/06/2011 V58.69 MEDICATION HIGH RISK 04/06/2011 V58.69 MEDICATION HIGH RISK 04/06/2011 V58.69 MEDICATION HIGH RISK 04/06/2011 [facility], ERIKA R V58.69 MEDICATION HIGH RISK 04/06/2011 [facility], ERIKA R V58.69 MEDICATION HIGH RISK 04/06/2011 [facility], ERIKA R V58.69 MEDICATION HIGH RISK 04/06/2011 [facility], ERIKA R V58.69 MEDICATION HIGH RISK 04/06/2011 [facility], ERIKA R V58.69 MEDICATION HIGH RISK 04/06/2011 [facility], ERIKA R V58.69 MEDICATION HIGH RISK 04/06/2011 [facility], ERIKA R V58.69 MEDICATION HIGH RISK 04/06/2011 [facility], ERIKA R V58.69 MEDICATION HIGH RISK 04/06/2011 [facility], ERIKA R V58.69 MEDICATION HIGH RISK 04/06/2011 [facility], ERIKA R V58.69 MEDICATION HIGH RISK 04/06/2011 [facility], ERIKA R V58.69 MEDICATION HIGH RISK 04/06/2011 [facility], ERIKA R V58.69 MEDICATION HIGH RISK 04/06/2011 [facility], ERIKA R V58.69 MEDICATION HIGH RISK 04/06/2011 [facility], ERIKA R V58.69 MEDICATION HIGH RISK 04/06/2011 [facility], ERIKA R V58.69 MEDICATION HIGH RISK 04/06/2011 [facility], ERIKA R V58.69 MEDICATION HIGH RISK 04/06/2011 [facility], ERIKA R V58.69 MEDICATION HIGH RISK 04/06/2011 [facility], ERIKA R V58.69 MEDICATION HIGH RISK 04/06/2011 [facility], ERIKA R V58.69 MEDICATION HIGH RISK 04/06/2011 [facility], ERIKA R V58.69 MEDICATION HIGH RISK 04/06/2011 [facility], ERIKA R V58.69 MEDICATION HIGH RISK 04/06/2011 [facility], ERIKA R V58.69 MEDICATION HIGH RISK 04/06/2011 [facility], ERIKA R V58.69 MEDICATION HIGH RISK 05/06/2011 296.65 MO BIPOLAR I MIXED PART OR UNSPECIFIED REMISSION 05/06/2011 296.65 MO BIPOLAR I MIXED PART OR UNSPECIFIED REMISSION 05/06/2011 [facility], ERIKA R 296.65 MO BIPOLAR I MIXED PART OR UNSPECIFIED REMISSION 05/06/2011 296.65 MO BIPOLAR I MIXED PART OR UNSPECIFIED REMISSION 05/06/2011 296.65 MO BIPOLAR I MIXED PART OR UNSPECIFIED REMISSION 05/06/2011 296.65 MO BIPOLAR I MIXED PART OR UNSPECIFIED REMISSION 05/06/2011 296.65 MO BIPOLAR I MIXED PART OR UNSPECIFIED REMISSION 05/06/2011 296.65 MO BIPOLAR I MIXED PART OR UNSPECIFIED REMISSION 05/06/2011 [facility], ERIKA R 296.65 MO BIPOLAR I MIXED PART OR UNSPECIFIED REMISSION 05/06/2011 [facility], ERIKA R 296.65 MO BIPOLAR I MIXED PART OR UNSPECIFIED REMISSION 05/06/2011 [facility], ERIKA R 296.65 MO BIPOLAR I MIXED PART OR UNSPECIFIED REMISSION 05/06/2011 [facility], ERIKA R 296.65 MO BIPOLAR I MIXED PART OR UNSPECIFIED REMISSION 05/06/2011 [facility], ERIKA R 296.65 MO BIPOLAR I MIXED PART OR UNSPECIFIED REMISSION 05/06/2011 [facility], ERIKA R 296.65 MO BIPOLAR I MIXED PART OR UNSPECIFIED REMISSION 05/06/2011 [facility], ERIKA R 296.65 MO BIPOLAR I MIXED PART OR UNSPECIFIED REMISSION 05/06/2011 [facility], ERIKA R 296.65 MO BIPOLAR I MIXED PART OR UNSPECIFIED REMISSION 05/06/2011 [facility], ERIKA R 296.65 MO BIPOLAR I MIXED PART OR UNSPECIFIED REMISSION 05/06/2011 [facility], ERIKA R 296.65 MO BIPOLAR I MIXED PART OR UNSPECIFIED REMISSION 05/06/2011 [facility], ERIKA R 296.65 MO BIPOLAR I MIXED PART OR UNSPECIFIED REMISSION 05/06/2011 [facility], ERIKA R 296.65 MO BIPOLAR I MIXED PART OR UNSPECIFIED REMISSION 05/06/2011 [facility], ERIKA R 296.65 MO BIPOLAR I MIXED PART OR UNSPECIFIED REMISSION 05/06/2011 [facility], ERIKA R 296.65 MO BIPOLAR I MIXED PART OR UNSPECIFIED REMISSION 05/06/2011 [facility], ERIKA R 296.65 MO BIPOLAR I MIXED PART OR UNSPECIFIED REMISSION 05/06/2011 [facility], ERIKA R 296.65 MO BIPOLAR I MIXED PART OR UNSPECIFIED REMISSION 05/06/2011 [facility], ERIKA R 296.65 MO BIPOLAR I MIXED PART OR UNSPECIFIED REMISSION 05/06/2011 [facility], ERIKA R 296.65 MO BIPOLAR I MIXED PART OR UNSPECIFIED REMISSION 05/06/2011 [facility], ERIKA R 296.65 MO BIPOLAR I MIXED PART OR UNSPECIFIED REMISSION 05/06/2011 [facility], ERIKA R 296.65 MO BIPOLAR I MIXED PART OR UNSPECIFIED REMISSION 05/06/2011 [facility], ERIKA R 296.65 MO BIPOLAR I MIXED PART OR UNSPECIFIED REMISSION 05/06/2011 [facility], ERIKA R 296.65 MO BIPOLAR I MIXED PART OR UNSPECIFIED REMISSION 05/06/2011 [facility], ERIKA R 296.65 MO BIPOLAR I MIXED PART OR UNSPECIFIED REMISSION 05/24/2011 296.64 MO BIPOLAR I MIXED W PSYCHOTIC BEHAVIOR 05/24/2011 296.64 MO BIPOLAR I MIXED W PSYCHOTIC BEHAVIOR 05/24/2011 [facility], ERIKA R 296.64 MO BIPOLAR I MIXED W PSYCHOTIC BEHAVIOR 05/24/2011 296.64 MO BIPOLAR I MIXED W PSYCHOTIC BEHAVIOR 05/24/2011 296.64 MO BIPOLAR I MIXED W PSYCHOTIC BEHAVIOR 05/24/2011 296.64 MO BIPOLAR I MIXED W PSYCHOTIC BEHAVIOR 05/24/2011 296.64 MO BIPOLAR I MIXED W PSYCHOTIC BEHAVIOR 05/24/2011 296.64 MO BIPOLAR I MIXED W PSYCHOTIC BEHAVIOR 05/24/2011 [facility], ERIKA R 296.64 MO BIPOLAR I MIXED W PSYCHOTIC BEHAVIOR 05/24/2011 [facility], ERIKA R 296.64 MO BIPOLAR I MIXED W PSYCHOTIC BEHAVIOR 05/24/2011 [facility], ERIKA R 296.64 MO BIPOLAR I MIXED W PSYCHOTIC BEHAVIOR 05/24/2011 [facility], ERIKA R 296.64 MO BIPOLAR I MIXED W PSYCHOTIC BEHAVIOR 05/24/2011 [facility], ERIKA R 296.64 MO BIPOLAR I MIXED W PSYCHOTIC BEHAVIOR 05/24/2011 [facility], ERIKA R 296.64 MO BIPOLAR I MIXED W PSYCHOTIC BEHAVIOR 05/24/2011 [facility], ERIKA R 296.64 MO BIPOLAR I MIXED W PSYCHOTIC BEHAVIOR 05/24/2011 [facility], ERIKA R 296.64 MO BIPOLAR I MIXED W PSYCHOTIC BEHAVIOR 05/24/2011 [facility], ERIKA R 296.64 MO BIPOLAR I MIXED W PSYCHOTIC BEHAVIOR 05/24/2011 [facility], ERIKA R 296.64 MO BIPOLAR I MIXED W PSYCHOTIC BEHAVIOR 05/24/2011 [facility], ERIKA R 296.64 MO BIPOLAR I MIXED W PSYCHOTIC BEHAVIOR 05/24/2011 [facility], ERIKA R 296.64 MO BIPOLAR I MIXED W PSYCHOTIC BEHAVIOR 05/24/2011 [facility], ERIKA R 296.64 MO BIPOLAR I MIXED W PSYCHOTIC BEHAVIOR 05/24/2011 [facility], ERIKA R 296.64 MO BIPOLAR I MIXED W PSYCHOTIC BEHAVIOR 05/24/2011 [facility], ERIKA R 296.64 MO BIPOLAR I MIXED W PSYCHOTIC BEHAVIOR 05/24/2011 [facility], ERIKA R 296.64 MO BIPOLAR I MIXED W PSYCHOTIC BEHAVIOR 05/24/2011 [facility], ERIKA R 296.64 MO BIPOLAR I MIXED W PSYCHOTIC BEHAVIOR 05/24/2011 [facility], ERIKA R 296.64 MO BIPOLAR I MIXED W PSYCHOTIC BEHAVIOR 05/24/2011 [facility], ERIKA R 296.64 MO BIPOLAR I MIXED W PSYCHOTIC BEHAVIOR 05/24/2011 [facility], ERIKA R 296.64 MO BIPOLAR I MIXED W PSYCHOTIC BEHAVIOR 05/24/2011 [facility], ERIKA R 296.64 MO BIPOLAR I MIXED W PSYCHOTIC BEHAVIOR 05/24/2011 [facility], ERIKA R 296.64 MO BIPOLAR I MIXED W PSYCHOTIC BEHAVIOR 05/24/2011 [facility], ERIKA R 296.64 MO BIPOLAR I MIXED W PSYCHOTIC BEHAVIOR 09/22/2011 300.02 AN GEN ANXIETY 09/22/2011 300.02 AN GEN ANXIETY 09/22/2011 [facility], ERIKA R 300.02 AN GEN ANXIETY 09/22/2011 300.02 AN GEN ANXIETY 09/22/2011 300.02 AN GEN ANXIETY 09/22/2011 300.02 AN GEN ANXIETY 09/22/2011 300.02 AN GEN ANXIETY 09/22/2011 300.02 AN GEN ANXIETY 09/22/2011 [facility], ERIKA R 300.02 AN GEN ANXIETY 09/22/2011 [facility], ERIKA R 300.02 AN GEN ANXIETY 09/22/2011 [facility], ERIKA R 300.02 AN GEN ANXIETY 09/22/2011 [facility], ERIKA R 300.02 AN GEN ANXIETY 09/22/2011 [facility], ERIKA R 300.02 AN GEN ANXIETY 09/22/2011 [facility], ERIKA R 300.02 AN GEN ANXIETY 09/22/2011 [facility], ERIKA R 300.02 AN GEN ANXIETY 09/22/2011 [facility], ERIKA R 300.02 AN GEN ANXIETY 09/22/2011 [facility], ERIKA R 300.02 AN GEN ANXIETY 09/22/2011 [facility], ERIKA R 300.02 AN GEN ANXIETY 09/22/2011 [facility], ERIKA R 300.02 AN GEN ANXIETY 09/22/2011 [facility], ERIKA R 300.02 AN GEN ANXIETY 09/22/2011 [facility], ERIKA R 300.02 AN GEN ANXIETY 09/22/2011 [facility], ERIKA R 300.02 AN GEN ANXIETY 09/22/2011 [facility], ERIKA R 300.02 AN GEN ANXIETY 09/22/2011 [facility], ERIKA R 300.02 AN GEN ANXIETY 09/22/2011 [facility], ERIKA R 300.02 AN GEN ANXIETY 09/22/2011 [facility], ERIKA R 300.02 AN GEN ANXIETY 09/22/2011 [facility], ERIKA R 300.02 AN GEN ANXIETY 09/22/2011 [facility], ERIKA R 300.02 AN GEN ANXIETY 09/22/2011 [facility], ERIKA R 300.02 AN GEN ANXIETY 09/22/2011 [facility], ERIKA R 300.02 AN GEN ANXIETY 09/22/2011 [facility], ERIKA R 300.02 AN GEN ANXIETY 10/27/2011 296.89 MO BIPOLAR II 10/27/2011 296.89 MO BIPOLAR II 10/27/2011 [facility], ERIKA R 296.89 MO BIPOLAR II 10/27/2011 296.89 MO BIPOLAR II 10/27/2011 296.89 MO BIPOLAR II 10/27/2011 296.89 MO BIPOLAR II 10/27/2011 296.89 MO BIPOLAR II 10/27/2011 296.89 MO BIPOLAR II 10/27/2011 [facility], ERIKA R 296.89 MO BIPOLAR II 10/27/2011 [facility], ERIKA R 296.89 MO BIPOLAR II 10/27/2011 [facility], ERIKA R 296.89 MO BIPOLAR II 10/27/2011 [facility], ERIKA R 296.89 MO BIPOLAR II 10/27/2011 [facility], ERIKA R 296.89 MO BIPOLAR II 10/27/2011 [facility] 296.89 MO BIPOLAR II 10/27/2011 [facility] E[facility]KA R 296.89 MO BIPOLAR II 10/27/2011 [facility] E[facility]KA R 296.89 MO BIPOLAR II 10/27/2011 [facility] E[facility]KA R 296.89 MO BIPOLAR II 10/27/2011 [facility] E[facility]KA R 296.89 MO BIPOLAR II 10/27/2011 [facility], ERIKA R 296.89 MO BIPOLAR II 10/27/2011 [facility], ERIKA R 296.89 MO BIPOLAR II 10/27/2011 [facility], ERIKA R 296.89 MO BIPOLAR II 10/27/2011 [facility] R 296.89 MO BIPOLAR II 10/27/2011 [facility], E[facility]KA R 296.89 MO BIPOLAR II 10/27/2011 [facility], E[facility]KA R 296.89 MO BIPOLAR II 10/27/2011 [facility], ERIKA R 296.89 MO BIPOLAR II 10/27/2011 [facility], ERIKA R 296.89 MO BIPOLAR II 10/27/2011 [facility], ERIKA R 296.89 MO BIPOLAR II 10/27/2011 [facility], ERIKA R 296.89 MO BIPOLAR II 10/27/2011 [facility], ERIKA R 296.89 MO BIPOLAR II 10/27/2011 [facility]KA R 296.89 MO BIPOLAR II 10/27/2011 [facility], ERIKA R 296.89 MO BIPOLAR II 01/19/2012 Ot 574.20 CHOLELITHIASIS NOS 04/03/2012 296.63 MO BIPOLAR I MIXED SEVERE W/O PSYCHOTIC BEHAVIOR 04/03/2012 296.63 MO BIPOLAR I MIXED SEVERE W/O PSYCHOTIC BEHAVIOR 04/03/2012 [facility], ERIKA R 296.63 MO BIPOLAR I MIXED SEVERE W/O PSYCHOTIC BEHAVIOR 04/03/2012 296.63 MO BIPOLAR I MIXED SEVERE W/O PSYCHOTIC BEHAVIOR 04/03/2012 296.63 MO BIPOLAR I MIXED SEVERE W/O PSYCHOTIC BEHAVIOR 04/03/2012 296.63 MO BIPOLAR I MIXED SEVERE W/O PSYCHOTIC BEHAVIOR 04/03/2012 296.63 MO BIPOLAR I MIXED SEVERE W/O PSYCHOTIC BEHAVIOR 04/03/2012 296.63 MO BIPOLAR I MIXED SEVERE W/O PSYCHOTIC BEHAVIOR 04/03/2012 [facility], ERIKA R 296.63 MO BIPOLAR I MIXED SEVERE W/O PSYCHOTIC BEHAVIOR 04/03/2012 [facility], ERIKA R 296.63 MO BIPOLAR I MIXED SEVERE W/O PSYCHOTIC BEHAVIOR 04/03/2012 [facility], ERIKA R 296.63 MO BIPOLAR I MIXED SEVERE W/O PSYCHOTIC BEHAVIOR 04/03/2012 [facility], ERIKA R 296.63 MO BIPOLAR I MIXED SEVERE W/O PSYCHOTIC BEHAVIOR 04/03/2012 [facility], ERIKA R 296.63 MO BIPOLAR I MIXED SEVERE W/O PSYCHOTIC BEHAVIOR 04/03/2012 [facility], ERIAK R 296.63 MO BIPOLAR I MIXED SEVERE W/O PSYCHOTIC BEHAVIOR 04/03/2012 [facility], ERIKA R 296.63 MO BIPOLAR I MIXED SEVERE W/O PSYCHOTIC BEHAVIOR 04/03/2012 [facility], ERIKA R 296.63 MO BIPOLAR I MIXED SEVERE W/O PSYCHOTIC BEHAVIOR 04/03/2012 [facility], ERIKA R 296.63 MO BIPOLAR I MIXED SEVERE W/O PSYCHOTIC BEHAVIOR 04/03/2012 [facility], ERIKA R 296.63 MO BIPOLAR I MIXED SEVERE W/O PSYCHOTIC BEHAVIOR 04/03/2012 [facility], ERIKA R 296.63 MO BIPOLAR I MIXED SEVERE W/O PSYCHOTIC BEHAVIOR 04/03/2012 [facility], ERIKA R 296.63 MO BIPOLAR I MIXED SEVERE W/O PSYCHOTIC BEHAVIOR 04/03/2012 [facility], ERIKA R 296.63 MO BIPOLAR I MIXED SEVERE W/O PSYCHOTIC BEHAVIOR 04/03/2012 [facility], ERIKA R 296.63 MO BIPOLAR I MIXED SEVERE W/O PSYCHOTIC BEHAVIOR 04/03/2012 [facility], ERIKA R 296.63 MO BIPOLAR I MIXED SEVERE W/O PSYCHOTIC BEHAVIOR 04/03/2012 [facility], ERIKA R 296.63 MO BIPOLAR I MIXED SEVERE W/O PSYCHOTIC BEHAVIOR 04/03/2012 [facility], ERIKA R 296.63 MO BIPOLAR I MIXED SEVERE W/O PSYCHOTIC BEHAVIOR 04/03/2012 [facility], ERIKA R 296.63 MO BIPOLAR I MIXED SEVERE W/O PSYCHOTIC BEHAVIOR 04/03/2012 [facility], ERIKA R 296.63 MO BIPOLAR I MIXED SEVERE W/O PSYCHOTIC BEHAVIOR 04/03/2012 [facility], ERIKA R 296.63 MO BIPOLAR I MIXED SEVERE W/O PSYCHOTIC BEHAVIOR 04/03/2012 [facility], ERIKA R 296.63 MO BIPOLAR I MIXED SEVERE W/O PSYCHOTIC BEHAVIOR 04/03/2012 [facility], ERIKA R 296.63 MO BIPOLAR I MIXED SEVERE W/O PSYCHOTIC BEHAVIOR 04/03/2012 [facility], ERIKA R 296.63 MO BIPOLAR I MIXED SEVERE W/O PSYCHOTIC BEHAVIOR 05/03/2012 296.53 MO BIPOLAR I SEVERE W/O PSYCHOTIC BEHAVIOR 05/03/2012 296.53 MO BIPOLAR I SEVERE W/O PSYCHOTIC BEHAVIOR 05/03/2012 [facility], ERIKA R 296.53 MO BIPOLAR I SEVERE W/O PSYCHOTIC BEHAVIOR 05/03/2012 296.53 MO BIPOLAR I SEVERE W/O PSYCHOTIC BEHAVIOR 05/03/2012 296.53 MO BIPOLAR I SEVERE W/O PSYCHOTIC BEHAVIOR 05/03/2012 296.53 MO BIPOLAR I SEVERE W/O PSYCHOTIC BEHAVIOR 05/03/2012 296.53 MO BIPOLAR I SEVERE W/O PSYCHOTIC BEHAVIOR 05/03/2012 296.53 MO BIPOLAR I SEVERE W/O PSYCHOTIC BEHAVIOR 05/03/2012 [facility], ERIKA R 296.53 MO BIPOLAR I SEVERE W/O PSYCHOTIC BEHAVIOR 05/03/2012 [facility], ERIKA R 296.53 MO BIPOLAR I SEVERE W/O PSYCHOTIC BEHAVIOR 05/03/2012 [facility], ERIKA R 296.53 MO BIPOLAR I SEVERE W/O PSYCHOTIC BEHAVIOR 05/03/2012 [facility], ERIKA R 296.53 MO BIPOLAR I SEVERE W/O PSYCHOTIC BEHAVIOR 05/03/2012 [facility], ERIKA R 296.53 MO BIPOLAR I SEVERE W/O PSYCHOTIC BEHAVIOR 05/03/2012 [facility], ERIKA R 296.53 MO BIPOLAR I SEVERE W/O PSYCHOTIC BEHAVIOR 05/03/2012 [facility], ERIKA R 296.53 MO BIPOLAR I SEVERE W/O PSYCHOTIC BEHAVIOR 05/03/2012 [facility], E[facility] R 296.53 MO BIPOLAR I SEVERE W/O PSYCHOTIC BEHAVIOR 05/03/2012 [facility], ERIKA R 296.53 MO BIPOLAR I SEVERE W/O PSYCHOTIC BEHAVIOR 05/03/2012 [facility], ERIKA R 296.53 MO BIPOLAR I SEVERE W/O PSYCHOTIC BEHAVIOR 05/03/2012 [facility], ERIKA R 296.53 MO BIPOLAR I SEVERE W/O PSYCHOTIC BEHAVIOR 05/03/2012 [facility], ERIKA R 296.53 MO BIPOLAR I SEVERE W/O PSYCHOTIC BEHAVIOR 05/03/2012 [facility], ERIKA R 296.53 MO BIPOLAR I SEVERE W/O PSYCHOTIC BEHAVIOR 05/03/2012 [facility], ERIKA R 296.53 MO BIPOLAR I SEVERE W/O PSYCHOTIC BEHAVIOR 05/03/2012 [facility], ERIKA R 296.53 MO BIPOLAR I SEVERE W/O PSYCHOTIC BEHAVIOR 05/03/2012 [facility], ERIKA R 296.53 MO BIPOLAR I SEVERE W/O PSYCHOTIC BEHAVIOR 05/03/2012 [facility], ERIKA R 296.53 MO BIPOLAR I SEVERE W/O PSYCHOTIC BEHAVIOR 05/03/2012 [facility], ERIKA R 296.53 MO BIPOLAR I SEVERE W/O PSYCHOTIC BEHAVIOR 05/03/2012 [facility], ERIKA R 296.53 MO BIPOLAR I SEVERE W/O PSYCHOTIC BEHAVIOR 05/03/2012 [facility], ERIKA R 296.53 MO BIPOLAR I SEVERE W/O PSYCHOTIC BEHAVIOR 05/03/2012 [facility], ERIKA R 296.53 MO BIPOLAR I SEVERE W/O PSYCHOTIC BEHAVIOR 05/03/2012 [facility], ERIKA R 296.53 MO BIPOLAR I SEVERE W/O PSYCHOTIC BEHAVIOR 05/03/2012 [facility], EIRKA R 296.53 MO BIPOLAR I SEVERE W/O PSYCHOTIC BEHAVIOR 07/05/2013 [facility], ERIKA R 296.41 MO BIPOLAR I MANIC MILD 07/05/2013 [facility], ERIKA R 296.41 MO BIPOLAR I MANIC MILD 07/05/2013 [facility], ERIKA R 296.41 MO BIPOLAR I MANIC MILD 07/05/2013 [facility], ERIKA R 296.41 MO BIPOLAR I MANIC MILD 07/05/2013 [facility], ERIKA R 296.41 MO BIPOLAR I MANIC MILD 07/05/2013 [facility], ERIKA R 296.41 MO BIPOLAR I MANIC MILD 07/05/2013 [facility], ERIKA R 296.41 MO BIPOLAR I MANIC MILD 07/05/2013 [facility], ERIKA R 296.41 MO BIPOLAR I MANIC MILD 07/05/2013 [facility], ERIKA R 296.41 MO BIPOLAR I MANIC MILD 07/05/2013 [facility], ERIKA R 296.41 MO BIPOLAR I MANIC MILD 07/05/2013 [facility], ERIKA R 296.41 MO BIPOLAR I MANIC MILD 07/05/2013 [facility], ERIKA R 296.41 MO BIPOLAR I MANIC MILD 07/05/2013 [facility], ERIKA R 296.41 MO BIPOLAR I MANIC MILD 07/05/2013 [facility], ERIKA R 296.41 MO BIPOLAR I MANIC MILD 07/05/2013 [facility], ERIKA R 296.41 MO BIPOLAR I MANIC MILD 07/05/2013 [facility], ERIKA R 296.41 MO BIPOLAR I MANIC MILD 07/05/2013 [facility], ERIKA R 296.41 MO BIPOLAR I MANIC MILD 07/05/2013 [facility], ERIKA R 296.41 MO BIPOLAR I MANIC MILD 07/05/2013 [facility], ERIKA R 296.41 MO BIPOLAR I MANIC MILD 07/05/2013 [facility], [place] R 296.41 MO BIPOLAR I MANIC MILD 07/05/2013 [facility], E[place]KA R 296.41 MO BIPOLAR I MANIC MILD 07/05/2013 [facility], [place]KA R 296.41 MO BIPOLAR I MANIC MILD [...] Ot 574.20 CHOLELITHIASIS NOS 01/18/2017 Ot V72.63 PRE-PROCEDURAL LABORATORY EXAMINATION 01/18/2017 Ot V74.8 SCREEN-BACTERIAL DIS NEC 01/18/2017 Ot V76.12 OTH SCREEN MAMMO- MALIGN NEOPLASM OF ALONZO 01/18/2017 Ot V82.81 SCREENING FOR OSTEOPOROSIS 01/18/2017 Ot 786.50 CHEST PAIN NOS 01/18/2017 MELLY GOODMAN, ANGELINA Bear Ot V76.12 OTH SCREEN MAMMO-MALIGN NEOPLASM OF [...] Ot 574.20 CHOLELITHIASIS NOS 01/18/2017 Ot V72.63 PRE-PROCEDURAL LABORATORY EXAMINATION 01/18/2017 Ot V74.8 SCREEN-BACTERIAL DIS NEC 01/18/2017 Ot V76.12 OTH SCREEN MAMMO- MALIGN NEOPLASM OF ALONZO 01/18/2017 Ot V82.81 SCREENING FOR OSTEOPOROSIS 01/18/2017 Ot 786.50 CHEST PAIN NOS 01/18/2017 ANGELINA PICKARD MD Ot V76.12 OTH SCREEN MAMMO-MALIGN NEOPLASM OF ALONZO 01/18/2017 ANGELINA PICKARD MD Ot 611.89 OTHER SPECIFIED DISORDERS OF BREAST 01/18/2017 ANGELINA PICKARD MD Ot 793.80 UNSPEC ABNORMAL MAMMOGRAM 01/18/2017 ANGELINA PICKARD MD Ot 793.80 UNSPEC ABNORMAL MAMMOGRAM 01/18/2017 ANEGLINA PICKARD MD Ot 786.2 COUGH 01/18/2017 Ot [...] ENCOUNTER FOR SCREENING FOR MALIGNANT NE 11/30/2017 FREYA ECKERT MD Ot Z01.818 ENCOUNTER FOR OTHER PREPROCEDURAL EXAMIN 11/30/2017 TOMEKA GOODMAN, FREYA Evangelista Ot Z12.11 ENCOUNTER FOR SCREENING FOR MALIGNANT NE 12/05/2017 Ot V76.12 OTH SCREEN MAMMO- MALIGN NEOPLASM OF ALONZO 12/05/2017 Ot V82.81 SCREENING [...] SCREENING FOR MALIGNANT NE 02/10/2018 LUCIE BREEN COVERING MACHINE OPERATOR Ot E78.00 PURE HYPERCHOLESTEROLEMIA, UNSPECIFIED 02/10/2018 LUCIE BREEN COVERING MACHINE OPERATOR Ot E87.6 HYPOKALEMIA 02/10/2018 LUCIE BREEN APRN Ot F31.9 BIPOLAR DISORDER, UNSPECIFIED 02/10/2018 LUCIE BREEN COVERING MACHINE OPERATOR Ot I10 ESSENTIAL (PRIMARY) HYPERTENSION 02/10/2018 LUCIE BREEN COVERING MACHINE OPERATOR Ot J45.909 UNSPECIFIED ASTHMA, UNCOMPLICATED 02/10/2018 LUCIE BREEN APRN Ot N39.0 URINARY TRACT INFECTION, SITE NOT SPECIF 02/10/2018 LUCIE BREEN APRN Ot R30.0 DYSURIA 02/10/2018 LUCIE BREEN COVERING MACHINE OPERATOR Ot Z87.59 PERSONAL HISTORY OF COMP OF PREG, CHLDBR 02/10/2018 LUCIE BREEN COVERING MACHINE OPERATOR Ot Z88.1 ALLERGY STATUS TO OTHER ANTIBIOTIC [...] COMP OF PREG, CHLDBR 02/13/2018 LUCIE BREEN COVERING MACHINE OPERATOR Ot Z88.1 ALLERGY STATUS TO OTHER ANTIBIOTIC AGENT 02/13/2018 LUCIE BREEN COVERING MACHINE OPERATOR Ot Z90.710 ACQUIRED ABSENCE OF BOTH CERVIX AND UTER 08/16/2018 MELLY GOODMAN, ANGELINA Bear Ot V76.12 OTH SCREEN MAMMO-MALIGN NEOPLASM OF ALONZO 08/16/2018 ANGELINA [...] MAMMOGRAM FOR MALIGNANT NE 09/06/2018 ANGELINA PICKARD MD Ot Z12.31 ENCNTR SCREEN MAMMOGRAM FOR MALIGNANT NE 12/16/2018 CHRISTIANA BARAJAS MD Ot E78.00 PURE HYPERCHOLESTEROLEMIA, UNSPECIFIED 12/16/2018 CHRISTIANA BARAJAS MD Ot F31.9 BIPOLAR DISORDER, UNSPECIFIED 12/16/2018 CHRISTIANA BARAJAS MD Ot I10 ESSENTIAL (PRIMARY) HYPERTENSION 12/16/2018 CHRISTIANA BARAJAS MD Ot J45.909 UNSPECIFIED ASTHMA, UNCOMPLICATED 12/16/2018 CHRISTIANA BARAJAS MD Ot N39.0 URINARY TRACT INFECTION, SITE NOT SPECIF 12/16/2018 CHRISTIANA BARAJAS MD Ot R30.0 DYSURIA 12/16/2018 CHRISTIANA BARAJAS MD Ot Z88.1 ALLERGY STATUS TO OTHER ANTIBIOTIC AGENT 12/16/2018 CHRISTIANA BARAJAS MD Ot Z90.710 ACQUIRED ABSENCE OF BOTH CERVIX AND UTER 12/16/2018 CHRISTIANA BARAJAS MD Ot Z98.890 OTHER SPECIFIED POSTPROCEDURAL STATES 12/19/2018 CHRISTIANA BARAJAS MD Ot E78.00 PURE HYPERCHOLESTEROLEMIA, UNSPECIFIED 12/19/2018 CHRISTIANA BARAJAS MD Ot F31.9 BIPOLAR DISORDER, UNSPECIFIED 12/19/2018 CHRISTIANA BARAJAS MD Ot I10 ESSENTIAL (PRIMARY) HYPERTENSION 12/19/2018 CHRISTIANA BARAJAS MD Ot J45.909 UNSPECIFIED ASTHMA, UNCOMPLICATED 12/19/2018 CHRISTIAAN BARAJAS MD Ot N39.0 URINARY TRACT INFECTION, SITE NOT SPECIF 12/19/2018 CHRISTIANA BARAJAS MD Ot R30.0 DYSURIA 12/19/2018 CHRISTIANA BARAJAS MD Ot Z88.1 ALLERGY STATUS TO OTHER ANTIBIOTIC AGENT 12/19/2018 CHRISTIANA BARAJAS MD Ot Z90.710 ACQUIRED ABSENCE OF BOTH CERVIX AND UTER 12/19/2018 KARL GOODMAN, CHRISTIANA Carey Ot Z98.890 OTHER SPECIFIED POSTPROCEDURAL STATES Procedures Code [place] [address] INDIV PSYTX 45/50 MIN 08/24/2012 86717 INDIV PSYTX 45/50 MIN 09/14/2012 25353 PSYTX PT&/FAMILY 45 MINUTES 11/15/2012 11626 PSYTX PT&/FAMILY 45 MINUTES 12/06/2012 44259 PSYTX PT&/FAMILY 45 MINUTES 12/19/2012 22456 PSYTX PT&/FAMILY 45 MINUTES 02/09/2013 08017 PSYTX PT&/FAMILY 45 MINUTES 04/04/2013 86139 PSYTX PT&/FAMILY 60 MINUTES 04/12/2013 86751 PSYTX PT&/FAMILY 45 MINUTES 06/06/2013 15504 PSYTX PT&/FAMILY 45 MINUTES 06/21/2013 07045 PSYTX PT&/FAMILY 45 MINUTES 07/05/2013 14392 PSYTX PT&/FAMILY 45 MINUTES 07/25/2013 92066 PSYTX PT&/FAMILY 45 MINUTES 08/08/2013 93034 PSYTX PT&/FAMILY 45 MINUTES 08/22/2013 12732 PSYTX PT&/FAMILY 45 MINUTES 09/05/2013 78360 PSYTX PT&/FAMILY 45 MINUTES 09/26/2013 45349 PSYTX PT&/FAMILY 45 MINUTES 11/09/2013 15269 PSYTX PT&/FAMILY 45 MINUTES 11/29/2013 28466 PSYTX PT&/FAMILY 45 MINUTES 12/21/2013 59464 PSYTX PT&/FAMILY 45 MINUTES 01/16/2014 55725 PSYTX PT&/FAMILY 45 MINUTES 01/29/2014 79223 PSYTX PT&/FAMILY 45 MINUTES 02/15/2014 41444 PSYTX PT&/FAMILY 45 MINUTES 02/26/2014 23021 PSYTX PT&/FAMILY 45 MINUTES 04/16/2014 73421 PSYTX PT&/FAMILY 45 MINUTES 05/28/2014 48941 PSYTX PT&/FAMILY 45 MINUTES 07/11/2014 48212 PSYTX PT&/FAMILY 45 MINUTES 08/29/2014 77503 PSYTX PT&/FAMILY 45 MINUTES 10/29/2014 93123 PSYTX PT&/FAMILY 45 MINUTES 01/08/2015 58090 PSYTX PT&/FAMILY 45 MINUTES 01/13/2015 10649 PSYTX PT&/FAMILY 45 MINUTES 01/29/2015 Results Test Result Range Complete urinalysis with reflex to culture - 02/10/18 14:10 Urine color determination YELLOW NRG Urine clarity determination SLIGHTLY CLOUDY NRG Urine pH measurement by test strip 6 5-9 Specific gravity of urine by test strip 1.015 1.016-1.022 Urine protein assay by test strip, semi-quantitative [...] sediment leukocyte count by microscopy (number/high power field) [HPF] NRG Bacteria detection in urine sediment by light microscopy MODERATE NRG Crystals detection in urine sediment by light microscopy NONE NRG Casts detection in urine sediment by light microscopy NONE NRG Mucus detection in urine sediment by light microscopy NEGATIVE NRG Complete urinalysis with reflex to culture YES NRG Bacterial urine culture - 02/10/18 14:10 Bacterial urine culture [id number] NRG COLONY COUNT >100,000/ML NRG FTX;REPORTABLE SENSITIVITY REPORTED 02/11/18 16:50 NRG FREE TEXT ENTRY 2 PLUS, MIXED GRAM POSITIVES <10,000/ML NR Bacterial susceptibility panel - 02/10/18 14:10 Gentamicin susceptibility test by minimum inhibitory concentration <= NRG Trimethoprim/sulfamethoxazole susceptibility test by minimum inhibitoryconcentration S NRG Ampicillin susceptibility test by minimum inhibitory concentration <= NRG Tobramycin susceptibility test by minimum inhibitory concentration <= NRG Cefazolin susceptibility test by minimum inhibitory concentration <= NRG Ceftriaxone susceptibility test by minimum inhibitory concentration <= NRG Ampicillin/sulbactam susceptibility test by minimum inhibitory concentration S NRG Piperacillin/tazobactam susceptibility test by minimum inhibitory concentration S NRG Ciprofloxacin susceptibility test by minimum inhibitory concentration <= NRG Meropenem susceptibility test by minimum inhibitory concentration <= NRG Nitrofurantoin susceptibility test by minimum inhibitory concentration <= NRG Aztreonam susceptibility test by minimum inhibitory concentration <= NRG Extended spectrum beta lactamase (ESBL) producing [...] Automated erythrocyte mean corpuscular hemoglobin concentration measurement (mass/volume) 35 g/dL 32-36 Automated erythrocyte distribution width ratio 14.0 % 10.0- 14.5 Automated blood platelet count (count/volume) 305 10*3/uL [...] Blood monocytes automated count (number/volume) 1.4 10*3 0.0- 1.0 Automated eosinophil count 0.1 10*3/uL 0.0-0.3 Automated [...] Blood erythrocyte morphology finding identification NORMAL NRG Complete urinalysis with reflex to culture - 12/16/18 07:45 Urine color determination YELLOW NRG Urine clarity determination VERY CLOUDY NRG Urine pH measurement by test strip 7 5-9 Specific gravity of urine by test strip 1.010 1.016-1.022 Urine protein assay by test strip, semi-quantitative 3+ NEGATIVE Urine glucose detection by automated test strip NEGATIVE NEGATIVE Erythrocytes detection in urine sediment by light microscopy 5+ NEGATIVE Urine ketones detection by automated test strip NEGATIVE NEGATIVE Urine nitrite detection by test strip NEGATIVE NEGATIVE Urine total bilirubin detection by test strip NEGATIVE NEGATIVE Urine urobilinogen measurement by automated test strip (mass/volume) 1 mg/dL NORMAL Urine leukocyte esterase detection by dipstick 3+ NEGATIVE Automated urine sediment erythrocyte count by microscopy (number/high power field) TNTC NRG Automated urine sediment leukocyte count by microscopy (number/high power field) TNTC NRG Bacteria detection in urine sediment by light microscopy TRACE NRG Crystals detection in urine sediment by light microscopy NONE NRG Casts detection in urine sediment by light microscopy NONE NRG Mucus detection in urine sediment by light microscopy NEGATIVE NRG Complete urinalysis with reflex to culture YES NRG Bacterial urine culture - 12/16/18 07:45 Bacterial urine culture 3 OR MORE NRG COLONY COUNT 30,000 CFU/ML NRG FTX;REPORTABLE SUGGESTING PROBABLE COLLECTION NRG FREE TEXT ENTRY 2 CONTAMINATION WITH SKIN BOBBY NRG FREE TEXT ENTRY 3 NO SUSCEPTIBILITY PERFORMED NRG Encounters ACCT No. Visit Date/Time Discharge Status Pt. Type Provider Facility Loc./Unit Complaint [id number] 03/29/2019 10:30:00 03/29/2019 23:59:59 C[id number] 12/16/2018 07:14:00 12/16/2018 08:50:00 DIS Emergency CHRISTIANA BARAJAS MD [facility] ER POSSIBLE UTI [id number] 08/16/2018 10:29:00 08/16/2018 23:59:59 CLS Outpatient ANGELINA PICKARD MD [facility] RAD SCREENING [id number] 02/10/2018 12:51:00 02/10/2018 17:38:00 DIS Emergency LUCIE BREEN APRN [facility] ER UTI SYMTOMS [id number] 12/05/2017 08:49:00 12/05/2017 12:15:00 DIS Outpatient FREYA ECKERT MD [facility] ENDO SCREENING [id number] 11/28/2017 05:36:00 11/28/2017 15:07:00 DIS Outpatient FREYA ECKERT MD [facility] PREOP COLONOSCOPY [id number] 07/28/2017 10:32:00 07/28/2017 23:59:59 CLS Outpatient ANGELINA PICKARD MD [facility] RAD SCREENING [id number] 01/18/2017 10:30:00 01/18/2017 23:59:59 CLS Outpatient ANGELINA PICKARD MD [facility] RAD ABD PAIN [id number] 05/27/2015 11:57:00 05/27/2015 23:59:59 CLS Outpatient ANGELINA PICKARD MD [facility] RAD CHRONIC COUGH [id number] 03/03/2015 09:14:00 03/03/2015 23:59:59 CLS Outpatient ANGELINA PICKARD MD [facility] RAD FOLLOW UP [id number] 01/23/2014 08:00:00 01/23/2014 23:59:59 CLS Outpatient NAGELINA PICKARD MD [facility] RAD ABNORMAL MAMMO [id number] 01/09/2014 09:50:00 01/09/2014 23:59:59 CLS Outpatient ANGELINA PICKARD MD [facility] RAD SCREENING [id number] 11/06/2015 10:06:00 Document Registration [id number] 02/05/2013 11:19:00 Document Registration [id number] 01/12/2013 10:13:00 Document Registration [id number] 01/19/2012 05:34:00 Document Registration [id number] 01/13/2012 13:06:00 Document Registration [id number] 01/05/2012 07:57:00 Document Registration [id number] 06/18/2010 08:33:00 Document Registration [id number] 01/29/2015 10:59:00 01/29/2015 23:59:59 CLS Outpatient [facility], ERIKA Franks [id number] 01/13/2015 11:49:00 01/13/2015 23:59:59 CLS Outpatient [facility], ERIKA Franks [id number] 01/08/2015 09:56:00 01/08/2015 23:59:59 CLS Outpatient [facility], ERIKA Franks [id number] 11/12/2014 16:59:00 11/12/2014 23:59:59 C[facility] Outpatient [facility], ERIKA Franks [id number] 10/29/2014 12:50:00 10/29/2014 23:59:59 [facility] Outpatient [facility], ERIKA Franks [id number] 08/29/2014 12:59:00 08/29/2014 23:59:59 [facility] Outpatient [facility], ERIKA Franks [id number] 07/11/2014 13:57:00 07/11/2014 23:59:59 [facility] Outpatient [facility], ERIAK R [id number] 05/28/2014 10:56:00 05/28/2014 23:59:59 [facility] Outpatient [facility], ERIKA Franks [id number] 04/16/2014 09:53:00 04/16/2014 23:59:59 [facility] Outpatient [facility], ERIKA Franks [id number] 02/26/2014 15:56:00 02/26/2014 23:59:59 [facility] Outpatient [facility], ERIKA Tiny [id number] 02/14/2014 13:49:00 02/14/2014 23:59:59 C[facility] Outpatient [facility], ERIKA Tiny [id number] 01/29/2014 15:37:00 01/29/2014 23:59:59 CLS Outpatient [facility], ERIKA Tiny [id number] 01/15/2014 16:03:00 01/15/2014 23:59:59 CLS Outpatient [facility], ERIKA Tiny [id number] 12/21/2013 07:55:00 12/21/2013 23:59:59 C[facility] Outpatient [facility], ERIKA Tiny [id number] 11/29/2013 15:51:00 11/29/2013 23:59:59 C[facility] Outpatient [facility], ERIKA Tiny [id number] 11/09/2013 15:42:00 11/09/2013 23:59:59 CLS Outpatient [facility], ERIKA Tiny [id number] 09/25/2013 16:00:00 09/25/2013 23:59:59 CLS Outpatient [facility], ERIKA Tiny [id number] 09/04/2013 17:56:00 09/04/2013 23:59:59 CLS Outpatient [facility], ERIKA Tiny [id number] 08/21/2013 13:47:00 08/21/2013 23:59:59 CLS Outpatient [facility], ERIKA Tiny [id number] 08/07/2013 15:54:00 08/07/2013 23:59:59 C[facility] Outpatient [facility], ERIKA Tiny [id number] 07/25/2013 09:26:00 07/25/2013 23:59:59 C[facility] Outpatient [facility], ERIKA Tiny [id number] 07/05/2013 10:51:00 07/05/2013 23:59:59 CLS Outpatient [facility], ERIKA R [id number] 12/19/2012 09:56:00 12/19/2012 23:59:59 CLS Outpatient [facility], ERIKA Tiny [id number] 12/06/2012 07:58:00 12/06/2012 23:59:59 CLS Outpatient [id number] 11/09/2012 10:53:00 11/09/2012 23:59:59 CLS Outpatient [id number] 07/27/2012 10:00:00 07/27/2012 23:59:59 [facility] Outpatient [facility], ERIKA Franks [id number] 06/21/2013 07:58:00 Document Registration [id number] 06/05/2013 16:51:00 Document Registration [id number] 04/10/2013 09:57:00 Document Registration [id number] 03/29/2013 07:58:00 Document Registration [id number] 02/09/2013 09:49:00 Document Registration
[2019-05-01 13:32] LABS: ALANINE AMINOTRANSFERASE 72 U/L (0-55); ALBUMIN 4.4 GM/DL (3.2-4.5); ALKALINE PHOSPHATASE 88 U/L (40-136); BILIRUBIN,DIRECT 0.1 MG/DL (0.0-0.3); BILIRUBIN,INDIRECT 0.2 MG/DL; BILIRUBIN,TOTAL 0.3 MG/DL (0.1-1.0); BUN/CREATININE RATIO 11; CALCIUM 9.7 MG/DL (8.5-10.1); CARBON DIOXIDE 22 MMOL/L (21-32); CHLORIDE 109 MMOL/L (98-107); CREATININE SERUM 0.88 MG/DL (0.60-1.30); GFR ESTIMATED > 60; GLUCOSE 148 MG/DL (70-105); POTASSIUM 3.3 MMOL/L (3.6-5.0); SODIUM 140 MMOL/L (135-145)
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
[2019-05-01 15:25] LABS: BILIRUBIN,URINE NEGATIVE (NEGATIVE); CLARITY,URINE CLEAR; COLOR,URINE YELLOW; GLUCOSE, URINE (UA) NEGATIVE (NEGATIVE); KETONES,URINE NEGATIVE (NEGATIVE); LEUKOCYTE ESTERASE ,URINE 1+ (NEGATIVE); NITRITE,URINE NEGATIVE (NEGATIVE); PH,URINE 6.5 (5-9); PROTEIN,URINE NEGATIVE (NEGATIVE); UROBILINOGEN,URINE NORMAL (NORMAL)
[2019-05-01 15:37] LABS: BACTERIA,URINE NEGATIVE /HPF; SQUAMOUS EPITHELIAL CELL,UR RARE /HPF; WBC,URINE RARE /HPF
[2019-05-01] MEDS ORDERED: CYCL10TA9 PO (16:11)
[2019-05-01 16:12] VITALS: BP 132/77
== END 2019-05-01 16:12 | disposition home or self-care (01) ==
LOC: EDUNIT# 12:43 → ER 12:44
DX: M62.830 Muscle spasm of back (principal); J45.909 Unspecified asthma, uncomplicated; M54.5 Low back pain; G89.29 Other chronic pain; I10 Essential (primary) hypertension; E78.00 Pure hypercholesterolemia, unspecified; F31.9 Bipolar disorder, unspecified; R40.2142 Coma scale, eyes open, spontaneous, at arrival to emergency department; R40.2252 Coma scale, best verbal response, oriented, at arrival to emergency department; R40.2362 Coma scale, best motor response, obeys commands, at arrival to emergency department; Z88.1 Allergy status to other antibiotic agents; Z90.710 Acquired absence of both cervix and uterus; V49.40XA Driver injured in collision with unspecified motor vehicles in traffic accident, initial encounter; Y92.488 Other paved roadways as the place of occurrence of the external cause
CPT/HCPCS: 36415; 70450; 71045; 72125; 72128; 72131; 80048; 80076; 80320; 81000; 84703; 85027; 96374

== ENCOUNTER → 2019-08-02 | Outpatient (CLI) | payer MEDICARE, OTHER ==
[~2019-08-02] MED LIST changes: +CYCL10TA9 PO
--- NOTE | 2019-08-02 17:32 | Diagnostic Imaging Report ---
INDICATION: Right breast pain. Correlation is made with prior mammograms from 08/16/2018 and 07/28/2017. 2-D and 3-D bilateral diagnostic mammography was performed. The current study was also evaluated with a Computer Aided Detection (CAD) system. 3-D tomosynthesis was also performed and reviewed. FINDINGS: Scattered fibroglandular densities are identified bilaterally. The overall parenchymal pattern is stable. A BB marker was placed at the area of pain in the upper-outer right breast. No underlying abnormality is seen. No mass or malignant-appearing microcalcifications are seen. Axillae are unremarkable. IMPRESSION: No mammographic features suspicious for malignancy are identified. Even so, directed sonographic interrogation of the area of pain in the right breast is recommended and will be performed today. ACR BI-RADS Category 0: Incomplete. (Needs additional imaging evaluation). Result letter will be mailed to the patient. Note: At least 10% of breast cancer is not imaged by mammography. Dictated by: Dictated on workstation # [id number]
--- NOTE | 2019-08-02 17:33 | Diagnostic Imaging Report ---
INDICATION: Right breast pain. Correlation is made with diagnostic mammogram earlier the same day. FINDINGS: Sonographic interrogation of the area of pain in the right breast was performed. This corresponds to approximately 11 o'clock location. No sonographic abnormality is detected. No solid or cystic mass is detected. IMPRESSION: No sonographic abnormality is detected. ACR BI-RADS Category 1: Negative. Dictated by: Dictated on workstation # [id number]
== END ==
LOC: RAD 13:31
PROVIDERS: ATTEND Nurse Practitioner Family
DX: N64.4 Mastodynia (principal)
CPT/HCPCS: 77066

== ENCOUNTER → 2020-01-15 | Outpatient (CLI) | payer MEDICARE, OTHER ==
[~2020-01-15] MED LIST changes: -MONT10TA24 PO; +MONT10TA26 PO; +OMEP40CA27 PO; -OMEP40CA36 PO
--- NOTE | 2020-01-15 10:12 | Diagnostic Imaging Report ---
CLINICAL INDICATION: Patient with swelling anterior right side of neck. Patient has neck pain and stiffness when head turned to the right side. EXAM: Axial CT scan of the neck soft tissue performed without IV contrast with coronal and sagittal reformatted images. COMPARISON: CT scan of the cervical spine without contrast dated 05/01/2019. FINDINGS: There is no neck soft tissue mass, fluid collection or inflammatory changes seen. There is no lymphadenopathy. The bilateral salivary glands are unremarkable. The thyroid gland is small in size and is stable compared to prior cervical spine CT scan. There is stable mild prominence of the bilateral palatine tonsillar structures which may be reactive. Tonsilliths are noted bilaterally. Visualized upper lung [place]ak are clear. Limited visualization intracranial structures, orbits and globes are unremarkable. Mastoid air cells are clear. There is minimal mucosal thickening on the floor of both maxillary sinuses. There are vertebral body spurs involving the cervical spine with suggestion of diffuse disk bulges at C3-C4, C4-C5, C5-C6, and C6-C7 levels. There is at least mild central canal narrowing at the C5-C6 level. There is [id number] bilateral neural foramina narrowing at the C5-C6 level due to uncinate spurs. There is straightening of the cervical spine posture. IMPRESSION: 1: There is no neck soft tissue mass, lymphadenopathy or inflammatory process seen. 2: Cervical spine degenerative disease, as described above. 3: Stable small thyroid gland. Dictated by: Dictated on workstation # [id number]
== END ==
LOC: RAD 09:25
DX: R22.1 Localized swelling, mass and lump, neck (principal); M50.323 Other cervical disc degeneration at C6-C7 level
CPT/HCPCS: 70490

== ENCOUNTER → 2021-01-30 | Outpatient (CLI) | payer MEDICARE, OTHER ==
[~2021-01-30] MED LIST changes: -MONT10TA26 PO; +MONT10TA32 PO
--- NOTE | 2021-01-30 13:19 | Diagnostic Imaging Report ---
INDICATION: Routine screening. COMPARISON is made with prior mammograms 08/02/2019 and 08/16/2018. 2-D and 3-D bilateral screening mammography was performed CAD. Scattered fibroglandular densities are identified bilaterally. No mass or malignant appearing microcalcifications are seen. Axillae are unremarkable. IMPRESSION: BI-RADS Category 1 No mammographic features suspicious for malignancy are identified. ACR BI-RADS Category 1: Negative. Result letter will be mailed to the patient. Note: At least 10% of breast cancer is not imaged by mammography. Dictated by: Dictated on workstation # [id number]
== END ==
LOC: RAD 10:50
DX: Z12.31 Encounter for screening mammogram for malignant neoplasm of breast (principal)
CPT/HCPCS: 77063; 77067